=== PATIENT | female | born 1970 | race Caucasian/White ===

== ENCOUNTER → 2016-09-02 | Outpatient (CLI) | payer MEDICAID | LOC: OD 10:53 | PROVIDERS: ATTEND Physician Assistant | DX: R05 Cough (principal) | CPT/HCPCS: 71020 ==

== ENCOUNTER 2016-09-03 11:07 | Emergency (ER) | payer MEDICAID ==
--- NOTE | 2016-09-03 11:45 | ER Document Report ---
ED Medical Screen (RME) - General Stated Complaint: NAUSEA Notes: 46 yo female c/o ankylosing spondylosis flair. c/o joint pain, trouble breathing, cough, n/v, headache x 3-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 Recommended to go to [facility], but patient feels too weak to make the trip. Pt is late on Remicade dose. TRAVEL OUTSIDE OF THE [place] IN LAST 30 DAYS: No - Related Data Allergies/Adverse Reactions: celecoxib [From Celebrex] Allergy (Severe, Verified 08/17/15 18:07) Swelling of hands and/or feet clarithromycin [From Biaxin] Allergy (Severe, Verified 08/17/15 18:07) Swelling of hands and/or feet latex [Latex] Allergy (Severe, Verified 08/17/15 18:07) Anaphylaxis nitrofurantoin [From Macrobid] Allergy (Severe, Verified 08/17/15 18:07) Hives Sulfa (Sulfonamide Antibiotics) Allergy (Severe, Verified 08/17/15 18:07) Hives acetazolamide [From Diamox] Allergy (Verified 08/17/15 18:07) cephalexin monohydrate [From Keflex] Allergy (Verified 08/17/15 18:07) losartan [Losartan] Allergy (Verified 08/17/15 18:07) metformin [Metformin] Allergy (Verified 08/17/15 18:07) promethazine HCl [From Phenergan] Allergy (Verified 08/17/15 18:07) Cerebellar dysfunction rofecoxib [From Vioxx] Allergy (Verified 08/17/15 18:07) Swelling of hands and/or feet prochlorperazine maleate [From Compazine] Adverse Reaction (Verified 08/17/15 18 :07) Cerebellar dysfunction bananas Allergy (Severe, Uncoded 08/17/15 18:07) Difficulty breathing Past Medical History - Social History Family history: CAD, CVA, DM, Hyperlipidemia, Hypertension, Malignancy, Thyroid Disfunction - Past Medical History Cardiac Medical History: Reports: Hx Atrial Fibrillation, Hx Hypertension, Hx Heart Murmur Denies: Hx Coronary Artery Disease Pulmonary Medical History: Reports: Hx Asthma, Hx Pneumonia Neurological Medical History: Reports: Hx Migraine Endocrine Medical History: Reports: Hx Diabetes Mellitus Type 2, Hx Hypothyroidism Renal/ Medical History: Reports: Hx Ovarian Cysts - 6 Polyps, Hx Pelvic Inflammatory Disease GI Medical History: Reports: Hx Crohn's Disease, Hx Gastroesophageal Reflux Disease, Hx Hiatal Hernia, Hx Irritable Bowel, Hx Ulcer Musculoskeltal Medical History: Reports Hx Arthritis Psychiatric Medical History: Reports: Hx Depression, Hx Post Traumatic Stress Disorder Traumatic Medical History: Reports: Hx Fractures - feet Infectious Medical History: Reports: Hx C-Diff Past Surgical History: Reports: Hx Appendectomy, Hx Section, Hx Cholecystectomy, Hx Gynecologic Surgery - bladder sling, Hx Hysterectomy - Immunizations Immunizations up to date: Yes Hx Diphtheria, Pertussis, Tetanus Vaccination: Yes
[2016-09-03 12:21] LABS: ABSOLUTE BASOPHILS # (AUTO) 0.1 10^3/uL (0.0-0.2); ABSOLUTE EOSINOPHILS # (AUTO) 0.2 10^3/uL (0.0-0.6); ABSOLUTE LYMPHOCYTES (AUTO) 2.2 10^3/uL (0.5-4.7); ABSOLUTE MONOCYTES (AUTO) 0.5 10^3/uL (0.1-1.4); ABSOLUTE NEUT (AUTO) 3.7 10^3/uL (1.7-8.2); BASOPHILS % (AUTO) 1.5 % (0-2); EOSINOPHILS % (AUTO) 2.9 % (0-6); HEMATOCRIT 41.2 % (36.0-47.0); HEMOGLOBIN 14.4 g/dL (12.0-15.5); LYMPHOCYTES % (AUTO) 32.9 % (13-45); MEAN CORPUSCULAR HEMOGLOBIN 31.5 pg (27.0-33.4); MEAN CORPUSCULAR HGB CONC 34.9 g/dL (32.0-36.0); MEAN CORPUSCULAR VOLUME 90 fl (80-97); MONOCYTES % (AUTO) 6.7 % (3-13); RED BLOOD COUNT 4.56 10^6/uL (3.72-5.28); WHITE BLOOD COUNT 6.7 10^3/uL (4.0-10.5)
[2016-09-03 12:32] LABS: APPEARANCE,URINE TURBID; BILIRUBIN,URINE NEGATIVE (NEGATIVE); GLUCOSE, URINE NEGATIVE (NEGATIVE); KETONES,URINE TRACE mg/dL (NEGATIVE); LEUKOCYTE ESTERASE,URINE MODERATE (NEGATIVE); NITRITE,URINE NEGATIVE (NEGATIVE); PROTEIN,URINE 30 mg/dL (NEGATIVE); URINE SPECIFIC GRAVITY 1.029; UROBILINOGEN,URINE NEGATIVE mg/dL (<2.0)
[2016-09-03 12:42] LABS: ALANINE AMINOTRANSFERASE 42 U/L (9-52); ALBUMIN 4.1 g/dL (3.5-5.0); ALKALINE PHOSPHATASE 103 U/L (38-126); ANION GAP 12 (5-19); ASPARTATE AMINO TRANSFERASE 37 U/L (14-36); BILIRUBIN,TOTAL 0.7 mg/dL (0.2-1.3); BLOOD UREA NITROGEN 10 mg/dL (7-20); CALCIUM 9.7 mg/dL (8.4-10.2); CARBON DIOXIDE 24 mmol/L (22-30); CHLORIDE 103 mmol/L (98-107); CREATININE RESULT 0.65 mg/dL (0.52-1.25); GLUCOSE 141 mg/dL (75-110); POTASSIUM 4.2 mmol/L (3.6-5.0); SODIUM 139.3 mmol/L (137-145); TOTAL PROTEIN 7.3 g/dL (6.3-8.2)
[2016-09-03] MEDS ORDERED: IPRATROPIUM/ALBUTEROL 0.5-2.5 MG/3 ML AMPUL NEB ONE (14:27)
--- NOTE | 2016-09-03 14:28 | ER Document Report ---
ED General - General Chief Complaint: Other Stated Complaint: NAUSEA Notes: She is a 38-year-old with a known history of a closing spondylitis presents emergency department with a multitude of symptoms. She admits to dry cough that become productive over the past week as well as nausea vomiting diarrhea over the past 4 days she also admits to diffuse joint pain with any type of movement she says is consistent with an flareup of ankylosing spondylitis. She states that she has been told in the past to go to [facility] emergency department she feels that she has not well enough to drive and does not have family able to drive her there so she came here. She sees Dr. 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 Social Past medical history significant for closing spondylitis, diabetes, hypertension , hypothyroidism, asthma, migraines, GERD, diverticulosis, IBS with diarrhea and neurogenic bladder Past surgical history significant for appendectomy, cholecystectomy, hysterectomy and bladder sling Social history denies any tobacco, alcohol, drug use. Allergies to Phenergan with tardive dyskinesia- TRAVEL OUTSIDE OF THE [place] IN LAST 30 DAYS: No - Related Data Allergies/Adverse Reactions: celecoxib [From Celebrex] Allergy (Severe, Verified 09/03/16 11:43) Swelling of hands and/or feet clarithromycin [From Biaxin] Allergy (Severe, Verified 09/03/16 11:43) Swelling of hands and/or feet latex [Latex] Allergy (Severe, Verified 09/03/16 11:43) Anaphylaxis nitrofurantoin [From Macrobid] Allergy (Severe, Verified 09/03/16 11:43) Hives Sulfa (Sulfonamide Antibiotics) Allergy (Severe, Verified 09/03/16 11:43) Hives acetazolamide [From Diamox] Allergy (Verified 09/03/16 11:43) cephalexin monohydrate [From Keflex] Allergy (Verified 09/03/16 11:43) losartan [Losartan] Allergy (Verified 09/03/16 11:43) metformin [Metformin] Allergy (Verified 09/03/16 11:43) promethazine HCl [From Phenergan] Allergy (Verified 09/03/16 11:43) Cerebellar dysfunction rofecoxib [From Vioxx] Allergy (Verified 09/03/16 11:43) Swelling of hands and/or feet prochlorperazine maleate [From Compazine] Adverse Reaction (Verified 09/03/16 11 :43) Cerebellar dysfunction bananas Allergy (Severe, Uncoded 09/03/16 11:43) Difficulty breathing Past Medical History - Social History Smoking Status: Never Smoker Chew tobacco use (# tins/day): No Frequency of alcohol use: None Drug Abuse: None Family History: Reviewed & Not Pertinent, CAD, CVA, DM, Hyperlipidemia, Hypertension, Malignancy, Thyroid Disfunction Patient has suicidal ideation: No Patient has homicidal ideation: No - Past Medical History Cardiac Medical History: Reports: Hx Atrial Fibrillation, Hx Hypertension, Hx Heart Murmur Denies: Hx Coronary Artery Disease Pulmonary Medical History: Reports: Hx Asthma, Hx Pneumonia Neurological Medical History: Reports: Hx Migraine Endocrine Medical History: Reports: Hx Diabetes Mellitus Type 2, Hx Hypothyroidism Renal/ Medical History: Reports: Hx Ovarian Cysts - 6 Polyps, Hx Pelvic Inflammatory Disease. Denies: Hx Peritoneal Dialysis GI Medical History: Reports: Hx Crohn's Disease, Hx Gastroesophageal Reflux Disease, Hx Hiatal Hernia, Hx Irritable Bowel, Hx Ulcer Musculoskeltal Medical History: Reports Hx Arthritis Psychiatric Medical History: Reports: Hx Depression, Hx Post Traumatic Stress Disorder Traumatic Medical History: Reports: Hx Fractures - feet Infectious Medical History: Reports: Hx C-Diff Past Surgical History: Reports: Hx Appendectomy, Hx Section, Hx Cholecystectomy, Hx Gynecologic Surgery - bladder sling, Hx Hysterectomy - Immunizations Immunizations up to date: Yes Hx Diphtheria, Pertussis, Tetanus Vaccination: Yes Hx Pneumococcal Vaccination: 04/12/15 Course - Re-evaluation Re-evalutation: 09/03/16 18:04 Patient is a 38-year-old female presents emergency Department with multiple symptoms. She admits to nausea and diarrhea as well as overall joint pain worse in her hands and feet and shoulders that she says is consistent with her ankylosing spondylitis. Physical exam does reveal bilateral wheezing which was relieved with a breathing treatment. Urinalysis does reveal mild UTI which is consistent with patient's complaint of pyuria. Discussed case with patient's blast furnace supervisor Dr. Bonilla to follow-up with her on Thursday clinic. Otherwise patient is hemodynamically stable, no acute distress with stable for discharge - Laboratory Result Diagrams: 09/03/16 11:45 09/03/16 11:45 Laboratory results interpreted by me: 09/03/16 09/03/16 09/03/16 11:45 11:45 11:45 Glucose 141 H AST 37 H C-Reactive Protein 14.7 H Urine Protein 30 H Urine Ketones TRACE H Ur Leukocyte Esterase MODERATE H - Diagnostic Test Radiology reviewed: Reports reviewed Discharge - Discharge Clinical Impression: Nausea, Bronchitis UTI (urinary tract infection) Qualifiers: Urinary tract infection type: site unspecified Hematuria presence: without hematuria Qualified Code(s): N39.0 - Urinary tract infection, site not specified Condition: Good Disposition: HOME, SELF-CARE Instructions: Cephalexin ([facility]), Urinary Tract Infection ([facility]), Bronchitis With Bronchospasm (Wheezing) ([facility]), Bronchodilators ([facility]), Ultram ([facility]) Additional Instructions: Please follow up with your blast furnace supervisor Dr Bonilla on Thursday Prescriptions: Albuterol Sulfate [Proair HFA Inhalation Aerosol 8.5 gm MDI] 2 puff IH Q4H PRN # 1 mdi PRN Reason: Ciprofloxacin HCl [Cipro 500 mg Tablet] 500 mg PO BID 7 Days Referrals: PAWAN ARREOLA MD [Primary Care Provider] - Follow up as needed
[2016-09-03] MEDS ORDERED: ONDANSETRON 4 MG TAB.RAPDIS PO ONE (16:16)
[2016-09-03] MEDS ORDERED: TRAMADOL HCL 50 MG TABLET PO ONE (16:39)
[2016-09-03 18:32] VITALS: BP 150/106
== END 2016-09-03 18:28 | disposition home or self-care (01) ==
LOC: ER 11:07
DX: J40 Bronchitis, not specified as acute or chronic (principal); N39.0 Urinary tract infection, site not specified; R11.0 Nausea; I48.91 Unspecified atrial fibrillation; I10 Essential (primary) hypertension; E11.9 Type 2 diabetes mellitus without complications; E03.9 Hypothyroidism, unspecified; Z88.3 Allergy status to other anti-infective agents; Z90.49 Acquired absence of other specified parts of digestive tract; Z90.710 Acquired absence of both cervix and uterus; Z88.2 Allergy status to sulfonamides; Z91.040 Latex allergy status
CPT/HCPCS: 94640; 99283; 36415; 83690; 85025; 86140; 80053; 81001; 71020; S0119; J7620

== ENCOUNTER 2016-10-06 19:37 | Emergency (ER) | payer MEDICAID ==
[2016-10-06 19:58] VITALS: BP 121/65
--- NOTE | 2016-10-06 19:58 | ER Document Report ---
ED Medical Screen (RME) - General Stated Complaint: FEVER,BREATHING DIFFICULTY Mode of Arrival: Wheelchair Notes: She presents to the emergency department for immunosuppressive therapy for Ankylosing spondylitis on September 05. Patient reports cough, lightheaded, staggering, sore throat, vomiting, diarrhea at times and fever up to 104. Reports fever coming and going. History of SIRS, Sepsis, asthma. Reports last dose of Tylenol around 2:00 today. I have greeted and performed a rapid initial assessment of this patient. A comprehensive ED assessment and evaluation of the patient, analysis of test results and completion of the medical decision making process will be conducted by additional ED providers. TRAVEL OUTSIDE OF THE [place] IN LAST 30 DAYS: No - Related Data Allergies/Adverse Reactions: celecoxib [From Celebrex] Allergy (Severe, Verified 09/03/16 11:43) Swelling of hands and/or feet clarithromycin [From Biaxin] Allergy (Severe, Verified 09/03/16 11:43) Swelling of hands and/or feet latex [Latex] Allergy (Severe, Verified 09/03/16 11:43) Anaphylaxis nitrofurantoin [From Macrobid] Allergy (Severe, Verified 09/03/16 11:43) Hives Sulfa (Sulfonamide Antibiotics) Allergy (Severe, Verified 09/03/16 11:43) Hives acetazolamide [From Diamox] Allergy (Verified 09/03/16 11:43) cephalexin monohydrate [From Keflex] Allergy (Verified 09/03/16 11:43) losartan [Losartan] Allergy (Verified 09/03/16 11:43) metformin [Metformin] Allergy (Verified 09/03/16 11:43) promethazine HCl [From Phenergan] Allergy (Verified 09/03/16 11:43) Cerebellar dysfunction rofecoxib [From Vioxx] Allergy (Verified 09/03/16 11:43) Swelling of hands and/or feet prochlorperazine maleate [From Compazine] Adverse Reaction (Verified 09/03/16 11 :43) Cerebellar dysfunction bananas Allergy (Severe, Uncoded 09/03/16 11:43) Difficulty breathing Past Medical History - Social History Family history: CAD, CVA, DM, Hyperlipidemia, Hypertension, Malignancy, Thyroid Disfunction - Past Medical History Cardiac Medical History: Reports: Hx Atrial Fibrillation, Hx Hypertension, Hx Heart Murmur Denies: Hx Coronary Artery Disease Pulmonary Medical History: Reports: Hx Asthma, Hx Pneumonia Neurological Medical History: Reports: Hx Migraine Endocrine Medical History: Reports: Hx Diabetes Mellitus Type 2, Hx Hypothyroidism Renal/ Medical History: Reports: Hx Ovarian Cysts - 6 Polyps, Hx Pelvic Inflammatory Disease. Denies: Hx Peritoneal Dialysis GI Medical History: Reports: Hx Crohn's Disease, Hx Gastroesophageal Reflux Disease, Hx Hiatal Hernia, Hx Irritable Bowel, Hx Ulcer Musculoskeltal Medical History: Reports Hx Arthritis Psychiatric Medical History: Reports: Hx Depression, Hx Post Traumatic Stress Disorder Traumatic Medical History: Reports: Hx Fractures - feet Infectious Medical History: Reports: Hx C-Diff Past Surgical History: Reports: Hx Appendectomy, Hx Section, Hx Cholecystectomy, Hx Gynecologic Surgery - bladder sling, Hx Hysterectomy - Immunizations Immunizations up to date: Yes Hx Diphtheria, Pertussis, Tetanus Vaccination: Yes Physical Exam - Vital signs Vitals: Temp Pulse Resp BP Pulse Ox 99.7 F 92 16 121/65 93 10/06/16 19:56 10/06/16 19:56 10/06/16 19:56 10/06/16 19:56 10/06/16 19:56 Course - Vital Signs Vital signs: Temp Pulse Resp BP Pulse Ox 99.7 F 92 16 121/65 93 10/06/16 19:56 10/06/16 19:56 10/06/16 19:56 10/06/16 19:56 10/06/16 19:56
== END 2016-10-07 05:56 | disposition left against medical advice (07) ==
LOC: ER 19:37 → EEVIPCON 19:37 → ER 10-07 05:56
DX: R50.9 Fever, unspecified (principal); R05 Cough; R42 Dizziness and giddiness; J02.9 Acute pharyngitis, unspecified; R11.10 Vomiting, unspecified; R19.7 Diarrhea, unspecified; R26.0 Ataxic gait; E11.9 Type 2 diabetes mellitus without complications; J45.909 Unspecified asthma, uncomplicated; I10 Essential (primary) hypertension; Z86.19 Personal history of other infectious and parasitic diseases; Z88.1 Allergy status to other antibiotic agents; Z88.2 Allergy status to sulfonamides; Z91.040 Latex allergy status; Z88.8 Allergy status to other drugs, medicaments and biological substances; Z91.018 Allergy to other foods; Z87.01 Personal history of pneumonia (recurrent); Z53.20 Procedure and treatment not carried out because of patient's decision for unspecified reasons
CPT/HCPCS: 71020; 99281

== ENCOUNTER 2016-10-07 02:58 | Emergency (ER) | payer MEDICAID ==
[2016-10-07] MEDS ORDERED: IPRATROPIUM/ALBUTEROL 0.5-2.5 MG/3 ML AMPUL NEB ONE ×2 (07:38)
--- NOTE | 2016-10-07 07:48 | ER Document Report ---
ED General - General Chief Complaint: Cold Symptoms Stated Complaint: DIFFICULTY BREATHING Mode of Arrival: Ambulatory Information source: Patient Notes: 38-year-old female history of ankylosing spondylosis who was receiving injections last week presents with complaints of cough shortness of breath since then. Patient denies any nausea vomiting admits to fevers admits to productive cold and yellow rustic green sputum TRAVEL OUTSIDE OF THE [place] IN LAST 30 DAYS: No - HPI Onset: Last week Onset/Duration: Persistent Quality of pain: Achy Severity: Mild Pain Level: 1 Associated symptoms: Productive cough, Fever Exacerbated by: Denies Relieved by: Denies Similar symptoms previously: Yes Recently seen / treated by doctor: Yes - Related Data Allergies/Adverse Reactions: celecoxib [From Celebrex] Allergy (Severe, Verified 10/07/16 03:18) Swelling of hands and/or feet clarithromycin [From Biaxin] Allergy (Severe, Verified 10/07/16 03:18) Swelling of hands and/or feet latex [Latex] Allergy (Severe, Verified 10/07/16 03:18) Anaphylaxis nitrofurantoin [From Macrobid] Allergy (Severe, Verified 10/07/16 03:18) Hives Sulfa (Sulfonamide Antibiotics) Allergy (Severe, Verified 10/07/16 03:18) Hives acetazolamide [From Diamox] Allergy (Verified 10/07/16 03:18) losartan [Losartan] Allergy (Verified 10/07/16 03:18) metformin [Metformin] Allergy (Verified 10/07/16 03:18) promethazine HCl [From Phenergan] Allergy (Verified 10/07/16 03:18) Cerebellar dysfunction rofecoxib [From Vioxx] Allergy (Verified 10/07/16 03:18) Swelling of hands and/or feet prochlorperazine maleate [From Compazine] Adverse Reaction (Verified 10/07/16 03 :18) Cerebellar dysfunction bananas Allergy (Severe, Uncoded 09/03/16 11:43) Difficulty breathing Past Medical History - Social History Smoking Status: Never Smoker Chew tobacco use (# tins/day): No Frequency of alcohol use: None Drug Abuse: None Family History: Reviewed & Not Pertinent, CAD, CVA, DM, Hyperlipidemia, Hypertension, Malignancy, Thyroid Disfunction - Past Medical History Cardiac Medical History: Reports: Hx Atrial Fibrillation, Hx Hypertension, Hx Heart Murmur Denies: Hx Coronary Artery Disease Pulmonary Medical History: Reports: Hx Asthma, Hx Pneumonia Neurological Medical History: Reports: Hx Migraine Endocrine Medical History: Reports: Hx Diabetes Mellitus Type 2, Hx Hypothyroidism Renal/ Medical History: Reports: Hx Ovarian Cysts - 6 Polyps, Hx Pelvic Inflammatory Disease. Denies: Hx Peritoneal Dialysis GI Medical History: Reports: Hx Crohn's Disease, Hx Gastroesophageal Reflux Disease, Hx Hiatal Hernia, Hx Irritable Bowel, Hx Ulcer Musculoskeltal Medical History: Reports Hx Arthritis Psychiatric Medical History: Reports: Hx Depression, Hx Post Traumatic Stress Disorder Traumatic Medical History: Reports: Hx Fractures - feet Infectious Medical History: Reports: Hx C-Diff Past Surgical History: Reports: Hx Appendectomy, Hx Section, Hx Cholecystectomy, Hx Gynecologic Surgery - bladder sling, Hx Hysterectomy - Immunizations Immunizations up to date: Yes Hx Diphtheria, Pertussis, Tetanus Vaccination: Yes Hx Pneumococcal Vaccination: 04/12/15 Review of Systems - Review of Systems Notes: REVIEW OF SYSTEMS: CONSTITUTIONAL : Admits fever EENT: Denies eye, ear, throat, or mouth pain or symptoms. Denies nasal or sinus congestion or discharge. Denies throat, tongue, or mouth swelling or difficulty swallowing. CARDIOVASCULAR: Denies chest pain. Denies palpitations or racing or irregular heart beat. Denies ankle edema. RESPIRATORY: Admits shortness breath productive cough GASTROINTESTINAL: Denies abdominal pain or distention. Denies nausea, vomiting , or diarrhea. Denies blood in vomitus, stools, or per rectum. Denies black, tarry stools. Denies constipation. GENITOURINARY: Denies difficulty urinating, painful urination, burning, frequency, blood in urine, or discharge. FEMALE GENITOURINARY: Denies vaginal bleeding, heavy or abnormal periods, irregular periods. Denies vaginal discharge or odor. MUSCULOSKELETAL: Denies back or neck pain or stiffness. Denies joint pain or swelling. SKIN: Denies rash, lesions or sores. HEMATOLOGIC : Denies easy bruising or bleeding. LYMPHATIC: Denies swollen, enlarged glands. NEUROLOGICAL: Denies confusion or altered mental status. Denies passing out or loss of consciousness. Denies dizziness or lightheadedness. Denies headache. Denies weakness or paralysis or loss of use of either side. Denies problems with gait or speech. Denies sensory loss, numbness, or tingling. Denies seizures. PSYCHIATRIC: Denies anxiety or stress. Denies depression, suicidal ideation, or homicidal ideation. ALL OTHER SYSTEMS REVIEWED AND NEGATIVE. Dictation was performed using [employer] voice recognition software PHYSICAL EXAMINATION: GENERAL: Well-appearing, well-nourished and in no acute distress. HEAD: Atraumatic, normocephalic. EYES: Pupils equal round and reactive to light, extraocular movements intact, conjunctiva are normal. ENT: Nares patent, oropharynx clear without exudates. Moist mucous membranes. NECK: Normal range of motion, supple without lymphadenopathy LUNGS: Breath sounds clear to auscultation bilaterally and equal. No wheezes rales or rhonchi. HEART: Regular rate and rhythm without murmurs , port access ABDOMEN: Soft, nontender, nondistended abdomen. No guarding, no rebound. No masses appreciated. Female : deferred Musculoskeletal: Normal range of motion, no pitting or edema. No cyanosis. NEUROLOGICAL: Cranial nerves grossly intact. Normal speech, normal gait. Normal sensory, motor exams PSYCH: Normal mood, normal affect. SKIN: Warm, Dry, normal turgor, no rashes or lesions noted. Physical Exam - Vital signs Vitals: Temp Pulse Resp BP Pulse Ox 100.2 F 115 H 24 H 120/74 96 10/07/16 03:13 10/07/16 03:13 10/07/16 03:13 10/07/16 03:13 10/07/16 03:13 Course - Re-evaluation Re-evalutation: 10/07/16 07:50 Patient has probable URI versus pneumonia, x-ray from last night was normal 10/07/16 11:01 X-ray noted no acute abnormality patient otherwise is stable for discharge I will start her on antibiotics given symptoms After performing a Medical Screening Examination, I estimate there is LOW risk for ACUTE CORONARY SYNDROME, RESPIRATORY FAILURE, SEPSIS OR MENINGITIS, thus I consider the discharge disposition reasonable. The patient and I have discussed the diagnosis and risks, and we agree with discharging home with close follow- up. We also discussed returning to the Emergency Department immediately if new or worsening symptoms occur. We have discussed the symptoms which are most concerning (e.g., changing or worsening pain, trouble swallowing or breathing, neck stiffness, fever) that necessitate immediate return. - Vital Signs Vital signs: Temp Pulse Resp BP Pulse Ox 98.7 F 101 H 16 148/94 H 98 10/07/16 07:31 10/07/16 07:31 10/07/16 07:36 10/07/16 07:31 10/07/16 07:31 - Laboratory Result Diagrams: 10/07/16 08:00 10/07/16 08:00 Laboratory results interpreted by me: 10/07/16 10/07/16 08:00 08:00 WBC 16.1 H Hgb 11.8 L Hct 35.7 L Absolute Neutrophils 11.7 H Glucose 217 H - Diagnostic Test Radiology reviewed: Image reviewed, Reports reviewed Discharge - Discharge Clinical Impression: Wheezing Pneumonia Qualifiers: Pneumonia type: due to unspecified organism Laterality: bilateral Lung location : unspecified part of lung Qualified Code(s): J18.9 - Pneumonia, unspecified organism Condition: Stable Disposition: HOME, SELF-CARE Instructions: Pneumonia ([facility]) Prescriptions: Levofloxacin [Levaquin 750 mg Tablet] 750 mg PO DAILY #5 tablet Prednisone [Deltasone 20 mg Tablet] 3 tab PO DAILY 5 Days Referrals: PAWAN ARREOLA MD [Primary Care Provider] - Follow up tomorrow
[2016-10-07 08:15] LABS: ABSOLUTE BASOPHILS # (AUTO) 0.1 10^3/uL (0.0-0.2); ABSOLUTE EOSINOPHILS # (AUTO) 0.2 10^3/uL (0.0-0.6); ABSOLUTE LYMPHOCYTES (AUTO) 2.9 10^3/uL (0.5-4.7); ABSOLUTE MONOCYTES (AUTO) 1.1 10^3/uL (0.1-1.4); ABSOLUTE NEUT (AUTO) 11.7 10^3/uL (1.7-8.2); BASOPHILS % (AUTO) 0.8 % (0-2); EOSINOPHILS % (AUTO) 1.1 % (0-6); HEMATOCRIT 35.7 % (36.0-47.0); HEMOGLOBIN 11.8 g/dL (12.0-15.5); HGB HCT DIFFERENCE -0.3; LYMPHOCYTES % (AUTO) 18.3 % (13-45); MEAN CORPUSCULAR HEMOGLOBIN 30.3 pg (27.0-33.4); MEAN CORPUSCULAR HGB CONC 33.1 g/dL (32.0-36.0); MEAN CORPUSCULAR VOLUME 92 fl (80-97); MONOCYTES % (AUTO) 6.7 % (3-13); RED CELL DISTRIBUTION WIDTH 13.7 % (11.5-14.0); SEGMENTED NEUTROPHILS % (AUTO) 73.1 % (42-78); WHITE BLOOD COUNT 16.1 10^3/uL (4.0-10.5)
[2016-10-07 08:31] LABS: ALANINE AMINOTRANSFERASE 40 U/L (9-52); ALBUMIN 3.7 g/dL (3.5-5.0); ALKALINE PHOSPHATASE 98 U/L (38-126); ANION GAP 12 (5-19); ASPARTATE AMINO TRANSFERASE 28 U/L (14-36); BILIRUBIN,DIRECT 0.2 mg/dL (0.0-0.4); BILIRUBIN,TOTAL 0.5 mg/dL (0.2-1.3); BLOOD UREA NITROGEN 7 mg/dL (7-20); CALCIUM 9.3 mg/dL (8.4-10.2); CARBON DIOXIDE 27 mmol/L (22-30); CHLORIDE 98 mmol/L (98-107); CREATININE RESULT 0.61 mg/dL (0.52-1.25); GLUCOSE 217 mg/dL (75-110); POTASSIUM 3.6 mmol/L (3.6-5.0); SODIUM 137.3 mmol/L (137-145); TOTAL PROTEIN 6.9 g/dL (6.3-8.2)
[2016-10-07 11:31] VITALS: BP 124/76
== END 2016-10-07 11:31 | disposition home or self-care (01) ==
LOC: ER 02:58
DX: J18.9 Pneumonia, unspecified organism (principal); R06.2 Wheezing; R05 Cough
CPT/HCPCS: 36591; 94640 ×2; 99283; 36415; 87070; 87880; 85025; 80053; J7620

== ENCOUNTER 2016-11-14 11:05 | Emergency (ER) | payer MEDICAID ==
[2016-11-14] MEDS ORDERED: LIDOCAINE 5% (700 MG) TRANSDERMAL ADH..PATCH TP ONE (12:15)
--- NOTE | 2016-11-14 12:19 | ER Document Report ---
HPI - HPI Patient complains to provider of: arm injury Onset: Other - 2 days ago Onset/Duration: Persistent Quality of pain: Achy Pain Level: 3 Context: Patient states that she rolled out of her bed 2 days ago and fell landing on her right side. Patient states that she emilie her neck and her left shoulder although predominantly injured her right upper extremity. Patient complains of right shoulder pain, right forearm pain and right wrist pain. Patient is right- hand dominant. Patient does take pain medication for chronic pain although did not take any medication today. Associated Symptoms: Other - Right shoulder, elbow, wrist pain. denies: Chest pain, Nonproductive cough, Productive cough, Headache, Nausea, Vomiting Exacerbated by: Movement Relieved by: Denies Similar symptoms previously: No Recently seen / treated by doctor: No - ROS ROS below otherwise negative: Yes Systems Reviewed and Negative: Yes All other systems reviewed and negative - CONSTITUTIONAL Constitutional: DENIES: Fever - NEURO Neurology: DENIES: Headache, Weakness - CARDIOVASCULAR Cardiovascular: DENIES: Chest pain - RESPIRATORY Respiratory: DENIES: Trouble Breathing, Coughing - GASTROINTESTINAL Gastrointestinal: DENIES: Abdominal Pain, Nausea - REPRODUCTIVE Reproductive: DENIES: : - MUSCULOSKELETAL Musculoskeletal: REPORTS: Extremity pain - Right upper extremity, Neck Pain. DENIES: Back Pain - DERM Skin Color: Normal Skin Problems: None Past Medical History - General Information source: Patient - Social History Smoking Status: Never Smoker Frequency of alcohol use: None Drug Abuse: None Occupation: none Family History: Reviewed & Not Pertinent, CAD, CVA, DM, Hyperlipidemia, Hypertension, Malignancy, Thyroid Disfunction Patient has suicidal ideation: No Patient has homicidal ideation: No - Past Medical History Cardiac Medical History: Reports: Hx Atrial Fibrillation, Hx Hypertension, Hx Heart Murmur Denies: Hx Coronary Artery Disease Pulmonary Medical History: Reports: Hx Asthma, Hx Pneumonia Neurological Medical History: Reports: Hx Migraine Endocrine Medical History: Reports: Hx Diabetes Mellitus Type 2, Hx Hypothyroidism Renal/ Medical History: Reports: Hx Ovarian Cysts - 6 Polyps, Hx Pelvic Inflammatory Disease. Denies: Hx Peritoneal Dialysis GI Medical History: Reports: Hx Crohn's Disease, Hx Gastroesophageal Reflux Disease, Hx Hiatal Hernia, Hx Irritable Bowel, Hx Ulcer Musculoskeltal Medical History: Reports Hx Arthritis Psychiatric Medical History: Reports: Hx Depression, Hx Post Traumatic Stress Disorder Traumatic Medical History: Reports: Hx Fractures - feet Infectious Medical History: Reports: Hx C-Diff Past Surgical History: Reports: Hx Appendectomy, Hx Section, Hx Cholecystectomy, Hx Gynecologic Surgery - bladder sling, Hx Hysterectomy - Immunizations Immunizations up to date: Yes Hx Diphtheria, Pertussis, Tetanus Vaccination: Yes Hx Pneumococcal Vaccination: 04/12/15 Vertical Provider Document - CONSTITUTIONAL Agree With Documented VS: Yes Exam Limitations: No Limitations General Appearance: WD/WN, No Apparent Distress - INFECTION CONTROL TRAVEL OUTSIDE OF THE [place] IN LAST 30 DAYS: No - HEENT HEENT: Atraumatic, Normocephalic - NECK Neck: Supple Notes: Patient with posterior cervical paraspinal muscle tenderness, no midline tenderness, step-off, or deformity - RESPIRATORY Respiratory: Breath Sounds Normal, No Respiratory Distress, Chest Non-Tender O2 Sat by Pulse Oximetry: 97 - CARDIOVASCULAR Cardiovascular: Regular Rate, Regular Rhythm, No Murmur Pulses: Normal: Radial - BACK Back: Normal Inspection - MUSCULOSKELETAL/EXTREMETIES Musculoskeletal/Extremeties: MAEW, Tender - Right shoulder joint tenderness, no deformity, no dislocation, mild tenderness with palpation of left shoulder joint , no dislocation or deformity, No Edema Notes: Right elbow tenderness over radial head, no obvious joint effusion. Right forearm generalized tenderness. Patient with increased tenderness to distal third of right forearm involving right wrist. - NEURO Level of Consciousness: Awake, Alert, Appropriate Motor/Sensory: No Motor Deficit - DERM Integumentary: Warm, Dry, No Rash Course - Vital Signs Vital signs: Temp Pulse Resp BP Pulse Ox 98.6 F 92 20 152/93 H 97 11/14/16 11:20 11/14/16 11:20 11/14/16 11:20 11/14/16 11:20 11/14/16 11:20 - Diagnostic Test Radiology reviewed: Image reviewed, Reports reviewed Procedures - Immobilization Right Wrist Pre-Proc Neuro Vasc Exam: Normal Immobilizer type: Cock-up Performed by: PCT Post-Proc Neuro Vasc Exam: Normal Alignment checked and good: Yes Right Arm Pre-Proc Neuro Vasc Exam: Normal Immobilizer type: Sling Performed by: PCT Post-Proc Neuro Vasc Exam: Normal Alignment checked and good: Yes Discharge - Discharge Clinical Impression: Elevated blood pressure reading Fall Qualifiers: Encounter type: initial encounter Qualified Code(s): W19.XXXA - Unspecified fall, initial encounter Sprain of wrist, right Qualifiers: Encounter type: initial encounter Qualified Code(s): S63.501A - Unspecified sprain of right wrist, initial encounter Sprain of shoulder, right Qualifiers: Encounter type: initial encounter Shoulder sprain type: unspecified sprain Qualified Code(s): S43.401A - Unspecified sprain of right shoulder joint, initial encounter Sprain of elbow, right Qualifiers: Encounter type: initial encounter Qualified Code(s): S53.401A - Unspecified sprain of right elbow, initial encounter Condition: Stable Disposition: HOME, SELF-CARE Instructions: Sprain ([facility]), Temporary Sling ([facility]), Temporary Splint ([facility]) Additional Instructions: Return immediately for any new or worsening symptoms Followup with your primary care provider, call tomorrow to make a followup appointment Follow up with orthopedic Dr. for any continued pain or problems Wear sling while awake only Take your pain medication they have at home as prescribed Your blood pressure was elevated today, recheck with her primary doctor in 2 days to have this further evaluated Referrals: PAWAN ARREOLA MD [Primary Care Provider] - Follow up in 3-5 days [facility] [Provider Group] - Follow up as needed
[2016-11-14 15:28] VITALS: BP 141/97
== END 2016-11-14 15:27 | disposition home or self-care (01) ==
LOC: ER 11:05
DX: S43.401A Unspecified sprain of right shoulder joint, initial encounter (principal); S53.401A Unspecified sprain of right elbow, initial encounter; S63.501A Unspecified sprain of right wrist, initial encounter; I10 Essential (primary) hypertension; W06.XXXA Fall from bed, initial encounter; I48.91 Unspecified atrial fibrillation; E11.9 Type 2 diabetes mellitus without complications; E03.9 Hypothyroidism, unspecified; Z90.49 Acquired absence of other specified parts of digestive tract; Z90.710 Acquired absence of both cervix and uterus
CPT/HCPCS: 99283; 73080; 73090; 73030; L3984; J3490

== ENCOUNTER 2017-01-24 13:47 | Emergency (ER) | payer MEDICAID ==
[2017-01-24] MEDS ORDERED: NORMAL SALINE 1000 ML 1,000 ML IV ONE (14:44)
--- NOTE | 2017-01-24 14:48 | ER Document Report ---
ED Medical Screen (RME) - General Chief Complaint: Pain All Over Stated Complaint: FATIGUE Time Seen by Provider: 01/24/17 14:44 Mode of Arrival: Ambulatory Information source: Patient TRAVEL OUTSIDE OF THE [place] IN LAST 30 DAYS: No - HPI Patient complains to provider of: pain all over Onset: Other - pt with h/o has bladder surgery scheduled for the end of the month with c/o "pain all over" and thinks she has a UTI - Related Data Allergies/Adverse Reactions: celecoxib [From Celebrex] Allergy (Severe, Verified 01/24/17 13:51) Swelling of hands and/or feet clarithromycin [From Biaxin] Allergy (Severe, Verified 01/24/17 13:51) Swelling of hands and/or feet latex [Latex] Allergy (Severe, Verified 01/24/17 13:51) Anaphylaxis nitrofurantoin [From Macrobid] Allergy (Severe, Verified 01/24/17 13:51) Hives Sulfa (Sulfonamide Antibiotics) Allergy (Severe, Verified 01/24/17 13:51) Hives acetazolamide [From Diamox] Allergy (Verified 01/24/17 13:51) losartan [Losartan] Allergy (Verified 01/24/17 13:51) metformin [Metformin] Allergy (Verified 01/24/17 13:51) promethazine HCl [From Phenergan] Allergy (Verified 01/24/17 13:51) Cerebellar dysfunction rofecoxib [From Vioxx] Allergy (Verified 01/24/17 13:51) Swelling of hands and/or feet prochlorperazine maleate [From Compazine] Adverse Reaction (Verified 01/24/17 13 :51) Cerebellar dysfunction bananas Allergy (Severe, Uncoded 01/24/17 13:51) Difficulty breathing Past Medical History - Social History Chew tobacco use (# tins/day): No Frequency of alcohol use: None Drug Abuse: None Family history: CAD, CVA, DM, Hyperlipidemia, Hypertension, Malignancy, Thyroid Disfunction - Past Medical History Cardiac Medical History: Reports: Hx Atrial Fibrillation, Hx Hypertension, Hx Heart Murmur Denies: Hx Coronary Artery Disease Pulmonary Medical History: Reports: Hx Asthma, Hx Pneumonia Neurological Medical History: Reports: Hx Migraine Endocrine Medical History: Reports: Hx Diabetes Mellitus Type 2, Hx Hypothyroidism Renal/ Medical History: Reports: Hx Ovarian Cysts - 6 Polyps, Hx Pelvic Inflammatory Disease. Denies: Hx Peritoneal Dialysis GI Medical History: Reports: Hx Crohn's Disease, Hx Gastroesophageal Reflux Disease, Hx Hiatal Hernia, Hx Irritable Bowel, Hx Ulcer Musculoskeltal Medical History: Reports Hx Arthritis Psychiatric Medical History: Reports: Hx Depression, Hx Post Traumatic Stress Disorder Traumatic Medical History: Reports: Hx Fractures - feet Infectious Medical History: Reports: Hx C-Diff Past Surgical History: Reports: Hx Appendectomy, Hx Section, Hx Cholecystectomy, Hx Gynecologic Surgery - bladder sling, Hx Hysterectomy - Immunizations Immunizations up to date: Yes Hx Diphtheria, Pertussis, Tetanus Vaccination: Yes Physical Exam - Vital signs Vitals: Temp Pulse Resp BP Pulse Ox 98.4 F 83 20 126/96 H 95 01/24/17 13:53 01/24/17 13:53 01/24/17 13:53 01/24/17 13:53 01/24/17 13:53 Course - Vital Signs Vital signs: Temp Pulse Resp BP Pulse Ox 98.4 F 83 20 126/96 H 95 01/24/17 13:53 01/24/17 13:53 01/24/17 13:53 01/24/17 13:53 01/24/17 13:53
[2017-01-24 15:12] LABS: APPEARANCE,URINE SLIGHTLY-CLOUDY; BILIRUBIN,URINE NEGATIVE (NEGATIVE); GLUCOSE, URINE NEGATIVE (NEGATIVE); KETONES,URINE NEGATIVE (NEGATIVE); LEUKOCYTE ESTERASE,URINE MODERATE (NEGATIVE); NITRITE,URINE NEGATIVE (NEGATIVE); PROTEIN,URINE NEGATIVE (NEGATIVE); URINE SPECIFIC GRAVITY 1.015; UROBILINOGEN,URINE NEGATIVE mg/dL (<2.0)
[2017-01-24] MEDS ORDERED: ONDANSETRON HCL INJ/PF 4 MG/2 ML SDV IV ONE ×2 (15:49→18:00)
[2017-01-24] MEDS ORDERED: MORPHINE SULFATE 10 MG/ML INJ IV PRN ×2 (15:49→17:59)
--- NOTE | 2017-01-24 15:50 | ER Document Report ---
ED General - General Chief Complaint: Pain All Over Stated Complaint: FATIGUE Time Seen by Provider: 01/24/17 14:44 Mode of Arrival: Ambulatory Information source: Patient Notes: This is a 46-year-old female with a history of obesity, ankylosing spondylitis ( on monthly Remicade injections), chronic pain, awaiting bladder surgery at the end of this month, who presents to the emergency room with fevers, chills, dysuria for the past several days. Patient states she had spoken to a twister hand and was referred to the emergency room. Patient also states she has been having pain all over which is consistent with her ankylosing spondylitis. TRAVEL OUTSIDE OF THE [place] IN LAST 30 DAYS: No - HPI Onset: Last week Onset/Duration: Gradual Quality of pain: Dull Severity: Moderate Pain Level: 3 Associated symptoms: Chills, Fever. denies: Shortness of breath Exacerbated by: Denies Relieved by: Denies Similar symptoms previously: Yes Recently seen / treated by doctor: Yes - Related Data Allergies/Adverse Reactions: celecoxib [From Celebrex] Allergy (Severe, Verified 01/24/17 13:51) Swelling of hands and/or feet clarithromycin [From Biaxin] Allergy (Severe, Verified 01/24/17 13:51) Swelling of hands and/or feet latex [Latex] Allergy (Severe, Verified 01/24/17 13:51) Anaphylaxis nitrofurantoin [From Macrobid] Allergy (Severe, Verified 01/24/17 13:51) Hives Sulfa (Sulfonamide Antibiotics) Allergy (Severe, Verified 01/24/17 13:51) Hives acetazolamide [From Diamox] Allergy (Verified 01/24/17 13:51) losartan [Losartan] Allergy (Verified 01/24/17 13:51) metformin [Metformin] Allergy (Verified 01/24/17 13:51) promethazine HCl [From Phenergan] Allergy (Verified 01/24/17 13:51) Cerebellar dysfunction rofecoxib [From Vioxx] Allergy (Verified 01/24/17 13:51) Swelling of hands and/or feet prochlorperazine maleate [From Compazine] Adverse Reaction (Verified 01/24/17 13 :51) Cerebellar dysfunction bananas Allergy (Severe, Uncoded 01/24/17 13:51) Difficulty breathing Past Medical History - General Information source: Patient - Social History Smoking Status: Never Smoker Cigarette use (# per day): No Chew tobacco use (# tins/day): No Frequency of alcohol use: None Drug Abuse: None Lives with: Family Family History: Reviewed & Not Pertinent, CAD, CVA, DM, Hyperlipidemia, Hypertension, Malignancy, Thyroid Disfunction Patient has suicidal ideation: No Patient has homicidal ideation: No - Past Medical History Cardiac Medical History: Reports: Hx Atrial Fibrillation, Hx Hypertension, Hx Heart Murmur Denies: Hx Coronary Artery Disease Pulmonary Medical History: Reports: Hx Asthma, Hx Pneumonia Neurological Medical History: Reports: Hx Migraine Endocrine Medical History: Reports: Hx Diabetes Mellitus Type 2, Hx Hypothyroidism Renal/ Medical History: Reports: Hx Ovarian Cysts - 6 Polyps, Hx Pelvic Inflammatory Disease. Denies: Hx Peritoneal Dialysis GI Medical History: Reports: Hx Crohn's Disease, Hx Gastroesophageal Reflux Disease, Hx Hiatal Hernia, Hx Irritable Bowel, Hx Ulcer Musculoskeltal Medical History: Reports Hx Arthritis Psychiatric Medical History: Reports: Hx Depression, Hx Post Traumatic Stress Disorder Traumatic Medical History: Reports: Hx Fractures - feet Infectious Medical History: Reports: Hx C-Diff Past Surgical History: Reports: Hx Appendectomy, Hx Section, Hx Cholecystectomy, Hx Gynecologic Surgery - bladder sling, Hx Hysterectomy - Immunizations Immunizations up to date: Yes Hx Diphtheria, Pertussis, Tetanus Vaccination: Yes Hx Pneumococcal Vaccination: 04/12/15 Review of Systems - Review of Systems Constitutional: Chills, Fever EENT: No symptoms reported Cardiovascular: No symptoms reported Respiratory: No symptoms reported Gastrointestinal: No symptoms reported Genitourinary: See HPI Female Genitourinary: No symptoms reported Musculoskeletal: See HPI Skin: No symptoms reported Hematologic/Lymphatic: No symptoms reported Neurological/Psychological: No symptoms reported Physical Exam - Vital signs Vitals: Temp Pulse Resp BP Pulse Ox 98.4 F 83 20 126/96 H 95 01/24/17 13:53 01/24/17 13:53 01/24/17 13:53 01/24/17 13:53 01/24/17 13:53 Notes: Physical exam: GENERAL: 46-year-old female, alert and oriented 3, no acute distress HEAD: Atraumatic, normocephalic. EYES: Pupils equal round and reactive to light, extraocular movements intact, sclera anicteric, conjunctiva are normal. ENT: TMs normal, nares patent, oropharynx clear without exudates. Moist mucous membranes. NECK: Normal range of motion, supple without lymphadenopathy or JVD. LUNGS: Breath sounds clear to auscultation bilaterally and equal. No wheezes rales or rhonchi. HEART: Regular rate and rhythm without murmurs, rubs or gallops. ABDOMEN: Soft, normoactive bowel sounds. No tenderness to palpation. No guarding, no rebound. No masses appreciated. EXTREMITIES: Normal range of motion, no pitting or edema. No clubbing or cyanosis. NEUROLOGICAL: Cranial nerves II through XII grossly intact. Normal speech, normal gait. PSYCH: Normal mood, normal affect. SKIN: Warm, Dry, normal turgor, no rashes or lesions noted. Course - Re-evaluation Re-evalutation: 01/24/17 19:39 :note: I have had a long discussion with the patient. She looks good. Her vital signs are stable. Her labs are acceptable. She may have the beginnings of a UTI. I have sent the urine culture. I discussed the options with her. She does have a history of sepsis and given her immune compromise, we have decided to give her some IV ceftriaxone here in the ER and then send her home on a third -generation cephalosporin. She is allergic to sulfa and Macrodantin, and the resistance to Cipro is high in this area. I do not see any evidence of sepsis now and she looks quite good. Plan will be for her to follow-up with her primary care doctor. She does have some chronic pain and she ran out of the pain medicine and I will prescribe her some pain medicine. However, I will refer her to the pain clinic in [facility]. Abdomen is quite soft at this time. She has had multiple CTs in the past and I do not see an acute indication for another CT tonight. I did express my concern regarding the amount of radiation in the wrist for cancer and she agrees that withholding from a CT at this time. 01/24/17 19:40 - Vital Signs Vital signs: Temp Pulse Resp BP Pulse Ox 97.7 F 85 18 138/73 H 98 01/24/17 18:05 01/24/17 18:05 01/24/17 18:05 01/24/17 18:05 01/24/17 18:05 - Laboratory Result Diagrams: 01/24/17 16:43 01/24/17 16:43 Laboratory results interpreted by me: 01/24/17 01/24/17 01/24/17 14:55 16:43 16:43 WBC 11.6 H ESR 31 H Sodium 135.5 L Glucose 144 H C-Reactive Protein 20.2 H Ur Leukocyte Esterase MODERATE H Discharge - Discharge Clinical Impression: UTI, Musculoskeletal pain Condition: Stable Disposition: HOME, SELF-CARE Instructions: Urinary Tract Infection ([facility]) Additional Instructions: Recommendations: Start the Cefdenir morning ( you received tonight's antibiotic in the emergency room). Take the Diflucan once you have completed the antibiotics for yeast infection Could also try taking probiotics once the antibiotics are done Pain medicine as needed Patient medicine as needed Follow-up in the pain clinic: I left the number Follow-up with your twister hand: Bring a copy of today's labs with you. Culture will take 1-2 days to come back The pain medicine you're taking prescribed as a narcotic. There are several important things you should know about this medicine: 1. Taking narcotics for too long can lead to physical and mental dependence. Take this medicine only if really needed and in the lowest quantity to achieve pain relief. 2. Do not drink alcohol while on this medicine. Alcohol interacts with narcotics and the combination can be dangerous. 3. Do not drive or operate machinery while on this medicine. 4. Narcotics do cause constipation, so drink plenty of fluids and daily stool softeners. Prescriptions: Oxycodone HCl 5 mg PO Q6HP PRN #25 tablet PRN Reason: Cefdinir [Omnicef 300 mg Capsule] 1 cap PO BID #14 capsule Fluconazole [Diflucan] 150 mg PO ONCE PRN #1 tablet PRN Reason: Ondansetron HCl [Zofran 4 mg Tablet] 1 - 2 tab PO Q4H PRN #10 tablet PRN Reason: Referrals: PAWAN ARREOLA MD [Primary Care Provider] - Follow up as needed VILLA JUAN MD [ACTIVE STAFF] - Follow up as needed (Number for the pain clinic)
[2017-01-24 17:03] LABS: ABSOLUTE BASOPHILS # (AUTO) 0.1 10^3/uL (0.0-0.2); ABSOLUTE EOSINOPHILS # (AUTO) 0.5 10^3/uL (0.0-0.6); ABSOLUTE LYMPHOCYTES (AUTO) 3.5 10^3/uL (0.5-4.7); ABSOLUTE MONOCYTES (AUTO) 0.8 10^3/uL (0.1-1.4); ABSOLUTE NEUT (AUTO) 6.8 10^3/uL (1.7-8.2); BASOPHILS % (AUTO) 0.7 % (0-2); HEMATOCRIT 40.7 % (36.0-47.0); HEMOGLOBIN 13.6 g/dL (12.0-15.5); HGB HCT DIFFERENCE 0.1; LYMPHOCYTES % (AUTO) 30.1 % (13-45); MEAN CORPUSCULAR HEMOGLOBIN 30.8 pg (27.0-33.4); MEAN CORPUSCULAR HGB CONC 33.6 g/dL (32.0-36.0); MEAN CORPUSCULAR VOLUME 92 fl (80-97); MONOCYTES % (AUTO) 7.2 % (3-13); RED BLOOD COUNT 4.43 10^6/uL (3.72-5.28); RED CELL DISTRIBUTION WIDTH 13.2 % (11.5-14.0); WHITE BLOOD COUNT 11.6 10^3/uL (4.0-10.5)
[2017-01-24 17:16] LABS: ALANINE AMINOTRANSFERASE 27 U/L (9-52); ALKALINE PHOSPHATASE 113 U/L (38-126); ANION GAP 10 (5-19); ASPARTATE AMINO TRANSFERASE 19 U/L (14-36); BILIRUBIN,DIRECT 0.3 mg/dL (0.0-0.4); BILIRUBIN,TOTAL 0.4 mg/dL (0.2-1.3); BLOOD UREA NITROGEN 16 mg/dL (7-20); C-REACTIVE PROTEIN 20.2 mg/L (<10.0); CALCIUM 9.2 mg/dL (8.4-10.2); CARBON DIOXIDE 24 mmol/L (22-30); CHLORIDE 102 mmol/L (98-107); CREATININE RESULT 0.74 mg/dL (0.52-1.25); GLUCOSE 144 mg/dL (75-110); POTASSIUM 4.4 mmol/L (3.6-5.0); SODIUM 135.5 mmol/L (137-145)
[2017-01-24 17:41] LABS: ERYTHROCYTE SEDIMENTATION RATE 31 mm/hr (0-20)
[2017-01-24] MEDS ORDERED: DIPHENHYDRAMINE HCL 50 MG/ML VIAL IV ONE (18:00)
[2017-01-24] MEDS ORDERED: CEFTRIAXONE 1 GM/D5W RTU 50 ML IV ONE (19:24)
[2017-01-24 21:04] VITALS: BP 121/85
== END 2017-01-24 20:40 | disposition home or self-care (01) ==
LOC: ER 13:47
DX: N39.0 Urinary tract infection, site not specified (principal); G89.29 Other chronic pain; M45.9 Ankylosing spondylitis of unspecified sites in spine; R50.9 Fever, unspecified; E11.9 Type 2 diabetes mellitus without complications; J45.909 Unspecified asthma, uncomplicated; I10 Essential (primary) hypertension; Z79.899 Other long term (current) drug therapy; Z88.8 Allergy status to other drugs, medicaments and biological substances; Z88.1 Allergy status to other antibiotic agents; Z88.2 Allergy status to sulfonamides; Z91.018 Allergy to other foods; Z87.892 Personal history of anaphylaxis; Z91.040 Latex allergy status
CPT/HCPCS: 36592; 96376; 99283; 96375; 96365; 36415; 87040; 87086; 85025; 85652; 86140; 80053; 81001; J1200; J2270; J2405; J7030; J0696

== ENCOUNTER 2017-08-26 14:05 | Emergency (ER) | payer MEDICAID ==
[2017-08-26] MEDS ORDERED: NORMAL SALINE 1000 ML 1,000 ML IV ONE ×2 (14:47→16:56)
--- NOTE | 2017-08-26 14:48 | ER Document Report ---
ED Medical Screen (RME) - General Chief Complaint: Abdominal Pain Stated Complaint: ABDOMINAL PAIN,FEVER,NAUSEA,VOMITING Time Seen by Provider: 08/26/17 14:47 Mode of Arrival: Ambulatory Information source: Patient Notes: Patient states she has a history of ankylosing spondylitis and has been hospitalized in the past with sepsis. She states she normally takes Remicade but has been unable to get to [place] to get her dose. She states she is having fever chills cough and flulike symptoms. TRAVEL OUTSIDE OF THE [place] IN LAST 30 DAYS: No - Related Data Allergies/Adverse Reactions: celecoxib [From Celebrex] Allergy (Severe, Verified 08/26/17 14:06) Swelling of hands and/or feet clarithromycin [From Biaxin] Allergy (Severe, Verified 08/26/17 14:06) Swelling of hands and/or feet latex [Latex] Allergy (Severe, Verified 08/26/17 14:06) Anaphylaxis nitrofurantoin [From Macrobid] Allergy (Severe, Verified 08/26/17 14:06) Hives Sulfa (Sulfonamide Antibiotics) Allergy (Severe, Verified 08/26/17 14:06) Hives acetazolamide [From Diamox] Allergy (Verified 08/26/17 14:06) losartan [Losartan] Allergy (Verified 08/26/17 14:06) metformin [Metformin] Allergy (Verified 08/26/17 14:06) promethazine HCl [From Phenergan] Allergy (Verified 08/26/17 14:06) Cerebellar dysfunction rofecoxib [From Vioxx] Allergy (Verified 08/26/17 14:06) Swelling of hands and/or feet prochlorperazine maleate [From Compazine] Adverse Reaction (Verified 08/26/17 14 :06) Cerebellar dysfunction bananas Allergy (Severe, Uncoded 01/24/17 13:51) Difficulty breathing Past Medical History - Social History Frequency of alcohol use: None Drug Abuse: None Family history: CAD, CVA, DM, Hyperlipidemia, Hypertension, Malignancy, Thyroid Disfunction - Past Medical History Cardiac Medical History: Reports: Hx Atrial Fibrillation, Hx Hypertension, Hx Heart Murmur Denies: Hx Coronary Artery Disease Pulmonary Medical History: Reports: Hx Asthma, Hx Pneumonia Neurological Medical History: Reports: Hx Migraine Endocrine Medical History: Reports: Hx Diabetes Mellitus Type 2, Hx Hypothyroidism Renal/ Medical History: Reports: Hx Ovarian Cysts - 6 Polyps, Hx Pelvic Inflammatory Disease. Denies: Hx Peritoneal Dialysis GI Medical History: Reports: Hx Crohn's Disease, Hx Gastroesophageal Reflux Disease, Hx Hiatal Hernia, Hx Irritable Bowel, Hx Ulcer Musculoskeltal Medical History: Reports Hx Arthritis Psychiatric Medical History: Reports: Hx Depression, Hx Post Traumatic Stress Disorder Traumatic Medical History: Reports: Hx Fractures - feet Infectious Medical History: Reports: Hx C-Diff Past Surgical History: Reports: Hx Appendectomy, Hx Section, Hx Cholecystectomy, Hx Gynecologic Surgery - bladder sling, Hx Hysterectomy - Immunizations Immunizations up to date: Yes Hx Diphtheria, Pertussis, Tetanus Vaccination: Yes Physical Exam - Vital signs Vitals: Temp Pulse Resp BP Pulse Ox 99.1 F 121 H 16 155/98 H 100 08/26/17 14:27 08/26/17 14:27 08/26/17 14:27 08/26/17 14:27 08/26/17 14:27 Course - Vital Signs Vital signs: Temp Pulse Resp BP Pulse Ox 99.1 F 121 H 16 155/98 H 100 08/26/17 14:27 08/26/17 14:27 08/26/17 14:27 08/26/17 14:27 08/26/17 14:27
[2017-08-26 15:41] LABS: ABSOLUTE BASOPHILS # (AUTO) 0.1 10^3/uL (0.0-0.2); ABSOLUTE EOSINOPHILS # (AUTO) 0.4 10^3/uL (0.0-0.6); ABSOLUTE LYMPHOCYTES (AUTO) 3.2 10^3/uL (0.5-4.7); ABSOLUTE MONOCYTES (AUTO) 0.7 10^3/uL (0.1-1.4); ABSOLUTE NEUT (AUTO) 6.5 10^3/uL (1.7-8.2); BASOPHILS % (AUTO) 0.9 % (0-2); EOSINOPHILS % (AUTO) 3.4 % (0-6); HEMATOCRIT 40.6 % (36.0-47.0); HEMOGLOBIN 13.7 g/dL (12.0-15.5); LYMPHOCYTES % (AUTO) 29.8 % (13-45); MEAN CORPUSCULAR HEMOGLOBIN 32.1 pg (27.0-33.4); MEAN CORPUSCULAR HGB CONC 33.9 g/dL (32.0-36.0); MEAN CORPUSCULAR VOLUME 95 fl (80-97); MONOCYTES % (AUTO) 6.2 % (3-13); PLATELET COUNT 322 10^3/uL (150-450); RED BLOOD COUNT 4.29 10^6/uL (3.72-5.28); RED CELL DISTRIBUTION WIDTH 13.3 % (11.5-14.0); SEGMENTED NEUTROPHILS % (AUTO) 59.7 % (42-78); TOTAL CELLS COUNTED % (AUTO) 100 %; WHITE BLOOD COUNT 10.8 10^3/uL (4.0-10.5)
[2017-08-26 15:46] LABS: APPEARANCE,URINE SLIGHTLY-CLOUDY; BILIRUBIN,URINE NEGATIVE (NEGATIVE); COLOR,URINE YELLOW; GLUCOSE, URINE NEGATIVE (NEGATIVE); KETONES,URINE NEGATIVE (NEGATIVE); LEUKOCYTE ESTERASE,URINE NEGATIVE (NEGATIVE); NITRITE,URINE NEGATIVE (NEGATIVE); PROTEIN,URINE NEGATIVE (NEGATIVE); UROBILINOGEN,URINE NEGATIVE mg/dL (<2.0)
--- NOTE | 2017-08-26 15:53 | RADIOLOGY REPORT (SQ) ---
EXAM DESCRIPTION: CHEST PA/LAT COMPLETED DATE/TIME: 08/26/2017 3:45 pm REASON FOR STUDY: cough COMPARISON: September 2016 EXAM PARAMETERS: NUMBER OF VIEWS: two views TECHNIQUE: Digital Frontal and Lateral radiographic views of the chest acquired. RADIATION DOSE: NA LIMITATIONS: none FINDINGS: LUNGS AND PLEURA: No opacities, masses or pneumothorax. No pleural effusion. MEDIASTINUM AND HILAR STRUCTURES: No masses or contour abnormalities. HEART AND VASCULAR STRUCTURES: Heart normal size. No evidence for failure. BONES: No acute findings. HARDWARE: Port-A-Cath is unchanged in position. OTHER: No other significant finding. IMPRESSION: No significant interval change. No acute findings. Other findings as noted above TECHNICAL DOCUMENTATION: JOB ID: [id number] [facility]- All Rights Reserved
[2017-08-26 16:01] LABS: ALANINE AMINOTRANSFERASE 36 U/L (9-52); ALBUMIN 4.1 g/dL (3.5-5.0); ALKALINE PHOSPHATASE 127 U/L (38-126); ANION GAP 10 (5-19); ASPARTATE AMINO TRANSFERASE 23 U/L (14-36); BILIRUBIN,DIRECT 0.3 mg/dL (0.0-0.4); BILIRUBIN,TOTAL 0.4 mg/dL (0.2-1.3); BLOOD UREA NITROGEN 10 mg/dL (7-20); CALCIUM 9.9 mg/dL (8.4-10.2); CARBON DIOXIDE 25 mmol/L (22-30); CHLORIDE 103 mmol/L (98-107); GLUCOSE 173 mg/dL (75-110); POTASSIUM 4.2 mmol/L (3.6-5.0); SODIUM 138.3 mmol/L (137-145); TOTAL PROTEIN 7.4 g/dL (6.3-8.2)
[2017-08-26] MEDS ORDERED: DEXAMETHASONE SOD PHOS INJ 10 MG/1 ML VIAL IV ONE (16:56)
[2017-08-26 17:50] LABS: VENOUS BLOOD BASE EXCESS 2.3 mmol/L; VENOUS BLOOD HCO3 28.2 mmol/L (20-32); VENOUS BLOOD PCO2 48.6 mmHg (35-63); VENOUS BLOOD PH 7.38 (7.30-7.42)
--- NOTE | 2017-08-26 18:58 | ER Document Report ---
ED General - General Chief Complaint: Abdominal Pain Stated Complaint: ABDOMINAL PAIN,FEVER,NAUSEA,VOMITING Time Seen by Provider: 08/26/17 14:47 Mode of Arrival: Ambulatory Information source: Patient TRAVEL OUTSIDE OF THE [place] IN LAST 30 DAYS: No - HPI Onset: Last week Onset/Duration: Gradual Quality of pain: Achy, Dull Severity: Mild Associated symptoms: Chills, Nonproductive cough, Diarrhea, Fever, Nausea, Sore throat, Other - L. EAR PAIN. denies: Vomiting, Shortness of breath Exacerbated by: Denies Relieved by: Denies Similar symptoms previously: No Recently seen / treated by doctor: No Notes: Patient states she has been sick for approximately 1 month, beginning with an ear infection and progressing to a flulike illness. She has missed her most recent scheduled dose of Remicade, and is also been told not to take her last scheduled dose of methotrexate, due to her being ill. - Related Data Allergies/Adverse Reactions: celecoxib [From Celebrex] Allergy (Severe, Verified 08/26/17 14:06) Swelling of hands and/or feet clarithromycin [From Biaxin] Allergy (Severe, Verified 08/26/17 14:06) Swelling of hands and/or feet latex [Latex] Allergy (Severe, Verified 08/26/17 14:06) Anaphylaxis nitrofurantoin [From Macrobid] Allergy (Severe, Verified 08/26/17 14:06) Hives Sulfa (Sulfonamide Antibiotics) Allergy (Severe, Verified 08/26/17 14:06) Hives acetazolamide [From Diamox] Allergy (Verified 08/26/17 14:06) losartan [Losartan] Allergy (Verified 08/26/17 14:06) metformin [Metformin] Allergy (Verified 08/26/17 14:06) promethazine HCl [From Phenergan] Allergy (Verified 08/26/17 14:06) Cerebellar dysfunction rofecoxib [From Vioxx] Allergy (Verified 08/26/17 14:06) Swelling of hands and/or feet prochlorperazine maleate [From Compazine] Adverse Reaction (Verified 08/26/17 14 :06) Cerebellar dysfunction bananas Allergy (Severe, Uncoded 01/24/17 13:51) Difficulty breathing Past Medical History - General Information source: Patient - Social History Smoking Status: Never Smoker Frequency of alcohol use: None Drug Abuse: None Family History: Reviewed & Not Pertinent, CAD, CVA, DM, Hyperlipidemia, Hypertension, Malignancy, Thyroid Disfunction Patient has suicidal ideation: No Patient has homicidal ideation: No - Past Medical History Cardiac Medical History: Reports: Hx Atrial Fibrillation, Hx Hypertension, Hx Heart Murmur Denies: Hx Coronary Artery Disease Pulmonary Medical History: Reports: Hx Asthma, Hx Pneumonia Neurological Medical History: Reports: Hx Migraine Endocrine Medical History: Reports: Hx Diabetes Mellitus Type 2, Hx Hypothyroidism Renal/ Medical History: Reports: Hx Ovarian Cysts - 6 Polyps, Hx Pelvic Inflammatory Disease. Denies: Hx Peritoneal Dialysis GI Medical History: Reports: Hx Crohn's Disease, Hx Gastroesophageal Reflux Disease, Hx Hiatal Hernia, Hx Irritable Bowel, Hx Ulcer Musculoskeltal Medical History: Reports Hx Arthritis - ANKYLOSING SPONDYLITIS, SEEN BY RHEUMATOLOGY@ [facility]. Psychiatric Medical History: Reports: Hx Depression, Hx Post Traumatic Stress Disorder Traumatic Medical History: Reports: Hx Fractures - feet Infectious Medical History: Reports: Hx C-Diff Past Surgical History: Reports: Hx Appendectomy, Hx Section, Hx Cholecystectomy, Hx Gynecologic Surgery - bladder sling, Hx Hysterectomy - Immunizations Immunizations up to date: Yes Hx Diphtheria, Pertussis, Tetanus Vaccination: Yes Hx Pneumococcal Vaccination: 04/12/15 Review of Systems - Review of Systems Constitutional: See HPI EENT: See HPI Cardiovascular: No symptoms reported Respiratory: See HPI Gastrointestinal: See HPI Genitourinary: No symptoms reported Female Genitourinary: No symptoms reported Musculoskeletal: See HPI Skin: No symptoms reported Neurological/Psychological: Headaches Physical Exam - Vital signs Vitals: Temp Pulse Resp BP Pulse Ox 99.1 F 121 H 16 155/98 H 100 08/26/17 14:27 08/26/17 14:27 08/26/17 14:27 08/26/17 14:27 08/26/17 14:27 - General General appearance: Appears well, Alert In distress: None - HEENT Head: Normocephalic Eyes: Normal Conjunctiva: Normal Ears: Normal External canal: Normal Tympanic membrane: Retracted - MILD, LEFT Nasal: Normal Mouth/Lips: Normal Mucous membranes: Normal Pharynx: Normal Neck: Normal, Supple - Respiratory Respiratory status: No respiratory distress Breath sounds: Normal - Cardiovascular Rhythm: Regular, Tachycardia Heart sounds: Normal auscultation Murmur: No - Abdominal Inspection: Obese - Extremities General upper extremity: Normal inspection General lower extremity: Normal inspection - Neurological Neuro grossly intact: Yes Cognition: Normal Orientation: AAOx4 - Psychological Associated symptoms: Normal affect, Normal mood - Skin Skin Temperature: Warm Skin Moisture: Dry Skin Color: Normal Skin Turgor: Elastic Course - Re-evaluation Re-evalutation: 08/26/17 18:59 Patient states she is modestly improved. She appears to be comfortable. Pulse rate is down to approximately 100/min. Results of laboratory testing discussed with patient. Patient given copies of lab work to take to next rheumatology appointment. She will be discharged to home with symptomatic treatment of her apparent viral illness. - Vital Signs Vital signs: Temp Pulse Resp BP Pulse Ox 99.1 F 121 H 16 155/98 H 100 08/26/17 14:27 08/26/17 14:27 08/26/17 14:27 08/26/17 14:27 08/26/17 14:27 - Laboratory Result Diagrams: 08/26/17 15:15 08/26/17 15:15 Laboratory results interpreted by me: 08/26/17 08/26/17 08/26/17 15:15 15:15 15:15 WBC 10.8 H Glucose 173 H Alkaline Phosphatase 127 H C-Reactive Protein 27.7 H Discharge - Discharge Clinical Impression: Viral illness Ankylosing spondylitis Qualifiers: Ankylosing spondylitis location: unspecified site of spine Qualified Code(s): M45.9 - Ankylosing spondylitis of unspecified sites in spine Condition: Stable Disposition: HOME, SELF-CARE Instructions: Viral Syndrome ([facility]), Fever ([facility]), Acetaminophen, Corticosteroid Medication ([facility]), Antinausea Medication ([facility]) Additional Instructions: REST, DRINK PLENTY OF FLUIDS. TAKE DEXAMETHASONE DIRECTED, BEGINNING TOMORROW (THURSDAY). YOU MAY TAKE ZOFRAN IF NEEDED FOR NAUSEA CONTROL. YOU MAY TAKE TYLENOL (ACETAMINOPHEN) OR IBUPROFEN FOR FEVER CONTROL IF NEEDED. CONTINUE YOUR OTHER MEDS USUAL. FOLLOW UP WITH YOUR PRIMARY CARE PROVIDER OR RETURN TO E.R. IF PROBLEMS. Prescriptions: Dexamethasone [Decadron 4 mg Tablet] 4 mg PO ASDIR #4 tablet Ondansetron [Zofran Odt 4 mg Tablet] 1 - 2 tab PO Q4H #10 tab.rapdis Referrals: PAWAN ARREOLA MD [Primary Care Provider] - Follow up as needed
[2017-08-26 19:47] VITALS: BP 148/84
--- NOTE | 2017-08-27 08:56 | EKG REPORT ---
SEVERITY:- BORDERLINE ECG - SINUS TACHYCARDIA PROBABLE LEFT ATRIAL ABNORMALITY : Confirmed by: Nilesh Vázquez 27-Aug-2017 08:55:06
== END 2017-08-26 19:30 | disposition home or self-care (01) ==
LOC: ER 14:05
DX: M45.9 Ankylosing spondylitis of unspecified sites in spine (principal); B34.9 Viral infection, unspecified; R10.9 Unspecified abdominal pain; R50.9 Fever, unspecified; R11.2 Nausea with vomiting, unspecified; I48.91 Unspecified atrial fibrillation; I10 Essential (primary) hypertension; E11.9 Type 2 diabetes mellitus without complications; E03.9 Hypothyroidism, unspecified; Z88.2 Allergy status to sulfonamides; Z91.040 Latex allergy status; Z88.9 Allergy status to unspecified drugs, medicaments and biological substances; Z90.49 Acquired absence of other specified parts of digestive tract; Z90.710 Acquired absence of both cervix and uterus
CPT/HCPCS: 93005; 36591; 99284; 96360; 36415; 87040; 87086; 85025; 85652; 86140; 80053; 81001; 82803; 83605; 71046; 93010; J7030

== ENCOUNTER 2017-10-09 18:11 | Emergency (ER) | payer MEDICAID ==
[2017-10-09 22:25] LABS: ABSOLUTE BASOPHILS # (AUTO) 0.1 10^3/uL (0.0-0.2); ABSOLUTE EOSINOPHILS # (AUTO) 0.5 10^3/uL (0.0-0.6); ABSOLUTE LYMPHOCYTES (AUTO) 3.1 10^3/uL (0.5-4.7); ABSOLUTE MONOCYTES (AUTO) 0.6 10^3/uL (0.1-1.4); ABSOLUTE NEUT (AUTO) 6.7 10^3/uL (1.7-8.2); BASOPHILS % (AUTO) 0.9 % (0-2); EOSINOPHILS % (AUTO) 4.3 % (0-6); HEMATOCRIT 35.4 % (36.0-47.0); LYMPHOCYTES % (AUTO) 28.4 % (13-45); MEAN CORPUSCULAR HEMOGLOBIN 31.7 pg (27.0-33.4); MEAN CORPUSCULAR VOLUME 93 fl (80-97); MONOCYTES % (AUTO) 5.3 % (3-13); PLATELET COUNT 327 10^3/uL (150-450); RED CELL DISTRIBUTION WIDTH 13.8 % (11.5-14.0); SEGMENTED NEUTROPHILS % (AUTO) 61.1 % (42-78); TOTAL CELLS COUNTED % (AUTO) 100 %
[2017-10-09 22:29] LABS: VENOUS BLOOD BASE EXCESS 0.2 mmol/L; VENOUS BLOOD HCO3 25.7 mmol/L (20-32); VENOUS BLOOD PCO2 44.5 mmHg (35-63); VENOUS BLOOD PH 7.38 (7.30-7.42)
[2017-10-09 22:47] LABS: INTERNATIONAL RATION (INR) 0.97; PROTHROMBIN TIME 13.6 SEC (11.4-15.4)
[2017-10-09 22:50] LABS: ALANINE AMINOTRANSFERASE 31 U/L (9-52); ALBUMIN 3.8 g/dL (3.5-5.0); ALKALINE PHOSPHATASE 115 U/L (38-126); ANION GAP 10 (5-19); ASPARTATE AMINO TRANSFERASE 26 U/L (14-36); BILIRUBIN,DIRECT 0.3 mg/dL (0.0-0.4); BILIRUBIN,TOTAL 0.4 mg/dL (0.2-1.3); BLOOD UREA NITROGEN 11 mg/dL (7-20); CALCIUM 9.4 mg/dL (8.4-10.2); CARBON DIOXIDE 22 mmol/L (22-30); CHLORIDE 104 mmol/L (98-107); GLUCOSE 160 mg/dL (75-110); POTASSIUM 4.5 mmol/L (3.6-5.0); SODIUM 135.7 mmol/L (137-145); TOTAL PROTEIN 6.7 g/dL (6.3-8.2)
--- NOTE | 2017-10-09 23:33 | RADIOLOGY REPORT (SQ) ---
EXAM DESCRIPTION: CT HEAD WITHOUT CLINICAL HISTORY: 47 years Female, Headache rule out right/internal jugular thrombosi COMPARISON: MRI 12/26/2013, report only TECHNIQUE: No contrast. Coronal and sagittal reformat. This exam was performed according to our departmental dose-optimization program, which includes automated exposure control, adjustment of the mA and/or kV according to patient size and/or use of iterative reconstruction technique. FINDINGS: 1 cm, 73 HU extra-axial ovoid lesion at the left parietal cerebral convexity consistent with meningioma as described on prior MRI report, December 2013. No hemorrhage or infarct. No suspicious mass, mass effect, or midline shift. Extra-axial structures appear otherwise grossly intact. Impression: No acute findings.
--- NOTE | 2017-10-09 23:44 | RADIOLOGY REPORT (SQ) ---
EXAM DESCRIPTION: CT SOFT TISSUE NECK WITH CLINICAL HISTORY: 47 years Female, Headache rule out right/internal jugular thrombosi COMPARISON: None. TECHNIQUE: 75 mL Isovue-370 contrast. Coronal and sagittal reformat. This exam was performed according to our departmental dose-optimization program, which includes automated exposure control, adjustment of the mA and/or kV according to patient size and/or use of iterative reconstruction technique. FINDINGS: Right jugular miniport central line partially imaged. Moderate suprahyoid bilateral cervical lymphadenopathy. 2.9 x 2.1 x 1.6 cm abscess pattern subcutaneous collection of the left upper anterior hemithorax contralateral to the right-sided miniport. Includes a 1.1 x 1.0 cm lymph node anterior to the right jugular vein, image 56 of series 2. No gross CT evidence of significant jugular venous thrombosis as queried. Right jugular vein has a patent appears and appears homogeneously and symmetrically opacified compared with the left. Nuchal soft tissues, inferior cranium, and upper thorax appear otherwise grossly intact. Impression: 2.9 cm abscess type collection in the subcutaneous soft tissues of the left anterosuperior hemithorax. Moderate bilateral cervical lymphadenopathy. Right jugular central line partially imaged.
[2017-10-09] MEDS ORDERED: OXYCODONE-ACETAMINOPHEN 5-325 MG TABLET PO ONE (23:53)
[2017-10-09 23:56] LABS: APPEARANCE,URINE CLEAR; BILIRUBIN,URINE NEGATIVE (NEGATIVE); COLOR,URINE YELLOW; GLUCOSE, URINE NEGATIVE (NEGATIVE); KETONES,URINE NEGATIVE (NEGATIVE); PROTEIN,URINE NEGATIVE (NEGATIVE); URINE SPECIFIC GRAVITY 1.025
[2017-10-09 23:57] LABS: LEUKOCYTE ESTERASE,URINE NEGATIVE (NEGATIVE); NITRITE,URINE NEGATIVE (NEGATIVE); UROBILINOGEN,URINE NEGATIVE mg/dL (<2.0)
--- NOTE | 2017-10-10 00:10 | ER Document Report ---
ED General - General Chief Complaint: Post Surgical Pain Stated Complaint: POST SURGICAL PAIN Time Seen by Provider: 10/09/17 20:55 Information source: Patient Notes: History of present illness-47 years old female had a had a venous port established at [facility] in the right side involving the internal jugular vein. Due to infection on the existing line on the left side. Subsequently discharged home. She presents today with pain and discomfort over the right surgical site , claimed right-sided facial pain and headache and questionable swelling over the right face. Also claimed some blurring of vision. Denies any fever chills or other constitutional symptoms. Denies any focal weakness numbness tingling sensation. REVIEW OF SYSTEMS: CONSTITUTIONAL : Denies fever, chills, or sweats. Denies recent illness. EENT: Denies eye, ear, throat, or mouth pain or symptoms. Denies nasal or sinus congestion or discharge. Denies throat, tongue, or mouth swelling or difficulty swallowing. CARDIOVASCULAR: Denies chest pain. Denies palpitations or racing or irregular heart beat. Denies ankle edema. RESPIRATORY: Denies cough, cold, or chest congestion. Denies shortness of breath, difficulty breathing, or wheezing. GASTROINTESTINAL: Denies abdominal pain or distention. Denies nausea, vomiting , or diarrhea. Denies blood in vomitus, stools, or per rectum. Denies black, tarry stools. Denies constipation. GENITOURINARY: Denies difficulty urinating, painful urination, burning, frequency, blood in urine, or discharge. FEMALE GENITOURINARY: Denies vaginal bleeding, heavy or abnormal periods, irregular periods. Denies vaginal discharge or odor. MUSCULOSKELETAL: Denies back or neck pain or stiffness. Denies joint pain or swelling. SKIN: Denies rash, lesions or sores. HEMATOLOGIC : Denies easy bruising or bleeding. LYMPHATIC: Denies swollen, enlarged glands. NEUROLOGICAL: Denies confusion or altered mental status. Denies passing out or loss of consciousness. Denies dizziness or lightheadedness. Denies headache. Denies weakness or paralysis or loss of use of either side. Denies problems with gait or speech. Denies sensory loss, numbness, or tingling. Denies seizures. PSYCHIATRIC: Denies anxiety or stress. Denies depression, suicidal ideation, or homicidal ideation. ALL OTHER SYSTEMS REVIEWED AND NEGATIVE. PHYSICAL EXAMINATION: GENERAL: Well-appearing, well-nourished and in no acute distress. Morbidly obese HEAD: Atraumatic, normocephalic. EYES: Pupils equal round and reactive to light, extraocular movements intact, conjunctiva are normal. Pupils were equal reactive to light extraocular muscles movement was within normal range no nystagmus noted ENT: Nares patent, oropharynx clear without exudates. Moist mucous membranes. No obvious facial swelling noted on the right side. NECK: Normal range of motion, supple without lymphadenopathy. Palpable foreign body catheter noted. LUNGS: Breath sounds clear to auscultation bilaterally and equal. No wheezes rales or rhonchi. HEART: Regular rate and rhythm without murmurs Chest wall-no erythema no no swelling noted at the site of venous catheter. ABDOMEN: Soft, nontender, nondistended abdomen. No guarding, no rebound. No masses appreciated. Female : deferred Musculoskeletal: Normal range of motion, no pitting or edema. No cyanosis. NEUROLOGICAL: Cranial nerves grossly intact. Normal speech, normal gait. Normal sensory, motor exams PSYCH: Normal mood, normal affect. SKIN: Warm, Dry, normal turgor, no rashes or lesions noted. Dictation was performed using [employer] voice recognition software history of medical illness TRAVEL OUTSIDE OF THE [place] IN LAST 30 DAYS: No - Related Data Allergies/Adverse Reactions: celecoxib [From Celebrex] Allergy (Severe, Verified 08/26/17 14:06) Swelling of hands and/or feet clarithromycin [From Biaxin] Allergy (Severe, Verified 08/26/17 14:06) Swelling of hands and/or feet latex [Latex] Allergy (Severe, Verified 08/26/17 14:06) Anaphylaxis nitrofurantoin [From Macrobid] Allergy (Severe, Verified 08/26/17 14:06) Hives Sulfa (Sulfonamide Antibiotics) Allergy (Severe, Verified 08/26/17 14:06) Hives acetazolamide [From Diamox] Allergy (Verified 08/26/17 14:06) adalimumab [From Humira] Allergy (Verified 10/09/17 18:13) Edema losartan [Losartan] Allergy (Verified 08/26/17 14:06) metformin [Metformin] Allergy (Verified 08/26/17 14:06) promethazine HCl [From Phenergan] Allergy (Verified 08/26/17 14:06) Cerebellar dysfunction rofecoxib [From Vioxx] Allergy (Verified 08/26/17 14:06) Swelling of hands and/or feet prochlorperazine maleate [From Compazine] Adverse Reaction (Verified 08/26/17 14 :06) Cerebellar dysfunction bananas Allergy (Severe, Uncoded 01/24/17 13:51) Difficulty breathing Past Medical History - Social History Smoking Status: Never Smoker Chew tobacco use (# tins/day): No Frequency of alcohol use: None Drug Abuse: None Family History: Reviewed & Not Pertinent, CAD, CVA, DM, Hyperlipidemia, Hypertension, Malignancy, Thyroid Disfunction Patient has suicidal ideation: No Patient has homicidal ideation: No - Past Medical History Cardiac Medical History: Reports: Hx Atrial Fibrillation, Hx Hypertension, Hx Heart Murmur Denies: Hx Coronary Artery Disease Pulmonary Medical History: Reports: Hx Asthma, Hx Pneumonia Neurological Medical History: Reports: Hx Migraine Endocrine Medical History: Reports: Hx Diabetes Mellitus Type 2, Hx Hypothyroidism Renal/ Medical History: Reports: Hx Ovarian Cysts - 6 Polyps, Hx Pelvic Inflammatory Disease. Denies: Hx Peritoneal Dialysis GI Medical History: Reports: Hx Crohn's Disease, Hx Gastroesophageal Reflux Disease, Hx Hiatal Hernia, Hx Irritable Bowel, Hx Ulcer Musculoskeltal Medical History: Reports Hx Arthritis - ANKYLOSING SPONDYLITIS, SEEN BY RHEUMATOLOGY@ [facility]. Psychiatric Medical History: Reports: Hx Depression, Hx Post Traumatic Stress Disorder Traumatic Medical History: Reports: Hx Fractures - feet Infectious Medical History: Reports: Hx C-Diff Past Surgical History: Reports: Hx Appendectomy, Hx Section, Hx Cholecystectomy, Hx Gynecologic Surgery - bladder sling, Hx Hysterectomy - Immunizations Immunizations up to date: Yes Hx Diphtheria, Pertussis, Tetanus Vaccination: Yes Hx Pneumococcal Vaccination: 04/12/15 Review of Systems - Review of Systems Notes: As per history of complain Physical Exam - Vital signs Vitals: Temp Pulse Resp BP Pulse Ox 98.8 F 91 16 147/95 H 97 10/09/17 18:23 10/09/17 18:23 10/09/17 18:23 10/09/17 18:23 10/09/17 18:23 Course - Vital Signs Vital signs: Temp Pulse Resp BP Pulse Ox 98.8 F 91 16 147/95 H 97 10/09/17 18:23 10/09/17 18:23 10/09/17 18:23 10/09/17 18:23 10/09/17 18:23 - Laboratory Result Diagrams: 10/09/17 21:55 10/09/17 21:55 Laboratory results interpreted by me: 10/09/17 10/09/17 21:55 21:55 WBC 11.0 H Hct 35.4 L Sodium 135.7 L Glucose 160 H - Diagnostic Test Radiology reviewed: Reports reviewed - CT of the neck reported by radiologist, did not visualize any venous thrombosis. CT of the head no new changes Discharge - Discharge Clinical Impression: Chest wall pain following surgery Condition: Fair Disposition: HOME, SELF-CARE Instructions: Chest Wall Pain ([facility]) Prescriptions: Ciprofloxacin HCl [Cipro 500 mg Tablet] 500 mg PO BID #20 tablet Oxycodone HCl/Acetaminophen [Percocet 5-325 mg Tablet] 1 - 2 tab PO Q4H PRN #15 tablet PRN Reason: Referrals: PAWAN ARREOLA MD [Primary Care Provider] - Follow up as needed
[2017-10-10 00:38] VITALS: BP 134/98
--- NOTE | 2017-10-10 10:23 | EKG REPORT ---
SEVERITY:- NORMAL ECG - SINUS RHYTHM : Confirmed by: Ghassan Moscoso MD 10-Oct-2017 10:22:30
== END 2017-10-10 00:53 | disposition home or self-care (01) ==
LOC: ER 18:11
DX: R07.89 Other chest pain (principal); G89.18 Other acute postprocedural pain; H53.8 Other visual disturbances; T82.49XA Other complication of vascular dialysis catheter, initial encounter; R22.0 Localized swelling, mass and lump, head; I10 Essential (primary) hypertension; J45.909 Unspecified asthma, uncomplicated; E11.9 Type 2 diabetes mellitus without complications
CPT/HCPCS: 36415; 70450; 70491; 80053; 81001; 82803; 83605; 85025; 85610; 87040; 87086; 87088; 93005; 93010; 99284

== ENCOUNTER 2017-11-13 13:37 | Emergency (ER) | payer MEDICAID ==
--- NOTE | 2017-11-13 14:00 | ER Document Report ---
ED Medical Screen (RME) - General Chief Complaint: Pain All Over Stated Complaint: NAUSEA, VOMITING, FEVER, DIARRHEA Time Seen by Provider: 11/13/17 13:56 Notes: 47-year-old female patient complains of onset Thursday of pain all over with fevers to 102-103, with the symptoms being manageable until last night. Symptoms got considerably worse during the night, she has had nausea vomiting diarrhea. She reports she has joint swelling, uncontrolled pain all over which she feels is related to her ankylosing spondylitis. She is concerned about being septic and stated she felt too bad to drive to [place] to see her doctors. I have greeted and performed a rapid initial assessment of this patient. A comprehensive ED assessment and evaluation of the patient, analysis of test results and completion of the medical decision making process will be conducted by additional ED providers. TRAVEL OUTSIDE OF THE [place] IN LAST 30 DAYS: No - Related Data Allergies/Adverse Reactions: celecoxib [From Celebrex] Allergy (Severe, Verified 08/26/17 14:06) Swelling of hands and/or feet clarithromycin [From Biaxin] Allergy (Severe, Verified 08/26/17 14:06) Swelling of hands and/or feet latex [Latex] Allergy (Severe, Verified 08/26/17 14:06) Anaphylaxis nitrofurantoin [From Macrobid] Allergy (Severe, Verified 08/26/17 14:06) Hives Sulfa (Sulfonamide Antibiotics) Allergy (Severe, Verified 08/26/17 14:06) Hives acetazolamide [From Diamox] Allergy (Verified 08/26/17 14:06) adalimumab [From Humira] Allergy (Verified 10/09/17 18:13) Edema losartan [Losartan] Allergy (Verified 08/26/17 14:06) metformin [Metformin] Allergy (Verified 08/26/17 14:06) promethazine HCl [From Phenergan] Allergy (Verified 08/26/17 14:06) Cerebellar dysfunction rofecoxib [From Vioxx] Allergy (Verified 08/26/17 14:06) Swelling of hands and/or feet prochlorperazine maleate [From Compazine] Adverse Reaction (Verified 08/26/17 14 :06) Cerebellar dysfunction bananas Allergy (Severe, Uncoded 01/24/17 13:51) Difficulty breathing Past Medical History - Social History Family history: CAD, CVA, DM, Hyperlipidemia, Hypertension, Malignancy, Thyroid Disfunction - Past Medical History Cardiac Medical History: Reports: Hx Atrial Fibrillation, Hx Hypertension, Hx Heart Murmur Denies: Hx Coronary Artery Disease Pulmonary Medical History: Reports: Hx Asthma, Hx Pneumonia Neurological Medical History: Reports: Hx Migraine Endocrine Medical History: Reports: Hx Diabetes Mellitus Type 2, Hx Hypothyroidism Renal/ Medical History: Reports: Hx Ovarian Cysts - 6 Polyps, Hx Pelvic Inflammatory Disease. Denies: Hx Peritoneal Dialysis GI Medical History: Reports: Hx Crohn's Disease, Hx Gastroesophageal Reflux Disease, Hx Hiatal Hernia, Hx Irritable Bowel, Hx Ulcer Musculoskeltal Medical History: Reports Hx Arthritis - ANKYLOSING SPONDYLITIS, SEEN BY RHEUMATOLOGY@ [facility]. Psychiatric Medical History: Reports: Hx Depression, Hx Post Traumatic Stress Disorder Traumatic Medical History: Reports: Hx Fractures - feet Infectious Medical History: Reports: Hx C-Diff Past Surgical History: Reports: Hx Appendectomy, Hx Section, Hx Cholecystectomy, Hx Gynecologic Surgery - bladder sling, Hx Hysterectomy - Immunizations Immunizations up to date: Yes Hx Diphtheria, Pertussis, Tetanus Vaccination: Yes Physical Exam - Vital signs Vitals: Temp Pulse Resp BP Pulse Ox 99.3 F 107 H 20 146/93 H 97 11/13/17 13:45 11/13/17 13:45 11/13/17 13:45 11/13/17 13:45 11/13/17 13:45 Course - Vital Signs Vital signs: Temp Pulse Resp BP Pulse Ox 99.3 F 107 H 20 146/93 H 97 11/13/17 13:45 11/13/17 13:45 11/13/17 13:45 11/13/17 13:45 11/13/17 13:45
[2017-11-13 14:23] LABS: ABSOLUTE BASOPHILS # (AUTO) 0.1 10^3/uL (0.0-0.2); ABSOLUTE EOSINOPHILS # (AUTO) 0.3 10^3/uL (0.0-0.6); ABSOLUTE LYMPHOCYTES (AUTO) 2.9 10^3/uL (0.5-4.7); ABSOLUTE MONOCYTES (AUTO) 0.4 10^3/uL (0.1-1.4); ABSOLUTE NEUT (AUTO) 3.8 10^3/uL (1.7-8.2); BASOPHILS % (AUTO) 1.4 % (0-2); EOSINOPHILS % (AUTO) 4.3 % (0-6); HEMATOCRIT 37.8 % (36.0-47.0); LYMPHOCYTES % (AUTO) 38.6 % (13-45); MEAN CORPUSCULAR HEMOGLOBIN 31.9 pg (27.0-33.4); MEAN CORPUSCULAR HGB CONC 34.3 g/dL (32.0-36.0); MEAN CORPUSCULAR VOLUME 93 fl (80-97); MONOCYTES % (AUTO) 5.1 % (3-13); PLATELET COUNT 307 10^3/uL (150-450); RED BLOOD COUNT 4.07 10^6/uL (3.72-5.28); RED CELL DISTRIBUTION WIDTH 14.5 % (11.5-14.0); SEGMENTED NEUTROPHILS % (AUTO) 50.6 % (42-78); TOTAL CELLS COUNTED % (AUTO) 100 %; WHITE BLOOD COUNT 7.5 10^3/uL (4.0-10.5)
[2017-11-13 14:44] LABS: ALANINE AMINOTRANSFERASE 36 U/L (9-52); ALKALINE PHOSPHATASE 130 U/L (38-126); ANION GAP 10 (5-19); ASPARTATE AMINO TRANSFERASE 30 U/L (14-36); BILIRUBIN,DIRECT 0.2 mg/dL (0.0-0.4); BILIRUBIN,TOTAL 0.2 mg/dL (0.2-1.3); BLOOD UREA NITROGEN 13 mg/dL (7-20); CALCIUM 9.7 mg/dL (8.4-10.2); CARBON DIOXIDE 29 mmol/L (22-30); CHLORIDE 102 mmol/L (98-107); GLUCOSE 163 mg/dL (75-110); POTASSIUM 4.5 mmol/L (3.6-5.0); SODIUM 140.6 mmol/L (137-145); TOTAL PROTEIN 7.4 g/dL (6.3-8.2)
--- NOTE | 2017-11-13 14:59 | ER Document Report ---
ED General - General Chief Complaint: Pain All Over Stated Complaint: NAUSEA, VOMITING, FEVER, DIARRHEA Time Seen by Provider: 11/13/17 13:56 Mode of Arrival: Ambulatory Information source: Patient Notes: Patient presents complaining of a 5 day history of generalized abdominal pain worse to the left side with fever as high as 103 started yesterday. Patient does report nausea vomiting and diarrhea for the past 4 days having vomited 5 times today with diarrhea 6 episodes. Patient does complain of some left knee joint pain with some swelling. TRAVEL OUTSIDE OF THE [place] IN LAST 30 DAYS: No - HPI Onset: Other - 5 days Onset/Duration: Persistent Quality of pain: Achy Pain Level: 4 Associated symptoms: Diarrhea, Fever, Nausea, Vomiting. denies: Nonproductive cough, Productive cough, Headache Exacerbated by: Movement Relieved by: Denies Similar symptoms previously: No Recently seen / treated by doctor: No - Related Data Allergies/Adverse Reactions: celecoxib [From Celebrex] Allergy (Severe, Verified 11/13/17 14:01) Swelling of hands and/or feet clarithromycin [From Biaxin] Allergy (Severe, Verified 11/13/17 14:01) Swelling of hands and/or feet latex [Latex] Allergy (Severe, Verified 11/13/17 14:01) Anaphylaxis nitrofurantoin [From Macrobid] Allergy (Severe, Verified 11/13/17 14:01) Hives Sulfa (Sulfonamide Antibiotics) Allergy (Severe, Verified 11/13/17 14:01) Hives acetazolamide [From Diamox] Allergy (Verified 11/13/17 14:01) adalimumab [From Humira] Allergy (Verified 11/13/17 14:01) Edema losartan [Losartan] Allergy (Verified 11/13/17 14:01) metformin [Metformin] Allergy (Verified 11/13/17 14:01) promethazine HCl [From Phenergan] Allergy (Verified 11/13/17 14:01) Cerebellar dysfunction rofecoxib [From Vioxx] Allergy (Verified 11/13/17 14:01) Swelling of hands and/or feet prochlorperazine maleate [From Compazine] Adverse Reaction (Verified 11/13/17 14 :01) Cerebellar dysfunction bananas Allergy (Severe, Uncoded 11/13/17 14:01) Difficulty breathing Past Medical History - General Information source: Patient - Social History Smoking Status: Never Smoker Chew tobacco use (# tins/day): No Frequency of alcohol use: None Drug Abuse: None Occupation: None Lives with: Family Family History: Reviewed & Not Pertinent, CAD, CVA, DM, Hyperlipidemia, Hypertension, Malignancy, Thyroid Disfunction Patient has suicidal ideation: No Patient has homicidal ideation: No - Past Medical History Cardiac Medical History: Reports: Hx Atrial Fibrillation, Hx Hypertension, Hx Heart Murmur Denies: Hx Coronary Artery Disease Pulmonary Medical History: Reports: Hx Asthma, Hx Pneumonia Neurological Medical History: Reports: Hx Migraine Endocrine Medical History: Reports: Hx Diabetes Mellitus Type 2, Hx Hypothyroidism Renal/ Medical History: Reports: Hx Ovarian Cysts - 6 Polyps, Hx Pelvic Inflammatory Disease. Denies: Hx Peritoneal Dialysis GI Medical History: Reports: Hx Crohn's Disease, Hx Gastroesophageal Reflux Disease, Hx Hiatal Hernia, Hx Irritable Bowel, Hx Ulcer Musculoskeltal Medical History: Reports Hx Arthritis - ANKYLOSING SPONDYLITIS, SEEN BY RHEUMATOLOGY@ [facility]. Psychiatric Medical History: Reports: Hx Depression, Hx Post Traumatic Stress Disorder Traumatic Medical History: Reports: Hx Fractures - feet Infectious Medical History: Reports: Hx C-Diff Past Surgical History: Reports: Hx Appendectomy, Hx Section, Hx Cholecystectomy, Hx Gynecologic Surgery - bladder sling, Hx Hysterectomy - Immunizations Immunizations up to date: Yes Hx Diphtheria, Pertussis, Tetanus Vaccination: Yes Hx Pneumococcal Vaccination: 04/12/15 Review of Systems - Review of Systems Constitutional: Fever. denies: Recent illness EENT: No symptoms reported Cardiovascular: No symptoms reported. denies: Chest pain Respiratory: No symptoms reported. denies: Cough, Short of breath Gastrointestinal: Abdominal pain, Diarrhea, Vomiting, Poor appetite, Poor fluid intake Genitourinary: No symptoms reported. denies: Dysuria, Flank pain Female Genitourinary: No symptoms reported Musculoskeletal: Joint pain - Left knee. denies: Back pain Skin: No symptoms reported. denies: Rash Hematologic/Lymphatic: No symptoms reported Neurological/Psychological: No symptoms reported Physical Exam - Vital signs Vitals: Temp Pulse Resp BP Pulse Ox 99.3 F 107 H 20 146/93 H 97 11/13/17 13:45 11/13/17 13:45 11/13/17 13:45 11/13/17 13:45 11/13/17 13:45 - General General appearance: Appears well, Alert In distress: None - HEENT Head: Normocephalic, Atraumatic Eyes: Normal Conjunctiva: Normal Nasal: Normal Mouth/Lips: Normal Pharynx: Normal - Respiratory Respiratory status: No respiratory distress Chest status: Nontender Breath sounds: Normal Chest palpation: Normal - Cardiovascular Rhythm: Tachycardia Heart sounds: S1 appreciated, S2 appreciated Murmur: No - Abdominal Inspection: Morbidly Obese Distension: No distension Bowel sounds: Normal Tenderness: Tender - epig, L side, LLQ, Guarding Organomegaly: No organomegaly - Back Back: Normal. No: CVA tenderness - Extremities General upper extremity: Normal inspection, Normal ROM General lower extremity: Normal inspection, Normal ROM Knee: Tender - Left medial knee joint tenderness, no obvious effusion, normal skin color and temperature overlying joint., Pain with ROM. No: Laxity with valgus stress, Laxity with varus stress, Unable to bear weight Calf: Normal Foot: Other - Patient with open wound plantar surface of left great toe, no surrounding erythema or swelling - Neurological Neuro grossly intact: Yes Cognition: Normal Braggadocio Coma Scale Eye Opening: Spontaneous Sheela Coma Scale Verbal: Oriented Sheela Coma Scale Motor: Obeys Commands Braggadocio Coma Scale Total: 15 - Psychological Associated symptoms: Normal affect, Normal mood - Skin Skin Temperature: Warm Skin Moisture: Dry Skin Color: Normal Skin irregularity: other - Small 2 mm open wound to plantar surface of left great toe Irregularity with: negative: Swelling, Warmth Course - Re-evaluation Re-evalutation: 11/13/17 17:10 pt vomited, medications ordered. Patient's CT scan report reviewed, no concern for Crohn's flareup or diverticulitis at this time. 11/13/17 18:23 Patient reports feeling much better after IV fluid infusion. Patient without any vomiting, p.o. fluids given. No concern for sepsis at this time. Patient presents with abdominal pain without signs of peritonitis or other life- threatening or serious etiology. Patient appears stable for discharge and has been instructed to return immediately if the symptoms worsen in any way, or in 8 -12 hours if not improved for reevaluation. The patient has been instructed to return if the symptoms worsen or change in any way. - Vital Signs Vital signs: Temp Pulse Resp BP Pulse Ox 98.9 F 113 H 16 142/85 H 98 11/13/17 19:23 11/13/17 19:23 11/13/17 19:23 11/13/17 19:23 11/13/17 19:23 - Laboratory Result Diagrams: 11/13/17 14:08 11/13/17 14:08 Laboratory results interpreted by me: 11/13/17 11/13/17 11/13/17 14:08 14:08 16:10 RDW 14.5 H ESR 38 H Glucose 163 H Alkaline Phosphatase 130 H Urine Glucose (UA) 50 H 11/13/17 18:23 Labs- Entire Visit 11/13/17 11/13/17 11/13/17 14:08 14:08 15:04 WBC 7.5 RBC 4.07 Hgb 13.0 Hct 37.8 MCV 93 MCH 31.9 MCHC 34.3 RDW 14.5 H Plt Count 307 Seg Neutrophils % 50.6 Lymphocytes % 38.6 Monocytes % 5.1 Eosinophils % 4.3 Basophils % 1.4 Absolute Neutrophils 3.8 Absolute Lymphocytes 2.9 Absolute Monocytes 0.4 Absolute Eosinophils 0.3 Absolute Basophils 0.1 ESR 38 H Sodium 140.6 Potassium 4.5 Chloride 102 Carbon Dioxide 29 Anion Gap 10 BUN 13 Creatinine 0.56 Est GFR ( Amer) > 60 Est GFR (Non-Af Amer) > 60 Glucose 163 H Lactic Acid 1.9 Calcium 9.7 Total Bilirubin 0.2 Direct Bilirubin 0.2 Neonat Total Bilirubin Not Reportable Neonat Direct Bilirubin Not Reportable Neonat Indirect Bili Not Reportable AST 30 ALT 36 Alkaline Phosphatase 130 H Total Protein 7.4 Albumin 4.0 Urine Color Urine Appearance Urine pH Ur Specific [place] Urine Protein Urine Glucose (UA) Urine Ketones Urine Blood Urine Nitrite Urine Bilirubin Urine Urobilinogen Ur Leukocyte Esterase Urine WBC (Auto) Urine RBC (Auto) Urine Bacteria (Auto) Squamous Epi Cells Auto Urine Ascorbic Acid 11/13/17 16:10 WBC RBC Hgb Hct MCV MCH MCHC RDW Plt Count Seg Neutrophils % Lymphocytes % Monocytes % Eosinophils % Basophils % Absolute Neutrophils Absolute Lymphocytes Absolute Monocytes Absolute Eosinophils Absolute Basophils ESR Sodium Potassium Chloride Carbon Dioxide Anion Gap BUN Creatinine Est GFR ( Amer) Est GFR (Non-Af Amer) Glucose Lactic Acid Calcium Total Bilirubin Direct Bilirubin Neonat Total Bilirubin Neonat Direct Bilirubin Neonat Indirect Bili AST ALT Alkaline Phosphatase Total Protein Albumin Urine Color YELLOW Urine Appearance SLIGHTLY-CLOUDY Urine pH 7.0 Ur Specific [place] 1.024 Urine Protein NEGATIVE Urine Glucose (UA) 50 H Urine Ketones NEGATIVE Urine Blood NEGATIVE Urine Nitrite NEGATIVE Urine Bilirubin NEGATIVE Urine Urobilinogen NEGATIVE Ur Leukocyte Esterase NEGATIVE Urine WBC (Auto) 0 Urine RBC (Auto) 0 Urine Bacteria (Auto) TRACE Squamous Epi Cells Auto 5 Urine Ascorbic Acid NEGATIVE - Diagnostic Test Radiology reviewed: Reports reviewed Discharge - Discharge Clinical Impression: Nausea vomiting and diarrhea Abdominal pain Qualifiers: Abdominal location: unspecified location Qualified Code(s): R10.9 - Unspecified abdominal pain Wound, open, toe Qualifiers: Encounter type: initial encounter Qualified Code(s): S91.109A - Unspecified open wound of unspecified toe(s) without damage to nail, initial encounter Condition: Stable Disposition: HOME, SELF-CARE Instructions: Dressing Instructions for Open Wounds ([facility]) Additional Instructions: Return immediately for any new or worsening symptoms Followup with your primary care provider, call tomorrow to make a followup appointment Follow up with your doctor for monitoring of your foot wound, continue daily dressings with use of bactroban as previously instructed. VOMITING: Vomiting (or nausea without vomiting) can be caused by many other different problems. It can mean that something's wrong with the stomach, such as ulcers or inflammation or the intestinal tract, such as appendicitis. But it can also be a symptom of a problem that has nothing to do with the stomach or intestines. Vomiting is common with severe headaches, earaches, tonsillitis, and kidney infections, etc. We see it with pneumonia or heart attacks. Drugs can cause nausea and vomiting. Many abdominal problems cause vomiting; for example, gallstones, kidney stones, pancreatitis, and intestinal obstruction ( blocked bowels). In most cases, curing the vomiting depends on fixing the problem that caused it. For temporary relief, we may use an anti-nausea medicine. For home use, we can prescribe suppositories, chewable pills, pills that dissolve in the mouth, or liquid anti-nausea drugs. If the vomiting seems to be caused by a problem in the stomach, acid-suppressing drugs may be prescribed as well. It's important to avoid dehydration. Sip small amounts of clear liquids ( soft drinks, tea, broth, etc) . Try to take fluids frequently even if you are vomiting to prevent dehydration. Take increasing amounts of fluid and when liquids are being consumed successfully, advance to small amounts of bland food (toast, soups, mashed potatoes, etc.) until you are able to resume a regular diet. Avoid aspirin, tobacco, and alcohol. If the vomiting worsens, if the problem that's making you vomit worsens, or if there's evidence of bleeding in the stomach (such as black, tarry stool, or bloody or black vomit), you should return immediately. Also, return if abdominal pain worsens or becomes localized to one area or you develop high fever. Call your doctor if you aren't improved in 24 hours. DIARRHEA, NON-SPECIFIC: Diarrhea means frequent, watery stools. There are many causes. Any problem that keeps the intestinal tract from absorbing water from the stool can lead to diarrhea. A sudden new diarrhea problem is usually caused by a virus, food sensitivity, toxic bacteria, or drugs. In this case, we expect the problem to go away soon. Testing is done only if you seem seriously ill from the diarrhea. If you have chronic diarrhea, or diarrhea that keeps coming back, we need to find out why. Chronic diarrhea can be due to inflammation of the bowels such as Crohn's disease or ulcerative colitis, food sensitivity such as intolerance to lactose or wheat protein, irritable bowel syndrome, and other problems. If your diarrhea is a significant problem but it's not clear why you have it, we' ll refer you to a specialist for further testing. During an episode of diarrhea, drink small amounts (two to six ounces) of clear liquids (soft drinks, sport drinks, herb teas, broth, etc). Take fluids frequently to prevent dehydration. It's usually not a problem to take mild anti- diarrhea medication such as Kaopectate or Pepto-Bismol. As the diarrhea eases, advance to small amounts of bland food (mashed potato, toast) for 24 hours. Call the physician if blood appears in your vomit or stool, if vomiting lasts longer than 24 hours, if the abdominal pain worsens or becomes localized to one area, if you develop high fever, or if you become lightheaded and weak. VIRAL SYNDROME: The physician has diagnosed a viral infection. Viruses not only cause "colds," but can cause many different symptoms including generalized aching, fever, headache, cough, diarrhea, nausea, vomiting, and fatigue. The treatment, for the most part, is simply relief of symptoms. This means that antibiotics are usually not given. Rest, fluids, pain medications and, occasionally, medication for the specific symptoms that are most bothersome will be prescribed. Use good handwashing to avoid passing the virus to others. Shared toys should be cleaned with disinfectant. Clean the toilets, sinks, and counter surfaces in bathrooms. Launder clothing in hot water. Contact the physician if you develop any new or unusual symptoms such as severe headache, stiff neck, high fever, chest pain, productive cough, or shortness of breath. You should be rechecked if you don't see marked improvement within seven to 10 days. INTRAVENOUS (I V) FLUIDS: As part of your care today, you received intravenous (IV) fluids. IV fluids are administered to patients who are dehydrated or to those who have certain chemical (electrolyte) abnormalities that need correcting. ANTINAUSEA MEDICATION: You have been given a medication to suppress nausea and vomiting. This type of medication can be given as a shot, pill, or suppository. It will usually last for many hours. Pills and shots usually last six to eight hours. For the typical illness, only one or two doses of the medication may be necessary. Mild lightheadedness may occur. This type of medicine can cause drowsiness. Do not drive or operate dangerous machinery while under its influence. Do not mix with alcohol. See your doctor at once if you have muscle spasms or tightness, or uncontrollable motions (particularly of the neck, mouth, or jaw). Persistent vomiting or severe lightheadedness should also be evaluated by the physician. FOLLOW-UP CARE: If you have been referred to a physician for follow-up care, call the physician s office for an appointment as you were instructed or within the next two days. If you experience worsening or a significant change in your symptoms, notify the physician immediately or return to the Emergency Department at any time for re-evaluation. Prescriptions: Ondansetron HCl [Zofran 4 mg Tablet] 1 - 2 tab PO Q6 PRN #15 tablet PRN Reason: Referrals: PAWAN ARREOLA MD [Primary Care Provider] - 11/16/17
[2017-11-13 15:04] LABS: ERYTHROCYTE SEDIMENTATION RATE 38 mm/hr (0-20)
[2017-11-13] MEDS ORDERED: NORMAL SALINE 1000 ML 1,000 ML IV ONE (15:22)
[2017-11-13 16:31] LABS: APPEARANCE,URINE SLIGHTLY-CLOUDY; BILIRUBIN,URINE NEGATIVE (NEGATIVE); COLOR,URINE YELLOW; GLUCOSE, URINE 50 mg/dL (NEGATIVE); KETONES,URINE NEGATIVE (NEGATIVE); LEUKOCYTE ESTERASE,URINE NEGATIVE (NEGATIVE); NITRITE,URINE NEGATIVE (NEGATIVE); PROTEIN,URINE NEGATIVE (NEGATIVE); URINE SPECIFIC GRAVITY 1.024; UROBILINOGEN,URINE NEGATIVE mg/dL (<2.0)
--- NOTE | 2017-11-13 16:46 | RADIOLOGY REPORT (SQ) ---
EXAM DESCRIPTION: CT ABD/PELVIS WITH IV ONLY COMPLETED DATE/TIME: 11/13/2017 4:35 pm REASON FOR STUDY: abd pain, fever COMPARISON: None. TECHNIQUE: CT scan of the abdomen and pelvis performed using helical scanning technique with dynamic intravenous contrast injection. No oral contrast. Images reviewed with lung, soft tissue, and bone windows. Reconstructed coronal and sagittal MPR images reviewed. Delayed images for evaluation of the urinary system also acquired. All images stored on PACS. All CT scanners at this facility use dose modulation, iterative reconstruction, and/or weight based d osing when appropriate to reduce radiation dose to as low as reasonably achievable (ALARA). [facility]: Dose Right [facility]: CareDose [facility]: Dose Right [facility]: Teradose 4D [facility]: Weblance CONTRAST TYPE AND DOSE: contrast/concentration: Isovue 370.00 mg/ml; Total Contrast Delivered: 100.0 ml; Total Saline Delivered: 72.0 ml RENAL FUNCTION: GFR > 60. RADIATION DOSE: CT Rad equipment meets quality standard of care and radiation dose reduction techniq ues were employed. CTDIvol: 21.1 - 29.5 mGy. DLP: 2787 mGy-cm.. LIMITATIONS: None. FINDINGS: LOWER CHEST: No significant findings. No nodules or infiltrates. LIVER: Normal size. No masses. No dilated ducts. SPLEEN: Normal size. No focal lesions. PANCREAS: No masses. No significant calcifications. No adjacent inflammation or peripancreatic fluid collections. Pancreatic duct not dilated. GALLBLADDER: Surgically absent. ADRENAL GLANDS: No significant masses or asymmetry. RIGHT KIDNEY AND URETER: No solid masses. No significant calcifications. No hydronephrosis or hyd roureter. LEFT KIDNEY AND URETER: No solid masses. No significant calcifications. No hydronephrosis or hydr oureter. AORTA AND VESSELS: No aneurysm. No dissection. Renal arteries, SMA, celiac without stenosis. RETROPERITONEUM: No retroperitoneal adenopathy, hemorrhage or masses. BOWEL AND PERITONEAL CAVITY: No masses or inflammatory changes. No free fluid or peritoneal masses. Diverticulosis. No diverticulitis. APPENDIX: Surgically absent. PELVIS: No mass. No free fluid. Normal bladder. ABDOMINAL WALL: No masses. No hernias. BONES: No significant or acute findings. OTHER: No other significant finding. IMPRESSION: NO SIGNIFICANT OR ACUTE FINDING IN THE ABDOMEN OR PELVIS ON CT SCAN WITH IV CONTRAST. TECHNICAL DOCUMENTATION: JOB ID: [id number] Quality ID # [id number]: Final reports with documentation of one or more dose reduction techniques (e.g., Au tomated exposure control, adjustment of the mA and/or kV according to patient size, use of iterative reconstruction technique) 2010 [employer]- All Rights Reserved Reading location - IP/workstation name: [email or web address]
[2017-11-13] MEDS ORDERED: ONDANSETRON HCL INJ/PF 4 MG/2 ML SDV IV ONE (17:09)
[2017-11-13] MEDS ORDERED: ACETAMINOPHEN 325 MG TABLET PO ONE (18:27)
[2017-11-13 19:24] VITALS: BP 142/85
== END 2017-11-13 19:59 | disposition home or self-care (01) ==
LOC: ER 13:37
DX: R10.84 Generalized abdominal pain (principal); R50.9 Fever, unspecified; R11.2 Nausea with vomiting, unspecified; R19.7 Diarrhea, unspecified; M25.562 Pain in left knee; S91.102A Unspecified open wound of left great toe without damage to nail, initial encounter; X58.XXXA Exposure to other specified factors, initial encounter; I10 Essential (primary) hypertension; J45.909 Unspecified asthma, uncomplicated; E11.9 Type 2 diabetes mellitus without complications; Z88.8 Allergy status to other drugs, medicaments and biological substances; Z88.1 Allergy status to other antibiotic agents; Z91.040 Latex allergy status; Z88.2 Allergy status to sulfonamides; Z91.018 Allergy to other foods
CPT/HCPCS: 36591; 99284; 96361; 96374; 36415; 87040; 83605; 85025; 85652; 80053; 81001; 74177; J3490; J2405; J7030

== ENCOUNTER 2018-02-28 09:01 | Emergency (ER) | payer MEDICAID ==
[2018-02-28] MEDS ORDERED: ONDANSETRON 4 MG TAB.RAPDIS PO ONE ×2 (09:47→13:03)
[2018-02-28] MEDS ORDERED: NORMAL SALINE 1000 ML 1,000 ML IV ONE (09:47)
--- NOTE | 2018-02-28 09:50 | ER Document Report ---
ED Medical Screen (RME) - General Chief Complaint: Nausea/Vomiting Stated Complaint: NAUSEA,VOMITING,FEVER Time Seen by Provider: 02/28/18 09:46 Mode of Arrival: Ambulatory Information source: Patient Notes: This is a 47-year-old immunosuppressed female who presents to the emergency room with nausea, vomiting, fever, cough and generalized weakness. She does have a history of ankylosing spondylitis (Remicade, methotrexate) and a history of Sirs and sepsis. She states she started feeling poor 4 days ago after coming back from vacation ([place]). Her primary care physician is Dr. Arreola and she is followed at [facility] for rheumatology. TRAVEL OUTSIDE OF THE [place] IN LAST 30 DAYS: No - Related Data Allergies/Adverse Reactions: celecoxib [From Celebrex] Allergy (Severe, Verified 02/28/18 09:05) Swelling of hands and/or feet clarithromycin [From Biaxin] Allergy (Severe, Verified 02/28/18 09:05) Swelling of hands and/or feet latex [Latex] Allergy (Severe, Verified 02/28/18 09:05) Anaphylaxis nitrofurantoin [From Macrobid] Allergy (Severe, Verified 02/28/18 09:05) Hives Sulfa (Sulfonamide Antibiotics) Allergy (Severe, Verified 02/28/18 09:05) Hives acetazolamide [From Diamox] Allergy (Verified 02/28/18 09:05) adalimumab [From Humira] Allergy (Verified 02/28/18 09:05) Edema losartan [Losartan] Allergy (Verified 02/28/18 09:05) metformin [Metformin] Allergy (Verified 02/28/18 09:05) promethazine HCl [From Phenergan] Allergy (Verified 02/28/18 09:05) Cerebellar dysfunction rofecoxib [From Vioxx] Allergy (Verified 02/28/18 09:05) Swelling of hands and/or feet prochlorperazine maleate [From Compazine] Adverse Reaction (Verified 02/28/18 09 :05) Cerebellar dysfunction bananas Allergy (Severe, Uncoded 02/28/18 09:05) Difficulty breathing Past Medical History - Social History Frequency of alcohol use: None Drug Abuse: None Family history: CAD, CVA, DM, Hyperlipidemia, Hypertension, Malignancy, Thyroid Disfunction - Past Medical History Cardiac Medical History: Reports: Hx Atrial Fibrillation, Hx Hypertension, Hx Heart Murmur Denies: Hx Coronary Artery Disease Pulmonary Medical History: Reports: Hx Asthma, Hx Pneumonia Neurological Medical History: Reports: Hx Migraine Endocrine Medical History: Reports: Hx Diabetes Mellitus Type 2, Hx Hypothyroidism Renal/ Medical History: Reports: Hx Ovarian Cysts - 6 Polyps, Hx Pelvic Inflammatory Disease. Denies: Hx Peritoneal Dialysis GI Medical History: Reports: Hx Crohn's Disease, Hx Gastroesophageal Reflux Disease, Hx Hiatal Hernia, Hx Irritable Bowel, Hx Ulcer - peptic ulcer Musculoskeltal Medical History: Reports Hx Arthritis - ANKYLOSING SPONDYLITIS, SEEN BY RHEUMATOLOGY@ [facility]. Psychiatric Medical History: Reports: Hx Depression, Hx Post Traumatic Stress Disorder Traumatic Medical History: Reports: Hx Fractures - feet Infectious Medical History: Reports: Hx C-Diff Past Surgical History: Reports: Hx Appendectomy, Hx Section, Hx Cholecystectomy, Hx Gynecologic Surgery - bladder sling, Hx Hysterectomy, Hx Urinary Tract Surgery - Immunizations Immunizations up to date: Yes Hx Diphtheria, Pertussis, Tetanus Vaccination: Yes Physical Exam - Vital signs Vitals: Temp Pulse Resp BP Pulse Ox 100.1 F 99 18 155/94 H 97 02/28/18 09:05 02/28/18 09:05 02/28/18 09:05 02/28/18 09:05 02/28/18 09:05 Course - Vital Signs Vital signs: Temp Pulse Resp BP Pulse Ox 100.1 F 99 18 155/94 H 97 02/28/18 09:05 02/28/18 09:05 02/28/18 09:05 02/28/18 09:05 02/28/18 09:05 Doctor's Discharge - Discharge Referrals: PAWAN ARREOLA MD [Primary Care Provider] - Follow up as needed
[2018-02-28 10:56] LABS: ABSOLUTE BASOPHILS # (AUTO) 0.1 10^3/uL (0.0-0.2); ABSOLUTE EOSINOPHILS # (AUTO) 0.1 10^3/uL (0.0-0.6); ABSOLUTE LYMPHOCYTES (AUTO) 1.8 10^3/uL (0.5-4.7); ABSOLUTE MONOCYTES (AUTO) 0.6 10^3/uL (0.1-1.4); ABSOLUTE NEUT (AUTO) 4.5 10^3/uL (1.7-8.2); BASOPHILS % (AUTO) 1.1 % (0-2); EOSINOPHILS % (AUTO) 1.9 % (0-6); HEMOGLOBIN 12.7 g/dL (12.0-15.5); LYMPHOCYTES % (AUTO) 25.6 % (13-45); MEAN CORPUSCULAR HEMOGLOBIN 31.4 pg (27.0-33.4); MEAN CORPUSCULAR HGB CONC 34.3 g/dL (32.0-36.0); MEAN CORPUSCULAR VOLUME 92 fl (80-97); MONOCYTES % (AUTO) 8.8 % (3-13); PLATELET COUNT 293 10^3/uL (150-450); RED BLOOD COUNT 4.04 10^6/uL (3.72-5.28); RED CELL DISTRIBUTION WIDTH 13.2 % (11.5-14.0); SEGMENTED NEUTROPHILS % (AUTO) 62.6 % (42-78); TOTAL CELLS COUNTED % (AUTO) 100 %; WHITE BLOOD COUNT 7.2 10^3/uL (4.0-10.5)
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
[2018-02-28 11:12] LABS: APPEARANCE,URINE CLEAR; BILIRUBIN,URINE NEGATIVE (NEGATIVE); COLOR,URINE YELLOW; GLUCOSE, URINE NEGATIVE (NEGATIVE); KETONES,URINE NEGATIVE (NEGATIVE); LEUKOCYTE ESTERASE,URINE NEGATIVE (NEGATIVE); NITRITE,URINE NEGATIVE (NEGATIVE); PROTEIN,URINE NEGATIVE (NEGATIVE); URINE SPECIFIC GRAVITY 1.011; UROBILINOGEN,URINE NEGATIVE mg/dL (<2.0)
[2018-02-28 11:20] LABS: ALANINE AMINOTRANSFERASE 33 U/L (9-52); ALBUMIN 3.7 g/dL (3.5-5.0); ALKALINE PHOSPHATASE 109 U/L (38-126); ANION GAP 13 (5-19); ASPARTATE AMINO TRANSFERASE 20 U/L (14-36); BILIRUBIN,DIRECT 0.2 mg/dL (0.0-0.4); BILIRUBIN,TOTAL 0.5 mg/dL (0.2-1.3); BLOOD UREA NITROGEN 12 mg/dL (7-20); CALCIUM 9.3 mg/dL (8.4-10.2); CARBON DIOXIDE 25 mmol/L (22-30); CHLORIDE 98 mmol/L (98-107); GLUCOSE 167 mg/dL (75-110); POTASSIUM 4.5 mmol/L (3.6-5.0)
[2018-02-28] MEDS ORDERED: MORPHINE SULFATE 10 MG/ML INJ IV ONE (11:30)
--- NOTE | 2018-02-28 12:44 | RADIOLOGY REPORT (SQ) ---
EXAM DESCRIPTION: CT ABD/PELVIS WITH IV ONLY COMPLETED DATE/TIME: 02/28/2018 12:15 pm REASON FOR STUDY: concern for diverticula and abscess COMPARISON: 11/13/2017 TECHNIQUE: CT scan of the abdomen and pelvis performed using helical scanning technique with dynamic intravenous contrast injection. No oral contrast. Images reviewed with lung, soft tissue, and bone windows. Reconstructed coronal and sagittal MPR images reviewed. Delayed images for evaluation of the urinary system also acquired. All images stored on PACS. All CT scanners at this facility use dose modulation, iterative reconstruction, and/or weight based d osing when appropriate to reduce radiation dose to as low as reasonably achievable (ALARA). [facility]: Dose Right [facility]: CareDose [facility]: Dose Right [facility]: Teradose 4D [facility]: Alkymos CONTRAST TYPE AND DOSE: contrast/concentration: Isovue 350.00 mg/ml; Total Contrast Delivered: 100.0 ml; Total Saline Delivered: 72.0 ml RENAL FUNCTION: None required. The patient is less than 50 years old. RADIATION DOSE: CT Rad equipment meets quality standard of care and radiation dose reduction techniq ues were employed. CTDIvol: 21.1 - 30.0 mGy. DLP: 2753 mGy-cm.. LIMITATIONS: None. FINDINGS: LOWER CHEST: Patchy left basilar densities are identified which could represent atelectati c changes or a minimal pneumonic infiltrate. LIVER: Normal size. No masses. No dilated ducts. SPLEEN: Normal size. No focal lesions. PANCREAS: No masses. No significant calcifications. No adjacent inflammation or peripancreatic fluid collections. Pancreatic duct not dilated. GALLBLADDER: Status post cholecystectomy ADRENAL GLANDS: No significant masses or asymmetry. RIGHT KIDNEY AND URETER: No solid masses. No significant calcifications. No hydronephrosis or hyd roureter. LEFT KIDNEY AND URETER: No solid masses. No significant calcifications. No hydronephrosis or hydr oureter. AORTA AND VESSELS: No aneurysm. No dissection. Renal arteries, SMA, celiac without stenosis. RETROPERITONEUM: No retroperitoneal adenopathy, hemorrhage or masses. BOWEL AND PERITONEAL CAVITY: No masses or inflammatory changes. No free fluid or peritoneal masses. APPENDIX: Status post appendectomy. PELVIS: No mass. No free fluid. Normal bladder. ABDOMINAL WALL: No masses. No hernias. BONES: No significant or acute findings. OTHER: No other significant finding. IMPRESSION: NO SIGNIFICANT OR ACUTE FINDING IN THE ABDOMEN OR PELVIS ON CT SCAN WITH IV CONTRAST. TECHNICAL DOCUMENTATION: JOB ID: [id number] Quality ID # [id number]: Final reports with documentation of one or more dose reduction techniques (e.g., Au tomated exposure control, adjustment of the mA and/or kV according to patient size, use of iterative reconstruction technique) 2010 [email or web address]- All Rights Reserved Reading location - IP/workstation name: [email or web address]
--- NOTE | 2018-02-28 12:51 | RADIOLOGY REPORT (SQ) ---
EXAM DESCRIPTION: CHEST 2 VIEWS COMPLETED DATE/TIME: 02/28/2018 12:14 pm REASON FOR STUDY: cough COMPARISON: August 2017 EXAM PARAMETERS: NUMBER OF VIEWS: two views TECHNIQUE: Digital Frontal and Lateral radiographic views of the chest acquired. RADIATION DOSE: NA LIMITATIONS: none FINDINGS: LUNGS AND PLEURA: There are ill-defined left perihilar densities which could represent a d eveloping infiltrate or atelectatic changes. Remaining lung urbina are clear. No pleural effusions are identified. MEDIASTINUM AND HILAR STRUCTURES: No masses or contour abnormalities. HEART AND VASCULAR STRUCTURES: Heart normal size. No evidence for failure. BONES: No acute findings. HARDWARE: Right-sided Port-A-Cath is identified with its tip at the level of the superior vena cava P OTHER: No other significant finding. IMPRESSION: Ill-defined left perihilar densities as noted above which could represent a developing i nfiltrate or atelectatic changes. Remaining lung urbina are clear. TECHNICAL DOCUMENTATION: JOB ID: [id number] [employer]- All Rights Reserved Reading location - IP/workstation name: [email or web address]
[2018-02-28] MEDS ORDERED: AMOXICILLIN TR/POT CLAVULANATE 500-125 MG TAB PO ONE (13:03)
[2018-02-28] MEDS ORDERED: AZITHROMYCIN 250 MG TABLET PO ONE (13:04)
[2018-02-28] MEDS ORDERED: LIDOCAINE 2% VISCOUS SOLN 20 ML UDCUP PO ONE (15:07)
[2018-02-28] MEDS ORDERED: MAG HYDROX/AL HYDROX/SIMETH SUSP 30 ML UDCUP PO ONE (15:07)
[2018-02-28] MEDS ORDERED: METOCLOPRAMIDE HCL ORAL SOLN 10 MG/10 ML UDCUP PO ONE (15:07)
[2018-02-28] MEDS ORDERED: PREDNISONE 20 MG TABLET PO ONE (15:08)
[2018-02-28 15:50] VITALS: BP 150/90
== END 2018-02-28 15:46 | disposition home or self-care (01) ==
LOC: ER 09:01
DX: R11.2 Nausea with vomiting, unspecified (principal); R50.9 Fever, unspecified; I48.91 Unspecified atrial fibrillation; I10 Essential (primary) hypertension; E11.9 Type 2 diabetes mellitus without complications; E03.9 Hypothyroidism, unspecified; Z88.3 Allergy status to other anti-infective agents; Z91.040 Latex allergy status; Z90.49 Acquired absence of other specified parts of digestive tract; Z90.710 Acquired absence of both cervix and uterus
CPT/HCPCS: 36591; 99285; 96361; 96374; 36415; 87040; 87086; 85025; 80053; 81001; 83605; 71046; 74177; J3490 ×4; Q0144; S0119; J2270; J7512; J7030

== ENCOUNTER 2018-04-19 13:51 | Emergency (ER) | payer MEDICAID ==
[2018-04-19] MEDS ORDERED: IPRATROPIUM/ALBUTEROL 0.5-2.5 MG/3 ML AMPUL NEB ONE (14:28)
[2018-04-19] MEDS ORDERED: DIPHENHYDRAMINE HCL 25 MG CAPSULE PO ONE (14:28)
--- NOTE | 2018-04-19 14:29 | ER Document Report ---
ED General - General Chief Complaint: Allergy Symptoms Stated Complaint: POSSIBLE ALLERGIC REACTION TRAVEL OUTSIDE OF THE [place] IN LAST 30 DAYS: No - HPI Notes: Received recent Remicade infusion has been on Remicade for 4 years concern for possible allergic reaction due to shortness of breath patient in no obvious distress upon my evaluation - Related Data Allergies/Adverse Reactions: celecoxib [From Celebrex] Allergy (Severe, Verified 04/19/18 13:54) Swelling of hands and/or feet clarithromycin [From Biaxin] Allergy (Severe, Verified 04/19/18 13:54) Swelling of hands and/or feet latex [Latex] Allergy (Severe, Verified 04/19/18 13:54) Anaphylaxis nitrofurantoin [From Macrobid] Allergy (Severe, Verified 04/19/18 13:54) Hives Sulfa (Sulfonamide Antibiotics) Allergy (Severe, Verified 04/19/18 13:54) Hives acetazolamide [From Diamox] Allergy (Verified 04/19/18 13:54) adalimumab [From Humira] Allergy (Verified 04/19/18 13:54) Edema losartan [Losartan] Allergy (Verified 04/19/18 13:54) metformin [Metformin] Allergy (Verified 04/19/18 13:54) promethazine HCl [From Phenergan] Allergy (Verified 04/19/18 13:54) Cerebellar dysfunction rofecoxib [From Vioxx] Allergy (Verified 04/19/18 13:54) Swelling of hands and/or feet prochlorperazine maleate [From Compazine] Adverse Reaction (Verified 04/19/18 13 :54) Cerebellar dysfunction bananas Allergy (Severe, Uncoded 04/19/18 13:54) Difficulty breathing Past Medical History - Social History Smoking Status: Never Smoker Frequency of alcohol use: None Drug Abuse: None Family History: Reviewed & Not Pertinent, CAD, CVA, DM, Hyperlipidemia, Hypertension, Malignancy, Thyroid Disfunction Patient has suicidal ideation: No Patient has homicidal ideation: No - Past Medical History Cardiac Medical History: Reports: Hx Atrial Fibrillation, Hx Hypertension, Hx Heart Murmur Denies: Hx Coronary Artery Disease Pulmonary Medical History: Reports: Hx Asthma, Hx Pneumonia Neurological Medical History: Reports: Hx Migraine Endocrine Medical History: Reports: Hx Diabetes Mellitus Type 2, Hx Hypothyroidism Renal/ Medical History: Reports: Hx Ovarian Cysts - 6 Polyps, Hx Pelvic Inflammatory Disease. Denies: Hx Peritoneal Dialysis GI Medical History: Reports: Hx Crohn's Disease, Hx Gastroesophageal Reflux Disease, Hx Hiatal Hernia, Hx Irritable Bowel, Hx Ulcer - peptic ulcer Musculoskeletal Medical History: Reports Hx Arthritis - ANKYLOSING SPONDYLITIS, SEEN BY [email or web address]@ [facility]. Psychiatric Medical History: Reports: Hx Depression, Hx Post Traumatic Stress Disorder Traumatic Medical History: Reports: Hx Fractures - feet Infectious Medical History: Reports: Hx C-Diff Past Surgical History: Reports: Hx Appendectomy, Hx Section, Hx Cholecystectomy, Hx Gynecologic Surgery - bladder sling, Hx Hysterectomy, Hx Urinary Tract Surgery - Immunizations Immunizations up to date: Yes Hx Diphtheria, Pertussis, Tetanus Vaccination: Yes Hx Pneumococcal Vaccination: 04/12/15 Review of Systems - Review of Systems Respiratory: Short of breath Physical Exam - Vital signs Vitals: Temp Pulse Resp BP Pulse Ox 98.9 F 120 H 18 154/107 H 93 04/19/18 14:00 04/19/18 14:00 04/19/18 14:00 04/19/18 14:00 04/19/18 14:00 - Respiratory Respiratory status: No respiratory distress Chest status: Nontender Breath sounds: Wheezing Chest palpation: Normal Course - Vital Signs Vital signs: Temp Pulse Resp BP Pulse Ox 98.9 F 112 H 18 154/107 H 98 04/19/18 14:00 04/19/18 14:24 04/19/18 14:00 04/19/18 14:00 04/19/18 14:24 Discharge - Discharge Referrals: PAWAN ARREOLA MD [Primary Care Provider] - Follow up as needed
[2018-04-19 15:09] LABS: ABSOLUTE BASOPHILS # (AUTO) 0.1 10^3/uL (0.0-0.2); ABSOLUTE EOSINOPHILS # (AUTO) 0.4 10^3/uL (0.0-0.6); ABSOLUTE LYMPHOCYTES (AUTO) 4.4 10^3/uL (0.5-4.7); ABSOLUTE MONOCYTES (AUTO) 0.7 10^3/uL (0.1-1.4); ABSOLUTE NEUT (AUTO) 6.2 10^3/uL (1.7-8.2); BASOPHILS % (AUTO) 1.2 % (0-2); HEMATOCRIT 41.6 % (36.0-47.0); HEMOGLOBIN 14.3 g/dL (12.0-15.5); LYMPHOCYTES % (AUTO) 37.2 % (13-45); MEAN CORPUSCULAR HEMOGLOBIN 31.3 pg (27.0-33.4); MEAN CORPUSCULAR HGB CONC 34.5 g/dL (32.0-36.0); MEAN CORPUSCULAR VOLUME 91 fl (80-97); MONOCYTES % (AUTO) 6.1 % (3-13); PLATELET COUNT 332 10^3/uL (150-450); RED BLOOD COUNT 4.58 10^6/uL (3.72-5.28); RED CELL DISTRIBUTION WIDTH 13.7 % (11.5-14.0); SEGMENTED NEUTROPHILS % (AUTO) 52.5 % (42-78); TOTAL CELLS COUNTED % (AUTO) 100 %; WHITE BLOOD COUNT 11.8 10^3/uL (4.0-10.5)
--- NOTE | 2018-04-19 15:12 | RADIOLOGY REPORT (SQ) ---
EXAM DESCRIPTION: CHEST 2 VIEWS COMPLETED DATE/TIME: 04/19/2018 3:01 pm REASON FOR STUDY: sob COMPARISON: 02/28/2018 EXAM PARAMETERS: NUMBER OF VIEWS: two views TECHNIQUE: Digital Frontal and Lateral radiographic views of the chest acquired. RADIATION DOSE: NA LIMITATIONS: none FINDINGS: LUNGS AND PLEURA: No opacities, masses or pneumothorax. No pleural effusion. MEDIASTINUM AND HILAR STRUCTURES: No masses or contour abnormalities. HEART AND VASCULAR STRUCTURES: Heart normal size. No evidence for failure. BONES: No acute findings. HARDWARE: Right jugular central line tip superior vena cava. Clips right upper quadrant post cholecy stectomy OTHER: No other significant finding. IMPRESSION: NO ACUTE RADIOGRAPHIC FINDING IN THE CHEST. TECHNICAL DOCUMENTATION: JOB ID: [id number] [employer]- All Rights Reserved Reading location - IP/workstation name: [email or web address]
[2018-04-19] MEDS ORDERED: ALBUTEROL SULFATE 0.083% NEB 2.5 MG/3 ML AMPUL NEB ONE (15:14)
[2018-04-19 15:19] LABS: ANION GAP 14 (5-19); BLOOD UREA NITROGEN 14 mg/dL (7-20); CALCIUM 9.5 mg/dL (8.4-10.2); CARBON DIOXIDE 24 mmol/L (22-30); CHLORIDE 98 mmol/L (98-107); GLUCOSE 245 mg/dL (75-110); POTASSIUM 4.4 mmol/L (3.6-5.0); SODIUM 135.5 mmol/L (137-145)
--- NOTE | 2018-04-19 15:34 | ER Document Report ---
ED General - General Chief Complaint: Allergy Symptoms Stated Complaint: POSSIBLE ALLERGIC REACTION Time Seen by Provider: 04/19/18 14:35 TRAVEL OUTSIDE OF THE [place] IN LAST 30 DAYS: No - HPI Notes: Patient is a 47-year-old female that presents to the emergency department for chief complaint of chest tightness and allergic reaction Patient states that 5 days ago she received a Remicade injection. She states usually afterwards she feels some nausea however this time she started to feel like she had an allergic reaction. She states 2 days after receiving the injection she started to have sinus congestion, chest tightness, wheezing, and one episode of epistaxis. She does have a history of asthma but has not used her albuterol inhaler in the last few days. She states the epistaxis will only occurred one time and was self-limited after a minute or 2, this occurred 3 days ago. She denies any throat swelling or closing sensation. She states that she talk to her doctor today who referred her to the emergency room because of her complaint of chest tightness. She describes the tightness similar to her asthma where she feels like she cannot take a deep breath. She denies any chest pain, nausea, and diaphoresis. Past Medical History: Asthma, aortic stenosis Past Surgical History: Cholecystectomy, appendectomy, hysterectomy Social History: Denies drugs alcohol and tobacco Family History: Reviewed and noncontributory for presenting illness Allergies: Reviewed, see documented allergy list. REVIEW OF SYSTEMS: CONSTITUTIONAL : No fever No chills No diaphoresis No recent illness EENT: No vision changes congestion Epistaxis No sore throat CARDIOVASCULAR: No chest pain No palpitations RESPIRATORY: shortness of breath No cough No difficulty breathing GASTROINTESTINAL: No abdominal pain No nausea No vomiting No diarrhea GENITOURINARY: No dysuria No hematuria No difficulty urinating MUSCULOSKELETAL: No back pain No leg pain No arm pain SKIN: No rashes No lesions LYMPHATIC: No swollen, enlarged glands. NEUROLOGICAL: No lightheadedness No headache No weakness No paresthesias PSYCHIATRIC: No anxiety No depression PHYSICAL EXAMINATION: Vital signs reviewed, nursing noted reviewed. GENERAL: Well-appearing, well-nourished and in no acute distress. HEAD: Atraumatic, normocephalic. EYES: Eyes appear normal, extraocular movements intact, sclera anicteric, conjunctiva are normal. ENT: nares patent, oropharynx clear without exudates. Moist mucous membranes. NECK: Normal range of motion, supple without lymphadenopathy LUNGS: expiratory wheezing diffuse bilaterally. No accessory muscle use. No respiratory distress. HEART: Regular rate and rhythm without murmurs ABDOMEN: Soft, nontender, normoactive bowel sounds. No rebound, guarding, or rigidity. No masses appreciated. EXTREMITIES: Nontender, good range of motion, no pitting or edema. NEUROLOGICAL: No focal neurological deficits. Moves all extremities spontaneously Motor and sensory grossly intact on exam. PSYCH: Normal mood, normal affect. SKIN: Warm, Dry, normal turgor, no rashes or lesions noted on exposed skin - Related Data Allergies/Adverse Reactions: celecoxib [From Celebrex] Allergy (Severe, Verified 04/19/18 13:54) Swelling of hands and/or feet clarithromycin [From Biaxin] Allergy (Severe, Verified 04/19/18 13:54) Swelling of hands and/or feet latex [Latex] Allergy (Severe, Verified 04/19/18 13:54) Anaphylaxis nitrofurantoin [From Macrobid] Allergy (Severe, Verified 04/19/18 13:54) Hives Sulfa (Sulfonamide Antibiotics) Allergy (Severe, Verified 04/19/18 13:54) Hives acetazolamide [From Diamox] Allergy (Verified 04/19/18 13:54) adalimumab [From Humira] Allergy (Verified 04/19/18 13:54) Edema losartan [Losartan] Allergy (Verified 04/19/18 13:54) metformin [Metformin] Allergy (Verified 04/19/18 13:54) promethazine HCl [From Phenergan] Allergy (Verified 04/19/18 13:54) Cerebellar dysfunction rofecoxib [From Vioxx] Allergy (Verified 04/19/18 13:54) Swelling of hands and/or feet prochlorperazine maleate [From Compazine] Adverse Reaction (Verified 04/19/18 13 :54) Cerebellar dysfunction bananas Allergy (Severe, Uncoded 04/19/18 13:54) Difficulty breathing Past Medical History - Social History Smoking Status: Never Smoker Frequency of alcohol use: None Drug Abuse: None Family History: Reviewed & Not Pertinent, CAD, CVA, DM, Hyperlipidemia, Hypertension, Malignancy, Thyroid Disfunction Patient has suicidal ideation: No Patient has homicidal ideation: No - Past Medical History Cardiac Medical History: Reports: Hx Atrial Fibrillation, Hx Hypertension, Hx Heart Murmur Denies: Hx Coronary Artery Disease Pulmonary Medical History: Reports: Hx Asthma, Hx Pneumonia Neurological Medical History: Reports: Hx Migraine Endocrine Medical History: Reports: Hx Diabetes Mellitus Type 2, Hx Hypothyroidism Renal/ Medical History: Reports: Hx Ovarian Cysts - 6 Polyps, Hx Pelvic Inflammatory Disease. Denies: Hx Peritoneal Dialysis GI Medical History: Reports: Hx Crohn's Disease, Hx Gastroesophageal Reflux Disease, Hx Hiatal Hernia, Hx Irritable Bowel, Hx Ulcer - peptic ulcer Musculoskeletal Medical History: Reports Hx Arthritis - ANKYLOSING SPONDYLITIS, SEEN BY [email or web address]@ [facility]. Psychiatric Medical History: Reports: Hx Depression, Hx Post Traumatic Stress Disorder Traumatic Medical History: Reports: Hx Fractures - feet Infectious Medical History: Reports: Hx C-Diff Past Surgical History: Reports: Hx Appendectomy, Hx Section, Hx Cholecystectomy, Hx Gynecologic Surgery - bladder sling, Hx Hysterectomy, Hx Urinary Tract Surgery - Immunizations Immunizations up to date: Yes Hx Diphtheria, Pertussis, Tetanus Vaccination: Yes Hx Pneumococcal Vaccination: 04/12/15 Review of Systems - Review of Systems Notes: Dictated Physical Exam - Vital signs Vitals: Temp Pulse Resp BP Pulse Ox 98.9 F 120 H 18 154/107 H 93 04/19/18 14:00 04/19/18 14:00 04/19/18 14:00 04/19/18 14:00 04/19/18 14:00 - Notes Notes: Dictated Course - Re-evaluation Re-evalutation: 04/19/18 15:33 Vitals reviewed. Nursing notes reviewed. Patient has significant wheezing bilaterally and was given albuterol and DuoNeb treatment. Chest x-ray shows no pneumonia or other acute process. The remainder of her lab work is unremarkable. Patient has had these symptoms for the last few days and she is not an acute anaphylactic reaction. She describes the chest tightness similar to asthma exacerbations. She is not having chest pain and I do not suspect ACS. Chest X-Ray 04/19/18 14:28 IMPRESSION: NO ACUTE RADIOGRAPHIC FINDING IN THE CHEST. Laboratory 04/19/18 04/19/18 14:48 14:48 WBC 11.8 H RBC 4.58 Hgb 14.3 Hct 41.6 MCV 91 MCH 31.3 MCHC 34.5 RDW 13.7 Plt Count 332 Seg Neutrophils % 52.5 Lymphocytes % 37.2 Monocytes % 6.1 Eosinophils % 3.0 Basophils % 1.2 Absolute Neutrophils 6.2 Absolute Lymphocytes 4.4 Absolute Monocytes 0.7 Absolute Eosinophils 0.4 Absolute Basophils 0.1 Sodium 135.5 L Potassium 4.4 Chloride 98 Carbon Dioxide 24 Anion Gap 14 BUN 14 Creatinine 0.54 Est GFR ( Amer) > 60 Est GFR (Non-Af Amer) > 60 Glucose 245 H Calcium 9.5 04/19/18 15:41 On reevaluation patient states her chest tightness is significantly improved. She does state now she feels like she is wheezing more. Lung auscultation reveals diffuse wheezing still but she is moving more air. Patient will be started on prednisone and will use her albuterol inhaler every 4 hours. She is an insulin-dependent diabetic and states that she will use her sliding scale insulin and keep a close eye on her blood glucose while on steroids. She will follow with her primary care for reevaluation in a few days. Discharged home in stable condition. - Vital Signs Vital signs: Temp Pulse Resp BP Pulse Ox 98.9 F 112 H 18 154/107 H 98 04/19/18 14:00 04/19/18 14:24 04/19/18 14:00 04/19/18 14:00 04/19/18 14:24 - Laboratory Result Diagrams: 04/19/18 14:48 04/19/18 14:48 Laboratory results interpreted by me: 04/19/18 04/19/18 14:48 14:48 WBC 11.8 H Sodium 135.5 L Glucose 245 H Discharge - Discharge Clinical Impression: Asthma exacerbation Qualifiers: Asthma severity: mild Asthma persistence: unspecified Qualified Code(s): J45.901 - Unspecified asthma with (acute) exacerbation Medication reaction Qualifiers: Encounter type: initial encounter Qualified Code(s): T50.905A - Adverse effect of unspecified drugs, medicaments and biological substances, initial encounter Condition: Stable Disposition: HOME, SELF-CARE Instructions: Asthma ([facility]) Additional Instructions: Please return to the emergency department if you have any worsening, or concern of your symptoms. Please return to the emergency department if you develop chest pain, difficulty breathing, severe abdominal pain, or ongoing vomiting. Please follow-up with your primary care physician in 2-3 days and any other recommended physicians. If prescribed, take all medications as directed. If you have any questions or concerns do not hesitate to return the emergency department for evaluation. Use your albuterol inhaler every 4 hours as needed Prescriptions: Prednisone 40 mg PO DAILY #10 tablet Referrals: PAWAN ARREOLA MD [Primary Care Provider] - Follow up as needed
[2018-04-19 16:33] VITALS: BP 144/99
== END 2018-04-19 16:36 | disposition home or self-care (01) ==
LOC: ER 13:51
DX: J45.901 Unspecified asthma with (acute) exacerbation (principal); T88.7XXA Unspecified adverse effect of drug or medicament, initial encounter; T39.8X5A Adverse effect of other nonopioid analgesics and antipyretics, not elsewhere classified, initial encounter; R07.89 Other chest pain; R09.81 Nasal congestion; R04.0 Epistaxis; I10 Essential (primary) hypertension; K50.90 Crohn's disease, unspecified, without complications; M45.9 Ankylosing spondylitis of unspecified sites in spine; E11.9 Type 2 diabetes mellitus without complications; Z79.4 Long term (current) use of insulin; Z88.8 Allergy status to other drugs, medicaments and biological substances; Z88.1 Allergy status to other antibiotic agents; Z91.040 Latex allergy status; Z88.2 Allergy status to sulfonamides; Z91.018 Allergy to other foods
CPT/HCPCS: 94640 ×2; 99285; 36415; 85025; 80048; 71046; J3490; J7620

== ENCOUNTER 2018-04-27 13:25 | Emergency (ER) | payer MEDICAID ==
--- NOTE | 2018-04-27 14:41 | ER Document Report ---
ED Medical Screen (RME) - General Chief Complaint: Abdominal Pain Stated Complaint: ABDOMINAL PAIN,VOMITING,NAUSEA Time Seen by Provider: 04/27/18 14:03 Mode of Arrival: Ambulatory Information source: Patient Notes: 48-year-old female presents emergency department with right flank pain that started last night. Patient states that the pain is worse in the right upper quadrant. Denies radiation of the pain. Denies alleviating or exacerbating factors. She states that she has been having melena as well as bright red blood in her stools since last night. Patient states that she is also had hematemesis. Patient states that she is vomited about a cup of blood x5 last night. Patient denies any trauma or injury. Patient states that she has had a cholecystectomy, appendectomy, hysterectomy. I have greeted and performed a rapid initial assessment of this patient. A comprehensive ED assessment and evaluation of the patient, analysis of test results and completion of the medical decision making process will be conducted by additional ED providers. PHYSICAL EXAMINATION: GENERAL: Well-appearing, well-nourished and in no acute distress. HEAD: Atraumatic, normocephalic. EYES: Pupils equal round extraocular movements intact, conjunctiva are normal. ENT: Nares patent NECK: Normal range of motion LUNGS: No respiratory distress Musculoskeletal: Normal range of motion NEUROLOGICAL: Normal speech, normal gait. PSYCH: Normal mood, normal affect. SKIN: Warm, Dry, normal turgor, no rashes or lesions noted. TRAVEL OUTSIDE OF THE [place] IN LAST 30 DAYS: No - Related Data Allergies/Adverse Reactions: celecoxib [From Celebrex] Allergy (Severe, Verified 04/19/18 13:54) Swelling of hands and/or feet clarithromycin [From Biaxin] Allergy (Severe, Verified 04/19/18 13:54) Swelling of hands and/or feet latex [Latex] Allergy (Severe, Verified 04/19/18 13:54) Anaphylaxis nitrofurantoin [From Macrobid] Allergy (Severe, Verified 04/19/18 13:54) Hives Sulfa (Sulfonamide Antibiotics) Allergy (Severe, Verified 04/19/18 13:54) Hives acetazolamide [From Diamox] Allergy (Verified 04/19/18 13:54) adalimumab [From Humira] Allergy (Verified 04/19/18 13:54) Edema losartan [Losartan] Allergy (Verified 04/19/18 13:54) metformin [Metformin] Allergy (Verified 04/19/18 13:54) promethazine HCl [From Phenergan] Allergy (Verified 04/19/18 13:54) Cerebellar dysfunction rofecoxib [From Vioxx] Allergy (Verified 04/19/18 13:54) Swelling of hands and/or feet prochlorperazine maleate [From Compazine] Adverse Reaction (Verified 04/19/18 13 :54) Cerebellar dysfunction bananas Allergy (Severe, Uncoded 04/19/18 13:54) Difficulty breathing Past Medical History - Social History Chew tobacco use (# tins/day): No Frequency of alcohol use: None Drug Abuse: None Family history: CAD, CVA, DM, Hyperlipidemia, Hypertension, Malignancy, Thyroid Disfunction - Past Medical History Cardiac Medical History: Reports: Hx Atrial Fibrillation, Hx Hypertension, Hx Heart Murmur Denies: Hx Coronary Artery Disease Pulmonary Medical History: Reports: Hx Asthma, Hx Pneumonia Neurological Medical History: Reports: Hx Migraine Endocrine Medical History: Reports: Hx Diabetes Mellitus Type 2, Hx Hypothyroidism Renal/ Medical History: Reports: Hx Ovarian Cysts - 6 Polyps, Hx Pelvic Inflammatory Disease. Denies: Hx Peritoneal Dialysis GI Medical History: Reports: Hx Crohn's Disease, Hx Gastroesophageal Reflux Disease, Hx Hiatal Hernia, Hx Irritable Bowel, Hx Ulcer - peptic ulcer Musculoskeltal Medical History: Reports Hx Arthritis - ANKYLOSING SPONDYLITIS, SEEN BY RHEUMATOLOGY@ [facility]. Psychiatric Medical History: Reports: Hx Depression, Hx Post Traumatic Stress Disorder Traumatic Medical History: Reports: Hx Fractures - feet Infectious Medical History: Reports: Hx C-Diff Past Surgical History: Reports: Hx Appendectomy, Hx Section, Hx Cholecystectomy, Hx Gynecologic Surgery - bladder sling, Hx Hysterectomy, Hx Urinary Tract Surgery - Immunizations Immunizations up to date: Yes Hx Diphtheria, Pertussis, Tetanus Vaccination: Yes Physical Exam - Vital signs Vitals: Temp Pulse Resp BP Pulse Ox 99.2 F 121 H 20 148/103 H 96 04/27/18 13:36 04/27/18 13:36 04/27/18 13:36 04/27/18 13:36 04/27/18 13:36 Course - Vital Signs Vital signs: Temp Pulse Resp BP Pulse Ox 99.2 F 121 H 20 148/103 H 96 04/27/18 13:36 04/27/18 13:36 04/27/18 13:36 04/27/18 13:36 04/27/18 13:36 Doctor's Discharge - Discharge Disposition: HOME, SELF-CARE Referrals: PAWAN ARREOLA MD [Primary Care Provider] - Follow up as needed
[2018-04-27 15:16] LABS: ABSOLUTE EOSINOPHILS # (AUTO) 0.4 10^3/uL (0.0-0.6); ABSOLUTE MONOCYTES (AUTO) 0.6 10^3/uL (0.1-1.4); ABSOLUTE NEUT (AUTO) 7.5 10^3/uL (1.7-8.2); BASOPHILS % (AUTO) 0.3 % (0-2); EOSINOPHILS % (AUTO) 2.8 % (0-6); HEMATOCRIT 43.5 % (36.0-47.0); HEMOGLOBIN 14.9 g/dL (12.0-15.5); LYMPHOCYTES % (AUTO) 32.2 % (13-45); MEAN CORPUSCULAR HEMOGLOBIN 30.9 pg (27.0-33.4); MEAN CORPUSCULAR HGB CONC 34.2 g/dL (32.0-36.0); MEAN CORPUSCULAR VOLUME 90 fl (80-97); MONOCYTES % (AUTO) 4.6 % (3-13); PLATELET COUNT 348 10^3/uL (150-450); RED BLOOD COUNT 4.81 10^6/uL (3.72-5.28); RED CELL DISTRIBUTION WIDTH 13.7 % (11.5-14.0); SEGMENTED NEUTROPHILS % (AUTO) 60.1 % (42-78); TOTAL CELLS COUNTED % (AUTO) 100 %; WHITE BLOOD COUNT 12.4 10^3/uL (4.0-10.5)
[2018-04-27 15:22] LABS: INTERNATIONAL RATION (INR) 0.94; PROTHROMBIN TIME 13.1 SEC (11.4-15.4)
[2018-04-27 15:23] LABS: PARTIAL THROMBOPLASTIN TIME 24.7 SEC (23.5-35.8)
[2018-04-27 15:36] LABS: ALANINE AMINOTRANSFERASE 31 U/L (9-52); ALKALINE PHOSPHATASE 124 U/L (38-126); ANION GAP 12 (5-19); ASPARTATE AMINO TRANSFERASE 25 U/L (14-36); BILIRUBIN,DIRECT 0.3 mg/dL (0.0-0.4); BILIRUBIN,TOTAL 0.6 mg/dL (0.2-1.3); BLOOD UREA NITROGEN 12 mg/dL (7-20); CALCIUM 9.7 mg/dL (8.4-10.2); CARBON DIOXIDE 24 mmol/L (22-30); CHLORIDE 99 mmol/L (98-107); GLUCOSE 291 mg/dL (75-110); LIPASE 89.5 U/L (23-300); POTASSIUM 4.5 mmol/L (3.6-5.0); SODIUM 134.6 mmol/L (137-145); TOTAL PROTEIN 7.7 g/dL (6.3-8.2)
--- NOTE | 2018-04-27 16:12 | ER Document Report ---
ED GI/ - General Chief Complaint: Abdominal Pain Stated Complaint: ABDOMINAL PAIN,VOMITING,NAUSEA Time Seen by Provider: 04/27/18 14:03 Mode of Arrival: Ambulatory Information source: Patient Notes: 48-year-old female presented to ED for complaint of right flank and upper quadrant pain. She does not have a gallbladder. She states this pain started last night and it was worse in the right upper quadrant. Patient states she has a history of Crohn's which they are saying it may not be Crohn's as well as reflux hiatal hernia or irritable bowel and peptic ulcers. She also has ankylosing spondylitis is been seen by a layer out [facility] in [facility] states she got Remicade treatment last week at [place] and was treated for an allergic reaction. She states last night she had 8 stools the last of which was kind of a red stool and she also vomited multiple times she states at least 5 and she had blood that colored the emesis. She states she urinated before she was seen in the pit area and does not able to urinate at this time. She states she is also not able to have a stool at this time. She was seen in the pit area and blood and urine and stool were ordered. TRAVEL OUTSIDE OF THE [place] IN LAST 30 DAYS: No - HPI Patient complains to provider of: Abdominal pain, Vomiting - Blood in her vomit , Other - Dark black and then red stool Onset: Yesterday Quality of pain: Cramping, Sharp Severity at maximum: Severe Severity in ED: Severe Pain Level: 5 Location: RUQ Vaginal bleeding (Compared to normal period): None Associated symptoms: Blood in emesis Exacerbated by: Denies Relieved by: Denies Similar symptoms previously: Yes Recently seen / treated by doctor: Yes - Related Data Allergies/Adverse Reactions: celecoxib [From Celebrex] Allergy (Severe, Verified 04/19/18 13:54) Swelling of hands and/or feet clarithromycin [From Biaxin] Allergy (Severe, Verified 04/19/18 13:54) Swelling of hands and/or feet latex [Latex] Allergy (Severe, Verified 04/19/18 13:54) Anaphylaxis nitrofurantoin [From Macrobid] Allergy (Severe, Verified 04/19/18 13:54) Hives Sulfa (Sulfonamide Antibiotics) Allergy (Severe, Verified 04/19/18 13:54) Hives acetazolamide [From Diamox] Allergy (Verified 04/19/18 13:54) adalimumab [From Humira] Allergy (Verified 04/19/18 13:54) Edema losartan [Losartan] Allergy (Verified 04/19/18 13:54) metformin [Metformin] Allergy (Verified 04/19/18 13:54) promethazine HCl [From Phenergan] Allergy (Verified 04/19/18 13:54) Cerebellar dysfunction rofecoxib [From Vioxx] Allergy (Verified 04/19/18 13:54) Swelling of hands and/or feet prochlorperazine maleate [From Compazine] Adverse Reaction (Verified 04/19/18 13 :54) Cerebellar dysfunction bananas Allergy (Severe, Uncoded 04/19/18 13:54) Difficulty breathing Past Medical History - General Information source: Patient - Social History Smoking Status: Never Smoker Chew tobacco use (# tins/day): No Frequency of alcohol use: None Drug Abuse: None Family History: Reviewed & Not Pertinent, CAD, CVA, DM, Hyperlipidemia, Hypertension, Malignancy, Thyroid Disfunction Patient has suicidal ideation: No Patient has homicidal ideation: No - Past Medical History Cardiac Medical History: Reports: Hx Atrial Fibrillation, Hx Hypertension, Hx Heart Murmur Pulmonary Medical History: Reports: Hx Asthma, Hx Pneumonia EENT Medical History: Reports: None Neurological Medical History: Reports: Hx Migraine Endocrine Medical History: Reports: Hx Diabetes Mellitus Type 2, Hx Hypothyroidism Renal/ Medical History: Reports: Hx Ovarian Cysts - 6 Polyps, Hx Pelvic Inflammatory Disease Malignancy Medical History: Reports: None GI Medical History: Reports: Hx Crohn's Disease, Hx Gastroesophageal Reflux Disease, Hx Hiatal Hernia, Hx Irritable Bowel, Hx Ulcer - peptic ulcer Musculoskeletal Medical History: Reports Hx Arthritis - ANKYLOSING SPONDYLITIS, SEEN BY [email or web address]@ [facility]. Skin Medical History: Reports None Psychiatric Medical History: Reports: Hx Depression, Hx Post Traumatic Stress Disorder Traumatic Medical History: Reports: Hx Fractures - feet Infectious Medical History: Reports: Hx C-Diff Past Surgical History: Reports: Hx Appendectomy, Hx Section, Hx Cholecystectomy, Hx Gynecologic Surgery - bladder sling, Hx Hysterectomy, Hx Urinary Tract Surgery - Immunizations Immunizations up to date: Yes Hx Diphtheria, Pertussis, Tetanus Vaccination: Yes Hx Pneumococcal Vaccination: 04/12/15 Review of Systems - Review of Systems Gastrointestinal: Abdominal pain - ruq and flank, Vomiting, Blood streaked bowels, Blood in vomit, Rectal bleeding Genitourinary: Flank pain - right Female Genitourinary: No symptoms reported Musculoskeletal: No symptoms reported Skin: No symptoms reported Hematologic/Lymphatic: No symptoms reported Neurological/Psychological: No symptoms reported -: Yes All other systems reviewed and negative Physical Exam - Vital signs Vitals: Temp Pulse Resp BP Pulse Ox 99.2 F 121 H 20 148/103 H 96 04/27/18 13:36 04/27/18 13:36 04/27/18 13:36 04/27/18 13:36 04/27/18 13:36 Interpretation: Normal, Hypertensive - 142/78, Tachycardic - 101. No: Tachypneic - 16, Febrile - General General appearance: Appears well, Alert - HEENT Head: Normocephalic, Atraumatic Eyes: Normal Pupils: PERRL - Respiratory Respiratory status: No respiratory distress Chest status: Nontender Breath sounds: Normal Chest palpation: Normal - Cardiovascular Rhythm: Regular Heart sounds: Normal auscultation Murmur: No - Abdominal Inspection: Normal Distension: No distension Bowel sounds: Normal Tenderness: Tender - ruq. No: Lozada's sign, Guarding, Rebound Organomegaly: No organomegaly. No: Hepatomegaly, Splenomegaly, Mass - Back Back: Normal, Nontender - Extremities General upper extremity: Normal inspection, Nontender, Normal color, Normal ROM , Normal temperature General lower extremity: Normal inspection, Nontender, Normal color, Normal ROM , Normal temperature, Normal weight bearing. No: Jazmine's sign - Neurological Neuro grossly intact: Yes Cognition: Normal Orientation: AAOx4 Sheela Coma Scale Eye Opening: Spontaneous [place] Coma Scale Verbal: Oriented Sheela Coma Scale Motor: Obeys Commands Sheela Coma Scale Total: 15 Speech: Normal Motor strength normal: LUE, RUE, LLE, RLE Sensory: Normal - Psychological Associated symptoms: Normal affect, Normal mood - Skin Skin Temperature: Warm Skin Moisture: Dry Skin Color: Normal Course - Re-evaluation Re-evalutation: 04/27/18 20:19 No acute changes to her labs. Patient was given a written report of the labs. There was no blood in the urine there was no blood in the stool and patient had one clear emesis while in the emergency room. Patient was treated with Zofran and discharged home with Zofran. A written report of all the labs were given to patient to follow-up with her primary care doctor. Patient was discharged home. - Vital Signs Vital signs: Temp Pulse Resp BP Pulse Ox 98.6 F 107 H 16 123/87 H 97 04/27/18 18:33 04/27/18 18:33 04/27/18 18:33 04/27/18 18:33 04/27/18 18:33 - Laboratory Result Diagrams: 04/27/18 14:50 04/27/18 14:50 Laboratory results interpreted by me: 04/27/18 04/27/18 04/27/18 14:50 14:50 16:55 WBC 12.4 H Sodium 134.6 L Glucose 291 H Urine Glucose (UA) >=500 H Ur Leukocyte Esterase LARGE H Discharge - Discharge Clinical Impression: Nausea vomiting and diarrhea Abdominal pain Qualifiers: Abdominal location: right upper quadrant Qualified Code(s): R10.11 - Right upper quadrant pain Disposition: HOME, SELF-CARE Additional Instructions: VOMITING: Vomiting (or nausea without vomiting) can be caused by many other different problems. It can mean that something's wrong with the stomach, such as ulcers or inflammation or the intestinal tract, such as appendicitis. But it can also be a symptom of a problem that has nothing to do with the stomach or intestines. Vomiting is common with severe headaches, earaches, tonsillitis, and kidney infections, etc. We see it with pneumonia or heart attacks. Drugs can cause nausea and vomiting. Many abdominal problems cause vomiting; for example, gallstones, kidney stones, pancreatitis, and intestinal obstruction ( blocked bowels). In most cases, curing the vomiting depends on fixing the problem that caused it. For temporary relief, we may use an anti-nausea medicine. For home use, we can prescribe suppositories, chewable pills, pills that dissolve in the mouth, or liquid anti-nausea drugs. If the vomiting seems to be caused by a problem in the stomach, acid-suppressing drugs may be prescribed as well. It's important to avoid dehydration. Sip small amounts of clear liquids ( soft drinks, tea, broth, etc) . Try to take fluids frequently even if you are vomiting to prevent dehydration. Take increasing amounts of fluid and when liquids are being consumed successfully, advance to small amounts of bland food (toast, soups, mashed potatoes, etc.) until you are able to resume a regular diet. Avoid aspirin, tobacco, and alcohol. If the vomiting worsens, if the problem that's making you vomit worsens, or if there's evidence of bleeding in the stomach (such as black, tarry stool, or bloody or black vomit), you should return immediately. Also, return if abdominal pain worsens or becomes localized to one area or you develop high fever. Call your doctor if you aren't improved in 24 hours. DIARRHEA, NON-SPECIFIC: Diarrhea means frequent, watery stools. There are many causes. Any problem that keeps the intestinal tract from absorbing water from the stool can lead to diarrhea. A sudden new diarrhea problem is usually caused by a virus, food sensitivity, toxic bacteria, or drugs. In this case, we expect the problem to go away soon. Testing is done only if you seem seriously ill from the diarrhea. If you have chronic diarrhea, or diarrhea that keeps coming back, we need to find out why. Chronic diarrhea can be due to inflammation of the bowels such as Crohn's disease or ulcerative colitis, food sensitivity such as intolerance to lactose or wheat protein, irritable bowel syndrome, and other problems. If your diarrhea is a significant problem but it's not clear why you have it, we' ll refer you to a specialist for further testing. During an episode of diarrhea, drink small amounts (two to six ounces) of clear liquids (soft drinks, sport drinks, herb teas, broth, etc). Take fluids frequently to prevent dehydration. It's usually not a problem to take mild anti- diarrhea medication such as Kaopectate or Pepto-Bismol. As the diarrhea eases, advance to small amounts of bland food (mashed potato, toast) for 24 hours. Call the physician if blood appears in your vomit or stool, if vomiting lasts longer than 24 hours, if the abdominal pain worsens or becomes localized to one area, if you develop high fever, or if you become lightheaded and weak. ABDOMINAL PAIN: There are many causes of abdominal pain. Pain can mean a serious problem requiring surgery (such as appendicitis). It can also be an innocent problem that goes away on its own (such as a viral infection). Often, time must pass to determine the cause of pain. The physician does not feel that hospitalization is necessary, at present. Things may change within the next 24 hours. Call the doctor or come back for re- examination if any problems occur, such as: (1) Pain that becomes more severe, steady, or becomes concentrated in one specific area. Also, pain that is more severe with movement or coughing. (2) Vomiting that persists or becomes more frequent. (3) Blood in the vomitus, urine, or bowel movements. Blood in the stool may have a tarry or black appearance. (4) Shaking chills or fever greater than 100 degrees F. (5) The abdomen becomes more distended or swollen. (6) Bowel movements cease. (7) Failure to improve as expected. NORMAL EXAM AND WORKUP: At this time, your examination and workup show no significant abnormality. No significant abnormal physical findings are noted. All laboratory, EKG, and imaging (x-ray, CT scans, ultrasound) studies that were ordered show no significant abnormality. Although your examination and all studies that were ordered showed no significant abnormal finding, there are no examinations and no studies that are 100% accurate. There is always the possibility that some abnormality could exist and not be detected with physical examination or within the limits and capabilities of laboratory and other studies. You should return or follow up as you were instructed on your visit today for further evaluation if your symptoms do not resolve. ANTINAUSEA MEDICATION: You have been given a medication to suppress nausea and vomiting. This type of medication can be given as a shot, pill, or suppository. It will usually last for many hours. Pills and shots usually last six to eight hours, suppositories last about 12 hours. For the typical illness, only one or two doses of the medication may be necessary. Mild lightheadedness may occur. This type of medicine can cause drowsiness. Do not drive or operate dangerous machinery while under its influence. Do not mix with alcohol. See your doctor at once if you have muscle spasms or tightness, or uncontrollable motions (particularly of the neck, mouth, or jaw). Persistent vomiting or severe lightheadedness should also be evaluated by the physician. VIRAL SYNDROME: The physician has diagnosed a viral infection. Viruses not only cause "colds," but can cause many different symptoms including generalized aching, fever, headache, cough, diarrhea, nausea, vomiting, and fatigue. The treatment, for the most part, is simply relief of symptoms. This means that antibiotics are usually not given. Rest, fluids, pain medications and, occasionally, medication for the specific symptoms that are most bothersome will be prescribed. Use good handwashing to avoid passing the virus to others. Shared toys should be cleaned with disinfectant. Clean the toilets, sinks, and counter surfaces in bathrooms. Launder clothing in hot water. Contact the physician if you develop any new or unusual symptoms such as severe headache, stiff neck, high fever, chest pain, productive cough, or shortness of breath. You should be rechecked if you don't see marked improvement within seven to 10 days. You have been medicated with Zofran while in the emergency room. Your lab work have been discussed with you. Your stool was negative for blood. I have given you a copy of your lab work to follow-up with your primary doctor. I will send you home with a prescription for antinausea medication. FOLLOW-UP CARE: If you have been referred to a physician for follow-up care, call the physician s office for an appointment as you were instructed or within the next two days. If you experience worsening or a significant change in your symptoms, notify the physician immediately or return to the Emergency Department at any time for re-evaluation. Prescriptions: Ondansetron [Zofran Odt 4 mg Tablet] 4 mg PO Q4HP PRN #[id number] tab.rapdis PRN Reason: Forms: Elevated Blood Pressure Referrals: PAWAN ARREOLA MD [Primary Care Provider] - Follow up in 3-5 days
[2018-04-27] MEDS ORDERED: ONDANSETRON 4 MG TAB.RAPDIS PO ONE (17:12)
[2018-04-27 17:45] LABS: APPEARANCE,URINE SLIGHTLY-CLOUDY; BILIRUBIN,URINE NEGATIVE (NEGATIVE); COLOR,URINE YELLOW; GLUCOSE, URINE >=500 mg/dL (NEGATIVE); KETONES,URINE NEGATIVE (NEGATIVE); LEUKOCYTE ESTERASE,URINE LARGE (NEGATIVE); NITRITE,URINE NEGATIVE (NEGATIVE); PROTEIN,URINE NEGATIVE (NEGATIVE); URINE SPECIFIC GRAVITY 1.015; UROBILINOGEN,URINE NEGATIVE mg/dL (<2.0)
[2018-04-27 18:33] VITALS: BP 123/87
== END 2018-04-27 19:00 | disposition home or self-care (01) ==
LOC: ER 13:25
DX: R10.11 Right upper quadrant pain (principal); K92.0 Hematemesis; R19.7 Diarrhea, unspecified; R10.9 Unspecified abdominal pain; K62.5 Hemorrhage of anus and rectum; I10 Essential (primary) hypertension; E11.9 Type 2 diabetes mellitus without complications; J45.909 Unspecified asthma, uncomplicated; M45.9 Ankylosing spondylitis of unspecified sites in spine; Z90.49 Acquired absence of other specified parts of digestive tract; Z87.19 Personal history of other diseases of the digestive system; Z87.11 Personal history of peptic ulcer disease; Z88.8 Allergy status to other drugs, medicaments and biological substances; Z88.1 Allergy status to other antibiotic agents; Z91.040 Latex allergy status; Z88.2 Allergy status to sulfonamides; Z91.018 Allergy to other foods
CPT/HCPCS: 99284; 86900; 86901; 36415; 87086; 86850; 83690; 85025; 85610; 85730; 82272; 80053; 81001; 87493; S0119

== ENCOUNTER 2018-05-18 11:27 | Emergency (ER) | payer MEDICAID ==
[2018-05-18 11:48] VITALS: BP 137/81
--- NOTE | 2018-05-18 12:17 | ER Document Report ---
ED Medical Screen (RME) - General Chief Complaint: Fever Stated Complaint: PORT PROBLEM Time Seen by Provider: 05/18/18 12:09 Mode of Arrival: Wheelchair Information source: Patient Notes: 48-year-old female presents emergency department with port related problems. Patient states that she was at [facility] for 14 days for cellulitis to her lower extremities. She was discharged home on vancomycin. Patient states that she finished her course of vancomycin. Her cellulitis resolved. She contacted her primary care physician to write orders to have her port de- accessed. Her primary care physician refused to do this because he has not seen her since October. Patient is coming in today with concerns that the port is infected. Patient states that the port was initially placed so she can have Remicade treatments for ankylosing spondylitis. I have greeted and performed a rapid initial assessment of this patient. A comprehensive ED assessment and evaluation of the patient, analysis of test results and completion of the medical decision making process will be conducted by additional ED providers. PHYSICAL EXAMINATION: GENERAL: Well-appearing, well-nourished and in no acute distress. HEAD: Atraumatic, normocephalic. EYES: Pupils equal round extraocular movements intact, conjunctiva are normal. ENT: Nares patent NECK: Normal range of motion LUNGS: No respiratory distress Musculoskeletal: Normal range of motion NEUROLOGICAL: Normal speech, normal gait. PSYCH: Normal mood, normal affect. SKIN: Warm, Dry, normal turgor, no rashes or lesions noted. TRAVEL OUTSIDE OF THE [place] IN LAST 30 DAYS: No - Related Data Allergies/Adverse Reactions: celecoxib [From Celebrex] Allergy (Severe, Verified 04/19/18 13:54) Swelling of hands and/or feet clarithromycin [From Biaxin] Allergy (Severe, Verified 04/19/18 13:54) Swelling of hands and/or feet latex [Latex] Allergy (Severe, Verified 04/19/18 13:54) Anaphylaxis nitrofurantoin [From Macrobid] Allergy (Severe, Verified 04/19/18 13:54) Hives Sulfa (Sulfonamide Antibiotics) Allergy (Severe, Verified 04/19/18 13:54) Hives adalimumab [From Humira] Allergy (Verified 04/19/18 13:54) Edema losartan [Losartan] Allergy (Verified 04/19/18 13:54) metformin [Metformin] Allergy (Verified 04/19/18 13:54) promethazine HCl [From Phenergan] Allergy (Verified 04/19/18 13:54) Cerebellar dysfunction rofecoxib [From Vioxx] Allergy (Verified 04/19/18 13:54) Swelling of hands and/or feet acetazolamide [From Diamox] Adverse Reaction (Verified 05/18/18 11:34) prochlorperazine maleate [From Compazine] Adverse Reaction (Verified 04/19/18 13 :54) Cerebellar dysfunction bananas Allergy (Severe, Uncoded 04/19/18 13:54) Difficulty breathing Past Medical History - Social History Family history: CAD, CVA, DM, Hyperlipidemia, Hypertension, Malignancy, Thyroid Disfunction - Past Medical History Cardiac Medical History: Reports: Hx Atrial Fibrillation, Hx Hypertension, Hx Heart Murmur Denies: Hx Coronary Artery Disease Pulmonary Medical History: Reports: Hx Asthma, Hx Pneumonia Neurological Medical History: Reports: Hx Migraine Endocrine Medical History: Reports: Hx Diabetes Mellitus Type 2, Hx Hypothyroidism Renal/ Medical History: Reports: Hx Ovarian Cysts - 6 Polyps, Hx Pelvic Inflammatory Disease. Denies: Hx Peritoneal Dialysis GI Medical History: Reports: Hx Crohn's Disease, Hx Gastroesophageal Reflux Disease, Hx Hiatal Hernia, Hx Irritable Bowel, Hx Ulcer - peptic ulcer Musculoskeltal Medical History: Reports Hx Arthritis - ANKYLOSING SPONDYLITIS, SEEN BY [email or web address]@ [facility]. Psychiatric Medical History: Reports: Hx Depression, Hx Post Traumatic Stress Disorder Traumatic Medical History: Reports: Hx Fractures - feet Infectious Medical History: Reports: Hx C-Diff Past Surgical History: Reports: Hx Appendectomy, Hx Section, Hx Cholecystectomy, Hx Gynecologic Surgery - bladder sling, Hx Hysterectomy, Hx Urinary Tract Surgery - Immunizations Immunizations up to date: Yes Hx Diphtheria, Pertussis, Tetanus Vaccination: Yes Physical Exam - Vital signs Vitals: Temp Pulse Resp BP Pulse Ox 98.8 F 97 18 137/81 H 96 05/18/18 11:43 05/18/18 11:43 05/18/18 11:43 05/18/18 11:43 05/18/18 11:43 Course - Vital Signs Vital signs: Temp Pulse Resp BP Pulse Ox 98.8 F 97 18 137/81 H 96 05/18/18 11:43 05/18/18 11:43 05/18/18 11:43 05/18/18 11:43 05/18/18 11:43 Doctor's Discharge - Discharge Referrals: PAWAN ARREOLA MD [Primary Care Provider] - Follow up as needed
[2018-05-18 13:26] LABS: ABSOLUTE BASOPHILS # (AUTO) 0.1 10^3/uL (0.0-0.2); ABSOLUTE EOSINOPHILS # (AUTO) 0.5 10^3/uL (0.0-0.6); ABSOLUTE LYMPHOCYTES (AUTO) 2.6 10^3/uL (0.5-4.7); ABSOLUTE MONOCYTES (AUTO) 0.6 10^3/uL (0.1-1.4); ABSOLUTE NEUT (AUTO) 4.7 10^3/uL (1.7-8.2); BASOPHILS % (AUTO) 1.4 % (0-2); EOSINOPHILS % (AUTO) 6.3 % (0-6); HEMATOCRIT 41.1 % (36.0-47.0); HEMOGLOBIN 14.2 g/dL (12.0-15.5); LYMPHOCYTES % (AUTO) 30.8 % (13-45); MEAN CORPUSCULAR HEMOGLOBIN 31.8 pg (27.0-33.4); MEAN CORPUSCULAR HGB CONC 34.6 g/dL (32.0-36.0); MEAN CORPUSCULAR VOLUME 92 fl (80-97); MONOCYTES % (AUTO) 6.9 % (3-13); PLATELET COUNT 403 10^3/uL (150-450); RED BLOOD COUNT 4.47 10^6/uL (3.72-5.28); RED CELL DISTRIBUTION WIDTH 14.2 % (11.5-14.0); SEGMENTED NEUTROPHILS % (AUTO) 54.6 % (42-78); TOTAL CELLS COUNTED % (AUTO) 100 %; WHITE BLOOD COUNT 8.6 10^3/uL (4.0-10.5)
[2018-05-18 13:42] LABS: ALANINE AMINOTRANSFERASE 25 U/L (9-52); ALBUMIN 4.6 g/dL (3.5-5.0); ALKALINE PHOSPHATASE 135 U/L (38-126); ANION GAP 16 (5-19); ASPARTATE AMINO TRANSFERASE 17 U/L (14-36); BILIRUBIN,DIRECT 0.2 mg/dL (0.0-0.4); BILIRUBIN,TOTAL 0.6 mg/dL (0.2-1.3); BLOOD UREA NITROGEN 18 mg/dL (7-20); CALCIUM 10.4 mg/dL (8.4-10.2); CARBON DIOXIDE 21 mmol/L (22-30); CHLORIDE 105 mmol/L (98-107); GLUCOSE 142 mg/dL (75-110); POTASSIUM 4.3 mmol/L (3.6-5.0); SODIUM 141.7 mmol/L (137-145); TOTAL PROTEIN 8.2 g/dL (6.3-8.2)
--- NOTE | 2018-05-18 14:45 | ER Document Report ---
ED General - General Chief Complaint: Fever Stated Complaint: PORT PROBLEM Time Seen by Provider: 05/18/18 12:09 Mode of Arrival: Wheelchair Notes: Patient is a 48-year-old female who presents with chief complaint of requesting to have her port de-accessed. Patient has a double Port-A-Cath to her left upper chest wall that has both sites accessed. Patient reports she has been receiving home vancomycin, she states that the home health nurse has completed all courses of vancomycin. The home health nurse apparently could not remove the port as she did not have a doctor's order to do so. Patient states she tried getting in her with her primary care provider but was unable to gain a timely appointment. Patient does report a "fever". However she reports that her fever was 1 degree higher than usual and she states this was 98.3. TRAVEL OUTSIDE OF THE [place] IN LAST 30 DAYS: No - Related Data Allergies/Adverse Reactions: celecoxib [From Celebrex] Allergy (Severe, Verified 04/19/18 13:54) Swelling of hands and/or feet clarithromycin [From Biaxin] Allergy (Severe, Verified 04/19/18 13:54) Swelling of hands and/or feet latex [Latex] Allergy (Severe, Verified 04/19/18 13:54) Anaphylaxis nitrofurantoin [From Macrobid] Allergy (Severe, Verified 04/19/18 13:54) Hives Sulfa (Sulfonamide Antibiotics) Allergy (Severe, Verified 04/19/18 13:54) Hives adalimumab [From Humira] Allergy (Verified 04/19/18 13:54) Edema losartan [Losartan] Allergy (Verified 04/19/18 13:54) metformin [Metformin] Allergy (Verified 04/19/18 13:54) promethazine HCl [From Phenergan] Allergy (Verified 04/19/18 13:54) Cerebellar dysfunction rofecoxib [From Vioxx] Allergy (Verified 04/19/18 13:54) Swelling of hands and/or feet acetazolamide [From Diamox] Adverse Reaction (Verified 05/18/18 11:34) prochlorperazine maleate [From Compazine] Adverse Reaction (Verified 04/19/18 13 :54) Cerebellar dysfunction bananas Allergy (Severe, Uncoded 04/19/18 13:54) Difficulty breathing Past Medical History - General Information source: Patient - Social History Smoking Status: Never Smoker Chew tobacco use (# tins/day): No Frequency of alcohol use: None Drug Abuse: None Family History: Reviewed & Not Pertinent, CAD, CVA, DM, Hyperlipidemia, Hypertension, Malignancy, Thyroid Disfunction Patient has suicidal ideation: No Patient has homicidal ideation: No - Past Medical History Cardiac Medical History: Reports: Hx Atrial Fibrillation, Hx Hypertension, Hx Heart Murmur Denies: Hx Coronary Artery Disease Pulmonary Medical History: Reports: Hx Asthma, Hx Pneumonia Neurological Medical History: Reports: Hx Migraine Endocrine Medical History: Reports: Hx Diabetes Mellitus Type 2, Hx Hypothyroidism Renal/ Medical History: Reports: Hx Ovarian Cysts - 6 Polyps, Hx Pelvic Inflammatory Disease. Denies: Hx Peritoneal Dialysis GI Medical History: Reports: Hx Crohn's Disease, Hx Gastroesophageal Reflux Disease, Hx Hiatal Hernia, Hx Irritable Bowel, Hx Ulcer - peptic ulcer Musculoskeletal Medical History: Reports Hx Arthritis - ANKYLOSING SPONDYLITIS, SEEN BY [email or web address]@ [email or web address]. Psychiatric Medical History: Reports: Hx Depression, Hx Post Traumatic Stress Disorder Traumatic Medical History: Reports: Hx Fractures - feet Infectious Medical History: Reports: Hx C-Diff Past Surgical History: Reports: Hx Appendectomy, Hx Section, Hx Cholecystectomy, Hx Gynecologic Surgery - bladder sling, Hx Hysterectomy, Hx Urinary Tract Surgery - Immunizations Immunizations up to date: Yes Hx Diphtheria, Pertussis, Tetanus Vaccination: Yes Hx Pneumococcal Vaccination: 04/12/15 Review of Systems - Review of Systems -: Yes All other systems reviewed and negative Physical Exam - Vital signs Vitals: Temp Pulse Resp BP Pulse Ox 98.8 F 97 18 137/81 H 96 05/18/18 11:43 05/18/18 11:43 05/18/18 11:43 05/18/18 11:43 05/18/18 11:43 - Notes Notes: PHYSICAL EXAMINATION: GENERAL: Well-appearing, well-nourished and in no acute distress. HEAD: Atraumatic, normocephalic. EYES: Pupils equal round and reactive to light, extraocular movements intact, conjunctiva are normal. ENT: Nares patent, oropharynx clear without exudates. Moist mucous membranes. NECK: Normal range of motion, supple without lymphadenopathy LUNGS: Breath sounds clear to auscultation bilaterally and equal. No wheezes rales or rhonchi. HEART: Regular rate and rhythm without murmurs ABDOMEN: Soft, nontender, nondistended abdomen. Female : deferred Musculoskeletal: Normal range of motion, no pitting or edema. No cyanosis. NEUROLOGICAL: Cranial nerves grossly intact. Normal speech. Normal sensory, motor exams PSYCH: Normal mood, normal affect. SKIN: Warm, Dry, normal turgor, no rashes or lesions noted. Double implanted accessed port to upper right chest wall. Course - Re-evaluation Re-evalutation: 05/18/18 14:49 All labs are unremarkable. Patient's port will be de-accessed, appropriate heparin orders have been placed. Patient will follow up with her primary care provider. - Vital Signs Vital signs: Temp Pulse Resp BP Pulse Ox 98.8 F 97 18 137/81 H 96 05/18/18 11:43 05/18/18 11:43 05/18/18 12:05 05/18/18 11:43 05/18/18 11:43 - Laboratory Result Diagrams: 05/18/18 12:55 05/18/18 12:55 Laboratory results interpreted by me: 05/18/18 05/18/18 12:55 12:55 RDW 14.2 H Eosinophils % 6.3 H Carbon Dioxide 21 L Glucose 142 H Calcium 10.4 H Alkaline Phosphatase 135 H Discharge - Discharge Clinical Impression: Port-A-Cath in place, Encounter for deaccessing implanted intravenous port Condition: Stable Disposition: HOME, SELF-CARE Additional Instructions: Your lab work today was normal. Your port was de-accessed per your request as you have stated that you are completed with your vancomycin therapy. Please keep your follow-up appointment that you have scheduled with Dr. Arreola. Return to the emergency department for any worsening symptoms or additional concerns. Referrals: PAWAN ARREOLA MD [Primary Care Provider] - Follow up as needed
== END 2018-05-18 15:23 | disposition home or self-care (01) ==
LOC: ER 11:27
DX: Z45.2 Encounter for adjustment and management of vascular access device (principal); R50.9 Fever, unspecified; I10 Essential (primary) hypertension; E11.9 Type 2 diabetes mellitus without complications
CPT/HCPCS: 36415; 36591; 80053; 85025; 99283

== ENCOUNTER 2018-05-31 13:16 | Emergency (ER) | payer MEDICAID ==
--- NOTE | 2018-05-31 13:56 | ER Document Report ---
ED Medical Screen (RME) - General Chief Complaint: Abdominal Pain Stated Complaint: ABDOMINAL PAIN Time Seen by Provider: 05/31/18 13:55 Notes: Patient is a 48-year-old female that presents to the emergency department for chief complaint of right-sided abdominal pain. Patient has multiple medical problems, she states she has been complaining of right side abdominal pain for the past few weeks but it got significantly worse. She was recently discharged after being septic at [facility], she states that she had bright red blood per rectum as well which got her concerned, she was concerned about possible anemia. ROS: Other than noted above, the 12 point review of systems was reviewed with the patient and were negative, all pertinent findings are included in the HPI. PHYSICAL EXAMINATION: Vital signs reviewed. GENERAL: Well-appearing, well-nourished and in no acute distress. HEAD: Atraumatic, normocephalic. EYES: Pupils equal round extraocular movements intact, conjunctiva are normal. ENT: Nares patent NECK: Normal range of motion CV: Heart regular rate and rhythm LUNGS: No respiratory distress Abdomen: Obese, right-sided abdominal tenderness with palpation, no rebound, guarding or rigidity. Musculoskeletal: Normal range of motion NEUROLOGICAL: Normal speech PSYCH: Normal mood, normal affect. MDM: Patient seen and examined for rapid initial assessment. Vital signs reviewed. A comprehensive ED assessment and evaluation of the patient, analysis of test results and completion of the medical decision making process will be conducted by additional ED providers. *Note is created using voice recognition software and may contain spelling, syntax or grammatical errors. TRAVEL OUTSIDE OF THE [place] IN LAST 30 DAYS: No - Related Data Allergies/Adverse Reactions: celecoxib [From Celebrex] Allergy (Severe, Verified 05/31/18 13:20) Swelling of hands and/or feet clarithromycin [From Biaxin] Allergy (Severe, Verified 05/31/18 13:20) Swelling of hands and/or feet latex [Latex] Allergy (Severe, Verified 05/31/18 13:20) Anaphylaxis nitrofurantoin [From Macrobid] Allergy (Severe, Verified 05/31/18 13:20) Hives Sulfa (Sulfonamide Antibiotics) Allergy (Severe, Verified 05/31/18 13:20) Hives adalimumab [From Humira] Allergy (Verified 05/31/18 13:20) Edema losartan [Losartan] Allergy (Verified 05/31/18 13:20) metformin [Metformin] Allergy (Verified 05/31/18 13:20) promethazine HCl [From Phenergan] Allergy (Verified 05/31/18 13:20) Cerebellar dysfunction rofecoxib [From Vioxx] Allergy (Verified 05/31/18 13:20) Swelling of hands and/or feet acetazolamide [From Diamox] Adverse Reaction (Verified 05/31/18 13:20) prochlorperazine maleate [From Compazine] Adverse Reaction (Verified 05/31/18 13 :20) Cerebellar dysfunction bananas Allergy (Severe, Uncoded 05/31/18 13:20) Difficulty breathing Past Medical History - Social History Family history: CAD, CVA, DM, Hyperlipidemia, Hypertension, Malignancy, Thyroid Disfunction - Past Medical History Cardiac Medical History: Reports: Hx Atrial Fibrillation, Hx Hypertension, Hx Heart Murmur Denies: Hx Coronary Artery Disease Pulmonary Medical History: Reports: Hx Asthma, Hx Pneumonia Neurological Medical History: Reports: Hx Migraine Endocrine Medical History: Reports: Hx Diabetes Mellitus Type 2, Hx Hypothyroidism Renal/ Medical History: Reports: Hx Ovarian Cysts - 6 Polyps, Hx Pelvic Inflammatory Disease. Denies: Hx Peritoneal Dialysis GI Medical History: Reports: Hx Crohn's Disease, Hx Gastroesophageal Reflux Disease, Hx Hiatal Hernia, Hx Irritable Bowel, Hx Ulcer - peptic ulcer Musculoskeltal Medical History: Reports Hx Arthritis - ANKYLOSING SPONDYLITIS, SEEN BY [email or web address]@ [facility]. Psychiatric Medical History: Reports: Hx Depression, Hx Post Traumatic Stress Disorder Traumatic Medical History: Reports: Hx Fractures - feet Infectious Medical History: Reports: Hx C-Diff Past Surgical History: Reports: Hx Appendectomy, Hx Section, Hx Cholecystectomy, Hx Gynecologic Surgery - bladder sling, Hx Hysterectomy, Hx Urinary Tract Surgery - Immunizations Immunizations up to date: Yes Hx Diphtheria, Pertussis, Tetanus Vaccination: Yes Physical Exam - Vital signs Vitals: Temp Pulse Resp BP Pulse Ox 98.8 F 81 18 125/67 98 05/31/18 13:33 05/31/18 13:33 05/31/18 13:33 05/31/18 13:33 05/31/18 13:33 Course - Vital Signs Vital signs: Temp Pulse Resp BP Pulse Ox 98.8 F 81 18 125/67 98 05/31/18 13:33 05/31/18 13:33 05/31/18 13:33 05/31/18 13:33 05/31/18 13:33 Doctor's Discharge - Discharge Referrals: PAWAN ARREOLA MD [Primary Care Provider] - Follow up as needed
[2018-05-31] MEDS ORDERED: NORMAL SALINE 1000 ML 1,000 ML IV ONE (14:01)
[2018-05-31] MEDS ORDERED: ONDANSETRON HCL INJ/PF 4 MG/2 ML SDV IV ONE (14:02)
[2018-05-31] MEDS ORDERED: MORPHINE SULFATE 10 MG/ML INJ IV ONE (14:02)
--- NOTE | 2018-05-31 15:26 | ER Document Report ---
ED General - General Chief Complaint: Abdominal Pain Stated Complaint: ABDOMINAL PAIN Time Seen by Provider: 05/31/18 13:55 TRAVEL OUTSIDE OF THE [place] IN LAST 30 DAYS: No - HPI Notes: Patient is a 48-year-old female who presents to the ED complaining of right- sided abdominal pain intermittently over the last couple weeks, primarily over the last 2 days. Patient states that she has associated nausea without vomiting. She has not had any constipation or diarrhea issues. She has noticed a scant amount of red blood in her stool which she has had in the past. Patient states that she was told that it was inflammatory at one time. Her last colonoscopy was a year ago. Patient states that she is still able to eat and drink, but does have a decreased p.o. intake. She is having increased urination and dysuria. She does not have any vaginal discharge, odor, or bleeding. Patient was admitted to [facility] about a month ago for cellulitis in her feet. Patient states that she has since finished the home health vancomycin treatments and has been doing better since then in regards to her cellulitis. No other concerns or complaints at this time. Denies any headache, fever, neck pain/stiffness, URI, sore throat, chest pain, palpitations, syncope, cough, shortness of breath, wheeze, dyspnea, vomiting/diarrhea, back pain, loss of control of bowel or bladder, numbness/tingling, saddle anesthesia, muscle paralysis/weakness, or rash. Pt has an extensive medical history including IBS, Crohns, DM2, autoimmune disorder. - Related Data Allergies/Adverse Reactions: celecoxib [From Celebrex] Allergy (Severe, Verified 05/31/18 13:20) Swelling of hands and/or feet clarithromycin [From Biaxin] Allergy (Severe, Verified 05/31/18 13:20) Swelling of hands and/or feet latex [Latex] Allergy (Severe, Verified 05/31/18 13:20) Anaphylaxis nitrofurantoin [From Macrobid] Allergy (Severe, Verified 05/31/18 13:20) Hives Sulfa (Sulfonamide Antibiotics) Allergy (Severe, Verified 05/31/18 13:20) Hives adalimumab [From Humira] Allergy (Verified 05/31/18 13:20) Edema losartan [Losartan] Allergy (Verified 05/31/18 13:20) metformin [Metformin] Allergy (Verified 05/31/18 13:20) promethazine HCl [From Phenergan] Allergy (Verified 05/31/18 13:20) Cerebellar dysfunction rofecoxib [From Vioxx] Allergy (Verified 05/31/18 13:20) Swelling of hands and/or feet acetazolamide [From Diamox] Adverse Reaction (Verified 05/31/18 13:20) prochlorperazine maleate [From Compazine] Adverse Reaction (Verified 05/31/18 13 :20) Cerebellar dysfunction bananas Allergy (Severe, Uncoded 05/31/18 13:20) Difficulty breathing Past Medical History - Social History Smoking Status: Unknown if Ever Smoked Family History: Reviewed & Not Pertinent, CAD, CVA, DM, Hyperlipidemia, Hypertension, Malignancy, Thyroid Disfunction Patient has suicidal ideation: No Patient has homicidal ideation: No - Past Medical History Cardiac Medical History: Reports: Hx Atrial Fibrillation, Hx Hypertension, Hx Heart Murmur Denies: Hx Coronary Artery Disease Pulmonary Medical History: Reports: Hx Asthma, Hx Pneumonia Neurological Medical History: Reports: Hx Migraine Endocrine Medical History: Reports: Hx Diabetes Mellitus Type 2, Hx Hypothyroidism Renal/ Medical History: Reports: Hx Ovarian Cysts - 6 Polyps, Hx Pelvic Inflammatory Disease. Denies: Hx Peritoneal Dialysis GI Medical History: Reports: Hx Crohn's Disease, Hx Gastroesophageal Reflux Disease, Hx Hiatal Hernia, Hx Irritable Bowel, Hx Ulcer - peptic ulcer Musculoskeletal Medical History: Reports Hx Arthritis - ANKYLOSING SPONDYLITIS, SEEN BY [email or web address]@ [facility]. Psychiatric Medical History: Reports: Hx Depression, Hx Post Traumatic Stress Disorder Traumatic Medical History: Reports: Hx Fractures - feet Infectious Medical History: Reports: Hx C-Diff Past Surgical History: Reports: Hx Appendectomy, Hx Section, Hx Cholecystectomy, Hx Gynecologic Surgery - bladder sling, Hx Hysterectomy, Hx Urinary Tract Surgery - Immunizations Immunizations up to date: Yes Hx Diphtheria, Pertussis, Tetanus Vaccination: Yes Hx Pneumococcal Vaccination: 04/12/15 Review of Systems - Review of Systems -: Yes All other systems reviewed and negative Physical Exam - Vital signs Vitals: Temp Pulse Resp BP Pulse Ox 98.8 F 81 18 125/67 98 05/31/18 13:33 05/31/18 13:33 05/31/18 13:33 05/31/18 13:33 05/31/18 13:33 - Notes Notes: PHYSICAL EXAMINATION: GENERAL: Well-appearing, well-nourished and in no acute distress. HEAD: Atraumatic, normocephalic. EYES: Pupils equal round and reactive to light, extraocular movements intact, sclera anicteric, conjunctiva are normal. ENT: Nares patent and without discharge. oropharynx clear without exudates. No tonsilar hypertrophy or erythema. Moist mucous membranes. NECK: Normal range of motion, supple without lymphadenopathy LUNGS: Breath sounds clear to auscultation bilaterally and equal. No wheezes rales or rhonchi. HEART: Regular rate and rhythm without murmurs, rubs, gallops. ABDOMEN: Soft, nondistended abdomen. No guarding, no rebound. No masses appreciated. Normal bowel sounds present. No CVA tenderness bilaterally. Tenderness to the rt abd and mildly to the suprapubic area. Rectal (female PCT accompanied): there was light brown blood with just a couple specks of red blood noted. No melena. Non-tender. Musculoskeletal: FROM to passive/active. Strength 5+/5. Extremities: No cyanosis, clubbing, or edema b/l. Peripheral pulses 2+. Capillary refill less than 3 seconds. NEUROLOGICAL: Normal speech, normal gait. PSYCH: Normal mood, normal affect. SKIN: Warm, Dry, normal turgor, no rashes or lesions noted. Course - Re-evaluation Re-evalutation: 05/31/18 17:35 Patient is an afebrile, well-hydrated, 48-year-old female who presents to the ED with an acute UTI and abdominal pain. Pt did have scant red flecks on BRIE. Vitals are acceptable without significant tachycardia, tachypnea, or hypoxia. PE is otherwise unremarkable. She is hemodynamically stable. Patient is nontoxic-appearing and is tolerating p.o. without difficulty. CBC, CMP, lipase , Trop, EKG, lactic acid were unremarkable. See urinalysis results. Urine culture is pending. CT scan of the abdomen and pelvis was unremarkable for any acute pathology. No further labs or imaging warranted at this time. Rocephin given IV. Low suspicion/risk for acute appendicitis, bowel obstruction, acute cholecystitis, acute cholangitis, perforated diverticulitis, incarcerated hernia , pancreatitis, perforated ulcer, peritonitis, sepsis, pelvic inflammatory disease, ectopic , tubo-ovarian abscess, ovarian torsion, or other systemic emergent condition at this time. Patient is aware that her condition can change from initial presentation and she needs to monitor symptoms closely and seek medical attention if any acute changes. Rx for keflex. Conservative measures otherwise for symptoms. Recheck with your PCM in 2-3 days. Consider consult with a nursing home assistant for outpatient colonoscopy if warranted. Return to the ED with any worsening/concerning symptoms otherwise as reviewed in discharge. Patient is in agreement. - Vital Signs Vital signs: Temp Pulse Resp BP Pulse Ox 98.8 F 81 18 125/67 98 05/31/18 13:33 05/31/18 13:33 05/31/18 13:33 05/31/18 13:33 05/31/18 13:33 - Laboratory Result Diagrams: 05/31/18 15:15 05/31/18 15:15 Laboratory results interpreted by me: 05/31/18 05/31/18 05/31/18 14:24 15:15 15:15 WBC 10.6 H Carbon Dioxide 21 L Glucose 189 H Alkaline Phosphatase 131 H Urine Protein 30 H Urine Nitrite POSITIVE H Urine Urobilinogen 2.0 H Ur Leukocyte Esterase MODERATE H Discharge - Discharge Clinical Impression: Acute UTI (urinary tract infection), Bright red blood per rectum, Nonspecific abdominal pain Condition: Stable Disposition: HOME, SELF-CARE Instructions: Cephalexin ([facility]), Urinary Tract Infection ([facility]), Abdominal Pain ( [facility]) Additional Instructions: Push fluids (i.e. water, cranberry juice) Proper hygenic technique Keep the skin clean Tylenol/ibuprofen as needed Take medications as directed F/u with your PCM in 3-5 days for a recheck Scheduled appointment with gastroenterology for further evaluation and treatment as well as consideration of colonoscopy for your bright red blood per rectum. Return to the ED with any worsening symptoms and/or development of fever, headache, chest pain, palpitations, syncope, shortness of breath, trouble breathing, abdominal pain, n/v/d, blood in stool/urine, loss of control of bowel /bladder, urinary retention, or other worsening symptoms that are concerning to you. Prescriptions: Cephalexin Monohydrate [Keflex 500 mg Capsule] 500 mg PO TID #21 capsule Referrals: PAWAN ARREOLA MD [Primary Care Provider] - Follow up in 3-5 days CAROLINA CAMARA MD [ACTIVE STAFF] - Follow up as needed
[2018-05-31 15:38] LABS: ABSOLUTE BASOPHILS # (AUTO) 0.1 10^3/uL (0.0-0.2); ABSOLUTE EOSINOPHILS # (AUTO) 0.4 10^3/uL (0.0-0.6); ABSOLUTE MONOCYTES (AUTO) 0.7 10^3/uL (0.1-1.4); ABSOLUTE NEUT (AUTO) 6.5 10^3/uL (1.7-8.2); EOSINOPHILS % (AUTO) 3.6 % (0-6); HEMATOCRIT 38.4 % (36.0-47.0); HEMOGLOBIN 13.4 g/dL (12.0-15.5); LYMPHOCYTES % (AUTO) 27.9 % (13-45); MEAN CORPUSCULAR HEMOGLOBIN 31.4 pg (27.0-33.4); MEAN CORPUSCULAR HGB CONC 34.9 g/dL (32.0-36.0); MEAN CORPUSCULAR VOLUME 90 fl (80-97); MONOCYTES % (AUTO) 6.5 % (3-13); PLATELET COUNT 307 10^3/uL (150-450); RED BLOOD COUNT 4.27 10^6/uL (3.72-5.28); RED CELL DISTRIBUTION WIDTH 13.9 % (11.5-14.0); TOTAL CELLS COUNTED % (AUTO) 100 %; WHITE BLOOD COUNT 10.6 10^3/uL (4.0-10.5)
[2018-05-31 15:52] LABS: ALANINE AMINOTRANSFERASE 26 U/L (9-52); ALBUMIN 3.9 g/dL (3.5-5.0); ALKALINE PHOSPHATASE 131 U/L (38-126); ANION GAP 12 (5-19); ASPARTATE AMINO TRANSFERASE 24 U/L (14-36); BILIRUBIN,DIRECT 0.2 mg/dL (0.0-0.4); BILIRUBIN,TOTAL 0.6 mg/dL (0.2-1.3); BLOOD UREA NITROGEN 9 mg/dL (7-20); CALCIUM 9.5 mg/dL (8.4-10.2); CARBON DIOXIDE 21 mmol/L (22-30); CHLORIDE 105 mmol/L (98-107); GLUCOSE 189 mg/dL (75-110); LIPASE 124.7 U/L (23-300); POTASSIUM 4.2 mmol/L (3.6-5.0); SODIUM 137.8 mmol/L (137-145); TOTAL PROTEIN 7.2 g/dL (6.3-8.2)
--- NOTE | 2018-05-31 16:52 | RADIOLOGY REPORT (SQ) ---
EXAM DESCRIPTION: CT ABD/PELVIS WITH IV ONLY COMPLETED DATE/TIME: 05/31/2018 4:39 pm REASON FOR STUDY: right sided abdominal pain COMPARISON: 02/28/2018. TECHNIQUE: CT scan of the abdomen and pelvis performed using helical scanning technique with dynamic intravenous contrast injection. No oral contrast. Images reviewed with lung, soft tissue, and bone windows. Reconstructed coronal and sagittal MPR images reviewed. Delayed images for evaluation of the urinary system also acquired. All images stored on PACS. All CT scanners at this facility use dose modulation, iterative reconstruction, and/or weight based d osing when appropriate to reduce radiation dose to as low as reasonably achievable (ALARA). [facility]: Dose Right [facility]: CareDose [facility]: Dose Right [facility]: Teradose 4D [facility]: Golimi CONTRAST TYPE AND DOSE: contrast/concentration: Isovue 350.00 mg/ml; Total Contrast Delivered: 100.0 ml; Total Saline Delivered: 72.0 ml RENAL FUNCTION: GFR > 60. RADIATION DOSE: CT Rad equipment meets quality standard of care and radiation dose reduction techniq ues were employed. CTDIvol: 21.1 mGy. DLP: 2394 mGy-cm.. LIMITATIONS: None. FINDINGS: LOWER CHEST: No significant findings. No nodules or infiltrates. LIVER: Normal size. No masses. No dilated ducts. SPLEEN: Normal size. No focal lesions. PANCREAS: No masses. No significant calcifications. No adjacent inflammation or peripancreatic fluid collections. Pancreatic duct not dilated. GALLBLADDER: Surgically absent. ADRENAL GLANDS: No significant masses or asymmetry. RIGHT KIDNEY AND URETER: No solid masses. No significant calcifications. No hydronephrosis or hyd roureter. LEFT KIDNEY AND URETER: No solid masses. No significant calcifications. No hydronephrosis or hydr oureter. AORTA AND VESSELS: No aneurysm. No dissection. Renal arteries, SMA, celiac without stenosis. RETROPERITONEUM: No retroperitoneal adenopathy, hemorrhage or masses. BOWEL AND PERITONEAL CAVITY: No masses or inflammatory changes. No free fluid or peritoneal masses. APPENDIX: Surgically absent. PELVIS: No mass. No free fluid. Normal bladder. ABDOMINAL WALL: No masses. No hernias. BONES: No significant or acute findings. OTHER: No other significant finding. IMPRESSION: NO SIGNIFICANT OR ACUTE FINDING IN THE ABDOMEN OR PELVIS ON CT SCAN WITH IV CONTRAST. TECHNICAL DOCUMENTATION: JOB ID: [id number] Quality ID # [id number]: Final reports with documentation of one or more dose reduction techniques (e.g., Au tomated exposure control, adjustment of the mA and/or kV according to patient size, use of iterative reconstruction technique) 2010 [email or web address]- All Rights Reserved Reading location - IP/workstation name: [email or web address]
[2018-05-31 17:00] LABS: AMORPHOUS SEDIMENT,URINE TRACE /HPF; APPEARANCE,URINE TURBID; BILIRUBIN,URINE NEGATIVE (NEGATIVE); COLOR,URINE AMBER; GLUCOSE, URINE NEGATIVE (NEGATIVE); KETONES,URINE NEGATIVE (NEGATIVE); LEUKOCYTE ESTERASE,URINE MODERATE (NEGATIVE); NITRITE,URINE POSITIVE (NEGATIVE); PROTEIN,URINE 30 mg/dL (NEGATIVE); URINE SPECIFIC GRAVITY 1.023
[2018-05-31] MEDS ORDERED: CEFTRIAXONE 1 GM/D5W RTU 1 GM/50 ML RTUPB IV ONE (17:35)
[2018-05-31 18:19] VITALS: BP 105/70
[2018-05-31] MEDS ORDERED: FLUCONAZOLE 100 MG TABLET PO ONE (18:23)
[2018-05-31] MEDS ORDERED: HEPARIN SOD (PORCINE) 1,000 UNIT/ML 10 ML VIAL IV ONE (18:24)
--- NOTE | 2018-05-31 21:59 | EKG REPORT ---
SEVERITY:- NORMAL ECG - SINUS RHYTHM : Confirmed by: Mayra Farfan MD 31-May-2018 21:58:15
== END 2018-05-31 18:34 | disposition home or self-care (01) ==
LOC: ER 13:16
DX: N39.0 Urinary tract infection, site not specified (principal); R19.5 Other fecal abnormalities; R10.9 Unspecified abdominal pain; R11.0 Nausea; R63.0 Anorexia; I48.91 Unspecified atrial fibrillation; I10 Essential (primary) hypertension; J45.909 Unspecified asthma, uncomplicated; E11.9 Type 2 diabetes mellitus without complications
CPT/HCPCS: 93005; 99284; 96361; 96375; 96365; 36415; 87086; 83690; 85025; 87088; 80053; 81001; 84484; 87186; 83605; 74177; 93010; J2270; J2405; J7030; J3490; J0696

== ENCOUNTER 2018-06-24 16:59 | Emergency (ER) | payer MEDICAID ==
--- NOTE | 2018-06-24 18:24 | ER Document Report ---
ED Medical Screen (RME) - General Chief Complaint: Blood Pressure Problem Stated Complaint: BP ISSUE/LIGHT HEADED Time Seen by Provider: 06/24/18 18:18 Notes: 48 years old female with a history of pseudo-tumor cerebri, last April had LP done currently on Diamox. Presents today with blurred vision headache, difficulty in balancing. Also elevated blood pressure. She also has a history of sepsis, ankylosing spondylitis. TRAVEL OUTSIDE OF THE [place] IN LAST 30 DAYS: No - Related Data Allergies/Adverse Reactions: celecoxib [From Celebrex] Allergy (Severe, Verified 05/31/18 13:20) Swelling of hands and/or feet clarithromycin [From Biaxin] Allergy (Severe, Verified 05/31/18 13:20) Swelling of hands and/or feet latex [Latex] Allergy (Severe, Verified 05/31/18 13:20) Anaphylaxis nitrofurantoin [From Macrobid] Allergy (Severe, Verified 05/31/18 13:20) Hives Sulfa (Sulfonamide Antibiotics) Allergy (Severe, Verified 05/31/18 13:20) Hives adalimumab [From Humira] Allergy (Verified 05/31/18 13:20) Edema losartan [Losartan] Allergy (Verified 05/31/18 13:20) metformin [Metformin] Allergy (Verified 05/31/18 13:20) promethazine HCl [From Phenergan] Allergy (Verified 05/31/18 13:20) Cerebellar dysfunction rofecoxib [From Vioxx] Allergy (Verified 05/31/18 13:20) Swelling of hands and/or feet acetazolamide [From Diamox] Adverse Reaction (Verified 05/31/18 13:20) prochlorperazine maleate [From Compazine] Adverse Reaction (Verified 05/31/18 13 :20) Cerebellar dysfunction bananas Allergy (Severe, Uncoded 05/31/18 13:20) Difficulty breathing Past Medical History - Social History Family history: CAD, CVA, DM, Hyperlipidemia, Hypertension, Malignancy, Thyroid Disfunction - Past Medical History Cardiac Medical History: Reports: Hx Atrial Fibrillation, Hx Hypertension, Hx Heart Murmur Denies: Hx Coronary Artery Disease Pulmonary Medical History: Reports: Hx Asthma, Hx Pneumonia Neurological Medical History: Reports: Hx Migraine Endocrine Medical History: Reports: Hx Diabetes Mellitus Type 2, Hx Hypothyroidism Renal/ Medical History: Reports: Hx Ovarian Cysts - 6 Polyps, Hx Pelvic Inflammatory Disease. Denies: Hx Peritoneal Dialysis GI Medical History: Reports: Hx Crohn's Disease, Hx Gastroesophageal Reflux Disease, Hx Hiatal Hernia, Hx Irritable Bowel, Hx Ulcer - peptic ulcer Musculoskeltal Medical History: Reports Hx Arthritis - ANKYLOSING SPONDYLITIS, SEEN BY RHEUMATOLOGY@ [facility]. Psychiatric Medical History: Reports: Hx Depression, Hx Post Traumatic Stress Disorder Traumatic Medical History: Reports: Hx Fractures - feet Infectious Medical History: Reports: Hx C-Diff Past Surgical History: Reports: Hx Appendectomy, Hx Section, Hx Cholecystectomy, Hx Gynecologic Surgery - bladder sling, Hx Hysterectomy, Hx Urinary Tract Surgery - Immunizations Immunizations up to date: Yes Hx Diphtheria, Pertussis, Tetanus Vaccination: Yes Physical Exam - Vital signs Vitals: Temp Pulse Resp BP Pulse Ox 99.3 F 84 16 131/78 H 95 06/24/18 17:21 06/24/18 17:21 06/24/18 17:21 06/24/18 17:21 06/24/18 17:21 Course - Vital Signs Vital signs: Temp Pulse Resp BP Pulse Ox 99.3 F 84 16 131/78 H 95 06/24/18 17:21 06/24/18 17:21 06/24/18 17:21 06/24/18 17:21 06/24/18 17:21 Doctor's Discharge - Discharge Referrals: PAWAN ARREOLA MD [Primary Care Provider] - Follow up as needed
[2018-06-24 18:57] LABS: ABSOLUTE BASOPHILS # (AUTO) 0.1 10^3/uL (0.0-0.2); ABSOLUTE EOSINOPHILS # (AUTO) 0.3 10^3/uL (0.0-0.6); ABSOLUTE LYMPHOCYTES (AUTO) 2.9 10^3/uL (0.5-4.7); ABSOLUTE MONOCYTES (AUTO) 0.4 10^3/uL (0.1-1.4); ABSOLUTE NEUT (AUTO) 4.2 10^3/uL (1.7-8.2); EOSINOPHILS % (AUTO) 3.6 % (0-6); HEMATOCRIT 37.4 % (36.0-47.0); HEMOGLOBIN 12.9 g/dL (12.0-15.5); LYMPHOCYTES % (AUTO) 36.7 % (13-45); MEAN CORPUSCULAR HEMOGLOBIN 31.3 pg (27.0-33.4); MEAN CORPUSCULAR HGB CONC 34.6 g/dL (32.0-36.0); MEAN CORPUSCULAR VOLUME 91 fl (80-97); MONOCYTES % (AUTO) 5.4 % (3-13); PLATELET COUNT 319 10^3/uL (150-450); RED BLOOD COUNT 4.14 10^6/uL (3.72-5.28); RED CELL DISTRIBUTION WIDTH 13.8 % (11.5-14.0); SEGMENTED NEUTROPHILS % (AUTO) 53.3 % (42-78); TOTAL CELLS COUNTED % (AUTO) 100 %; WHITE BLOOD COUNT 7.9 10^3/uL (4.0-10.5)
--- NOTE | 2018-06-24 19:15 | RADIOLOGY REPORT (SQ) ---
EXAM DESCRIPTION: CT HEAD WITHOUT COMPLETED DATE/TIME: 06/24/2018 7:02 pm REASON FOR STUDY: Headache COMPARISON: Multiple since 2012 TECHNIQUE: Axial images acquired through the brain without intravenous contrast. Images reviewed wi th bone, brain and subdural windows. Additional sagittal and coronal reconstructions were generated. Images stored on PACS. All CT scanners at this facility use dose modulation, iterative reconstruction, and/or weight based d osing when appropriate to reduce radiation dose to as low as reasonably achievable (ALARA). [facility]: Dose Right [facility]: CareDose [facility]: Dose Right [facility]: Teradose 4D [facility]: [employer] RADIATION DOSE: CT Rad equipment meets quality standard of care and radiation dose reduction techniq ues were employed. CTDIvol: 48.5 mGy. DLP: 876 mGy-cm. mGy. LIMITATIONS: None. FINDINGS: VENTRICLES: Normal size and contour. CEREBRUM: No masses. No hemorrhage. No midline shift. No evidence for acute infarction. Normal gra y/white matter differentiation. No areas of low density in the white matter. CEREBELLUM: No masses. No hemorrhage. No alteration of density. No evidence for acute infarction. EXTRAAXIAL SPACES: On coronal image 40, a 10 mm calcified nodule is present along the left superior s agittal sinus, likely a small meningioma. ORBITS AND GLOBE: No intra- or extraconal masses. Normal contour of globe without masses. CALVARIUM: No fracture. PARANASAL SINUSES: Minimal fluid and mucous membrane thickening in the left ethmoid air cells. SOFT TISSUES: No mass or hematoma. OTHER: No other significant finding. IMPRESSION: No acute findings. Incidental finding of a 1 cm calcified meningioma along the leftward superior sagittal sinus. EVIDENCE OF ACUTE STROKE: NO. COMMENT: Quality ID # [id number]: Final reports with documentation of one or more dose reduction techniques (e.g., Automated exposure control, adjustment of the mA and/or kV according to patient size, use of iterative reconstruction technique) TECHNICAL DOCUMENTATION: JOB ID: [id number] [employer]- All Rights Reserved Reading location - IP/workstation name: [email or web address]
[2018-06-24 19:20] LABS: ALANINE AMINOTRANSFERASE 20 U/L (9-52); ALBUMIN 3.8 g/dL (3.5-5.0); ALKALINE PHOSPHATASE 127 U/L (38-126); ANION GAP 14 (5-19); ASPARTATE AMINO TRANSFERASE 25 U/L (14-36); BILIRUBIN,DIRECT 0.2 mg/dL (0.0-0.4); BILIRUBIN,TOTAL 0.4 mg/dL (0.2-1.3); BLOOD UREA NITROGEN 9 mg/dL (7-20); CALCIUM 9.6 mg/dL (8.4-10.2); CARBON DIOXIDE 22 mmol/L (22-30); CHLORIDE 103 mmol/L (98-107); GLUCOSE 218 mg/dL (75-110); POTASSIUM 4.2 mmol/L (3.6-5.0); SODIUM 138.6 mmol/L (137-145); TOTAL PROTEIN 7.1 g/dL (6.3-8.2)
[2018-06-24] MEDS ORDERED: METOCLOPRAMIDE HCL INJ/PF 10 MG/2 ML SDV IV ONE (19:36)
[2018-06-24] MEDS ORDERED: DIPHENHYDRAMINE HCL 50 MG/ML VIAL IV ONE (19:36)
[2018-06-24] MEDS ORDERED: MORPHINE SULFATE 10 MG/ML INJ IV ONE (19:36)
--- NOTE | 2018-06-24 19:41 | ER Document Report ---
ED General - General Chief Complaint: Blood Pressure Problem Stated Complaint: BP ISSUE/LIGHT HEADED Time Seen by Provider: 06/24/18 18:18 Notes: Patient is a 48-year-old female that comes to the emergency department for chief complaint of pain across her chest that started this morning, sore throat and a mild sensation of swollen tongue since this morning, she states she has had intermittent headache with a sensation of pressure behind her left eye, some nausea and visual blurring which resolved. She has a history of atrial fibrillation and states she felt like her heart was beating faster earlier, she states her blood pressure was also elevated at home. She has been having some congestion minimally with frequent irritated throat. She denies fever or chills , shortness of breath, head injury, focal numbness or weakness. She still states she has a headache and she has the pain across her chest. She states her chest feels like when she has had "costochondritis" in the past but she "wanted to be checked out". She follows with [facility] because of a history of pseudotumor cerebri, she is on Diamox, she had a lumbar puncture for this last year. Remaining medical history includes type 2 diabetes, morbid obesity, and reportedly a benign brain tumor. She is not on a blood thinner for atrial fibrillation. She denies smoking, alcohol, recreational drugs, history of heart attack, she has had negative stress tests in the past. TRAVEL OUTSIDE OF THE [place] IN LAST 30 DAYS: No - Related Data Allergies/Adverse Reactions: celecoxib [From Celebrex] Allergy (Severe, Verified 05/31/18 13:20) Swelling of hands and/or feet clarithromycin [From Biaxin] Allergy (Severe, Verified 05/31/18 13:20) Swelling of hands and/or feet latex [Latex] Allergy (Severe, Verified 05/31/18 13:20) Anaphylaxis nitrofurantoin [From Macrobid] Allergy (Severe, Verified 05/31/18 13:20) Hives Sulfa (Sulfonamide Antibiotics) Allergy (Severe, Verified 05/31/18 13:20) Hives adalimumab [From Humira] Allergy (Verified 05/31/18 13:20) Edema losartan [Losartan] Allergy (Verified 05/31/18 13:20) metformin [Metformin] Allergy (Verified 05/31/18 13:20) promethazine HCl [From Phenergan] Allergy (Verified 05/31/18 13:20) Cerebellar dysfunction rofecoxib [From Vioxx] Allergy (Verified 05/31/18 13:20) Swelling of hands and/or feet acetazolamide [From Diamox] Adverse Reaction (Verified 05/31/18 13:20) prochlorperazine maleate [From Compazine] Adverse Reaction (Verified 05/31/18 13 :20) Cerebellar dysfunction bananas Allergy (Severe, Uncoded 05/31/18 13:20) Difficulty breathing Past Medical History - General Information source: Patient - Social History Smoking Status: Never Smoker Drug Abuse: None Lives with: Family Family History: Reviewed & Not Pertinent, CAD, CVA, DM, Hyperlipidemia, Hypertension, Malignancy, Thyroid Disfunction Patient has suicidal ideation: No Patient has homicidal ideation: No - Past Medical History Cardiac Medical History: Reports: Hx Atrial Fibrillation, Hx Hypertension, Hx Heart Murmur Denies: Hx Coronary Artery Disease Pulmonary Medical History: Reports: Hx Asthma, Hx Pneumonia Neurological Medical History: Reports: Hx Migraine Endocrine Medical History: Reports: Hx Diabetes Mellitus Type 2, Hx Hypothyroidism Renal/ Medical History: Reports: Hx Ovarian Cysts - 6 Polyps, Hx Pelvic Inflammatory Disease. Denies: Hx Peritoneal Dialysis GI Medical History: Reports: Hx Crohn's Disease, Hx Gastroesophageal Reflux Disease, Hx Hiatal Hernia, Hx Irritable Bowel, Hx Ulcer - peptic ulcer Musculoskeletal Medical History: Reports Hx Arthritis - ANKYLOSING SPONDYLITIS, SEEN BY RHEUMATOLOGY@ [facility]. Psychiatric Medical History: Reports: Hx Depression, Hx Post Traumatic Stress Disorder Traumatic Medical History: Reports: Hx Fractures - feet Infectious Medical History: Reports: Hx C-Diff Past Surgical History: Reports: Hx Appendectomy, Hx Section, Hx Cholecystectomy, Hx Gynecologic Surgery - bladder sling, Hx Hysterectomy, Hx Urinary Tract Surgery - Immunizations Immunizations up to date: Yes Hx Diphtheria, Pertussis, Tetanus Vaccination: Yes Hx Pneumococcal Vaccination: 04/12/15 Review of Systems - Review of Systems Constitutional: See HPI EENT: See HPI Cardiovascular: See HPI Respiratory: No symptoms reported Gastrointestinal: No symptoms reported Genitourinary: No symptoms reported Female Genitourinary: No symptoms reported Musculoskeletal: No symptoms reported Skin: No symptoms reported Hematologic/Lymphatic: No symptoms reported Neurological/Psychological: See HPI Physical Exam - Vital signs Vitals: Temp Pulse Resp BP Pulse Ox 99.3 F 84 16 131/78 H 95 06/24/18 17:21 06/24/18 17:21 06/24/18 17:21 06/24/18 17:21 06/24/18 17:21 - Notes Notes: GENERAL: Alert, interacts well. No acute distress. Smiling and conversational. HEAD: Normocephalic, atraumatic. EYES: Pupils equal, round, and reactive to light. Extraocular movements intact. No photophobia. No noted papilledema. ENT: Oral mucosa moist, tongue midline. Oropharynx unremarkable. Airway patent. Nares patent, no nasal septal hematoma, TM's intact. NECK: Full range of motion. Supple. Trachea midline. LUNGS: Clear to auscultation bilaterally, no wheezes, rales, or rhonchi. No respiratory distress. Mild reproducible pain over the mid anterior chest side sternum bilaterally. No erythema, crepitus, swelling, or other abnormality noted. HEART: Regular rate and rhythm. No murmur ABDOMEN: Soft, non-tender. Non-distended. Bowel sounds present in all 4 quadrants. GENITOURINARY: Deferred EXTREMITIES: Moves all 4 extremities spontaneously. No edema, normal radial and dorsalis pedis pulses bilaterally. No cyanosis. BACK: no cervical, thoracic, lumbar midline tenderness. No saddle anesthesia, normal distal neurovascular exam. NEUROLOGICAL: Alert and oriented x3. Normal speech. [cranial nerves II through XII grossly intact]. PSYCH: Normal affect, normal mood. SKIN: Warm, dry, normal turgor. No rashes or lesions noted. Course - Re-evaluation Re-evalutation: Patient is smiling, talkative, well-appearing. She does have chest wall tenderness on palpation, clear lungs, no signs of distress, unremarkable vital signs including initial blood pressure (a few abnormal blood pressure readings obtained because it is difficult to obtain blood pressure from patient). This was double checked and unremarkable. EKG sinus rhythm with no diseased segment changes or T wave inversions in consecutive leads. Chest x-ray unremarkable. Troponin is negative despite symptoms starting over 8 hours ago, discussed this with patient and she states she is reassured. Because of her chest wall tenderness and negative workup I do not have high suspicion of cardiac nature of her pain. In regards to her headache she reported a specific combination of medications that help her frequently, these were provided, on reevaluation she is sleeping, easily aroused, states she is much improved, initially was she was stating she still had a headache but then after discussion she states she is much better and ready to leave. CBC, chemistry unremarkable. Normal neurological exam. I did check for papilledema and no abnormalities were specifically noted. Patient has remained comfortable appearing during her stay. She denies any blurred vision. She has excellent follow-up with neurology which she states she has already scheduled. She states that she has a close follow-up for adjustment of her Diamox dose and possible additional lumbar puncture. Discussed return precautions in detail, patient states understanding and agreement. Stable at time of discharge. - Vital Signs Vital signs: Temp Pulse Resp BP Pulse Ox 98.5 F 69 18 141/82 H 98 06/24/18 23:33 06/24/18 23:33 06/24/18 23:33 06/24/18 23:33 06/24/18 23:33 - Laboratory Result Diagrams: 06/24/18 18:31 06/24/18 18:31 Laboratory results interpreted by me: 06/24/18 18:31 Glucose 218 H Alkaline Phosphatase 127 H Discharge - Discharge Clinical Impression: Body aches, Sore throat Headache Qualifiers: Headache type: unspecified Headache chronicity pattern: acute headache Intractability: not intractable Qualified Code(s): R51 - Headache Chest pain Qualifiers: Chest pain type: unspecified Qualified Code(s): R07.9 - Chest pain, unspecified Condition: Stable Disposition: HOME, SELF-CARE Additional Instructions: Your workup and evaluation at this time does not show any concerning abnormalities. Continue current management of headaches and pseudotumor cerebri. Follow-up closely with your neurologist for additional management. Return the emergency department for any concerning or worsening symptoms including Blurred vision, severe headache, vomiting, fever, difficulty breathing, worsening pain in your chest or body, or any other concerning or worsening symptoms. Referrals: PAWAN ARREOLA MD [Primary Care Provider] - Follow up as needed
--- NOTE | 2018-06-24 21:01 | RADIOLOGY REPORT (SQ) ---
EXAM DESCRIPTION: XR CHEST 1 VIEW COMPLETED DATE/TME: 06/24/2018 20:05 CLINICAL HISTORY: 48 years, Female, chest pain Compared to 08/26/2017. Findings: The heart is not enlarged. Right chest port is in place. No consolidations or pleural effusions. No pulmonary edema or pneumothorax. IMPRESSION: No acute disease.
--- NOTE | 2018-06-24 21:27 | EKG REPORT ---
SEVERITY:- NORMAL ECG - SINUS RHYTHM : Confirmed by: Mayra Farfan MD 24-Jun-2018 21:26:27
[2018-06-24] MEDS ORDERED: HYDROCODONE/ACETAMINOPHEN 5-325 MG (6 TAB/ER DISP) PO PRN (22:49)
[2018-06-24 23:34] VITALS: BP 141/82
== END 2018-06-24 23:34 | disposition home or self-care (01) ==
LOC: ER 16:59
DX: R51 Headache (principal); R07.9 Chest pain, unspecified; J02.9 Acute pharyngitis, unspecified; J45.909 Unspecified asthma, uncomplicated; E11.9 Type 2 diabetes mellitus without complications; G93.2 Benign intracranial hypertension; Z79.899 Other long term (current) drug therapy; Z88.8 Allergy status to other drugs, medicaments and biological substances; Z88.1 Allergy status to other antibiotic agents; Z91.040 Latex allergy status; Z88.2 Allergy status to sulfonamides; Z91.018 Allergy to other foods
CPT/HCPCS: 93005; 36591; 99284; 96374; 96375; 36415; 87070; 87880; 85025; 80053; 84484; 71045; 70450; 93010; J1200; J2765; J2270

== ENCOUNTER 2018-08-10 16:05 | Emergency (ER) | payer MEDICAID ==
[2018-08-10 16:26] VITALS: BP 155/100
[2018-08-10] MEDS ORDERED: LIDOCAINE 2% VISCOUS SOLN 20 ML UDCUP PO ONE (16:30)
--- NOTE | 2018-08-10 16:36 | ER Document Report ---
HPI - HPI Time Seen by Provider: 08/10/18 16:29 Pain Level: 4 Notes: Patient is a 48-year-old female with an extensive medical history who presents the emergency department complaining of right lower dental pain #30 over the last couple weeks. Patient states that she was seen by dentist today who said that she may have an infection near her roots and that her tooth needs extracted. Patient states that she is going to an oral surgeon as well today who had to get called out of the office so she presented to the emergency department to get an antibiotic. She is otherwise eating and drinking without difficulty. No other concerns or complaints. Denies any headache, fever, head injury, neck pain, hoarseness, drooling, URI, sore throat, chest pain, palpitations, syncope, cough, shortness of breath, wheeze, dyspnea, abdominal pain, nausea/vomiting/diarrhea, urinary retention, dysuria, hematuria, or rash. - ROS Systems Reviewed and Negative: Yes All other systems reviewed and negative - REPRODUCTIVE Reproductive: DENIES: : Past Medical History - Social History Smoking Status: Unknown if Ever Smoked Family History: Reviewed & Not Pertinent, CAD, CVA, DM, Hyperlipidemia, Hypertension, Malignancy, Thyroid Disfunction - Past Medical History Cardiac Medical History: Reports: Hx Atrial Fibrillation, Hx Hypertension, Hx Heart Murmur Denies: Hx Coronary Artery Disease Pulmonary Medical History: Reports: Hx Asthma, Hx Pneumonia Neurological Medical History: Reports: Hx Migraine Endocrine Medical History: Reports: Hx Diabetes Mellitus Type 2, Hx Hypothyroidism Renal/ Medical History: Reports: Hx Ovarian Cysts - 6 Polyps, Hx Pelvic Inflammatory Disease. Denies: Hx Peritoneal Dialysis GI Medical History: Reports: Hx Crohn's Disease, Hx Gastroesophageal Reflux Disease, Hx Hiatal Hernia, Hx Irritable Bowel, Hx Ulcer - peptic ulcer Musculoskeletal Medical History: Reports Hx Arthritis - ANKYLOSING SPONDYLITIS, SEEN BY RHEUMATOLOGY@ [facility]. Psychiatric Medical History: Reports: Hx Depression, Hx Post Traumatic Stress Disorder Traumatic Medical History: Reports: Hx Fractures - feet Infectious Medical History: Reports: Hx C-Diff Past Surgical History: Reports: Hx Appendectomy, Hx Section, Hx Cholecystectomy, Hx Gynecologic Surgery - bladder sling, Hx Hysterectomy, Hx Urinary Tract Surgery - Immunizations Immunizations up to date: Yes Hx Diphtheria, Pertussis, Tetanus Vaccination: Yes Hx Pneumococcal Vaccination: 04/12/15 Vertical Provider Document - CONSTITUTIONAL Agree With Documented VS: Yes Notes: PHYSICAL EXAMINATION: GENERAL: Well-appearing, well-nourished and in no acute distress. HEAD: Atraumatic, normocephalic. EYES: Pupils equal round and reactive to light, extraocular movements intact, sclera anicteric, conjunctiva are normal. ENT: EAC clear b/l. TM's intact b/l without erythema, fluid, or perforation. Nares patent and without discharge. oropharynx clear without exudates. No tonsilar hypertrophy or erythema. Moist mucous membranes. No sinus tenderness. Uvula midline. No palatine shift. No tongue protrusion. No respiratory compromise. Mouth: Poor dentition. + mild decay and mild gingivitis. No obvious abscess or discharge noted. No facial swelling. + tenderness to tooth #30. NECK: Normal range of motion, supple without lymphadenopathy. No rigidity/meningismus. LUNGS: Breath sounds clear to auscultation bilaterally and equal. No wheezes ra les or rhonchi. HEART: Regular rate and rhythm without murmurs, rubs, gallops. NEUROLOGICAL: Cranial nerves grossly intact. Normal speech, normal gait. Normal sensory, motor exams PSYCH: Normal mood, normal affect. SKIN: Warm, Dry, normal turgor, no rashes or lesions noted. - INFECTION CONTROL TRAVEL OUTSIDE OF THE [place] IN LAST 30 DAYS: No Course - Re-evaluation Re-evalutation: 08/10/18 16:36 Patient is an afebrile, well-hydrated, 48-year-old female who presents to the ED with dental pain, suspect nerve root etiology versus infection. Vitals are acceptable. PE is otherwise unremarkable. No I&D, labs, or imaging warranted at this time based on H&P. Viscous lidocaine dispensed today. I will send her home with a prescription for cleocin. Low suspicion for any meningitis, sepsis, peritonsillar/pharyngeal abscess, respiratory compromise, Berto's, temporal arteritis, or other emergent systemic condition at this time. Patient is aware this condition can change from initial presentation and he needs to monitor symptoms closely. Conservative measures otherwise for symptoms. Call to schedule an appointment with a dentist for further evaluation and management. Recheck with your PCM this week as well. Return to the ED with any worsening/concerning symptoms otherwise as reviewed in discharge. Patient is in agreement. - Vital Signs Vital signs: Temp Pulse Resp BP Pulse Ox 97.8 F 113 H 18 155/100 H 100 08/10/18 16:25 08/10/18 16:25 08/10/18 16:25 08/10/18 16:25 08/10/18 16:25 Discharge - Discharge Clinical Impression: Pain, dental Condition: Stable Disposition: HOME, SELF-CARE Instructions: Toothache ([facility]), Clindamycin ([facility]) Additional Instructions: [place] and floss twice daily Maintain fluid intake Take antibiotics as directed Mouthwash, salt water gargles, peroxide rinse as needed Tylenol/ibuprofen as needed Recheck with PCM this week Call today/tomorrow and schedule an appointment with your dentist for further evaluation Return to the ED with any worsening symptoms and/or development of fever, headache, facial swelling, swelling of lips/tongue/throat, trouble swallowing, drooling, hoarseness, neck pain/stiffness, chest pain, palpitations, syncope, shortness of breath, trouble breathing, abdominal pain, n/v/d, n umbness/tingling, or other worsening symptoms that are concerning to you. Prescriptions: Clindamycin HCl [Cleocin 300 mg Capsule] 300 mg PO TID #30 capsule Forms: Elevated Blood Pressure Referrals: PAWAN ARREOLA MD [Primary Care Provider] - Follow up as needed DANIEL POWELL DDS [ACTIVE STAFF] - Follow up as needed
== END 2018-08-10 16:47 | disposition home or self-care (01) ==
LOC: ER 16:05
DX: K08.89 Other specified disorders of teeth and supporting structures (principal); J45.909 Unspecified asthma, uncomplicated; E11.9 Type 2 diabetes mellitus without complications
CPT/HCPCS: 99282; J3490

== ENCOUNTER 2018-08-11 14:42 | Emergency (ER) | payer MEDICAID ==
[2018-08-11] MEDS ORDERED: BUPIVACAINE HCL 0.25% /EPINEPHRINE INJ/PF 30 ML SDV INFIL PRN (15:53)
[2018-08-11] MEDS ORDERED: BUPIVACAINE HCL 0.5%-EPI 1:200000 INJ/PF 30 ML VIAL INJ ONE (16:51)
[2018-08-11 18:49] VITALS: BP 147/99
--- NOTE | 2018-08-13 14:39 | ER Document Report ---
Entered by FAVIOLA GARCÍA SCRIBE 08/11/18 [id number] Acting as scribe for:MARJAN BLACKWELL MD ED Oral Problem - General Chief Complaint: Toothache Stated Complaint: TOOTH PAIN,JAW PAIN Time Seen by Provider: 08/11/18 15:27 Primary Care Provider: PAWAN ARREOLA MD [Primary Care Provider] - Follow up as needed Mode of Arrival: Ambulatory Information source: Patient Notes: Patient is a 48 year old female with A. fib, hypertension, type 2 diabetes, hypothyroidism, Crohn's disease, GERD, PTSD, depression presents to the emergency department complaining of right tooth pain, jaw pain and face pain. Patient states she presented to a dentist yesterday and was told she had an abscess under a right lower tooth. She states she was subsequently sent to the oral surgeon but could not be seen due to the surgeon being out of town. She states she was told she needed to be placed on antibiotics and presented to the emergency department. She was discharged home with a prescription of Clindamycin. Patient states today her pain has significantly worsened and further reports being unable to feel the right side of her face. Patient mentions previously being admitted to the MICU unit at [place] for 2 weeks due to sepsis. TRAVEL OUTSIDE OF THE [place] IN LAST 30 DAYS: No - Related Data Allergies/Adverse Reactions: celecoxib [From Celebrex] Allergy (Severe, Verified 05/31/18 13:20) Swelling of hands and/or feet clarithromycin [From Biaxin] Allergy (Severe, Verified 05/31/18 13:20) Swelling of hands and/or feet latex [Latex] Allergy (Severe, Verified 05/31/18 13:20) Anaphylaxis nitrofurantoin [From Macrobid] Allergy (Severe, Verified 05/31/18 13:20) Hives Sulfa (Sulfonamide Antibiotics) Allergy (Severe, Verified 05/31/18 13:20) Hives adalimumab [From Humira] Allergy (Verified 05/31/18 13:20) Edema losartan [Losartan] Allergy (Verified 05/31/18 13:20) metformin [Metformin] Allergy (Verified 05/31/18 13:20) promethazine HCl [From Phenergan] Allergy (Verified 05/31/18 13:20) Cerebellar dysfunction rofecoxib [From Vioxx] Allergy (Verified 05/31/18 13:20) Swelling of hands and/or feet acetazolamide [From Diamox] Adverse Reaction (Verified 05/31/18 13:20) prochlorperazine maleate [From Compazine] Adverse Reaction (Verified 05/31/18 13:20) Cerebellar dysfunction bananas Allergy (Severe, Uncoded 05/31/18 13:20) Difficulty breathing Past Medical History - General Information source: Patient - Social History Smoking Status: Never Smoker Cigarette use (# per day): No Chew tobacco use (# tins/day): No Smoking Education Provided: No Frequency of alcohol use: None Family History: Reviewed & Not Pertinent, CAD, CVA, DM, Hyperlipidemia, Hypertension, Malignancy, Thyroid Disfunction - Past Medical History Cardiac Medical History: Reports: Hx Atrial Fibrillation, Hx Hypertension, Hx Heart Murmur Pulmonary Medical History: Reports: Hx Asthma, Hx Pneumonia Neurological Medical History: Reports: Hx Migraine Endocrine Medical History: Reports: Hx Diabetes Mellitus Type 2, Hx Hypothyroidism Renal/ Medical History: Reports: Hx Ovarian Cysts - 6 Polyps, Hx Pelvic Inflammatory Disease GI Medical History: Reports: Hx Crohn's Disease, Hx Gastroesophageal Reflux Disease, Hx Hiatal Hernia, Hx Irritable Bowel, Hx Ulcer - peptic ulcer Musculoskeletal Medical History: Reports Hx Arthritis - ANKYLOSING SPONDYLITIS, SEEN BY RHEUMATOLOGY@ [facility]. Psychiatric Medical History: Reports: Hx Depression, Hx Post Traumatic Stress Disorder Traumatic Medical History: Reports: Hx Fractures - feet Infectious Medical History: Reports: Hx C-Diff Past Surgical History: Reports: Hx Appendectomy, Hx Section, Hx Cholecystectomy, Hx Gynecologic Surgery - bladder sling, Hx Hysterectomy, Hx Urinary Tract Surgery - Immunizations Immunizations up to date: Yes Hx Diphtheria, Pertussis, Tetanus Vaccination: Yes Hx Pneumococcal Vaccination: 04/12/15 Review of Systems - Review of Systems Constitutional: No symptoms reported EENT: See HPI Cardiovascular: No symptoms reported Respiratory: No symptoms reported Gastrointestinal: No symptoms reported Genitourinary: No symptoms reported Female Genitourinary: No symptoms reported Musculoskeletal: See HPI Skin: No symptoms reported Hematologic/Lymphatic: No symptoms reported Neurological/Psychological: No symptoms reported -: Yes All other systems reviewed and negative Physical Exam - Vital signs Vitals: Temp Pulse Resp BP Pulse Ox 99.0 F 114 H 20 155/106 H 96 08/11/18 14:59 08/11/18 14:59 08/11/18 14:59 08/11/18 14:59 08/11/18 14:59 - Notes Notes: GENERAL: Alert, interacts well. No acute distress. HEAD: Normocephalic, atraumatic. EYES: Pupils equal, round, and reactive to light. Extraocular movements intact. ENT: Oral mucosa moist, tongue midline. Right 1st molar is tender to percussion, filling in place, erosion around the base of the tooth, no gum swelling. NECK: Full range of motion. Supple. Trachea midline. LUNGS: No respiratory distress. HEART: Regular rate and rhythm. No murmurs, gallops, or rubs. EXTREMITIES: Moves all 4 extremities spontaneously. NEUROLOGICAL: Alert and oriented x3. Normal speech. PSYCH: Normal affect, normal mood. SKIN: Warm, dry, normal turgor. No rashes or lesions noted. Course - Re-evaluation Re-evalutation: 08/11/18 18:33 PROCEDURE: 1.2 mL's of 0.5% bupivacaine with epinephrine 1:200,000 was infiltrated around the root of the right lower first molar. Patient eventually developed almost complete anesthesia, she was given another 0.5 mL in the same fashion prior to being discharged. She is encouraged to follow-up with her dentist if she is unable to get into an oral surgeon. - Vital Signs Vital signs: Temp Pulse Resp BP Pulse Ox 98.5 F 109 H 18 147/99 H 96 08/11/18 18:46 08/11/18 18:46 08/11/18 18:46 08/11/18 18:46 08/11/18 18:46 Discharge - Discharge Clinical Impression: Pain, dental Disposition: HOME, SELF-CARE I personally performed the services described in the documentation, reviewed and edited the documentation which was dictated to the scribe in my presence, and it accurately records my words and actions.
== END 2018-08-11 18:47 | disposition home or self-care (01) ==
LOC: ER 14:42
DX: K08.9 Disorder of teeth and supporting structures, unspecified (principal); I48.91 Unspecified atrial fibrillation; I10 Essential (primary) hypertension; E11.9 Type 2 diabetes mellitus without complications; E03.9 Hypothyroidism, unspecified; K21.9 Gastro-esophageal reflux disease without esophagitis; Z91.040 Latex allergy status; Z88.3 Allergy status to other anti-infective agents; Z88.2 Allergy status to sulfonamides; Z90.49 Acquired absence of other specified parts of digestive tract; Z90.710 Acquired absence of both cervix and uterus
CPT/HCPCS: 64400; 99282; J3490

== ENCOUNTER 2018-11-04 11:16 | Emergency (ER) | payer MEDICAID ==
--- NOTE | 2018-11-04 11:53 | ER Document Report ---
ED General - General Chief Complaint: Weakness Stated Complaint: GENERAL WEAKNESS Time Seen by Provider: 11/04/18 11:32 Primary Care Provider: PAWAN ARREOLA MD [Primary Care Provider] - Follow up as needed Notes: 48-year-old female with ankylosing spondylitis and fibromyalgia on Humira since presents to the emergency department after possible syncopal episode. She said she dropped her daughter off at school when she got home in the driveway to the vehicle off next thing she knew she woke up she thinks approximately 30 to 60 minutes later. She said there was a bunch of drooling water around her mouth when she woke up. She complains of nausea. She has a headache that is not typical of her previous migraines and said that she had an aura with some neck pain. She said the headache is described as a pain/pressure behind her eyes. She said she felt very woozy and "out of it" and staggered up her stairs when she got home. She then called 911. She denies fever, chills, recent illness, shortness of breath or chest pain, vomiting, any extremity paralysis. She does complain of face numbness. TRAVEL OUTSIDE OF THE [place] IN LAST 30 DAYS: No - Related Data Allergies/Adverse Reactions: celecoxib [From Celebrex] Allergy (Severe, Verified 05/31/18 13:20) Swelling of hands and/or feet clarithromycin [From Biaxin] Allergy (Severe, Verified 05/31/18 13:20) Swelling of hands and/or feet latex [Latex] Allergy (Severe, Verified 05/31/18 13:20) Anaphylaxis nitrofurantoin [From Macrobid] Allergy (Severe, Verified 05/31/18 13:20) Hives Sulfa (Sulfonamide Antibiotics) Allergy (Severe, Verified 05/31/18 13:20) Hives adalimumab [From Humira] Allergy (Verified 05/31/18 13:20) Edema losartan [Losartan] Allergy (Verified 05/31/18 13:20) metformin [Metformin] Allergy (Verified 05/31/18 13:20) promethazine HCl [From Phenergan] Allergy (Verified 05/31/18 13:20) Cerebellar dysfunction rofecoxib [From Vioxx] Allergy (Verified 05/31/18 13:20) Swelling of hands and/or feet acetazolamide [From Diamox] Adverse Reaction (Verified 05/31/18 13:20) prochlorperazine maleate [From Compazine] Adverse Reaction (Verified 05/31/18 13:20) Cerebellar dysfunction bananas Allergy (Severe, Uncoded 05/31/18 13:20) Difficulty breathing Past Medical History - Social History Smoking Status: Unknown if Ever Smoked Family History: Reviewed & Not Pertinent, CAD, CVA, DM, Hyperlipidemia, Hypertension, Malignancy, Thyroid Disfunction - Past Medical History Cardiac Medical History: Reports: Hx Atrial Fibrillation, Hx Hypertension, Hx Heart Murmur Denies: Hx Coronary Artery Disease Pulmonary Medical History: Reports: Hx Asthma, Hx Pneumonia Neurological Medical History: Reports: Hx Migraine Endocrine Medical History: Reports: Hx Diabetes Mellitus Type 2, Hx Hypothyroidism Renal/ Medical History: Reports: Hx Ovarian Cysts - 6 Polyps, Hx Pelvic Inflammatory Disease. Denies: Hx Peritoneal Dialysis GI Medical History: Reports: Hx Crohn's Disease, Hx Gastroesophageal Reflux Disease, Hx Hiatal Hernia, Hx Irritable Bowel, Hx Ulcer - peptic ulcer Musculoskeletal Medical History: Reports Hx Arthritis - ANKYLOSING SPONDYLITIS, SEEN BY RHEUMATOLOGY@ [facility]. Psychiatric Medical History: Reports: Hx Depression, Hx Post Traumatic Stress D isorder Traumatic Medical History: Reports: Hx Fractures - feet Infectious Medical History: Reports: Hx C-Diff Past Surgical History: Reports: Hx Appendectomy, Hx Section, Hx Cholecystectomy, Hx Gynecologic Surgery - bladder sling, Hx Hysterectomy, Hx Urinary Tract Surgery - Immunizations Immunizations up to date: Yes Hx Diphtheria, Pertussis, Tetanus Vaccination: Yes Hx Pneumococcal Vaccination: 04/12/15 Review of Systems - Review of Systems Constitutional: See HPI EENT: No symptoms reported Cardiovascular: See HPI Respiratory: See HPI Gastrointestinal: See HPI Genitourinary: No symptoms reported Female Genitourinary: No symptoms reported Musculoskeletal: No symptoms reported Skin: No symptoms reported Hematologic/Lymphatic: No symptoms reported Neurological/Psychological: See HPI Physical Exam - Vital signs Vitals: Temp Resp BP Pulse Ox 98.7 F 20 150/88 H 98 11/04/18 11:27 11/04/18 11:27 11/04/18 11:27 11/04/18 11:27 - Notes Notes: PHYSICAL EXAMINATION: Reviewed vital signs and charting by RN GENERAL: Alert, interacts well. No acute distress. HEAD: Normocephalic, atraumatic. EYES: Pupils equal and round. Extraocular movements intact. Patient complained of blurriness and unable to count fingers on peripheral vision test ENT: Oral mucosa moist, tongue midline. NECK: Full range of motion. Supple. Trachea midline. LUNGS: Clear to auscultation bilaterally, no wheezes, rales, or rhonchi. No respiratory distress. HEART: Regular rate and rhythm. No murmur ABDOMEN: soft, non-tender. Non-distended. Bowel sounds present. no McBurney's point tenderness, no Lozada sign. EXTREMITIES: Moves all 4 extremities spontaneously. No edema, No cyanosis. Normal distal neurovascular exam BACK: No CVAT NEUROLOGIC: Oriented and appropriate. Normal speech. No focal neuro deficits PSYCH: Normal affect, normal mood. SKIN: Warm, dry, normal turgor. No rashes or lesions noted. Course - Re-evaluation Re-evalutation: 11/04/18 11:53 Overall well-appearing. Patient with symptoms consistent with possible seizure versus syncopal episode. Work-up initiated. 11/04/18 14:08 CT head negative for any acute intracranial pathology or changes from previous. Meningioma still present. No lab abnormalities other than hyperglycemia. Unclear if patient had seizure at this time. 11/04/18 14:14 Patient states that she needs to leave to package pick up her daughter. I told her there was nothing dangerous or emergent at this time that would keep her in in the emergency department or for admission. I told her she needs to follow-up with her neurologist sooner than her December appointment. As long as patient can ambulate in the department she will be safe to discharge home. 11/05/18 08:15 Patient ambulated without problem and is feeling good safe to discharge home. Vital signs are stable - Vital Signs Vital signs: Temp Pulse Resp BP Pulse Ox 98.6 F 20 148/96 H 99 11/04/18 14:27 11/04/18 11:27 11/04/18 14:27 11/04/18 14:27 - Laboratory Result Diagrams: 11/04/18 11:40 11/04/18 11:40 Laboratory results interpreted by me: 11/04/18 11/04/18 11:40 11:40 WBC 10.6 H RDW 14.3 H Sodium 135.6 L Glucose 223 H Alkaline Phosphatase 141 H Discharge - Discharge Clinical Impression: Near syncope Condition: Good Disposition: HOME, SELF-CARE Additional Instructions: You were seen today after an episode of passing out. Your EKG here is normal. At this time, we do not feel that your episode of passing out was from any life- threatening cause. Please drink plenty of fluids over the next several days. Return to emergency department if you have any further episodes of syncope, headache, weakness, numbness, chest pain, or shortness of breath. Please follow up closely with your primary care physician. Also, please contact your neurologist to arrange sooner follow-up in December please. Referrals: PAWAN ARREOLA MD [Primary Care Provider] - Follow up as needed
[2018-11-04 12:09] LABS: ABSOLUTE BASOPHILS # (AUTO) 0.1 10^3/uL (0.0-0.2); ABSOLUTE EOSINOPHILS # (AUTO) 0.3 10^3/uL (0.0-0.6); ABSOLUTE LYMPHOCYTES (AUTO) 2.6 10^3/uL (0.5-4.7); ABSOLUTE MONOCYTES (AUTO) 0.5 10^3/uL (0.1-1.4); ABSOLUTE NEUT (AUTO) 7.2 10^3/uL (1.7-8.2); BASOPHILS % (AUTO) 0.8 % (0-2); EOSINOPHILS % (AUTO) 2.6 % (0-6); HEMATOCRIT 37.3 % (36.0-47.0); HEMOGLOBIN 12.7 g/dL (12.0-15.5); MEAN CORPUSCULAR HEMOGLOBIN 30.8 pg (27.0-33.4); MEAN CORPUSCULAR HGB CONC 33.9 g/dL (32.0-36.0); MEAN CORPUSCULAR VOLUME 91 fl (80-97); MONOCYTES % (AUTO) 4.5 % (3-13); PLATELET COUNT 329 10^3/uL (150-450); RED BLOOD COUNT 4.11 10^6/uL (3.72-5.28); RED CELL DISTRIBUTION WIDTH 14.3 % (11.5-14.0); SEGMENTED NEUTROPHILS % (AUTO) 68.1 % (42-78); TOTAL CELLS COUNTED % (AUTO) 100 %; WHITE BLOOD COUNT 10.6 10^3/uL (4.0-10.5)
[2018-11-04 12:31] LABS: ALANINE AMINOTRANSFERASE 18 U/L (9-52); ALBUMIN 3.6 g/dL (3.5-5.0); ALKALINE PHOSPHATASE 141 U/L (38-126); ANION GAP 6 (5-19); ASPARTATE AMINO TRANSFERASE 19 U/L (14-36); BILIRUBIN,DIRECT 0.3 mg/dL (0.0-0.4); BILIRUBIN,TOTAL 0.4 mg/dL (0.2-1.3); BLOOD UREA NITROGEN 13 mg/dL (7-20); CARBON DIOXIDE 23 mmol/L (22-30); CHLORIDE 107 mmol/L (98-107); GLUCOSE 223 mg/dL (75-110); POTASSIUM 4.1 mmol/L (3.6-5.0); SODIUM 135.6 mmol/L (137-145); TOTAL PROTEIN 7.4 g/dL (6.3-8.2)
--- NOTE | 2018-11-04 12:32 | EKG REPORT ---
SEVERITY:- NORMAL ECG - SINUS RHYTHM : Confirmed by: Ghassan Moscoso MD 04-Nov-2018 12:31:36
--- NOTE | 2018-11-04 12:37 | RADIOLOGY REPORT (SQ) ---
EXAM DESCRIPTION: CT HEAD WITHOUT COMPLETED DATE/TIME: 11/04/2018 12:05 pm REASON FOR STUDY: ?seizure-like activity COMPARISON: 06/24/2018 TECHNIQUE: Axial images acquired through the brain without intravenous contrast. Images reviewed wi th bone, brain and subdural windows. Additional sagittal and coronal reconstructions were generated. Images stored on PACS. All CT scanners at this facility use dose modulation, iterative reconstruction, and/or weight based d osing when appropriate to reduce radiation dose to as low as reasonably achievable (ALARA). [facility]: Dose Right [facility]: CareDose [facility]: Dose Right [facility]: Teradose 4D [facility]: Smart Affectiva RADIATION DOSE: CT Rad equipment meets quality standard of care and radiation dose reduction techniq ues were employed. CTDIvol: 53.2 mGy. DLP: 1017 mGy-cm. mGy. LIMITATIONS: None. FINDINGS: VENTRICLES: Normal size and contour. CEREBRUM: No masses. No hemorrhage. No midline shift. No evidence for acute infarction. Normal gra y/white matter differentiation. No areas of low density in the white matter. CEREBELLUM: No masses. No hemorrhage. No alteration of density. No evidence for acute infarction. EXTRAAXIAL SPACES: There is a small calcified meningioma about the left hemispheric vertex. ORBITS AND GLOBE: No intra- or extraconal masses. Normal contour of globe without masses. CALVARIUM: No fracture. PARANASAL SINUSES: No fluid or mucosal thickening. SOFT TISSUES: No mass or hematoma. OTHER: No other significant finding. IMPRESSION: No acute intracranial pathology. EVIDENCE OF ACUTE STROKE: NO. COMMENT: Quality ID # [id number]: Final reports with documentation of one or more dose reduction techniques (e.g., Automated exposure control, adjustment of the mA and/or kV according to patient size, use of iterative reconstruction technique) TECHNICAL DOCUMENTATION: JOB ID: [id number] [employer]- All Rights Reserved Reading location - IP/workstation name: [email or web address]
[2018-11-04 14:49] VITALS: BP 148/96
== END 2018-11-04 14:48 | disposition home or self-care (01) ==
LOC: ER 11:16
DX: R55 Syncope and collapse (principal); E11.65 Type 2 diabetes mellitus with hyperglycemia; R11.0 Nausea; R51 Headache; H53.8 Other visual disturbances; M54.2 Cervicalgia; D32.9 Benign neoplasm of meninges, unspecified; M45.9 Ankylosing spondylitis of unspecified sites in spine; Z79.899 Other long term (current) drug therapy; I10 Essential (primary) hypertension; J45.909 Unspecified asthma, uncomplicated; Z86.69 Personal history of other diseases of the nervous system and sense organs; R20.0 Anesthesia of skin; Z88.8 Allergy status to other drugs, medicaments and biological substances; Z88.1 Allergy status to other antibiotic agents; Z91.040 Latex allergy status; Z88.2 Allergy status to sulfonamides; Z91.018 Allergy to other foods
CPT/HCPCS: 36415; 70450; 80053; 84443; 85025; 93005; 93010; 99284

== ENCOUNTER 2018-11-10 09:05 | Emergency (ER) | payer MEDICAID ==
[2018-11-10] MEDS ORDERED: KETOROLAC TROMETHAMINE INJ/PF 30 MG/1 ML SDV IV ONE (09:53)
[2018-11-10] MEDS ORDERED: ONDANSETRON HCL INJ/PF 4 MG/2 ML SDV IV ONE ×2 (09:53→17:39)
--- NOTE | 2018-11-10 09:57 | ER Document Report ---
ED Medical Screen (RME) - General Chief Complaint: Abdominal Pain Stated Complaint: FEVER Time Seen by Provider: 11/10/18 09:44 Primary Care Provider: PAWAN ARREOLA MD [Primary Care Provider] - Follow up as needed Mode of Arrival: Ambulatory Information source: Patient TRAVEL OUTSIDE OF THE [place] IN LAST 30 DAYS: No - HPI Patient complains to provider of: ABDO PAIN Notes: 11/10/18 09:54 Patient here with a multitude of complaints. Patient has a prior history of ankylosing spondylitis, pseudotumor cerebri. She is on Humira. She was complaints of lower abdominal pain with nausea, vomiting, diarrhea possible fever that started yesterday. She also states that her entire body hurts, her entire body is very sensitive, her hands and feet are hurting. States all this started after she gave herself the Humira shot yesterday. She is concerned that she is developing antibodies to Humira shot as she has done this in the past with Remicade. She also complains of a headache. No head injury. Patient has had prior total hysterectomy, appendectomy, cholecystectomy. Exam Nontoxic, no distress. Lungs clear and equal throughout. Heart sounds normal. No focal abdominal tenderness on limited triage abdominal exam. Nonfocal neuro exam. Plan CBC, CMP, lipase, urine, troponin, EKG, chest x-ray, Toradol, Zofran. Will allow the provider back to full evaluate the patient to determine if further advanced imaging is indicated in this case. An initial examination was made on the patient as part of the triage process, and it was determined a more comprehensive evaluation was necessary. Initial labs were ordered and patient was transferred to another provider in the ED who assumed care and finished evaluation and plan. - Related Data Allergies/Adverse Reactions: celecoxib [From Celebrex] Allergy (Severe, Verified 11/10/18 09:54) Swelling of hands and/or feet clarithromycin [From Biaxin] Allergy (Severe, Verified 11/10/18 09:54) Swelling of hands and/or feet latex [Latex] Allergy (Severe, Verified 11/10/18 09:54) Anaphylaxis nitrofurantoin [From Macrobid] Allergy (Severe, Verified 11/10/18 09:54) Hives Sulfa (Sulfonamide Antibiotics) Allergy (Severe, Verified 11/10/18 09:54) Hives adalimumab [From Humira] Allergy (Verified 11/10/18 09:54) Edema losartan [Losartan] Allergy (Verified 11/10/18 09:54) metformin [Metformin] Allergy (Verified 11/10/18 09:54) promethazine HCl [From Phenergan] Allergy (Verified 11/10/18 09:54) Cerebellar dysfunction rofecoxib [From Vioxx] Allergy (Verified 11/10/18 09:54) Swelling of hands and/or feet acetazolamide [From Diamox] Adverse Reaction (Verified 11/10/18 09:54) prochlorperazine maleate [From Compazine] Adverse Reaction (Verified 11/10/18 09:54) Cerebellar dysfunction bananas Allergy (Severe, Uncoded 11/10/18 09:54) Difficulty breathing Past Medical History - Social History Chew tobacco use (# tins/day): No Frequency of alcohol use: Occasional Drug Abuse: None Family history: CAD, CVA, DM, Hyperlipidemia, Hypertension, Malignancy, Thyroid Disfunction - Past Medical History Cardiac Medical History: Reports: Hx Atrial Fibrillation, Hx Hypertension, Hx Heart Murmur Denies: Hx Coronary Artery Disease Pulmonary Medical History: Reports: Hx Asthma, Hx Pneumonia Neurological Medical History: Reports: Hx Migraine Endocrine Medical History: Reports: Hx Diabetes Mellitus Type 2, Hx Hypothyroidism Renal/ Medical History: Reports: Hx Ovarian Cysts - 6 Polyps, Hx Pelvic Inflammatory Disease. Denies: Hx Peritoneal Dialysis GI Medical History: Reports: Hx Crohn's Disease, Hx Gastroesophageal Reflux Disease, Hx Hiatal Hernia, Hx Irritable Bowel, Hx Ulcer - peptic ulcer Musculoskeltal Medical History: Reports Hx Arthritis - ANKYLOSING SPONDYLITIS, SEEN BY RHEUMATOLOGY@ [facility]. Psychiatric Medical History: Reports: Hx Depression, Hx Post Traumatic Stress Disorder Traumatic Medical History: Reports: Hx Fractures - feet Infectious Medical History: Reports: Hx C-Diff Past Surgical History: Reports: Hx Appendectomy, Hx Section, Hx C holecystectomy, Hx Gynecologic Surgery - bladder sling, Hx Hysterectomy, Hx Urinary Tract Surgery - Immunizations Immunizations up to date: Yes Hx Diphtheria, Pertussis, Tetanus Vaccination: Yes Physical Exam - Vital signs Vitals: Temp Pulse Resp BP Pulse Ox 98.8 F 102 H 16 142/105 H 97 11/10/18 09:12 11/10/18 09:12 11/10/18 09:12 11/10/18 09:12 11/10/18 09:12 Course - Vital Signs Vital signs: Temp Pulse Resp BP Pulse Ox 98.8 F 102 H 16 142/105 H 97 11/10/18 09:12 11/10/18 09:12 11/10/18 09:12 11/10/18 09:12 11/10/18 09:12 Doctor's Discharge - Discharge Referrals: PAWAN ARREOLA MD [Primary Care Provider] - Follow up as needed
[2018-11-10] MEDS ORDERED: HYDROMORPHONE HCL INJ/PF 2 MG/ML AMPULE IV ONE ×3 (11:25→17:31)
[2018-11-10] MEDS ORDERED: NORMAL SALINE 1000 ML 1,000 ML IV ONE ×3 (11:25→17:29)
--- NOTE | 2018-11-10 11:25 | ER Document Report ---
ED General - General Chief Complaint: Abdominal Pain Stated Complaint: FEVER Time Seen by Provider: 11/10/18 09:44 Primary Care Provider: PAWAN ARREOLA MD [Primary Care Provider] - Follow up in 1 week Mode of Arrival: Ambulatory Information source: Patient Notes: This is a 48-year-old female with a plicated medical history including ankylosing spondylitis, pseudotumor cerebri, meningioma, peptic ulcer disease with bleeding, migraines and sepsis. Patient reports having nausea, vomiting and diarrhea while last night. She did states she spiked a fever to 102.7. She reports taking aspirin at 5 AM. She states that she has pain everywhere which is not uncommon for her ankylosing spondylitis. TRAVEL OUTSIDE OF THE [place] IN LAST 30 DAYS: No - HPI Onset: Last week Onset/Duration: Gradual Quality of pain: Dull Severity: Moderate Pain Level: 2 Associated symptoms: denies: Chest pain, Nonproductive cough, Productive cough, Shortness of breath Exacerbated by: Denies Relieved by: Denies Similar symptoms previously: Yes Recently seen / treated by doctor: Yes - Related Data Allergies/Adverse Reactions: celecoxib [From Celebrex] Allergy (Severe, Verified 11/10/18 09:54) Swelling of hands and/or feet clarithromycin [From Biaxin] Allergy (Severe, Verified 11/10/18 09:54) Swelling of hands and/or feet latex [Latex] Allergy (Severe, Verified 11/10/18 09:54) Anaphylaxis nitrofurantoin [From Macrobid] Allergy (Severe, Verified 11/10/18 09:54) Hives Sulfa (Sulfonamide Antibiotics) Allergy (Severe, Verified 11/10/18 09:54) Hives adalimumab [From Humira] Allergy (Verified 11/10/18 09:54) Edema losartan [Losartan] Allergy (Verified 11/10/18 09:54) metformin [Metformin] Allergy (Verified 11/10/18 09:54) promethazine HCl [From Phenergan] Allergy (Verified 11/10/18 09:54) Cerebellar dysfunction rofecoxib [From Vioxx] Allergy (Verified 11/10/18 09:54) Swelling of hands and/or feet acetazolamide [From Diamox] Adverse Reaction (Verified 11/10/18 09:54) prochlorperazine maleate [From Compazine] Adverse Reaction (Verified 11/10/18 09:54) Cerebellar dysfunction bananas Allergy (Severe, Uncoded 11/10/18 09:54) Difficulty breathing Past Medical History - General Information source: Patient - Social History Smoking Status: Never Smoker Cigarette use (# per day): No Chew tobacco use (# tins/day): No Frequency of alcohol use: Occasional Drug Abuse: None Family History: Reviewed & Not Pertinent, CAD, CVA, DM, Hyperlipidemia, Hypertension, Malignancy, Thyroid Disfunction Patient has suicidal ideation: No Patient has homicidal ideation: No - Past Medical History Cardiac Medical History: Reports: Hx Atrial Fibrillation, Hx Hypertension, Hx Heart Murmur Denies: Hx Coronary Artery Disease Pulmonary Medical History: Reports: Hx Asthma, Hx Pneumonia Neurological Medical History: Reports: Hx Migraine Endocrine Medical History: Reports: Hx Diabetes Mellitus Type 2, Hx Hypothyroidism Renal/ Medical History: Reports: Hx Ovarian Cysts - 6 Polyps, Hx Pelvic Inflammatory Disease. Denies: Hx Peritoneal Dialysis GI Medical History: Reports: Hx Crohn's Disease, Hx Gastroesophageal Reflux Disease, Hx Hiatal Hernia, Hx Irritable Bowel, Hx Ulcer - peptic ulcer Musculoskeletal Medical History: Reports Hx Arthritis - ANKYLOSING SPONDYLITIS, SE[facility] BY [facility]OLOGY@ [facility]. Psychiatric Medical History: Reports: Hx Depression, Hx Post Traumatic Stress Disorder Traumatic Medical History: Reports: Hx Fractures - feet Infectious Medical History: Reports: Hx C-Diff Past Surgical History: Reports: Hx Appendectomy, Hx Section, Hx Cholecystectomy, Hx Gynecologic Surgery - bladder sling, Hx Hysterectomy, Hx Urinary Tract Surgery - Immunizations Immunizations up to date: Yes Hx Diphtheria, Pertussis, Tetanus Vaccination: Yes Hx Pneumococcal Vaccination: 04/12/15 Review of Systems - Review of Systems Constitutional: Fever. denies: Chills, Weakness EENT: No symptoms reported Cardiovascular: denies: Chest pain, Palpitations, Heart racing Respiratory: denies: Cough, Short of breath, Wheezing Gastrointestinal: Diarrhea, Nausea, Vomiting Genitourinary: No symptoms reported Female Genitourinary: No symptoms reported Musculoskeletal: See HPI Skin: No symptoms reported Hematologic/Lymphatic: No symptoms reported Neurological/Psychological: No symptoms reported Physical Exam - Vital signs Vitals: Temp Pulse Resp BP Pulse Ox 98.8 F 102 H 16 142/105 H 97 11/10/18 09:12 11/10/18 09:12 11/10/18 09:12 11/10/18 09:12 11/10/18 09:12 Notes: Physical exam: GENERAL: This is a 48-year-old man is alert and oriented x3, no acute distress. There is no photophobia or neck stiffness. HEAD: Atraumatic, normocephalic. EYES: Pupils equal round and reactive to light, extraocular movements intact, sclera anicteric, conjunctiva are normal. ENT: TMs normal, nares patent, oropharynx clear without exudates. Moist mucous membranes. NECK: Normal range of motion, supple without obvious mass or JVD. LUNGS: Breath sounds clear to auscultation bilaterally and equal. No wheezes rales or rhonchi. HEART: Regular rate and rhythm without murmurs, rubs or gallops. ABDOMEN: Soft, normoactive bowel sounds. No tenderness to palpation. No guarding, no rebound. No masses appreciated. EXTREMITIES: Normal range of motion, no pitting or edema. No clubbing or cyanosis. NEUROLOGICAL: Cranial nerves II through XII grossly intact. Normal speech, moving all extremities. No photophobia, no neck stiffness. PSYCH: Normal mood, normal affect. SKIN: Warm, Dry, normal turgor, no rashes or lesions noted. Course - Re-evaluation Re-evalutation: 11/10/18 17:44 Note: The history of fever and worsening headache, a fluoroscopic spinal tap was performed by radiology. It does not appear infected. She looks fairly good, she does have a significant amount of baseline body pain from her ankylosing spondylitis. 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 She does have appointments with her neurologist on November 19. I did discuss the case with Dr. Arreola who is seen the patient in the emergency room and he agrees with DC home. She has had a history of chronic UTIs and I will put her on some antibiotics but I do not think she has any evidence of sepsis or pyelonephritis. - Vital Signs Vital signs: Temp Pulse Resp BP Pulse Ox 98.8 F 102 H 16 142/105 H 97 11/10/18 09:12 11/10/18 09:12 11/10/18 09:12 11/10/18 09:12 11/10/18 09:12 - Laboratory Result Diagrams: 11/10/18 11:17 11/10/18 11:17 Laboratory results interpreted by me: 11/10/18 11/10/18 11/10/18 11:17 11:17 11:17 WBC 14.9 H Absolute Neutrophils 11.1 H Sodium 135.8 L Glucose 246 H Ur Leukocyte Esterase TRACE H CSF Glucose CSF Total Protein 11/10/18 13:45 WBC Absolute Neutrophils Sodium Glucose Ur Leukocyte Esterase CSF Glucose 141 H CSF Total Protein 69 H - Diagnostic Test Radiology reviewed: Image reviewed, Reports reviewed - Chest x-ray is clear. CT of the head shows no evidence of acute intracranial process. Critical Care Note - Critical Care Note Total time excluding time spent on procedures (mins): 60 Discharge - Discharge Clinical Impression: Headaches, Body aches UTI (urinary tract infection) Qualifiers: Urinary tract infection type: acute cystitis Clinical Impression: (Ruled Out): But he aches Condition: Stable Disposition: HOME, SELF-CARE Admitting Provider: Edmund (Hospitalist) Additional Instructions: As we discussed, the blood work looked pretty good. You do have evidence of urine infection which is what you have had in the past. Your white count was elevated and this can sometimes go along with stress or infection. The CT of the head to look good. The spinal tap also look good. I want you to continue current medicines, take it easy over the next few days, return to the emergency room for worsening pain. I do want you to follow-up with [facility] neurology as planned. Prescriptions: Ondansetron [Zofran Odt 4 mg Tablet] 1 - 2 tab PO Q4HP PRN #10 tab.rapdis PRN Reason: Cephalexin Monohydrate [Keflex 500 mg Capsule] 500 mg PO Q6H 5 Days capsule Hydromorphone HCl [Dilaudid 2 Mg Tablet] 2 mg PO Q6H PRN #20 tablet PRN Reason: for pain Referrals: PAWAN ARREOLA MD [Primary Care Provider] - Follow up in 1 week
[2018-11-10 11:40] LABS: ABSOLUTE BASOPHILS # (AUTO) 0.1 10^3/uL (0.0-0.2); ABSOLUTE EOSINOPHILS # (AUTO) 0.2 10^3/uL (0.0-0.6); ABSOLUTE LYMPHOCYTES (AUTO) 2.9 10^3/uL (0.5-4.7); ABSOLUTE MONOCYTES (AUTO) 0.5 10^3/uL (0.1-1.4); ABSOLUTE NEUT (AUTO) 11.1 10^3/uL (1.7-8.2); BASOPHILS % (AUTO) 0.9 % (0-2); EOSINOPHILS % (AUTO) 1.4 % (0-6); HEMATOCRIT 36.2 % (36.0-47.0); HEMOGLOBIN 12.2 g/dL (12.0-15.5); LYMPHOCYTES % (AUTO) 19.5 % (13-45); MEAN CORPUSCULAR HEMOGLOBIN 29.8 pg (27.0-33.4); MEAN CORPUSCULAR HGB CONC 33.6 g/dL (32.0-36.0); MEAN CORPUSCULAR VOLUME 89 fl (80-97); MONOCYTES % (AUTO) 3.6 % (3-13); PLATELET COUNT 305 10^3/uL (150-450); RED BLOOD COUNT 4.08 10^6/uL (3.72-5.28); SEGMENTED NEUTROPHILS % (AUTO) 74.6 % (42-78); TOTAL CELLS COUNTED % (AUTO) 100 %; WHITE BLOOD COUNT 14.9 10^3/uL (4.0-10.5)
[2018-11-10 11:52] LABS: APPEARANCE,URINE CLOUDY; BILIRUBIN,URINE NEGATIVE (NEGATIVE); COLOR,URINE YELLOW; GLUCOSE, URINE NEGATIVE (NEGATIVE); KETONES,URINE NEGATIVE (NEGATIVE); LEUKOCYTE ESTERASE,URINE TRACE (NEGATIVE); NITRITE,URINE NEGATIVE (NEGATIVE); PROTEIN,URINE NEGATIVE (NEGATIVE); URINE SPECIFIC GRAVITY 1.013; UROBILINOGEN,URINE NEGATIVE mg/dL (<2.0)
--- NOTE | 2018-11-10 11:54 | RADIOLOGY REPORT (SQ) ---
EXAM DESCRIPTION: CT HEAD WITHOUT COMPLETED DATE/TIME: 11/10/2018 11:39 am REASON FOR STUDY: pires COMPARISON: 11/04/2018 TECHNIQUE: Axial images acquired through the brain without intravenous contrast. Images reviewed wi th bone, brain and subdural windows. Additional sagittal and coronal reconstructions were generated. Images stored on PACS. All CT scanners at this facility use dose modulation, iterative reconstruction, and/or weight based d osing when appropriate to reduce radiation dose to as low as reasonably achievable (ALARA). [facility]: Dose Right [facility]: CareDose [facility]: Dose Right [facility]: Teradose 4D [facility]: [employer] RADIATION DOSE: CT Rad equipment meets quality standard of care and radiation dose reduction techniq ues were employed. CTDIvol: 53.2 mGy. DLP: 1044 mGy-cm. mGy. LIMITATIONS: None. FINDINGS: VENTRICLES: Normal size and contour. CEREBRUM: No masses. No hemorrhage. No midline shift. No evidence for acute infarction. Small lacu mallory infarction or prominent Virchow Edi space of the left basal ganglia unchanged from prior. CEREBELLUM: No masses. No hemorrhage. No alteration of density. No evidence for acute infarction. EXTRAAXIAL SPACES: No fluid collections. No masses. ORBITS AND GLOBE: No intra- or extraconal masses. Normal contour of globe without masses. CALVARIUM: No fracture. PARANASAL SINUSES: No fluid or mucosal thickening. SOFT TISSUES: No mass or hematoma. OTHER: No other significant finding. IMPRESSION: No acute intracranial pathology. No noncontrast CT findings to explain headache. EVIDENCE OF ACUTE STROKE: NO. COMMENT: Quality ID # [id number]: Final reports with documentation of one or more dose reduction techniques (e.g., Automated exposure control, adjustment of the mA and/or kV according to patient size, use of iterative reconstruction technique) TECHNICAL DOCUMENTATION: JOB ID: [id number] [employer]- All Rights Reserved Reading location - IP/workstation name: [email or web address]
[2018-11-10 11:59] LABS: ALANINE AMINOTRANSFERASE 22 U/L (9-52); ALBUMIN 3.6 g/dL (3.5-5.0); ALKALINE PHOSPHATASE 126 U/L (38-126); ANION GAP 9 (5-19); ASPARTATE AMINO TRANSFERASE 21 U/L (14-36); BILIRUBIN,DIRECT 0.2 mg/dL (0.0-0.4); BILIRUBIN,TOTAL 0.6 mg/dL (0.2-1.3); BLOOD UREA NITROGEN 8 mg/dL (7-20); CALCIUM 8.9 mg/dL (8.4-10.2); CARBON DIOXIDE 25 mmol/L (22-30); CHLORIDE 102 mmol/L (98-107); GLUCOSE 246 mg/dL (75-110); LIPASE 59.2 U/L (23-300); POTASSIUM 3.8 mmol/L (3.6-5.0); SODIUM 135.8 mmol/L (137-145); TOTAL PROTEIN 7.3 g/dL (6.3-8.2)
--- NOTE | 2018-11-10 12:33 | RADIOLOGY REPORT (SQ) ---
EXAM DESCRIPTION: CHEST SINGLE VIEW COMPLETED DATE/TIME: 11/10/2018 12:15 pm REASON FOR STUDY: PAIN COMPARISON: None. EXAM PARAMETERS: NUMBER OF VIEWS: One view. TECHNIQUE: Single frontal radiographic view of the chest acquired. RADIATION DOSE: NA LIMITATIONS: None. FINDINGS: LUNGS AND PLEURA: No opacities, masses or pneumothorax. No pleural effusion. MEDIASTINUM AND HILAR STRUCTURES: No masses. Contour normal. HEART AND VASCULAR STRUCTURES: Heart normal in size. Normal vasculature. BONES: No acute findings. HARDWARE: Right-sided port. Tip projected over the cavoatrial junction. OTHER: No other significant finding. IMPRESSION: NO ACUTE RADIOGRAPHIC FINDING IN THE CHEST. TECHNICAL DOCUMENTATION: JOB ID: [id number] [employer]- All Rights Reserved Reading location - IP/workstation name: [email or web address]
[2018-11-10 14:38] LABS: GLUCOSE,CSF 141 mg/dL (40-70); PROTEIN,CSF 69 mg/dL (12-60)
[2018-11-10 15:00] LABS: APPEARANCE ALL TUBES CLEAR; COLOR ALL TUBES COLORLESS; CSF TOTAL VOLUME 12.3 CC; CSF TUBE NUMBER 1; VOLUME TUBE 4 3.3 CC
[2018-11-10 15:02] LABS: RED BLOOD CELL,CSF 40 /uL (0-10)
[2018-11-10 15:04] LABS: APPEARANCE ALL TUBES CLEAR; COLOR ALL TUBES COLORLESS; CSF TOTAL VOLUME 12.3 CC; CSF TUBE NUMBER 4; VOLUME TUBE 4 3.3 CC; WHITE BLOOD CELL,CSF 4 /uL (0-5)
[2018-11-10 15:07] LABS: RED BLOOD CELL,CSF 7 /uL (0-10)
[2018-11-10 15:08] LABS: WHITE BLOOD CELL,CSF 4 /uL (0-5)
--- NOTE | 2018-11-10 15:47 | RADIOLOGY REPORT (SQ) ---
EXAM DESCRIPTION: LUMBAR PUNCTURE; FLUORO/NEEDLE PLACEMENT/SPINE COMPLETED DATE/TIME: 11/10/2018 2:01 pm REASON FOR STUDY: lamar, fever; LAMAR, FEVER COMPARISON: CT brain 11/10/2018 FLUOROSCOPY TIME: 3 seconds 1 digital fluoroscopic images saved to PACS. TECHNIQUE: Fluoroscopic guided lumbar puncture. LIMITATIONS: None. PROCEDURE: After written consent and assessment were obtained, the patient was brought into the fluo roscopy room and placed prone on the table. The patient's lower back was prepped in a sterile fashio n and an entry site was selected under live fluoroscopic guidance. The entry site was anesthetized wi th 4.5 mL of 1% lidocaine. A 20 cm 22 gauge needle was advanced through the skin and into the right p aracentral L3-4 interlaminar space. Thecal sac was accessed. After approximately 12.5 ml was draine d, the needle was removed and a sterile bandage was placed of the site. Specimens were sent to the ab for testing. A fluoroscopic spot image was saved to PACS confirming level access. FINDINGS: Clear CSF Opening pressure 27 cm of water Closing pressure 18 cm of water IMPRESSION: Lumbar puncture under fluoroscopy. No immediate complication. Laboratory studies on th e CSF are pending. Opening pressure 27 cm of water COMMENT: Patient medication list reviewed: Yes- Quality ID# [id number]:Eligible professional attests to doc umenting in the medical record they obtained, updated, or reviewed the patient's current medications. . Quality ID 145: Final reports for procedures using fluoroscopy that document radiation exposure korey umair, or exposure time and number of fluorographic images (if radiation exposure indices are not avail able) TECHNICAL DOCUMENTATION: JOB ID: [id number] [employer]- All Rights Reserved Reading location - IP/workstation name: [email or web address]
[2018-11-10] MEDS ORDERED: PIPERACILLIN/TAZOBACTAM 3.375 GM VIAL IV SCH (17:30)
[2018-11-10 18:04] VITALS: BP 119/67
--- NOTE | 2018-11-10 23:08 | EKG REPORT ---
SEVERITY:- BORDERLINE ECG - SINUS RHYTHM PROBABLE LEFT ATRIAL ABNORMALITY : Confirmed by: Nilesh Vázquez 10-Nov-2018 23:08:13
== END 2018-11-10 18:04 | disposition home or self-care (01) ==
LOC: ER 09:05
DX: N30.00 Acute cystitis without hematuria (principal); R51 Headache; M79.10 Myalgia, unspecified site; R10.9 Unspecified abdominal pain; R50.9 Fever, unspecified; R11.2 Nausea with vomiting, unspecified; R19.7 Diarrhea, unspecified; I10 Essential (primary) hypertension; J45.909 Unspecified asthma, uncomplicated; E11.9 Type 2 diabetes mellitus without complications
CPT/HCPCS: 93005; 36591; 96376; 99291; 96361; 96374; 96375; 36415; 87070; 87205; 83690; 85025; 89050; 82945; 84157; 80053; 81001; 84484; 71045; 77003; 62270; 70450; 93010; J1885; J1170; J2405; J7030; J1642

== ENCOUNTER 2019-03-28 07:52 | Emergency (ER) | payer MEDICAID ==
[2019-03-28] MEDS ORDERED: ONDANSETRON HCL INJ/PF 4 MG/2 ML SDV IV ONE (08:34)
[2019-03-28] MEDS ORDERED: HYDROMORPHONE HCL INJ/PF 2 MG/ML AMPULE IV ONE (08:34)
--- NOTE | 2019-03-28 08:34 | ER Document Report ---
ED General - General Chief Complaint: Fever Stated Complaint: FEET AND LEG PAIN Primary Care Provider: PAWAN ARREOLA MD [Primary Care Provider] - Follow up as needed TRAVEL OUTSIDE OF THE [place] IN LAST 30 DAYS: No - HPI Patient complains to provider of: leg pain/ concern for sepsis Onset: Last week Onset/Duration: Gradual Severity: Moderate Context: 48 year old female - pt of Dr. Arreola - presents with complaints of leg pain and a flare of her fibromyalgia. She is concerned she may be developing sepsis which she has done previously and had extended stays at [facility]. She tells me they menti oned amputating her toes in the past. H/O DM, Htn and ankolosing spondylitis as well as fibromyalgia. Pain has increased generally over the past week. No fever or chills. Abd pain increasing but not more than her usual she tells me. Associated symptoms: Nausea Exacerbated by: Denies Relieved by: Denies - Related Data Allergies/Adverse Reactions: celecoxib [From Celebrex] Allergy (Severe, Verified 11/10/18 09:54) Swelling of hands and/or feet clarithromycin [From Biaxin] Allergy (Severe, Verified 11/10/18 09:54) Swelling of hands and/or feet latex [Latex] Allergy (Severe, Verified 11/10/18 09:54) Anaphylaxis nitrofurantoin [From Macrobid] Allergy (Severe, Verified 11/10/18 09:54) Hives Sulfa (Sulfonamide Antibiotics) Allergy (Severe, Verified 11/10/18 09:54) Hives adalimumab [From Humira] Allergy (Verified 11/10/18 09:54) Edema losartan [Losartan] Allergy (Verified 11/10/18 09:54) metformin [Metformin] Allergy (Verified 11/10/18 09:54) promethazine HCl [From Phenergan] Allergy (Verified 11/10/18 09:54) Cerebellar dysfunction rofecoxib [From Vioxx] Allergy (Verified 11/10/18 09:54) Swelling of hands and/or feet acetazolamide [From Diamox] Adverse Reaction (Verified 11/10/18 09:54) prochlorperazine maleate [From Compazine] Adverse Reaction (Verified 11/10/18 09:54) Cerebellar dysfunction bananas Allergy (Severe, Uncoded 11/10/18 09:54) Difficulty breathing Past Medical History - Social History Smoking Status: Unknown if Ever Smoked Frequency of alcohol use: None Drug Abuse: None Family History: Reviewed & Not Pertinent, CAD, CVA, DM, Hyperlipidemia, Hypertension, Malignancy, Thyroid Disfunction Patient has suicidal ideation: No Patient has homicidal ideation: No - Past Medical History Cardiac Medical History: Reports: Hx Atrial Fibrillation, Hx Hypertension, Hx Heart Murmur Denies: Hx Coronary Artery Disease Pulmonary Medical History: Reports: Hx Asthma, Hx Pneumonia Neurological Medical History: Reports: Hx Migraine Endocrine Medical History: Reports: Hx Diabetes Mellitus Type 2, Hx Hypothyroidism Renal/ Medical History: Reports: Hx Ovarian Cysts - 6 Polyps, Hx Pelvic Inflammatory Disease. Denies: Hx Peritoneal Dialysis GI Medical History: Reports: Hx Crohn's Disease, Hx Gastroesophageal Reflux Disease, Hx Hiatal Hernia, Hx Irritable Bowel, Hx Ulcer - peptic ulcer Musculoskeletal Medical History: Reports Hx Arthritis - ANKYLOSING SPONDYLITIS, SEEN BY [email or web address]@ [facility]. Psychiatric Medical History: Reports: Hx Depression, Hx Post Traumatic Stress Disorder Traumatic Medical History: Reports: Hx Fractures - feet Infectious Medical History: Reports: Hx C-Diff Past Surgical History: Reports: Hx Appendectomy, Hx Section, Hx Ch olecystectomy, Hx Gynecologic Surgery - bladder sling, Hx Hysterectomy, Hx Urinary Tract Surgery - Immunizations Immunizations up to date: Yes Hx Diphtheria, Pertussis, Tetanus Vaccination: Yes Hx Pneumococcal Vaccination: 04/12/15 Physical Exam - Vital signs Vitals: Temp Pulse Resp BP Pulse Ox 99.5 F 120 H 20 159/105 H 93 03/28/19 07:55 03/28/19 07:55 03/28/19 07:55 03/28/19 07:55 03/28/19 07:55 Course - Re-evaluation Re-evalutation: 03/28/19 13:04 MDM 48 year old pt with h/o anklosing spondlytis and complains of feeling bad "all over." No serious process identified at this time. She is due to see her rheumnatologist soon she tells me. Will provide short course of hydrocodones even though she is asking for dilaudid. - Vital Signs Vital signs: Temp Pulse Resp BP Pulse Ox 99.5 F 120 H 19 143/93 H 97 03/28/19 10:33 03/28/19 07:55 03/28/19 11:00 03/28/19 11:01 03/28/19 11:01 - Laboratory Result Diagrams: 03/28/19 09:43 03/28/19 09:43 Laboratory results interpreted by me: 03/28/19 09:43 Sodium 135.7 L Glucose 209 H Alkaline Phosphatase 148 H Albumin 3.4 L - EKG Interpretation by Me EKG shows normal: Sinus rhythm Rate: Tachycardia - NSR Nl [place] no st elevation or depression my interpretation. 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 Arreola's office today to schedule follow up. Rest. Medicine as directed. Follow your diabetic diet. Please return here for any problems or any concerns. Referrals: PAWAN ARREOLA MD [Primary Care Provider] - Follow up as needed
[2019-03-28 10:07] LABS: ABSOLUTE BASOPHILS # (AUTO) 0.1 10^3/uL (0.0-0.2); ABSOLUTE EOSINOPHILS # (AUTO) 0.2 10^3/uL (0.0-0.6); ABSOLUTE LYMPHOCYTES (AUTO) 1.7 10^3/uL (0.5-4.7); ABSOLUTE MONOCYTES (AUTO) 0.5 10^3/uL (0.1-1.4); ABSOLUTE NEUT (AUTO) 5.3 10^3/uL (1.7-8.2); BASOPHILS % (AUTO) 0.7 % (0-2); HEMATOCRIT 38.3 % (36.0-47.0); HEMOGLOBIN 12.9 g/dL (12.0-15.5); LYMPHOCYTES % (AUTO) 21.7 % (13-45); MEAN CORPUSCULAR HEMOGLOBIN 29.5 pg (27.0-33.4); MEAN CORPUSCULAR HGB CONC 33.8 g/dL (32.0-36.0); MEAN CORPUSCULAR VOLUME 87 fl (80-97); MONOCYTES % (AUTO) 6.4 % (3-13); PLATELET COUNT 290 10^3/uL (150-450); RED BLOOD COUNT 4.39 10^6/uL (3.72-5.28); RED CELL DISTRIBUTION WIDTH 13.3 % (11.5-14.0); SEGMENTED NEUTROPHILS % (AUTO) 69.2 % (42-78); TOTAL CELLS COUNTED % (AUTO) 100 %; WHITE BLOOD COUNT 7.7 10^3/uL (4.0-10.5)
[2019-03-28 11:15] LABS: ALBUMIN 3.4 g/dL (3.5-5.0); ALKALINE PHOSPHATASE 148 U/L (38-126); ANION GAP 9 (5-19); ASPARTATE AMINO TRANSFERASE 20 U/L (14-36); BILIRUBIN,DIRECT 0.1 mg/dL (0.0-0.4); BILIRUBIN,TOTAL 0.4 mg/dL (0.2-1.3); BLOOD UREA NITROGEN 9 mg/dL (7-20); CALCIUM 9.3 mg/dL (8.4-10.2); CARBON DIOXIDE 25 mmol/L (22-30); CHLORIDE 102 mmol/L (98-107); GLUCOSE 209 mg/dL (75-110); POTASSIUM 4.1 mmol/L (3.6-5.0); TOTAL PROTEIN 6.7 g/dL (6.3-8.2)
[2019-03-28 11:34] VITALS: BP 143/93
--- NOTE | 2019-03-28 13:36 | EKG REPORT ---
SEVERITY:- BORDERLINE ECG - SINUS TACHYCARDIA BORDERLINE INFERIOR Q WAVES CONSIDER ANTERIOR INFARCT : Confirmed by: Ghassan Moscoso MD 28-Mar-2019 13:35:15
== END 2019-03-28 13:57 | disposition home or self-care (01) ==
LOC: ER 07:52
DX: M79.7 Fibromyalgia (principal); E11.69 Type 2 diabetes mellitus with other specified complication; R50.9 Fever, unspecified; Z79.4 Long term (current) use of insulin; I48.91 Unspecified atrial fibrillation; I10 Essential (primary) hypertension; E03.9 Hypothyroidism, unspecified; Z90.710 Acquired absence of both cervix and uterus; Z88.2 Allergy status to sulfonamides
CPT/HCPCS: 93005; 99283; 96374; 96375; 36415; 83605; 83690; 85025; 80053; 93010; J1170; J2405; J1642

== ENCOUNTER 2019-05-17 18:15 | Inpatient (IN) | payer MEDICAID ==
[2019-05-17 19:34] LABS: ABSOLUTE EOSINOPHILS # (AUTO) 0.3 10^3/uL (0.0-0.6); ABSOLUTE MONOCYTES (AUTO) 0.6 10^3/uL (0.1-1.4); TOTAL CELLS COUNTED % (AUTO) 100 %
[2019-05-17 19:37] LABS: ABSOLUTE BASOPHILS # (AUTO) 0.1 10^3/uL (0.0-0.2); ABSOLUTE NEUT (AUTO) 5.7 10^3/uL (1.7-8.2); BASOPHILS % (AUTO) 0.8 % (0-2); EOSINOPHILS % (AUTO) 2.7 % (0-6); HEMATOCRIT 36.2 % (36.0-47.0); HEMOGLOBIN 12.4 g/dL (12.0-15.5); LYMPHOCYTES % (AUTO) 31.4 % (13-45); MEAN CORPUSCULAR HEMOGLOBIN 30.2 pg (27.0-33.4); MEAN CORPUSCULAR HGB CONC 34.3 g/dL (32.0-36.0); MEAN CORPUSCULAR VOLUME 88 fl (80-97); MONOCYTES % (AUTO) 5.9 % (3-13); PLATELET COUNT 308 10^3/uL (150-450); RED CELL DISTRIBUTION WIDTH 13.7 % (11.5-14.0); SEGMENTED NEUTROPHILS % (AUTO) 59.2 % (42-78); WHITE BLOOD COUNT 9.6 10^3/uL (4.0-10.5)
--- NOTE | 2019-05-17 19:39 | ER Document Report ---
ED General - General Chief Complaint: Fever Stated Complaint: FEVER, VOMITING,CHILLS Time Seen by Provider: 05/17/19 19:38 Primary Care Provider: PAWAN ARREOLA MD [Primary Care Provider] - Follow up as needed TRAVEL OUTSIDE OF THE [place] IN LAST 30 DAYS: No - Related Data Allergies/Adverse Reactions: celecoxib [From Celebrex] Allergy (Severe, Verified 11/10/18 09:54) Swelling of hands and/or feet clarithromycin [From Biaxin] Allergy (Severe, Verified 11/10/18 09:54) Swelling of hands and/or feet latex [Latex] Allergy (Severe, Verified 11/10/18 09:54) Anaphylaxis nitrofurantoin [From Macrobid] Allergy (Severe, Verified 11/10/18 09:54) Hives Sulfa (Sulfonamide Antibiotics) Allergy (Severe, Verified 11/10/18 09:54) Hives adalimumab [From Humira] Allergy (Verified 11/10/18 09:54) Edema losartan [Losartan] Allergy (Verified 11/10/18 09:54) metformin [Metformin] Allergy (Verified 11/10/18 09:54) promethazine HCl [From Phenergan] Allergy (Verified 11/10/18 09:54) Cerebellar dysfunction rofecoxib [From Vioxx] Allergy (Verified 11/10/18 09:54) Swelling of hands and/or feet acetazolamide [From Diamox] Adverse Reaction (Verified 11/10/18 09:54) prochlorperazine maleate [From Compazine] Adverse Reaction (Verified 11/10/18 09:54) Cerebellar dysfunction bananas Allergy (Severe, Uncoded 11/10/18 09:54) Difficulty breathing Home Medications: pt unable to recall at this time Past Medical History - Social History Smoking Status: Unknown if Ever Smoked Family History: Reviewed & Not Pertinent, CAD, CVA, DM, Hyperlipidemia, Hypertension, Malignancy, Thyroid Disfunction Patient has suicidal ideation: No Patient has homicidal ideation: No - Past Medical History Cardiac Medical History: Reports: Hx Atrial Fibrillation, Hx Hypertension, Hx Heart Murmur Denies: Hx Coronary Artery Disease Pulmonary Medical History: Reports: Hx Asthma, Hx Pneumonia Neurological Medical History: Reports: Hx Migraine Endocrine Medical History: Reports: Hx Diabetes Mellitus Type 2, Hx Hypoth yroidism Renal/ Medical History: Reports: Hx Ovarian Cysts - 6 Polyps, Hx Pelvic Inflammatory Disease. Denies: Hx Peritoneal Dialysis GI Medical History: Reports: Hx Crohn's Disease, Hx Gastroesophageal Reflux Disease, Hx Hiatal Hernia, Hx Irritable Bowel, Hx Ulcer - peptic ulcer Musculoskeletal Medical History: Reports Hx Arthritis - ANKYLOSING SPONDYLITIS, SEEN BY [email or web address]. Psychiatric Medical History: Reports: Hx Depression, Hx Post Traumatic Stress Disorder Traumatic Medical History: Reports: Hx Fractures - feet Infectious Medical History: Reports: Hx C-Diff Past Surgical History: Reports: Hx Appendectomy, Hx Section, Hx Cholecystectomy, Hx Gynecologic Surgery - bladder sling, Hx Hysterectomy, Hx Urinary Tract Surgery - Immunizations Immunizations up to date: Yes Hx Diphtheria, Pertussis, Tetanus Vaccination: Yes Hx Pneumococcal Vaccination: 04/12/15 Physical Exam - Vital signs Vitals: Temp Pulse Resp BP Pulse Ox 99.1 F 117 H 16 149/89 H 96 05/17/19 18:21 05/17/19 18:21 05/17/19 18:21 05/17/19 18:21 05/17/19 18:21 Course - Vital Signs Vital signs: Temp Pulse Resp BP Pulse Ox 99.1 F 117 H 16 149/89 H 96 05/17/19 18:21 05/17/19 18:21 05/17/19 18:21 05/17/19 18:21 05/17/19 18:21 - Laboratory Result Diagrams: 05/17/19 19:14 05/17/19 19:14 Laboratory results interpreted by me: 05/17/19 05/17/19 05/17/19 19:14 19:14 20:50 ESR 59 H VBG pH 7.43 H Sodium 135.4 L Glucose 178 H Alkaline Phosphatase 135 H Discharge - Discharge Clinical Impression: Foot ulcer due to secondary DM Condition: Fair Disposition: ADMITTED INPATIENT Admitting Provider: Andrae Unit Admitted: Medical Floor Referrals: PAWAN ARREOLA MD [Primary Care Provider] - Follow up as needed
[2019-05-17 19:45] LABS: INTERNATIONAL RATION (INR) 1.05; PROTHROMBIN TIME 13.7 SEC (11.4-15.4)
[2019-05-17 19:48] LABS: ALBUMIN 3.5 g/dL (3.5-5.0); ALKALINE PHOSPHATASE 135 U/L (38-126); ANION GAP 7 (5-19); ASPARTATE AMINO TRANSFERASE 23 U/L (14-36); BILIRUBIN,DIRECT 0.1 mg/dL (0.0-0.4); BILIRUBIN,TOTAL 0.4 mg/dL (0.2-1.3); BLOOD UREA NITROGEN 9 mg/dL (7-20); CALCIUM 8.7 mg/dL (8.4-10.2); CARBON DIOXIDE 28 mmol/L (22-30); CHLORIDE 100 mmol/L (98-107); GLUCOSE 178 mg/dL (75-110); TOTAL PROTEIN 6.9 g/dL (6.3-8.2)
[2019-05-17] MEDS ORDERED: RINGERS SOLUTION,LACTATED 1,000 ML IV ONE (20:14)
[2019-05-17] MEDS ORDERED: PIPERACILLIN/TAZOBACTAM 4.5 GM VIAL IV ONE (20:16)
[2019-05-17] MEDS ORDERED: ACETAMINOPHEN 325 MG TABLET PO ONE (20:16)
[2019-05-17] MEDS ORDERED: VANCOMYCIN HCL INJ 1000 MG VIAL IV ONE (20:16)
[2019-05-17 21:06] LABS: VENOUS BLOOD BASE EXCESS 2.2 mmol/L; VENOUS BLOOD HCO3 26.9 mmol/L (20-32); VENOUS BLOOD PCO2 41.9 mmHg (35-63); VENOUS BLOOD PH 7.43 (7.30-7.42)
[2019-05-17] MEDS ORDERED: ONDANSETRON HCL INJ/PF 4 MG/2 ML SDV IV ONE (21:25)
[2019-05-17] MEDS ORDERED: OXYCODONE HCL IR 5 MG TABLET PO ONE (21:26)
[2019-05-17] MEDS ORDERED: ONDANSETRON HCL INJ/PF 4 MG/2 ML SDV IV PRN (22:10)
[2019-05-17] MEDS ORDERED: ACETAMINOPHEN 325 MG TABLET PO PRN (22:10)
[2019-05-17] MEDS ORDERED: NORMAL SALINE 1000 ML 1,000 ML IV PRN (22:10)
[2019-05-17] MEDS ORDERED: DEXTROSE 50%-WATER 25 GM/50 ML DISP.SYRIN IV PRN ×2 (22:15)
[2019-05-17] MEDS ORDERED: DEXTROSE 40% GEL 15 GM TUBE PO PRN ×2 (22:15)
[2019-05-17] MEDS ORDERED: GLUCAGON,HUMAN RECOMB 1 MG INJ IM PRN (22:15)
[2019-05-17 23:22] LABS: ANION GAP 11 (5-19); BLOOD UREA NITROGEN 8 mg/dL (7-20); CALCIUM 8.9 mg/dL (8.4-10.2); CARBON DIOXIDE 24 mmol/L (22-30); CHLORIDE 102 mmol/L (98-107); GLUCOSE 201 mg/dL (75-110)
[2019-05-18] MEDS ORDERED: PIPERACILLIN/TAZOBACTAM 3.375 GM VIAL IV ONE (02:08)
[2019-05-18 02:20] LABS: AMORPHOUS SEDIMENT,URINE TRACE /HPF; APPEARANCE,URINE SLIGHTLY-CLOUDY; BILIRUBIN,URINE NEGATIVE (NEGATIVE); COLOR,URINE YELLOW; GLUCOSE, URINE NEGATIVE (NEGATIVE); KETONES,URINE NEGATIVE (NEGATIVE); PROTEIN,URINE NEGATIVE (NEGATIVE); URINE SPECIFIC GRAVITY 1.017; UROBILINOGEN,URINE NEGATIVE mg/dL (<2.0)
[2019-05-18] MEDS: PIPERACILLIN SODIUM/TAZOBACTAM 3.375 GM in NORMAL SALINE 100 ML IV SCH ×4 (02:31→20:22)
[2019-05-18 04:45] LABS: ABSOLUTE BASOPHILS # (AUTO) 0.1 10^3/uL (0.0-0.2); ABSOLUTE EOSINOPHILS # (AUTO) 0.3 10^3/uL (0.0-0.6); ABSOLUTE LYMPHOCYTES (AUTO) 2.6 10^3/uL (0.5-4.7); ABSOLUTE MONOCYTES (AUTO) 0.7 10^3/uL (0.1-1.4); ABSOLUTE NEUT (AUTO) 5.1 10^3/uL (1.7-8.2); EOSINOPHILS % (AUTO) 3.6 % (0-6); HEMATOCRIT 35.6 % (36.0-47.0); HEMOGLOBIN 12.2 g/dL (12.0-15.5); LYMPHOCYTES % (AUTO) 29.1 % (13-45); MEAN CORPUSCULAR HEMOGLOBIN 30.1 pg (27.0-33.4); MEAN CORPUSCULAR HGB CONC 34.1 g/dL (32.0-36.0); MEAN CORPUSCULAR VOLUME 88 fl (80-97); MONOCYTES % (AUTO) 7.9 % (3-13); PLATELET COUNT 298 10^3/uL (150-450); RED BLOOD COUNT 4.03 10^6/uL (3.72-5.28); RED CELL DISTRIBUTION WIDTH 13.8 % (11.5-14.0); SEGMENTED NEUTROPHILS % (AUTO) 58.4 % (42-78); TOTAL CELLS COUNTED % (AUTO) 100 %; WHITE BLOOD COUNT 8.8 10^3/uL (4.0-10.5)
[2019-05-18] MEDS ORDERED: PANTOPRAZOLE SODIUM 40 MG TABLET.DR PO SCH (06:00)
[2019-05-18 06:23] LABS: ABSOLUTE BASOPHILS # (AUTO) 0.1 10^3/uL (0.0-0.2); ABSOLUTE EOSINOPHILS # (AUTO) 0.3 10^3/uL (0.0-0.6); ABSOLUTE LYMPHOCYTES (AUTO) 2.2 10^3/uL (0.5-4.7); ABSOLUTE MONOCYTES (AUTO) 0.7 10^3/uL (0.1-1.4); ABSOLUTE NEUT (AUTO) 7.3 10^3/uL (1.7-8.2); BASOPHILS % (AUTO) 0.5 % (0-2); HEMATOCRIT 35.1 % (36.0-47.0); LYMPHOCYTES % (AUTO) 20.9 % (13-45); MEAN CORPUSCULAR HEMOGLOBIN 30.2 pg (27.0-33.4); MEAN CORPUSCULAR HGB CONC 34.1 g/dL (32.0-36.0); MEAN CORPUSCULAR VOLUME 89 fl (80-97); PLATELET COUNT 299 10^3/uL (150-450); RED BLOOD COUNT 3.95 10^6/uL (3.72-5.28); SEGMENTED NEUTROPHILS % (AUTO) 68.6 % (42-78); TOTAL CELLS COUNTED % (AUTO) 100 %; WHITE BLOOD COUNT 10.7 10^3/uL (4.0-10.5)
[2019-05-18] MEDS ORDERED: DEXTROSE 50%-WATER 25 GM/50 ML DISP.SYRIN IV PRN ×2 (07:54)
[2019-05-18] MEDS ORDERED: DEXTROSE 40% GEL 15 GM TUBE PO PRN ×2 (07:54)
[2019-05-18] MEDS ORDERED: GLUCAGON,HUMAN RECOMB 1 MG INJ IM PRN (07:54)
[2019-05-18] MEDS: OXYCODONE HCL IR 5 MG TABLET PO PRN ×2 (08:10→17:06)
[2019-05-18] MEDS: INSULIN LISPRO 100 UNIT/ML 3 ML VIAL SUBCUT SCH ×4 (08:11→21:52)
--- NOTE | 2019-05-18 08:27 | RADIOLOGY REPORT (SQ) ---
EXAM DESCRIPTION: XR FOOT 2 VIEWS BILATERAL COMPLETED DATE/TME: CLINICAL HISTORY: 49 years, Female, BILATERAL BIG TOE ULCERS AND ERYTHYMA COMPARISON: None. NUMBER OF VIEWS: Two TECHNIQUE: Two views of the bilateral feet LIMITATIONS: None. FINDINGS: There is no acute fracture, dislocation, erosion, or periosteal reaction. The joint spaces are preserved. Mild soft tissue swelling involving both great toes, left greater than right. IMPRESSION: No radiographic evidence of osteomyelitis. copyright 2010 [employer]- All Rights Reserved
--- NOTE | 2019-05-18 09:00 | PDOC CONSULTATION ---
Consultation Consult Date: 05/18/19 Provider Consulted: EDWINA RAI Consult reason:: Diabetic big toe ulcers History of Present Illness Admission Date/PCP: 05/17/19 22:13 PAWAN ARREOLA MD History of Present Illness: TAMMI RAMÍREZ is a 49 year old female who is insulin-dependent diabetic d iabetic and ankylosing spondylitis on Humira but being held at this time, known to have ulcers on both big toes and was in the hospital at [facility] for 2 weeks in April 2018 for sepsis and diabetic ulcers and further needed IV home antibiotics. She was just at [facility] for sepsis due to toe ulcers last month and stayed in the hospital for 4 weeks and was given IV antibiotics for c ellulitis. This is been complaining of pains along the left foot primarily along the left big toe for the past several days and subsequently sent by primary physician to be admitted. She denies any fever nor chills. Past Medical History Cardiac Medical History: Reports: Atrial Fibrillation, Hypertension, Heart Murmur Denies: Coronary Artery Disease Pulmonary Medical History: Reports: Asthma, Pneumonia Neurological Medical History: Reports: Migraine Endocrine Medical History: Reports: Diabetes Mellitus Type 2, Hypothyroidism GI Medical History: Reports: Crohn's Disease, Gastroesophageal Reflux Disease, Hiatal Hernia Musculoskeltal Medical History: Reports: Arthritis - ANKYLOSING SPONDYLITIS, SEEN BY [email or web address]. Psychiatric Medical History: Reports: Depression, Post Traumatic Stress Disorder Hematology: Reports: Anemia Infectious Medical History: Reports: Clostridium Difficile Past Surgical History Past Surgical History: Reports: Appendectomy, Section, Cholecystectomy, Hysterectomy Social History Smoking Status: Never Smoker Frequency of Alcohol Use: Rare Hx Recreational Drug Use: No Drugs: None Hx Prescription Drug Abuse: No Family History Family History: Reviewed & Not Pertinent, CAD, CVA, DM, Hyperlipidemia, Hypertension, Malignancy, Thyroid Disfunction Parental Family History Reviewed: Yes Children Family History Reviewed: No Sibling(s) Family History Reviewed.: No Medication/Allergy Home Medications: Acetazolamide [Acetazolamide ER] mg PO 05/18/19 Cetirizine HCl [Zyrtec 10 mg Tablet] 10 mg PO DAILY 05/18/19 Diclofenac Sodium [Voltaren] 2 gm TP QIDP PRN 05/18/19 Duloxetine HCl [Cymbalta] 60 mg PO Q12 05/18/19 Estrogens,Conjugated [Premarin 0.625 mg Tablet] 0.625 mg PO DAILY 05/18/19 Gabapentin [Neurontin 300 mg Capsule] 600 mg PO TID 05/18/19 Gabapentin [Neurontin 300 mg Capsule] 900 mg PO QHS 05/18/19 Hydroxyzine HCl [Atarax 25 mg Tablet] 25 mg PO Q8HP PRN 05/18/19 Insulin Aspart [Novolog Flexpen] unit SUBCUT 05/18/19 Insulin Glargine,Hum.rec.anlog [Lantus Insulin 100 Unit/1 ml 10 ml] 15 units SUBCUT BID 05/18/19 Levothyroxine Sodium [Synthroid 0.15 mg Tablet] 0.15 mg PO Q6AM 05/18/19 Oxybutynin Chloride [Oxybutynin Chloride ER] 10 mg PO DAILY 05/18/19 Allergies/Adverse Reactions: celecoxib [From Celebrex] Allergy (Severe, Verified 11/10/18 09:54) Swelling of hands and/or feet clarithromycin [From Biaxin] Allergy (Severe, Verified 11/10/18 09:54) Swelling of hands and/or feet latex [Latex] Allergy (Severe, Verified 11/10/18 09:54) Anaphylaxis nitrofurantoin [From Macrobid] Allergy (Severe, Verified 11/10/18 09:54) Hives Sulfa (Sulfonamide Antibiotics) Allergy (Severe, Verified 11/10/18 09:54) Hives adalimumab [From Humira] Allergy (Verified 11/10/18 09:54) Edema losartan [Losartan] Allergy (Verified 11/10/18 09:54) metformin [Metformin] Allergy (Verified 11/10/18 09:54) promethazine HCl [From Phenergan] Allergy (Verified 11/10/18 09:54) Cerebellar dysfunction rofecoxib [From Vioxx] Allergy (Verified 11/10/18 09:54) Swelling of hands and/or feet acetazolamide [From Diamox] Adverse Reaction (Verified 11/10/18 09:54) prochlorperazine maleate [From Compazine] Adverse Reaction (Verified 11/10/18 09:54) Cerebellar dysfunction bananas Allergy (Severe, Uncoded 11/10/18 09:54) Difficulty breathing Review of Systems Constitutional: PRESENT: as per HPI Cardiovascular: PRESENT: other - No cough no chest pains Gastrointestinal: PRESENT: other - No abdominal pains Genitourinary: PRESENT: other - No dysuria Musculoskeletal: PRESENT: back pain Integumentary: PRESENT: other - Chronic ulcer of the tip of the left big toe with some pains and erythema Physical Exam Vital Signs: Temp Pulse Resp BP Pulse Ox 98.2 F 100 17 142/80 H 97 05/17/19 23:32 05/18/19 02:00 05/17/19 23:32 05/17/19 23:32 05/17/19 23:32 Intake & Output 05/17/19 05/18/19 05/19/19 06:59 06:59 06:59 Intake Total 1420 Balance 1420 Weight 138.2 kg General appearance: PRESENT: morbidly obese Head exam: PRESENT: atraumatic Eye exam: PRESENT: conjunctiva pink Mouth exam: PRESENT: moist Neck exam: PRESENT: full ROM Respiratory exam: PRESENT: clear to auscultation freedom Cardiovascular exam: PRESENT: RRR Pulses: PRESENT: normal radial pulses, +1 pedal pulses bilateral - Dorsalis pedis arteries Vascular exam: PRESENT: normal capillary refill GI/Abdominal exam: PRESENT: soft Rectal exam: PRESENT: deferred Extremities exam: PRESENT: other - Left big toe was edematous and with erythema. There is a small ulcer at the tip of the big toe less than 1 cm in diameter with a minimal discharge. There is tenderness along the medial aspect of the left foot with some erythema. The right big toe was healed ulcer at the tip. There is minimal tenderness along the right medial foot area and there is no swelling of the big toe. Neurological exam: PRESENT: alert, oriented to person, oriented to place, oriented to time, oriented to situation Psychiatric exam: PRESENT: appropriate affect Skin exam: PRESENT: erythema, warm - Left big toe Results Laboratory Results: 05/18/19 05:55 05/17/19 22:47 05/17/19 05/17/19 05/17/19 19:14 19:14 20:50 WBC 9.6 RBC 4.10 Hgb 12.4 Hct 36.2 MCV 88 MCH 30.2 MCHC 34.3 RDW 13.7 Plt Count 308 Seg Neutrophils % 59.2 VBG pH 7.43 H VBG pCO2 41.9 VBG HCO3 26.9 VBG Base Excess 2.2 Sodium 135.4 L Potassium 4.0 Chloride 100 Carbon Dioxide 28 Anion Gap 7 BUN 9 Creatinine 0.64 Est GFR ( Amer) > 60 Glucose 178 H Lactic Acid Calcium 8.7 Total Bilirubin 0.4 AST 23 Alkaline Phosphatase 135 H Total Protein 6.9 Albumin 3.5 Urine Color Urine Appearance Urine pH Ur Specific [place] Urine Protein Urine Glucose (UA) Urine Ketones Urine Blood Urine RBC (Auto) 05/17/19 05/17/19 05/18/19 21:20 22:47 01:55 WBC RBC Hgb Hct MCV MCH MCHC RDW Plt Count Seg Neutrophils % VBG pH VBG pCO2 VBG HCO3 VBG Base Excess Sodium 137.3 Potassium 4.0 Chloride 102 Carbon Dioxide 24 Anion Gap 11 BUN 8 Creatinine 0.65 Est GFR ( Amer) > 60 Glucose 201 H Lactic Acid 1.3 Calcium 8.9 Total Bilirubin AST Alkaline Phosphatase Total Protein Albumin Urine Color YELLOW Urine Appearance SLIGHTLY-CLOUDY Urine pH 5.0 Ur Specific [place] 1.017 Urine Protein NEGATIVE Urine Glucose (UA) NEGATIVE Urine Ketones NEGATIVE Urine Blood NEGATIVE Urine RBC (Auto) 1 05/18/19 05/18/19 05/18/19 04:24 04:24 05:55 WBC 8.8 10.7 H RBC 4.03 3.95 Hgb 12.2 12.0 Hct 35.6 L 35.1 L MCV 88 89 MCH 30.1 30.2 MCHC 34.1 34.1 RDW 13.8 14.0 Plt Count 298 299 Seg Neutrophils % 58.4 68.6 VBG pH VBG pCO2 VBG HCO3 VBG Base Excess Sodium Potassium Chloride Carbon Dioxide Anion Gap BUN Creatinine Est GFR ( Amer) Glucose Lactic Acid 1.8 Calcium Total Bilirubin AST Alkaline Phosphatase Total Protein Albumin Urine Color Urine Appearance Urine pH Ur Specific [place] Urine Protein Urine Glucose (UA) Urine Ketones Urine Blood Urine RBC (Auto) 05/18/19 05:55 WBC RBC Hgb Hct MCV MCH MCHC RDW Plt Count Seg Neutrophils % VBG pH VBG pCO2 VBG HCO3 VBG Base Excess Sodium Potassium Chloride Carbon Dioxide Anion Gap BUN Creatinine Est GFR ( Amer) Glucose Lactic Acid 1.8 Calcium Total Bilirubin AST Alkaline Phosphatase Total Protein Albumin Urine Color Urine Appearance Urine pH Ur Specific [place] Urine Protein Urine Glucose (UA) Urine Ketones Urine Blood Urine RBC (Auto) Impressions: Foot X-Ray 05/17/19 20:23 IMPRESSION: No radiographic evidence of osteomyelitis. copyright 2010 [employer]- All Rights Reserved Assessment & Plan - Diagnosis (1) Foot ulcer due to secondary DM Is this a current diagnosis for this admission?: Yes - Time Time Spent: 30 to 50 Minutes - Inpatient Certification Medical Necessity: Need for IV Antibiotics - Plan Summary Plan Summary: This is a 49-year-old morbidly obese diabetic female with insulin-dependent diabetes mellitus and ankylosing spondylitis taking Humira which is temporarily stop at this time noted to have chronic ulcer along the left big toe for about a year and had at least 2 hospitalizations for sepsis due to the big toe infection. Plans: We will obtain an MRI of both feet primarily of the left big toe because of chronic ulceration suspicious for osteomyelitis. Meantime continue IV antibiotics Further recommendations based on the MRI findings
[2019-05-18] MEDS ORDERED: LORAZEPAM INJ 2 MG/1 ML VIAL IV PRN (09:18)
[2019-05-18] MEDS: ONDANSETRON HCL INJ/PF 4 MG/2 ML SDV IV PRN ×2 (09:41→17:07)
[2019-05-18] MEDS ORDERED: DOCUSATE SODIUM 100 MG CAPSULE PO SCH (10:00)
[2019-05-18] MEDS ORDERED: ATENOLOL 50 MG PO PRN (10:11)
[2019-05-18] MEDS ORDERED: CAMPHOR TOP PRN (10:11)
[2019-05-18] MEDS ORDERED: MUPIROCIN 2% OINTMENT 22 GM TOP PRN (10:11)
[2019-05-18] MEDS ORDERED: MENTHOL TOP PRN (10:11)
[2019-05-18] MEDS ORDERED: (PENDING PHARMACY ID) (Hydroxyzine Hcl [Atarax 25 Mg Tablet] 25 MG) PO PRN (10:11)
[2019-05-18] MEDS ORDERED: (PENDING PHARMACY ID) (Diclofenac Sodium [Voltaren] 2 GM) TOP PRN (10:11)
[2019-05-18] MEDS ORDERED: [UNRECOGNIZED DRUG - OTHER] TOP PRN (10:11)
[2019-05-18] MEDS ORDERED: EUCALYPTUS OIL TOP PRN (10:11)
[2019-05-18] MEDS ORDERED: NYSTATIN OINTMENT 15 GM TUBE TOP PRN (10:11)
[2019-05-18] MEDS ORDERED: ESTROGENS,CONJUGATED 0.625 MG TABLET PO SCH (10:30)
[2019-05-18] MEDS ORDERED: ACETAZOLAMIDE 500 MG CAPSULE.SA PO SCH (10:30)
[2019-05-18] MEDS ORDERED: (PENDING PHARMACY ID) (Oxybutynin Chloride [Oxybutynin Chloride Er] 10 MG) PO SCH (10:30)
[2019-05-18] MEDS ORDERED: HYDROXYZINE PAMOATE 25 MG CAPSULE PO PRN (10:58)
[2019-05-18] MEDS ORDERED: VANCOMYCIN HCL 0 MG in DEXTROSE 5%-WATER 250 ML IV NR (11:15)
[2019-05-18] MEDS: GABAPENTIN 300 MG CAPSULE PO SCH ×4 (12:17→21:53)
[2019-05-18] MEDS: OXYBUTYNIN CHLORIDE 5 MG TABLET PO SCH ×2 (12:23→21:53)
[2019-05-18] MEDS: CETIRIZINE 10 MG TABLET PO SCH (12:23)
[2019-05-18] MEDS: ASCORBIC ACID 500 MG TABLET PO SCH (12:23)
[2019-05-18] MEDS: DULOXETINE HCL 30 MG CAPSULE.DR PO SCH ×2 (12:23→21:53)
[2019-05-18] MEDS: MULTIVITAMIN TABLET PO SCH (12:23)
[2019-05-18] MEDS: INSULIN GLARGINE,HUM.REC.ANLOG 1,000 UNIT/10 ML VIAL SUBCUT SCH ×2 (12:24→21:51)
--- NOTE | 2019-05-18 12:52 | RADIOLOGY REPORT (SQ) ---
EXAM DESCRIPTION: MRI RT LOWER EXTREMITY WITHOUT COMPLETED DATE/TIME: 05/18/2019 11:55 am REASON FOR STUDY: bilateral big toe diabetic ulcers COMPARISON: None. TECHNIQUE: Multiplanar imaging of the right forefoot to include fat and fluid sensitive sequences. LIMITATIONS: Excessive movement. FINDINGS: BONE MARROW: Marrow signal is normal. No edema. SOFT TISSUES: No abscess. OTHER: No other significant finding. IMPRESSION: NO EVIDENCE FOR OSTEOMYELITIS. TECHNICAL DOCUMENTATION: JOB ID: [id number] [employer]- All Rights Reserved Reading location - IP/workstation name: [email or web address]
--- NOTE | 2019-05-18 12:54 | RADIOLOGY REPORT (SQ) ---
EXAM DESCRIPTION: MRI LT LOWER EXTREMITY WITHOUT COMPLETED DATE/TIME: 05/18/2019 11:55 am REASON FOR STUDY: Bilateral big toe diabetic ulcer COMPARISON: None. TECHNIQUE: Multiplanar imaging of the left forefoot to include fat and fluid sensitive sequences. LIMITATIONS: Excessive patient movement. FINDINGS: BONE MARROW: Normal. No edema. SOFT TISSUES: No abscess. OTHER: No other significant finding. IMPRESSION: NO EVIDENCE FOR OSTEOMYELITIS. TECHNICAL DOCUMENTATION: JOB ID: [id number] [employer]- All Rights Reserved Reading location - IP/workstation name: [email or web address]
[2019-05-18] MEDS ORDERED: INSULIN GLARGINE,HUM.REC.ANLOG 1,000 UNIT/10 ML VIAL SUBCUT SCH (13:00)
[2019-05-18] MEDS: ACETAZOLAMIDE 500 MG CAPSULE.SA PO SCH ×2 (13:19→21:53)
[2019-05-18] MEDS: ESTROGENS,CONJUGATED 0.625 MG TABLET PO SCH (13:19)
--- NOTE | 2019-05-18 13:20 | PDOC H&P ---
History of Present Illness Admission Date/PCP: 05/17/19 22:13 PAWAN ARREOLA MD Patient complains of: Fever chill diabetic foot ulcer History of Present Illness: TAMMI RAMÍREZ is a 49 year old female This is a 49-year-old female with a history of the type 2 diabetes insulin- dependent history of the hypertension hyperlipidemia History of the pseudo-cerebri tumorAlso history of the ankylosing spondylitis And multiple other medical problemsCurrently admitting in the [facility] for the possible sepsis due to the diabetic foot ulcers Patients in the [facility] was giving the juicing and vancomycin and discharged with the Augmentin and doxycycline Patient was seen by the surgery and the patient was referred to the vascular surgery as outpatient have appointment end of this month Since came to the emergency department with a notice of fever chills not feeling well initial work-up was all stable including the lactic acid was normal Patient was complaining some nauseating but according to the patient this is nothing new no abdominal pain In the emergency departments patient's other blood work is all stable patient's x-ray of the foot was negative for osteomyelitis patient received Zosyn and vancomycin When I saw the patient is feeling better patient still have bilateral both feet diabetic foot ulcers Patient's denied any chest pain no short of breath Patient is complaining of a nausea Patient's denied any abdominal pain Past Medical History Cardiac Medical History: Reports: Atrial Fibrillation, Hypertension, Heart Mur mur Denies: Coronary Artery Disease Pulmonary Medical History: Reports: Asthma, Pneumonia Neurological Medical History: Reports: Migraine Endocrine Medical History: Reports: Diabetes Mellitus Type 2, Hypothyroidism GI Medical History: Reports: Crohn's Disease, Gastroesophageal Reflux Disease, Hiatal Hernia Musculoskeltal Medical History: Reports: Arthritis - ANKYLOSING SPONDYLITIS, SEEN BY [email or web address]@ [facility]. Psychiatric Medical History: Reports: Depression, Post Traumatic Stress Disorder Hematology: Reports: Anemia Infectious Medical History: Reports: Clostridium Difficile Past Surgical History Past Surgical History: Reports: Appendectomy, Section, Cholecystectomy, Hysterectomy Social History Information Source: Patient Smoking Status: Never Smoker Frequency of Alcohol Use: Rare Hx Recreational Drug Use: No Drugs: None Hx Prescription Drug Abuse: No Family History Family History: Reviewed & Not Pertinent, CAD, CVA, DM, Hyperlipidemia, Hypertension, Malignancy, Thyroid Disfunction Parental Family History Reviewed: Yes Children Family History Reviewed: Yes Sibling(s) Family History Reviewed.: Yes Medication/Allergy Home Medications: Acetazolamide [Acetazolamide ER] 1,000 mg PO Q12 05/18/19 Ascorbic Acid [Vitamin C 500 mg Tablet] 500 mg PO DAILY 05/18/19 Atenolol 50 mg PO DAILYP PRN MDD 100 MG 05/18/19 Cetirizine HCl [Zyrtec 10 mg Tablet] 10 mg PO DAILY 05/18/19 Diclofenac Sodium [Voltaren] 2 gm TP QIDP PRN 05/18/19 Duloxetine HCl [Cymbalta] 60 mg PO Q12 05/18/19 Estrogens,Conjugated [Premarin 0.625 mg Tablet] 0.625 mg PO DAILY 05/18/19 Eucalyptus Oil/Menthol/Camphor [Vicks Vaporub Ointment] 1 applic TP PRN PRN 05/18/19 Gabapentin [Neurontin 300 mg Capsule] 600 mg PO TID 05/18/19 Gabapentin [Neurontin 300 mg Capsule] 900 mg PO QHS 05/18/19 Hydroxyzine HCl [Atarax 25 mg Tablet] 25 mg PO Q8HP PRN 05/18/19 Insulin Aspart [Novolog Flexpen] 0 unit SUBCUT .SLIDING SCALE 05/18/19 Insulin Aspart [Novolog Flexpen] 6 unit SUBCUT AC 05/18/19 Insulin Glargine,Hum.rec.anlog [Lantus Insulin 100 Unit/1 ml 10 ml] 15 units SUBCUT Q12 05/18/19 Levothyroxine Sodium [Synthroid 0.15 mg Tablet] 0.15 mg PO Q6AM 05/18/19 Multivitamin [Tab-A-Radha (Multiple Vitamin) Tablet] 1 tab PO DAILY 05/18/19 Mupirocin [Bactroban 2% Ointment 22 gm] 1 applic TOP TIDP PRN 05/18/19 Nystatin [Mycostatin Ointment 15 gm] 1 applic TOP BIDP PRN 05/18/19 Oxybutynin Chloride [Oxybutynin Chloride ER] 10 mg PO DAILY 05/18/19 Allergies/Adverse Reactions: celecoxib [From Celebrex] Allergy (Severe, Verified 11/10/18 09:54) Swelling of hands and/or feet clarithromycin [From Biaxin] Allergy (Severe, Verified 11/10/18 09:54) Swelling of hands and/or feet latex [Latex] Allergy (Severe, Verified 11/10/18 09:54) Anaphylaxis nitrofurantoin [From Macrobid] Allergy (Severe, Verified 11/10/18 09:54) Hives Sulfa (Sulfonamide Antibiotics) Allergy (Severe, Verified 11/10/18 09:54) Hives adalimumab [From Humira] Allergy (Verified 11/10/18 09:54) Edema losartan [Losartan] Allergy (Verified 11/10/18 09:54) metformin [Metformin] Allergy (Verified 11/10/18 09:54) promethazine HCl [From Phenergan] Allergy (Verified 11/10/18 09:54) Cerebellar dysfunction rofecoxib [From Vioxx] Allergy (Verified 11/10/18 09:54) Swelling of hands and/or feet acetazolamide [From Diamox] Adverse Reaction (Verified 05/18/19 09:48) ITCHING prochlorperazine maleate [From Compazine] Adverse Reaction (Verified 11/10/18 09:54) Cerebellar dysfunction bananas Allergy (Severe, Uncoded 11/10/18 09:54) Difficulty breathing Review of Systems Constitutional: PRESENT: chills, fever(s). ABSENT: headache(s), weight gain, weight loss Eyes: ABSENT: visual disturbances Ears: ABSENT: hearing changes Cardiovascular: ABSENT: chest pain, dyspnea on exertion, edema, orthropnea, palpitations Respiratory: ABSENT: cough, hemoptysis Gastrointestinal: ABSENT: abdominal pain, constipation, diarrhea, hematemesis, hematochezia, nausea, vomiting Genitourinary: ABSENT: dysuria, hematuria Musculoskeletal: ABSENT: joint swelling Integumentary: ABSENT: rash, wounds Neurological: ABSENT: abnormal gait, abnormal speech, confusion, dizziness, focal weakness, syncope Psychiatric: ABSENT: anxiety, depression, homidical ideation, suicidal ideation Endocrine: ABSENT: cold intolerance, heat intolerance, menstrual abnormalities, polydipsia, polyuria Hematologic/Lymphatic: ABSENT: easy bleeding, easy bruising, lymphadenopathy Physical Exam Vital Signs: Temp Pulse Resp BP Pulse Ox 98.2 F 100 17 142/80 H 97 05/17/19 23:32 05/18/19 02:00 05/17/19 23:32 05/17/19 23:32 05/17/19 23:32 Intake & Output 05/17/19 05/18/19 05/19/19 06:59 06:59 06:59 Intake Total 1420 Balance 1420 Weight 138.2 kg General appearance: PRESENT: no acute distress, well-developed, well-nourished Head exam: PRESENT: atraumatic, normocephalic Eye exam: PRESENT: conjunctiva pink, EOMI, PERRLA. ABSENT: scleral icterus Ear exam: PRESENT: normal external ear exam Mouth exam: PRESENT: moist, tongue midline Neck exam: PRESENT: full ROM. ABSENT: carotid bruit, JVD, lymphadenopathy, thyromegaly Respiratory exam: PRESENT: clear to auscultation freedom Cardiovascular exam: PRESENT: RRR. ABSENT: diastolic murmur, rubs, systolic murmur Pulses: PRESENT: normal dorsalis pedis pul, +2 pedal pulses bilateral Vascular exam: PRESENT: normal capillary refill GI/Abdominal exam: PRESENT: normal bowel sounds, soft. ABSENT: distended, guarding, mass, organolmegaly, rebound, tenderness Rectal exam: PRESENT: deferred Extremities exam: ABSENT: pedal edema Additional comments: Both bilateral lower extremity noted to area mild redness swelling is present Musculoskeletal exam: PRESENT: ambulatory Neurological exam: PRESENT: alert, awake, oriented to person, oriented to place, oriented to time, oriented to situation, CN II-XII grossly intact. ABSENT: motor sensory deficit Psychiatric exam: PRESENT: appropriate affect, normal mood. ABSENT: homicidal ideation, suicidal ideation Skin exam: PRESENT: dry, intact, warm. ABSENT: cyanosis, rash Results Laboratory Results: 05/18/19 05:55 05/17/19 22:47 05/17/19 05/17/19 05/17/19 19:14 19:14 20:50 WBC 9.6 RBC 4.10 Hgb 12.4 Hct 36.2 MCV 88 MCH 30.2 MCHC 34.3 RDW 13.7 Plt Count 308 Seg Neutrophils % 59.2 VBG pH 7.43 H VBG pCO2 41.9 VBG HCO3 26.9 VBG Base Excess 2.2 Sodium 135.4 L Potassium 4.0 Chloride 100 Carbon Dioxide 28 Anion Gap 7 BUN 9 Creatinine 0.64 Est GFR ( Amer) > 60 Glucose 178 H Lactic Acid Calcium 8.7 Total Bilirubin 0.4 AST 23 Alkaline Phosphatase 135 H Total Protein 6.9 Albumin 3.5 Urine Color Urine Appearance Urine pH Ur Specific [place] Urine Protein Urine Glucose (UA) Urine Ketones Urine Blood Urine RBC (Auto) 05/17/19 05/17/19 05/18/19 21:20 22:47 01:55 WBC RBC Hgb Hct MCV MCH MCHC RDW Plt Count Seg Neutrophils % VBG pH VBG pCO2 VBG HCO3 VBG Base Excess Sodium 137.3 Potassium 4.0 Chloride 102 Carbon Dioxide 24 Anion Gap 11 BUN 8 Creatinine 0.65 Est GFR ( Amer) > 60 Glucose 201 H Lactic Acid 1.3 Calcium 8.9 Total Bilirubin AST Alkaline Phosphatase Total Protein Albumin Urine Color YELLOW Urine Appearance SLIGHTLY-CLOUDY Urine pH 5.0 Ur Specific [place] 1.017 Urine Protein NEGATIVE Urine Glucose (UA) NEGATIVE Urine Ketones NEGATIVE Urine Blood NEGATIVE Urine RBC (Auto) 1 05/18/19 05/18/19 05/18/19 04:24 04:24 05:55 WBC 8.8 10.7 H RBC 4.03 3.95 Hgb 12.2 12.0 Hct 35.6 L 35.1 L MCV 88 89 MCH 30.1 30.2 MCHC 34.1 34.1 RDW 13.8 14.0 Plt Count 298 299 Seg Neutrophils % 58.4 68.6 VBG pH VBG pCO2 VBG HCO3 VBG Base Excess Sodium Potassium Chloride Carbon Dioxide Anion Gap BUN Creatinine Est GFR ( Amer) Glucose Lactic Acid 1.8 Calcium Total Bilirubin AST Alkaline Phosphatase Total Protein Albumin Urine Color Urine Appearance Urine pH Ur Specific [place] Urine Protein Urine Glucose (UA) Urine Ketones Urine Blood Urine RBC (Auto) 05/18/19 05:55 WBC RBC Hgb Hct MCV MCH MCHC RDW Plt Count Seg Neutrophils % VBG pH VBG pCO2 VBG HCO3 VBG Base Excess Sodium Potassium Chloride Carbon Dioxide Anion Gap BUN Creatinine Est GFR ( Amer) Glucose Lactic Acid 1.8 Calcium Total Bilirubin AST Alkaline Phosphatase Total Protein Albumin Urine Color Urine Appearance Urine pH Ur Specific [place] Urine Protein Urine Glucose (UA) Urine Ketones Urine Blood Urine RBC (Auto) Impressions: Foot X-Ray 05/17/19 20:23 IMPRESSION: No radiographic evidence of osteomyelitis. copyright 2010 [employer]- All Rights Reserved Assessment & Plan - Diagnosis (1) Sepsis Qualifiers: Sepsis type: sepsis due to unspecified organism Qualified Code(s): A41.9 - Sepsis, unspecified organism Is this a current diagnosis for this admission?: Yes Plan: Continues on broad-spectrum antibiotics due to the immunocompromise status due to all the cultures consults General surgery IV fluid (2) Foot ulcer due to secondary DM Is this a current diagnosis for this admission?: Yes Plan: Consult the general surgery to further evaluations to rule out any osteomyelitis (3) Type 2 diabetes mellitus Qualifiers: Diabetes mellitus group home insulin use: with predatory animal exterminator use Diabetes mellitus complication status: with other specified complication Qualified Code(s): E11.69 - Type 2 diabetes mellitus with other specified complication; Z79.4 - care home (current) use of insulin Is this a current diagnosis for this admission?: Yes Plan: Continues to sliding scale and Lantus (4) Hypertension Qualifiers: Hypertension type: essential hypertension Qualified Code(s): I10 - Essential (primary) hypertension Is this a current diagnosis for this admission?: Yes Plan: Currently all stable (5) Pseudotumor cerebri Is this a current diagnosis for this admission?: Yes Plan: Continues to Diamox patient is currently see the neurology recent lumbar punc ture was done in the sept was all stable (6) Ankylosing spondylitis Qualifiers: Ankylosing spondylitis location: multiple sites in spine Qualified Code(s): M45.0 - Ankylosing spondylitis of multiple sites in spine Is this a current diagnosis for this admission?: Yes Plan: She is currently see the stone derrickman and rigger and [facility] (7) Immunocompromised Is this a current diagnosis for this admission?: Yes Plan: Due to the Humira injections with the multiple other comorbidity we will start the broad-spectrum antibiotic until the cultures back (8) Depression Qualifiers: Depression Type: major depressive disorder Is this a current diagnosis for this admission?: Yes - Time Time Spent: 50 to 70 Minutes Medications reviewed and adjusted accordingly: Yes Anticipated discharge: Home Within: Other - Inpatient Certification Based on my medical assessment, after consideration of the patient's comorb idities, presenting symptoms, or acuity I expect that the services needed warrant INPATIENT care.: Yes I certify that my determination is in accordance with my understanding of Medicare's requirements for reasonable and necessary INPATIENT services [42 CFR 412.3e].: Yes Medical Necessity: Significant Comorbidiites Make Outpatient Treatment Too Risky, Need For IV Fluids, Need for IV Antibiotics Post Hospital Care: D/C Collections Technician Documentation - Plan Summary Plan Summary: See MD orders
[2019-05-18] MEDS: VANCOMYCIN HCL 1,000 MG in DEXTROSE 5%-WATER 250 ML IV SCH ×2 (13:22→21:51)
[2019-05-18] MEDS: ENOXAPARIN SODIUM INJ 40 MG/0.4 ML DISP.SYRIN SUBCUT SCH (14:45)
--- NOTE | 2019-05-18 18:42 | PDOC PROGRESS REPORT ---
Subjective Progress Note for:: 05/18/19 Subjective:: Pains left foot Reason For Visit: DM FOOT INFECTION Physical Exam Vital Signs: Temp Pulse Resp BP Pulse Ox 99.1 F 111 H 17 153/91 H 100 05/18/19 17:26 05/18/19 17:26 05/18/19 17:26 05/18/19 17:26 05/18/19 17:26 Intake & Output 05/17/19 05/18/19 05/19/19 06:59 06:59 06:59 Intake Total 1420 930 Balance 1420 930 Weight 138.2 kg Exam: left big toe with a puctate opening at the tip with toe mild edema and erythema. Mild tenderness over right medial foot Results Laboratory Results: 05/18/19 05:55 05/17/19 22:47 05/17/19 05/17/19 05/17/19 19:14 19:14 20:50 WBC 9.6 RBC 4.10 Hgb 12.4 Hct 36.2 MCV 88 MCH 30.2 MCHC 34.3 RDW 13.7 Plt Count 308 Seg Neutrophils % 59.2 VBG pH 7.43 H VBG pCO2 41.9 VBG HCO3 26.9 VBG Base Excess 2.2 Sodium 135.4 L Potassium 4.0 Chloride 100 Carbon Dioxide 28 Anion Gap 7 BUN 9 Creatinine 0.64 Est GFR ( Amer) > 60 Glucose 178 H Lactic Acid Calcium 8.7 Total Bilirubin 0.4 AST 23 Alkaline Phosphatase 135 H Total Protein 6.9 Albumin 3.5 Urine Color Urine Appearance Urine pH Ur Specific [place] Urine Protein Urine Glucose (UA) Urine Ketones Urine Blood Urine RBC (Auto) 05/17/19 05/17/19 05/18/19 21:20 22:47 01:55 WBC RBC Hgb Hct MCV MCH MCHC RDW Plt Count Seg Neutrophils % VBG pH VBG pCO2 VBG HCO3 VBG Base Excess Sodium 137.3 Potassium 4.0 Chloride 102 Carbon Dioxide 24 Anion Gap 11 BUN 8 Creatinine 0.65 Est GFR ( Amer) > 60 Glucose 201 H Lactic Acid 1.3 Calcium 8.9 Total Bilirubin AST Alkaline Phosphatase Total Protein Albumin Urine Color YELLOW Urine Appearance SLIGHTLY-CLOUDY Urine pH 5.0 Ur Specific [place] 1.017 Urine Protein NEGATIVE Urine Glucose (UA) NEGATIVE Urine Ketones NEGATIVE Urine Blood NEGATIVE Urine RBC (Auto) 1 05/18/19 05/18/19 05/18/19 04:24 04:24 05:55 WBC 8.8 10.7 H RBC 4.03 3.95 Hgb 12.2 12.0 Hct 35.6 L 35.1 L MCV 88 89 MCH 30.1 30.2 MCHC 34.1 34.1 RDW 13.8 14.0 Plt Count 298 299 Seg Neutrophils % 58.4 68.6 VBG pH VBG pCO2 VBG HCO3 VBG Base Excess Sodium Potassium Chloride Carbon Dioxide Anion Gap BUN Creatinine Est GFR ( Amer) Glucose Lactic Acid 1.8 Calcium Total Bilirubin AST Alkaline Phosphatase Total Protein Albumin Urine Color Urine Appearance Urine pH Ur Specific [place] Urine Protein Urine Glucose (UA) Urine Ketones Urine Blood Urine RBC (Auto) 05/18/19 05:55 WBC RBC Hgb Hct MCV MCH MCHC RDW Plt Count Seg Neutrophils % VBG pH VBG pCO2 VBG HCO3 VBG Base Excess Sodium Potassium Chloride Carbon Dioxide Anion Gap BUN Creatinine Est GFR ( Amer) Glucose Lactic Acid 1.8 Calcium Total Bilirubin AST Alkaline Phosphatase Total Protein Albumin Urine Color Urine Appearance Urine pH Ur Specific [place] Urine Protein Urine Glucose (UA) Urine Ketones Urine Blood Urine RBC (Auto) Impressions: Foot X-Ray 05/17/19 20:23 IMPRESSION: No radiographic evidence of osteomyelitis. copyright 2011 [employer]- All Rights Reserved Lower Extremity MRI 05/18/19 00:00 IMPRESSION: NO EVIDENCE FOR OSTEOMYELITIS. 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 Recommendations: 1) continue with IV antibiotics 2) place dressing over Xeroform gauze over the left big toe and cover with 4 x 4 and Kerlix on a daily basis. 3) we will sign off just call for any questions
[2019-05-19] MEDS: PIPERACILLIN SODIUM/TAZOBACTAM 3.375 GM in NORMAL SALINE 100 ML IV SCH ×2 (02:20→09:23)
[2019-05-19] MEDS: LEVOTHYROXINE SODIUM 0.15 MG TABLET PO SCH (05:47)
[2019-05-19 06:18] LABS: ABSOLUTE BASOPHILS # (AUTO) 0.1 10^3/uL (0.0-0.2); ABSOLUTE EOSINOPHILS # (AUTO) 0.4 10^3/uL (0.0-0.6); ABSOLUTE LYMPHOCYTES (AUTO) 1.8 10^3/uL (0.5-4.7); ABSOLUTE MONOCYTES (AUTO) 0.8 10^3/uL (0.1-1.4); BASOPHILS % (AUTO) 0.8 % (0-2); EOSINOPHILS % (AUTO) 3.8 % (0-6); HEMATOCRIT 36.8 % (36.0-47.0); HEMOGLOBIN 12.2 g/dL (12.0-15.5); LYMPHOCYTES % (AUTO) 15.9 % (13-45); MEAN CORPUSCULAR HGB CONC 33.1 g/dL (32.0-36.0); MEAN CORPUSCULAR VOLUME 91 fl (80-97); MONOCYTES % (AUTO) 7.4 % (3-13); PLATELET COUNT 303 10^3/uL (150-450); RED BLOOD COUNT 4.06 10^6/uL (3.72-5.28); RED CELL DISTRIBUTION WIDTH 14.1 % (11.5-14.0); SEGMENTED NEUTROPHILS % (AUTO) 72.1 % (42-78); TOTAL CELLS COUNTED % (AUTO) 100 %; WHITE BLOOD COUNT 11.2 10^3/uL (4.0-10.5)
[2019-05-19 06:28] LABS: ANION GAP 10 (5-19); BLOOD UREA NITROGEN 17 mg/dL (7-20); CALCIUM 8.3 mg/dL (8.4-10.2); CARBON DIOXIDE 26 mmol/L (22-30); CHLORIDE 98 mmol/L (98-107); GLUCOSE 203 mg/dL (75-110); POTASSIUM 4.3 mmol/L (3.6-5.0)
[2019-05-19] MEDS: NORMAL SALINE 1000 ML 1,000 ML IV PRN (08:00)
--- NOTE | 2019-05-19 08:00 | PDOC PROGRESS REPORT ---
Subjective Progress Note for:: 05/19/19 Subjective:: Patient is currently doing fair\ Patient is denied any chest pain to than any shortness of the breath The MRI of the both lower extremities done no sign of any osteomyelitis discuss with the surgery no need for any surgical interventions continues to antibiotics switch to the p.oif .Patients remain afebrile Patient's currently kidney functions is worsening with the creatinine is 2.61 Patient is currently on Zosyn and vancomycin's Had a history of the bladder prolapse currently see the urologist in issue with some urethra to Since able to urinate without any problems Reason For Visit: DM FOOT INFECTION Physical Exam Vital Signs: Temp Pulse Resp BP Pulse Ox 99.2 F 101 H 16 146/99 H 97 05/18/19 23:00 05/19/19 07:00 05/18/19 23:00 05/18/19 23:00 05/18/19 23:00 Intake & Output 05/18/19 05/19/19 05/20/19 06:59 06:59 06:59 Intake Total 1420 1852 Balance 1420 1852 Weight 138.2 kg 142.1 kg General appearance: PRESENT: no acute distress, well-developed, well-nourished Head exam: PRESENT: atraumatic, normocephalic Eye exam: PRESENT: conjunctiva pink, EOMI, PERRLA. ABSENT: scleral icterus Ear exam: PRESENT: normal external ear exam Mouth exam: PRESENT: moist, tongue midline Neck exam: PRESENT: full ROM. ABSENT: carotid bruit, JVD, lymphadenopathy, thyromegaly Respiratory exam: PRESENT: clear to auscultation freedom Cardiovascular exam: PRESENT: RRR. ABSENT: diastolic murmur, rubs, systolic murmur Pulses: PRESENT: normal dorsalis pedis pul, +2 pedal pulses bilateral Vascular exam: PRESENT: normal capillary refill GI/Abdominal exam: PRESENT: normal bowel sounds, soft. ABSENT: distended, guarding, mass, organolmegaly, rebound, tenderness Rectal exam: PRESENT: deferred Additional comments: Both lower extremities the dressing is intact Musculoskeletal exam: PRESENT: ambulatory Neurological exam: PRESENT: alert, awake, oriented to person, oriented to place, oriented to time, oriented to situation, CN II-XII grossly intact. ABSENT: rosemary r sensory deficit Psychiatric exam: PRESENT: appropriate affect, normal mood. ABSENT: homicidal ideation, suicidal ideation Skin exam: PRESENT: dry, intact, warm. ABSENT: cyanosis, rash Results Laboratory Results: 05/19/19 06:00 05/19/19 06:00 05/19/19 05/19/19 05/19/19 05:50 06:00 06:00 WBC 11.2 H RBC 4.06 Hgb 12.2 Hct 36.8 MCV 91 MCH 30.0 MCHC 33.1 RDW 14.1 H Plt Count 303 Seg Neutrophils % 72.1 Sodium 134.4 L Potassium 4.3 Chloride 98 Carbon Dioxide 26 Anion Gap 10 BUN 17 Creatinine 2.61 H Est GFR ( Amer) 23 L Glucose 203 H Lactic Acid 1.6 Calcium 8.3 L Impressions: Foot X-Ray 05/17/19 20:23 IMPRESSION: No radiographic evidence of osteomyelitis. copyright 2010 [email or web address]- All Rights Reserved Lower Extremity MRI 05/18/19 00:00 IMPRESSION: NO EVIDENCE FOR OSTEOMYELITIS. 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 Diabetes mellitus complication status: with other specified complication Qualified Code(s): E11.69 - Type 2 diabetes mellitus with other specified complication; 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 Is this a current diagnosis for this admission?: Yes Plan: Continues to sliding scale and Lantus (4) Hypertension Qualifiers: Hypertension type: essential hypertension Qualified Code(s): I10 - Essential (primary) hypertension Is this a current diagnosis for this admission?: Yes Plan: Currently all stable (5) Pseudotumor cerebri Is this a current diagnosis for this admission?: Yes Plan: Continues to Diamox patient is currently see the neurology recent lumbar puncture was done in the sept was all stable (6) Ankylosing spondylitis Qualifiers: Ankylosing spondylitis location: multiple sites in spine Qualified Code(s): M45.0 - Ankylosing spondylitis of multiple sites in spine Is this a current diagnosis for this admission?: Yes Plan: She is currently see the bottom liquor attendant and [facility] (7) Immunocompromised Is this a current diagnosis for this admission?: Yes Plan: Due to the Humira injections with the multiple other comorbidity we will start the broad-spectrum antibiotic until the cultures back (8) Depression Qualifiers: Depression Type: major depressive disorder Is this a current diagnosis for this admission?: Yes (9) Acute renal failure Qualifiers: Acute renal failure type: unspecified Qualified Code(s): N17.9 - Acute kidney failure, unspecified Is this a current diagnosis for this admission?: Yes Plan: Possible medications vancomycin versus patient have a postobstructive uropathy We will get the CT scan of the abdomen and pelvis to look for further evaluations Start on IV fluid Consult Dr. Lamas nephrology Stop the vancomycin's - Time Time Spent with patient: 15-24 minutes Level of Care: TELE Medications reviewed and adjusted accordingly: Yes Anticipated discharge: Home Within: Other - Plan Summary Plan Summary: See MD orders
--- NOTE | 2019-05-19 08:53 | RADIOLOGY REPORT (SQ) ---
EXAM DESCRIPTION: CT ABD/PELVIS NO ORAL OR IV COMPLETED DATE/TIME: 05/19/2019 8:41 am REASON FOR STUDY: acute renal failure COMPARISON: 05/31/2018 TECHNIQUE: CT scan of the abdomen and pelvis performed without intravenous or oral contrast. Images reviewed with lung, soft tissue, and bone windows. Reconstructed coronal and sagittal MPR images revi ewed. All images stored on PACS. All CT scanners at this facility use dose modulation, iterative reconstruction, and/or weight based d osing when appropriate to reduce radiation dose to as low as reasonably achievable (ALARA). [facility]: Dose Right [facility]: CareDose [facility]: Dose Right [facility]: Teradose 4D [facility]: [employer] RADIATION DOSE: CT Rad equipment meets quality standard of care and radiation dose reduction techniq ues were employed. CTDIvol: 31.1 mGy. DLP: 1678 mGy-cm.mGy. LIMITATIONS: None. FINDINGS: LOWER CHEST: No significant findings. No nodules or infiltrates. NON-CONTRASTED LIVER, SPLEEN, ADRENALS: Evaluation limited by lack of IV contrast. No identified sign ificant masses. PANCREAS: No masses. No peripancreatic inflammatory changes. GALLBLADDER: Surgically absent. RIGHT KIDNEY AND URETER: Mild perinephric stranding. No suspicious masses. Assessment limited by lac k of IV contrast. No significant calcifications. No hydronephrosis or hydroureter. LEFT KIDNEY AND URETER: No suspicious masses. Assessment limited by lack of IV contrast. No signifi cant calcifications. No hydronephrosis or hydroureter. AORTA AND RETROPERITONEUM: No aneurysm. No retroperitoneal masses or adenopathy. BOWEL AND PERITONEAL CAVITY: No obvious masses or inflammatory changes. No free fluid. APPENDIX: Surgically absent. PELVIS, BLADDER, AND ABDOMINAL WALL:No abnormal masses. No free fluid. Bladder normal. BONES: No significant findings. OTHER: No other significant finding. IMPRESSION: Right perinephric stranding which could be due to inflammation, pyelonephritis, or recen t trauma. No hydronephrosis. COMMENT: Quality ID # [id number]: Final reports with documentation of one or more dose reduction techniques (e.g., Automated exposure control, adjustment of the mA and/or kV according to patient size, use of iterative reconstruction technique) TECHNICAL DOCUMENTATION: JOB ID: [id number] [employer]- All Rights Reserved Reading location - [facility]station [facility]: [email or web address]
[2019-05-19] MEDS: INSULIN LISPRO 100 UNIT/ML 3 ML VIAL SUBCUT SCH ×4 (09:13→22:13)
[2019-05-19] MEDS: ONDANSETRON HCL INJ/PF 4 MG/2 ML SDV IV PRN (09:14)
[2019-05-19] MEDS: DULOXETINE HCL 30 MG CAPSULE.DR PO SCH ×2 (09:14→22:12)
[2019-05-19] MEDS: ESTROGENS,CONJUGATED 0.625 MG TABLET PO SCH (09:15)
[2019-05-19] MEDS: GABAPENTIN 300 MG CAPSULE PO SCH ×4 (09:15→22:12)
[2019-05-19] MEDS: MULTIVITAMIN TABLET PO SCH (09:15)
[2019-05-19] MEDS: ACETAZOLAMIDE 500 MG CAPSULE.SA PO SCH ×2 (09:15→22:13)
[2019-05-19] MEDS: ENOXAPARIN SODIUM INJ 40 MG/0.4 ML DISP.SYRIN SUBCUT SCH (09:15)
[2019-05-19] MEDS: OXYBUTYNIN CHLORIDE 5 MG TABLET PO SCH ×2 (09:15→22:12)
[2019-05-19] MEDS: ASCORBIC ACID 500 MG TABLET PO SCH (09:16)
[2019-05-19] MEDS: CETIRIZINE 10 MG TABLET PO SCH (09:16)
[2019-05-19] MEDS: INSULIN GLARGINE,HUM.REC.ANLOG 1,000 UNIT/10 ML VIAL SUBCUT SCH ×2 (09:24→22:13)
[2019-05-19] MEDS: OXYCODONE HCL IR 5 MG TABLET PO PRN ×2 (10:35→17:50)
--- NOTE | 2019-05-19 13:00 | PDOC CONSULTATION ---
Consultation Consult Date: 05/19/19 Provider Consulted: Fernando BENDER Consult reason:: ERNESTINA. History of Present Illness Admission Date/PCP: 05/17/19 22:13 PAWAN ARREOLA MD History of Present Illness: TAMMI RAMÍREZ is a 49 year old [employer] ancestry female ? HLA-B27 positive with a background history of type 2 diabetes mellitus for the last 11 years complicated by neuropathy, ankylosing spondylitis diagnosed in her early 30s/ fibromyalgia/ History of apparent pseudotumor cerebri/ history of recurrent pyelonephritis from 1 to 3 years of age and then later in the middle 30s intermittently was admitted with history of fever chills nausea and vomiting of 3 to 4 days duration. Other relevant history includes history of lower GI bleed for which initially diagnosis of Crohn's disease was made but was then reversed once her diagnosis of ankylosing spondylitis was made. She has had multiple EGDs and colonoscopies. She has had a diabetic foot ulcer on both her big toes approximately a month ago and was hospitalized at [facility] for about 4 days and it was initially treated with IV vancomycin/Zosyn and discharged home on Augmentin/doxycycline/Diflucan which she finished approximately 2 weeks ago.She says the ulcers did not completely heal and last week she noticed some mild redness of her foot and she saw Dr. Arreola last Thursday who advised that she get back to [place]. However she stayed home and began to develop fever and chills with some intermittent nausea vomiting as of Thursday and then came to the ER on Thursday and was admitted with worsening infection of bilateral foot. Her intake has been very poor over the last 10 days or so prior to admission. She denies being on any NSAIDs other than one aspirin a day. However on later review I see that she has got diclofenac on a as needed basis in her home medications. She has been begun on IV Zosyn now. She has had a noncontrasted MRI scan of both legs which was negative for any osteomyelitis. She also had a noncontrasted CT scan of her abdomen because of this chronic right flank pain for 5 months duration. It showed some right perinephric stranding but otherwise was unremarkable.Admission creatinine on 05/17 was 0.6, WBC was 9 and on 05 18 the WBC went slightly high to 10.7 but no creatinine was done then. On 05/19 her creatinine was found to be 2.6. Her CBC differential did not show any eosin ophilia. She says she is urinating well. Presently she has no complaints of any fever or chills. Past Medical History Cardiac Medical History: Reports: Atrial Fibrillation, Heart Murmur, Hypertension-primary Denies: Coronary Artery Disease Pulmonary Medical History: Reports: Asthma, Pneumonia Neurological Medical History: Reports: Migraine Endocrine Medical History: Reports: Diabetes Mellitus Type 2, Hypothyroidism Renal/ Medical History: Denies: Hematuria GI Medical History: Reports: Crohn's Disease, Gastroesophageal Reflux Disease, Hiatal Hernia Musculoskeltal Medical History: Reports: Arthritis - ANKYLOSING SPONDYLITIS, SEEN BY [email or web address]. Psychiatric Medical History: Reports: Depression, Post Traumatic Stress Disorder Infectious Medical History: Reports: Clostridium Difficile Past Surgical History Past Surgical History: Reports: Appendectomy, Section, Cholecystectomy, Hysterectomy Social History Smoking Status: Never Smoker Frequency of Alcohol Use: Rare Hx Recreational Drug Use: No Drugs: None Hx Prescription Drug Abuse: No Family History Parental Family History Reviewed: Yes - Apparently her father had polycystic kidney disease but he in his 60s Children Family History Reviewed: No Sibling(s) Family History Reviewed.: No Medication/Allergy Home Medications: Acetazolamide [Acetazolamide ER] 1,000 mg PO Q12 05/18/19 Ascorbic Acid [Vitamin C 500 mg Tablet] 500 mg PO DAILY 05/18/19 Atenolol 50 mg PO DAILYP PRN MDD 100 MG 05/18/19 Cetirizine HCl [Zyrtec 10 mg Tablet] 10 mg PO DAILY 05/18/19 Diclofenac Sodium [Voltaren] 2 gm TP QIDP PRN 05/18/19 Duloxetine HCl [Cymbalta] 60 mg PO Q12 05/18/19 Estrogens,Conjugated [Premarin 0.625 mg Tablet] 0.625 mg PO DAILY 05/18/19 Eucalyptus Oil/Menthol/Camphor [Vicks Vaporub Ointment] 1 applic TP PRN PRN 05/18/19 Gabapentin [Neurontin 300 mg Capsule] 600 mg PO TID 05/18/19 Gabapentin [Neurontin 300 mg Capsule] 900 mg PO QHS 05/18/19 Hydroxyzine HCl [Atarax 25 mg Tablet] 25 mg PO Q8HP PRN 05/18/19 Insulin Aspart [Novolog Flexpen] 0 unit SUBCUT .SLIDING SCALE 05/18/19 Insulin Aspart [Novolog Flexpen] 6 unit SUBCUT AC 05/18/19 Insulin Glargine,Hum.rec.anlog [Lantus Insulin 100 Unit/1 ml 10 ml] 15 units SUBCUT Q12 05/18/19 Levothyroxine Sodium [Synthroid 0.15 mg Tablet] 0.15 mg PO Q6AM 05/18/19 Multivitamin [Tab-A-Radha (Multiple Vitamin) Tablet] 1 tab PO DAILY 05/18/19 Mupirocin [Bactroban 2% Ointment 22 gm] 1 applic TOP TIDP PRN 05/18/19 Nystatin [Mycostatin Ointment 15 gm] 1 applic TOP BIDP PRN 05/18/19 Oxybutynin Chloride [Oxybutynin Chloride ER] 10 mg PO DAILY 05/18/19 Allergies/Adverse Reactions: celecoxib [From Celebrex] Allergy (Severe, Verified 11/10/18 09:54) Swelling of hands and/or feet clarithromycin [From Biaxin] Allergy (Severe, Verified 11/10/18 09:54) Swelling of hands and/or feet latex [Latex] Allergy (Severe, Verified 11/10/18 09:54) Anaphylaxis nitrofurantoin [From Macrobid] Allergy (Severe, Verified 11/10/18 09:54) Hives Sulfa (Sulfonamide Antibiotics) Allergy (Severe, Verified 11/10/18 09:54) Hives adalimumab [From Humira] Allergy (Verified 11/10/18 09:54) Edema losartan [Losartan] Allergy (Verified 11/10/18 09:54) metformin [Metformin] Allergy (Verified 11/10/18 09:54) promethazine HCl [From Phenergan] Allergy (Verified 11/10/18 09:54) Cerebellar dysfunction rofecoxib [From Vioxx] Allergy (Verified 11/10/18 09:54) Swelling of hands and/or feet acetazolamide [From Diamox] Adverse Reaction (Verified 05/18/19 09:48) ITCHING prochlorperazine maleate [From Compazine] Adverse Reaction (Verified 11/10/18 09:54) Cerebellar dysfunction bananas Allergy (Severe, Uncoded 11/10/18 09:54) Difficulty breathing Review of Systems Constitutional: PRESENT: anorexia, chills, fatigue, fever(s), weakness. ABSENT: headache(s), night sweats Ears: ABSENT: hearing changes Nose, Mouth, and Throat: ABSENT: mouth pain, sore throat Cardiovascular: ABSENT: chest pain, dyspnea on exertion, edema, orthropnea, palpitations Respiratory: ABSENT: dyspnea, hemoptysis Gastrointestinal: PRESENT: abdominal pain - Chronic and moderate left flank pain with no radiation. No precipitating or relieving factors. No complaints of dysuria., nausea, vomiting. ABSENT: bloating, coffee ground emesis, constipation, diarrhea, dysphagia, heartburn, hematemesis, hematochezia Genitourinary: ABSENT: difficulty urinating, dysuria, hematuria, nocturia Musculoskeletal: PRESENT: back pain - Chronic midline pain from ankylosing spondylitis.. ABSENT: deformity, joint swelling Integumentary: PRESENT: erythema - Of both feet especially affecting the big toes with early diabetic ulcer.. ABSENT: lesions, pruritus, rash Neurological: PRESENT: numbness. ABSENT: abnormal movements, abnormal speech, confusion, convulsions, focal weakness, frequent falls, lack of coordination, memory loss Psychiatric: PRESENT: anxiety Hematologic/Lymphatic: ABSENT: easy bleeding, easy bruising, lymphadenopathy Physical Exam Vital Signs: Temp Pulse Resp BP Pulse Ox 98.7 F 100 12 134/94 H 100 05/19/19 12:04 05/19/19 12:04 05/19/19 12:04 05/19/19 12:04 05/19/19 12:04 Intake & Output 05/18/19 05/19/19 05/20/19 06:59 06:59 06:59 Intake Total 1420 1852 1039 Output Total 2 Balance 1420 1852 1037 Weight 138.2 kg 142.1 kg General appearance: PRESENT: no acute distress, obese Eye exam: PRESENT: EOMI, PERRLA. ABSENT: scleral icterus Ear exam: PRESENT: normal external ear exam Mouth exam: PRESENT: moist, neck supple Neck exam: ABSENT: lymphadenopathy, meningismus, tenderness, thyromegaly, tracheal deviation Respiratory exam: PRESENT: clear to auscultation freedom, decreased breath sounds. ABSENT: crackles Cardiovascular exam: PRESENT: +S1, +S2 GI/Abdominal exam: PRESENT: normal bowel sounds, soft, tenderness - tender in the right renal angle.. ABSENT: guarding, organomegaly Extremities exam: ABSENT: pedal edema Neurological exam: PRESENT: alert, awake, oriented to person, oriented to place, oriented to time Psychiatric exam: PRESENT: appropriate affect Skin exam: ABSENT: erythema, mottled, petechiae, rash - Mild redness/erythema of both feet. Shallow ulcers seen overlying the base of the big toes. Results Laboratory Results: 05/19/19 06:00 05/19/19 06:00 05/19/19 05/19/19 05/19/19 05:50 06:00 06:00 WBC 11.2 H RBC 4.06 Hgb 12.2 Hct 36.8 MCV 91 MCH 30.0 MCHC 33.1 RDW 14.1 H Plt Count 303 Seg Neutrophils % 72.1 Sodium 134.4 L Potassium 4.3 Chloride 98 Carbon Dioxide 26 Anion Gap 10 BUN 17 Creatinine 2.61 H Est GFR ( Amer) 23 L Glucose 203 H Lactic Acid 1.6 Calcium 8.3 L Impressions: Foot X-Ray 05/17/19 20:23 IMPRESSION: No radiographic evidence of osteomyelitis. copyright 2011 [employer]- All Rights Reserved Lower Extremity MRI 05/18/19 00:00 IMPRESSION: NO EVIDENCE FOR OSTEOMYELITIS. Abdomen/Pelvis CT 05/19/19 00:00 IMPRESSION: Right perinephric stranding which could be due to inflammation, pyelonephritis, or recent trauma. No hydronephrosis. Assessment & Plan - Diagnosis (1) Pyelonephritis Plan: /Possibly has chronic right pyelonephritis. CT scan noncontrasted views shows perinephric stranding. Follow-up on cultures. However cultures could be negative because of the fact that she was on long-term antibiotics till about 2 weeks ago.Given the fact that she was on penicillin /doxycycline I would recommend starting on cefepime instead pending urine cultures. (2) Acute renal failure Qualifiers: Acute renal failure type: unspecified Qualified Code(s): N17.9 - Acute kidney failure, unspecified Is this a current diagnosis for this admission?: Yes Plan: Came in with normal creatinine and then between the sixth and the seventh creatinine short up. CT scan noncontrast review shows no evidences of any obstruction. Differential diagnosis includes possible AIN from Zosyn. We will get another urine analysis with diff if possible. Meanwhile cut Zosyn to her ERNESTINA.An alternate solution for antibiotics would be cefepime which would be polymicrobial and would be a good choice given the fact that she was on Augment in and doxycycline post discharge from [facility] which obviously did not help prevent this diabetic ulcers. Should also cover her potential chronic right pyelonephritis.Will follow up on urine analysis and if she is obviously showing any worsening renal numbers tomorrow will put on a dose of steroids. (3) Ankylosing spondylitis Qualifiers: Ankylosing spondylitis location: multiple sites in spine Qualified Code(s): M45.0 - Ankylosing spondylitis of multiple sites in spine Is this a current diagnosis for this admission?: Yes Plan: Currently stable. (4) Foot ulcer due to secondary DM Is this a current diagnosis for this admission?: Yes Plan: Chronic with no evidence of osteomyelitis. She may need to have her antibiotics revised because of possibility of AIN from Zosyn. (5) Hypertension Qualifiers: Hypertension type: essential hypertension Qualified Code(s): I10 - Essential (primary) hypertension Is this a current diagnosis for this admission?: Yes Plan: Currently well controlled. Monitor. (6) Pseudotumor cerebri Is this a current diagnosis for this admission?: Yes Plan: Currently on Diamox. Cut down the dose from 1 g to 500 mg daily. (7) Type 2 diabetes mellitus Qualifiers: Diabetes mellitus supervisor intermediates insulin use: with supervisor intermediates use Diabetes mellitus complication status: with other specified complication Qualified Code(s): E11.69 - Type 2 diabetes mellitus with other specified complication; Z79.4 - extermination supervisor (current) use of insulin Is this a current diagnosis for this admission?: Yes Plan: Generally poorly controlled. States her last A1c was 9-10. Advised the need of better diabetic control for obvious reasons.
[2019-05-19] MEDS: CEFEPIME 1 GM/D5W RTU 1 GM/50 ML RTUPB IV SCH (17:47)
[2019-05-19 18:30] LABS: APPEARANCE,URINE CLEAR; BILIRUBIN,URINE NEGATIVE (NEGATIVE); COLOR,URINE STRAW; GLUCOSE, URINE NEGATIVE (NEGATIVE); KETONES,URINE NEGATIVE (NEGATIVE); LEUKOCYTE ESTERASE,URINE NEGATIVE (NEGATIVE); NITRITE,URINE NEGATIVE (NEGATIVE); PROTEIN,URINE NEGATIVE (NEGATIVE); URINE SPECIFIC GRAVITY 1.004; UROBILINOGEN,URINE NEGATIVE mg/dL (<2.0)
[2019-05-19] MEDS ORDERED: PIPERACILLIN SODIUM/TAZOBACTAM 2.25 GM in NORMAL SALINE 50 ML IV SCH (22:00)
[2019-05-19] MEDS ORDERED: PIPERACILLIN SODIUM/TAZOBACTAM 2.25 GM in NORMAL SALINE 100 ML IV SCH (22:00)
[2019-05-20] MEDS: OXYCODONE HCL IR 5 MG TABLET PO PRN ×3 (05:18→17:49)
[2019-05-20] MEDS: LEVOTHYROXINE SODIUM 0.15 MG TABLET PO SCH (05:18)
[2019-05-20 07:02] LABS: ABSOLUTE BASOPHILS # (AUTO) 0.1 10^3/uL (0.0-0.2); ABSOLUTE EOSINOPHILS # (AUTO) 0.5 10^3/uL (0.0-0.6); ABSOLUTE LYMPHOCYTES (AUTO) 1.5 10^3/uL (0.5-4.7); ABSOLUTE MONOCYTES (AUTO) 0.6 10^3/uL (0.1-1.4); ABSOLUTE NEUT (AUTO) 7.4 10^3/uL (1.7-8.2); BASOPHILS % (AUTO) 0.6 % (0-2); EOSINOPHILS % (AUTO) 4.9 % (0-6); HEMATOCRIT 34.9 % (36.0-47.0); HEMOGLOBIN 11.5 g/dL (12.0-15.5); LYMPHOCYTES % (AUTO) 15.1 % (13-45); MEAN CORPUSCULAR HEMOGLOBIN 30.1 pg (27.0-33.4); MEAN CORPUSCULAR VOLUME 91 fl (80-97); MONOCYTES % (AUTO) 5.7 % (3-13); PLATELET COUNT 277 10^3/uL (150-450); RED BLOOD COUNT 3.81 10^6/uL (3.72-5.28); RED CELL DISTRIBUTION WIDTH 14.1 % (11.5-14.0); SEGMENTED NEUTROPHILS % (AUTO) 73.7 % (42-78); TOTAL CELLS COUNTED % (AUTO) 100 %
[2019-05-20 07:23] LABS: ANION GAP 12 (5-19); BLOOD UREA NITROGEN 23 mg/dL (7-20); CALCIUM 8.5 mg/dL (8.4-10.2); CARBON DIOXIDE 22 mmol/L (22-30); CHLORIDE 105 mmol/L (98-107); GLUCOSE 186 mg/dL (75-110); POTASSIUM 4.1 mmol/L (3.6-5.0)
[2019-05-20] MEDS: OXYBUTYNIN CHLORIDE 5 MG TABLET PO SCH ×2 (09:33→23:08)
[2019-05-20] MEDS: DULOXETINE HCL 30 MG CAPSULE.DR PO SCH ×2 (09:33→23:08)
[2019-05-20] MEDS: CEFEPIME 1 GM/D5W RTU 1 GM/50 ML RTUPB IV SCH (09:33)
[2019-05-20] MEDS: GABAPENTIN 300 MG CAPSULE PO SCH ×4 (09:33→23:09)
[2019-05-20] MEDS: ASCORBIC ACID 500 MG TABLET PO SCH (09:34)
[2019-05-20] MEDS: INSULIN GLARGINE,HUM.REC.ANLOG 1,000 UNIT/10 ML VIAL SUBCUT SCH ×2 (09:34→23:19)
[2019-05-20] MEDS: CETIRIZINE 10 MG TABLET PO SCH (09:34)
[2019-05-20] MEDS: INSULIN LISPRO 100 UNIT/ML 3 ML VIAL SUBCUT SCH ×4 (09:34→23:10)
[2019-05-20] MEDS: MULTIVITAMIN TABLET PO SCH (09:34)
[2019-05-20] MEDS: ENOXAPARIN SODIUM INJ 40 MG/0.4 ML DISP.SYRIN SUBCUT SCH (09:35)
[2019-05-20] MEDS: ONDANSETRON HCL INJ/PF 4 MG/2 ML SDV IV PRN ×2 (09:38→17:49)
[2019-05-20] MEDS: ACETAZOLAMIDE 500 MG CAPSULE.SA PO SCH ×2 (09:42→23:09)
[2019-05-20] MEDS: ESTROGENS,CONJUGATED 0.625 MG TABLET PO SCH (09:42)
[2019-05-20] MEDS: IPRATROPIUM/ALBUTEROL 0.5-2.5 MG/3 ML AMPUL NEB PRN (10:51)
[2019-05-20] MEDS: NORMAL SALINE 1000 ML 1,000 ML IV PRN (11:24)
--- NOTE | 2019-05-20 13:32 | PDOC PROGRESS REPORT ---
Subjective Progress Note for:: 05/20/19 Subjective:: Patient is currently doing fair Patient having wheezing sounds bilaterally giving respiratory treatment currently all resolved Patient's creatinine is 3.75 Patient is seen by the field superintendent most likely related to the interstitial nephritis Patient having no fever no chills Reason For Visit: DM FOOT INFECTION Physical Exam Vital Signs: Temp Pulse Resp BP Pulse Ox 98.0 F 108 H 18 151/90 H 100 05/20/19 12:09 05/20/19 12:09 05/20/19 12:09 05/20/19 12:09 05/20/19 12:09 Intake & Output 05/19/19 05/20/19 05/21/19 06:59 06:59 06:59 Intake Total 1852 3274 50 Output Total 2 Balance 1852 3272 50 Weight 142.1 kg 146.7 kg General appearance: PRESENT: no acute distress, well-developed, well-nourished Head exam: PRESENT: atraumatic, normocephalic Eye exam: PRESENT: conjunctiva pink, EOMI, PERRLA. ABSENT: scleral icterus Ear exam: PRESENT: normal external ear exam Mouth exam: PRESENT: moist, tongue midline Neck exam: PRESENT: full ROM. ABSENT: carotid bruit, JVD, lymphadenopathy, thyromegaly Respiratory exam: PRESENT: clear to auscultation freedom Cardiovascular exam: PRESENT: RRR. ABSENT: diastolic murmur, rubs, systolic murmur Pulses: PRESENT: normal dorsalis pedis pul, +2 pedal pulses bilateral Vascular exam: PRESENT: normal capillary refill GI/Abdominal exam: PRESENT: normal bowel sounds, soft. ABSENT: distended, guarding, mass, organolmegaly, rebound, tenderness Rectal exam: PRESENT: deferred Extremities exam: ABSENT: pedal edema Additional comments: Dressings intact Neurological exam: PRESENT: alert, awake, oriented to person, oriented to place, oriented to time, oriented to situation, CN II-XII grossly intact. ABSENT: motor sensory deficit Psychiatric exam: PRESENT: appropriate affect, normal mood. ABSENT: homicidal ideation, suicidal ideation Skin exam: PRESENT: dry, intact, warm. ABSENT: cyanosis, rash Results Laboratory Results: 05/20/19 06:53 05/20/19 06:53 05/19/19 05/20/19 05/20/19 18:00 06:53 06:53 WBC 10.0 RBC 3.81 Hgb 11.5 L Hct 34.9 L MCV 91 MCH 30.1 MCHC 33.0 RDW 14.1 H Plt Count 277 Seg Neutrophils % 73.7 Sodium 139.0 Potassium 4.1 Chloride 105 Carbon Dioxide 22 Anion Gap 12 BUN 23 H Creatinine 3.75 H Est GFR ( Amer) 15 L Glucose 186 H Lactic Acid Calcium 8.5 Urine Color STRAW Urine Appearance CLEAR Urine pH 8.0 Ur Specific [place] 1.004 Urine Protein NEGATIVE Urine Glucose (UA) NEGATIVE Urine Ketones NEGATIVE Urine Blood NEGATIVE Urine Nitrite NEGATIVE Ur Leukocyte Esterase NEGATIVE Urine WBC (Auto) 1 Urine RBC (Auto) 0 05/20/19 06:53 WBC RBC Hgb Hct MCV MCH MCHC RDW Plt Count Seg Neutrophils % Sodium Potassium Chloride Carbon Dioxide Anion Gap BUN Creatinine Est GFR ( Amer) Glucose Lactic Acid 0.9 Calcium Urine Color Urine Appearance Urine pH Ur Specific [place] Urine Protein Urine Glucose (UA) Urine Ketones Urine Blood Urine Nitrite Ur Leukocyte Esterase Urine WBC (Auto) Urine RBC (Auto) Impressions: Foot X-Ray 05/17/19 20:23 IMPRESSION: No radiographic evidence of osteomyelitis. copyright 2011 [employer]- All Rights Reserved Lower Extremity MRI 05/18/19 00:00 IMPRESSION: NO EVIDENCE FOR OSTEOMYELITIS. Abdomen/Pelvis CT 05/19/19 00:00 IMPRESSION: Right perinephric stranding which could be due to inflammation, pyelonephritis, or recent trauma. No hydronephrosis. Assessment & Plan - Diagnosis (1) Sepsis Qualifiers: Sepsis type: sepsis due to unspecified organism Qualified Code(s): A41.9 - Sepsis, unspecified organism Is this a current diagnosis for this admission?: Yes Plan: As per the discussed with the nephrology change the antibiotic yesterday to cefepime (2) Foot ulcer due to secondary DM Is this a current diagnosis for this admission?: Yes Plan: Patient's MRI did not show any osteomyelitis continues to follow with the surgery (3) Type 2 diabetes mellitus Qualifiers: Diabetes mellitus long term acute care registered nurse insulin use: with long term acute care registered nurse use Diabetes mellitus complication status: with other specified complication Qualified Code(s): E11.69 - Type 2 diabetes mellitus with other specified complication; Z79.4 - remote computer terminal operator (current) use of insulin Is this a current diagnosis for this admission?: Yes Plan: Continues to sliding scale and Lantus (4) Hypertension Qualifiers: Hypertension type: essential hypertension Qualified Code(s): I10 - Essential (primary) hypertension Is this a current diagnosis for this admission?: Yes Plan: Currently all stable (5) Pseudotumor cerebri Is this a current diagnosis for this admission?: Yes Plan: Continues to Diamox patient is currently see the neurology recent lumbar puncture was done in the sept was all stable (6) Ankylosing spondylitis Qualifiers: Ankylosing spondylitis location: multiple sites in spine Qualified Code(s): M45.0 - Ankylosing spondylitis of multiple sites in spine Is this a current diagnosis for this admission?: Yes Plan: She is currently see the debt and budget counselor and [facility] (7) Immunocompromised Is this a current diagnosis for this admission?: Yes Plan: Due to the Humira injections with the multiple other comorbidity we will start the broad-spectrum antibiotic until the cultures back (8) Depression Qualifiers: Depression Type: major depressive disorder Is this a current diagnosis for this admission?: Yes (9) Acute renal failure Qualifiers: Acute renal failure type: unspecified Qualified Code(s): N17.9 - Acute kidney failure, unspecified Is this a current diagnosis for this admission?: Yes Plan: Currently follow with the field superintendent patient's creatinine is getting worse Patient is still urinate Continues to IV fluid - Time Time Spent with patient: 15-24 minutes Level of Care: TELE Medications reviewed and adjusted accordingly: Yes Anticipated discharge: Home Within: Other - Plan Summary Plan Summary: Continues to IV antibiotics continues to IV fluid follow with nephrology
[2019-05-20] MEDS: PREDNISONE 20 MG TABLET PO SCH (17:49)
[2019-05-20 18:30] LABS: EOSINOPHIL SMEAR NO EOSINOPHILS SEEN; SPECIMEN TYPE URINE
--- NOTE | 2019-05-20 21:28 | PDOC PROGRESS REPORT ---
Subjective Progress Note for:: 05/20/19 Subjective:: I saw the patient sitting on her bed today. She is a slow to answer questions and she has intermittent occasional mild jerking movements which she reports is something which does started. Her blood pressure is minimally elevated. Her urine output is not quantified. She states that she notices that her urine output is decreased. She reports some nausea, vomiting, chills and relative fever. She denies any diarrhea. She admits using Voltaren gel. She denies any rash. Reason For Visit: DM FOOT INFECTION Physical Exam Vital Signs: Temp Pulse Resp BP Pulse Ox 98.0 F 108 H 18 151/90 H 100 05/20/19 12:09 05/20/19 12:09 05/20/19 12:09 05/20/19 12:09 05/20/19 12:09 Intake & Output 05/19/19 05/20/19 05/21/19 06:59 06:59 06:59 Intake Total 1852 3274 50 Output Total 2 Balance 1852 3272 50 Weight 142.1 kg 146.7 kg Exam: General appearance: PRESENT: no acute distress, cooperative, well-developed, well-nourished, obese Head exam: PRESENT: atraumatic, normocephalic Eye exam: PRESENT: conjunctiva slightly pale, PERRLA. ABSENT: scleral icterus Neck exam: ABSENT: JVD Respiratory exam: PRESENT: Normal breath sounds. ABSENT: crackles, rales, rhonchi, unlabored, wheezes Cardiovascular exam: PRESENT: Regular rate rhythm -+S1, +S2. ABSENT: diastolic murmur, systolic murmur GI/Abdominal exam: PRESENT: normal bowel sounds, soft. ABSENT: guarding, mass, tenderness Extremities exam: Trace bilateral lower extremity pitting edema Neurological exam: PRESENT: alert, awake, oriented to person, place and time. Intermittent mild and subtle jerking movements of her body Skin exam: PRESENT: dry, warm, Cardiovascular exam: PRESENT: +S1, +S2 GI/Abdominal exam: PRESENT: normal bowel sounds, soft, tenderness - tender in the right renal angle.. ABSENT: guarding, organomegaly Results Laboratory Results: 05/20/19 06:53 05/20/19 06:53 05/19/19 05/20/19 05/20/19 18:00 06:53 06:53 WBC 10.0 RBC 3.81 Hgb 11.5 L Hct 34.9 L MCV 91 MCH 30.1 MCHC 33.0 RDW 14.1 H Plt Count 277 Seg Neutrophils % 73.7 Sodium 139.0 Potassium 4.1 Chloride 105 Carbon Dioxide 22 Anion Gap 12 BUN 23 H Creatinine 3.75 H Est GFR ( Amer) 15 L Glucose 186 H Lactic Acid Calcium 8.5 Urine Color STRAW Urine Appearance CLEAR Urine pH 8.0 Ur Specific [place] 1.004 Urine Protein NEGATIVE Urine Glucose (UA) NEGATIVE Urine Ketones NEGATIVE Urine Blood NEGATIVE Urine Nitrite NEGATIVE Ur Leukocyte Esterase NEGATIVE Urine WBC (Auto) 1 Urine RBC (Auto) 0 05/20/19 06:53 WBC RBC Hgb Hct MCV MCH MCHC RDW Plt Count Seg Neutrophils % Sodium Potassium Chloride Carbon Dioxide Anion Gap BUN Creatinine Est GFR ( Amer) Glucose Lactic Acid 0.9 Calcium Urine Color Urine Appearance Urine pH Ur Specific [place] Urine Protein Urine Glucose (UA) Urine Ketones Urine Blood Urine Nitrite Ur Leukocyte Esterase Urine WBC (Auto) Urine RBC (Auto) Impressions: Foot X-Ray 05/17/19 20:23 IMPRESSION: No radiographic evidence of osteomyelitis. copyright 2010 [employer]- All Rights Reserved Lower Extremity MRI 05/18/19 00:00 IMPRESSION: NO EVIDENCE FOR OSTEOMYELITIS. Abdomen/Pelvis CT 05/19/19 00:00 IMPRESSION: Right perinephric stranding which could be due to inflammation, pyelonephritis, or recent trauma. No hydronephrosis. Assessment & Plan - Diagnosis (1) Acute kidney injury Is this a current diagnosis for this admission?: Yes Plan: This is not associated with significant proteinuria nor microhematuria. Exact etiology is uncertain however there is a strong consideration with acute interstitial nephritis due to exposure to IV Zosyn within the past month. With negative urine eosinophils cannot totally exclude acute interstitial nephritis. Patient has a rapid deteriorating course and worsening kidney function which could also be consistent with acute tubular necrosis however there is an unclear cause of ATN as well. Noncontrast abdominal CT scan did not reveal any hydronephrosis. Patient creatinine was 0.64. Yesterday her serum creatinine was 2.61 and today it is 3.75. Agree with discontinuation of IV Zosyn and IV vancomycin. Avoid further nephrotoxic medications including NSAIDs. Adjust medications according to kidney function. At this time there is no indication for renal replacement t herapy. We need to quantify urine output so we will insert Vega catheter for strict intake and output recording. A kidney biopsy can be done for more clear- cut diagnosis however since it is the weekend this will not be done at this time. I will empirically treat the patient with prednisone 60 mg daily starting today for possible acute interstitial nephritis. Continue to monitor kidney function. (2) Foot ulcer due to secondary DM Is this a current diagnosis for this admission?: Yes Plan: MRI did not show any evidence of osteomyelitis. (3) Pyelonephritis Is this a current diagnosis for this admission?: Yes Plan: CT scan of the abdomen showed right kidney mild perinephric stranding which could be consistent with pyelonephritis and the patient with chronic possibly recurrent pyelonephritis. Continue IV cefepime at this time. (4) Hypertension Qualifiers: Hypertension type: essential hypertension Qualified Code(s): I10 - Essential (primary) hypertension Is this a current diagnosis for this admission?: Yes (5) Type 2 diabetes mellitus Qualifiers: Diabetes mellitus longterm insulin use: with longterm use Diabetes mellitus complication status: with other specified complication Qualified Code(s): E11.69 - Type 2 diabetes mellitus with other specified complication; Z79.4 - terminal makeup operator (current) use of insulin Is this a current diagnosis for this admission?: Yes (6) Pseudotumor cerebri Is this a current diagnosis for this admission?: Yes - Notes Notes: Discussed assessment and plan with Dr. Abebe. Also discussed the plan with the patient who agreed with the plan. - Time Time with patient: Greater than 35 minutes
[2019-05-21] MEDS: NORMAL SALINE 1000 ML 1,000 ML IV PRN (02:36)
[2019-05-21] MEDS: OXYCODONE HCL IR 5 MG TABLET PO PRN ×2 (02:45→15:01)
[2019-05-21] MEDS: ONDANSETRON HCL INJ/PF 4 MG/2 ML SDV IV PRN (02:45)
[2019-05-21 05:36] LABS: ANION GAP 11 (5-19); BLOOD UREA NITROGEN 26 mg/dL (7-20); CALCIUM 9.3 mg/dL (8.4-10.2); CARBON DIOXIDE 20 mmol/L (22-30); CHLORIDE 108 mmol/L (98-107); GLUCOSE 275 mg/dL (75-110); POTASSIUM 4.8 mmol/L (3.6-5.0)
[2019-05-21] MEDS: LEVOTHYROXINE SODIUM 0.15 MG TABLET PO SCH (06:28)
[2019-05-21] MEDS: INSULIN LISPRO 100 UNIT/ML 3 ML VIAL SUBCUT SCH ×4 (08:44→22:48)
[2019-05-21] MEDS: IPRATROPIUM/ALBUTEROL 0.5-2.5 MG/3 ML AMPUL NEB PRN (09:27)
[2019-05-21] MEDS: PREDNISONE 20 MG TABLET PO SCH (10:27)
[2019-05-21] MEDS: MULTIVITAMIN TABLET PO SCH (10:27)
[2019-05-21] MEDS: CETIRIZINE 10 MG TABLET PO SCH (10:27)
[2019-05-21] MEDS: GABAPENTIN 300 MG CAPSULE PO SCH ×4 (10:28→22:47)
[2019-05-21] MEDS: OXYBUTYNIN CHLORIDE 5 MG TABLET PO SCH ×2 (10:28→22:48)
[2019-05-21] MEDS: ASCORBIC ACID 500 MG TABLET PO SCH (10:28)
[2019-05-21] MEDS: DULOXETINE HCL 30 MG CAPSULE.DR PO SCH ×2 (10:28→22:47)
[2019-05-21] MEDS: ENOXAPARIN SODIUM INJ 30 MG/0.3 ML DISP.SYRIN SUBCUT SCH (10:29)
[2019-05-21] MEDS: ESTROGENS,CONJUGATED 0.625 MG TABLET PO SCH (10:29)
[2019-05-21] MEDS: ACETAZOLAMIDE 500 MG CAPSULE.SA PO SCH ×2 (10:29→22:52)
[2019-05-21] MEDS: CEFEPIME 1 GM/D5W RTU 1 GM/50 ML RTUPB IV SCH (10:30)
[2019-05-21] MEDS: INSULIN GLARGINE,HUM.REC.ANLOG 1,000 UNIT/10 ML VIAL SUBCUT SCH ×2 (10:30→22:49)
--- NOTE | 2019-05-21 11:08 | PDOC PROGRESS REPORT ---
Subjective Progress Note for:: 05/21/19 Subjective:: Patient is currently doing okay just the feeling weak Patient's denied any chest pain no short of breath Patient's kidney function is still worsening especially creatinine Patient is having no fever no chills Reason For Visit: DM FOOT INFECTION Physical Exam Vital Signs: Temp Pulse Resp BP Pulse Ox 97.9 F 83 18 136/82 H 93 05/21/19 09:02 05/21/19 09:30 05/21/19 09:30 05/21/19 09:02 05/21/19 09:30 Intake & Output 05/20/19 05/21/19 05/22/19 06:59 06:59 06:59 Intake Total 3274 1730 Output Total 2 1600 Balance 3272 130 Weight 146.7 kg 147.5 kg General appearance: PRESENT: no acute distress, well-developed, well-nourished Head exam: PRESENT: atraumatic, normocephalic Eye exam: PRESENT: conjunctiva pink, EOMI, PERRLA. ABSENT: scleral icterus Ear exam: PRESENT: normal external ear exam Mouth exam: PRESENT: moist, tongue midline Neck exam: PRESENT: full ROM. ABSENT: carotid bruit, JVD, lymphadenopathy, thyromegaly Respiratory exam: PRESENT: clear to auscultation freedom Cardiovascular exam: PRESENT: RRR. ABSENT: diastolic murmur, rubs, systolic murmur Pulses: PRESENT: normal dorsalis pedis pul, +2 pedal pulses bilateral Vascular exam: PRESENT: normal capillary refill GI/Abdominal exam: PRESENT: normal bowel sounds, soft. ABSENT: distended, guarding, mass, organolmegaly, rebound, tenderness Rectal exam: PRESENT: deferred Musculoskeletal exam: PRESENT: ambulatory Neurological exam: PRESENT: alert, awake, oriented to person, oriented to place, oriented to time, oriented to situation, CN II-XII grossly intact. ABSENT: motor sensory deficit Psychiatric exam: PRESENT: appropriate affect, normal mood. ABSENT: homicidal ideation, suicidal ideation Skin exam: PRESENT: dry, intact, warm. ABSENT: cyanosis, rash Results Laboratory Results: 05/20/19 06:53 05/21/19 04:22 05/21/19 04:22 Sodium 139.4 Potassium 4.8 Chloride 108 H Carbon Dioxide 20 L Anion Gap 11 BUN 26 H Creatinine 3.81 H Est GFR ( Amer) 15 L Glucose 275 H Calcium 9.3 Impressions: Foot X-Ray 05/17/19 20:23 IMPRESSION: No radiographic evidence of osteomyelitis. copyright 2010 [employer] All Rights Reserved Lower Extremity MRI 05/18/19 00:00 IMPRESSION: NO EVIDENCE FOR OSTEOMYELITIS. Abdomen/Pelvis CT 05/19/19 00:00 IMPRESSION: Right perinephric stranding which could be due to inflammation, pyelonephritis, or recent trauma. No hydronephrosis. Assessment & Plan - Diagnosis (1) Sepsis Qualifiers: Sepsis type: sepsis due to unspecified organism Qualified Code(s): A41.9 - Sepsis, unspecified organism Is this a current diagnosis for this admission?: Yes Plan: As per the discussed with the nephrology change the antibiotic yesterday to cefepime (2) Foot ulcer due to secondary DM Is this a current diagnosis for this admission?: Yes Plan: Patient's MRI did not show any osteomyelitis continues to follow with the surgery (3) Type 2 diabetes mellitus Qualifiers: Diabetes mellitus buttermaker continuous churn insulin use: with buttermaker continuous churn use Diabetes mellitus complication status: with other specified complication Qualified Code(s): E11.69 - Type 2 diabetes mellitus with other specified complication; Z79.4 - retirement (current) use of insulin Is this a current diagnosis for this admission?: Yes Plan: Continues to sliding scale and Lantus (4) Hypertension Qualifiers: Hypertension type: essential hypertension Qualified Code(s): I10 - Essential (primary) hypertension Is this a current diagnosis for this admission?: Yes Plan: Currently all stable (5) Pseudotumor cerebri Is this a current diagnosis for this admission?: Yes Plan: Continues to Diamox patient is currently see the neurology recent lumbar puncture was done in the mar was all stable (6) Ankylosing spondylitis Qualifiers: Ankylosing spondylitis location: multiple sites in spine Qualified Code(s): M45.0 - Ankylosing spondylitis of multiple sites in spine Is this a current diagnosis for this admission?: Yes Plan: She is currently see the optical laboratory manager and [facility] (7) Immunocompromised Is this a current diagnosis for this admission?: Yes Plan: Due to the Humira injections with the multiple other comorbidity we will start the broad-spectrum antibiotic until the cultures back (8) Depression Qualifiers: Depression Type: major depressive disorder Is this a current diagnosis for this admission?: Yes (9) Acute renal failure Qualifiers: Acute renal failure type: unspecified Qualified Code(s): N17.9 - Acute kidney failure, unspecified Is this a current diagnosis for this admission?: Yes Plan: Currently follow with the monotyper patient's creatinine is getting worse Patient is still urinate Continues to IV fluid - Time Time Spent with patient: 25-34 minutes Level of Care: TELE Medications reviewed and adjusted accordingly: Yes Anticipated discharge: Other Within: Other - Plan Summary Plan Summary: Continues to current medications
--- NOTE | 2019-05-21 11:46 | PDOC TRANSFER SUMMARY ---
General Admission Date/PCP: 05/17/19 22:13 PAWAN ARREOLA MD Transfer Date: 05/21/19 Accepting Facility: [facility] Resuscitation Status: Full Code - Transfer Diagnosis (1) Sepsis Is this a current diagnosis for this admission?: Yes Diagnosis Summary: Currently on IV cefepime (2) Foot ulcer due to secondary DM Is this a current diagnosis for this admission?: Yes Diagnosis Summary: MRI of the foot is negative for any osteomyelitis (3) Type 2 diabetes mellitus Is this a current diagnosis for this admission?: Yes Diagnosis Summary: Given a sliding scale (4) Hypertension Is this a current diagnosis for this admission?: Yes Diagnosis Summary: Clear all stable (5) Pseudotumor cerebri Is this a current diagnosis for this admission?: Yes Diagnosis Summary: Consider Diamox (6) Ankylosing spondylitis Is this a current diagnosis for this admission?: Yes Diagnosis Summary: Follow the [facility] (7) Immunocompromised Is this a current diagnosis for this admission?: Yes (8) Depression Is this a current diagnosis for this admission?: Yes (9) Acute renal failure Is this a current diagnosis for this admission?: Yes Diagnosis Summary: Along with the nephrology and suggest not sure clear etiology with the multiple medical issues possible interstitial nephritis from the zosyn - Transfer Medications Home Medications: Acetazolamide [Acetazolamide ER] 1,000 mg PO Q12 05/18/19 Ascorbic Acid [Vitamin C 500 mg Tablet] 500 mg PO DAILY 05/18/19 Atenolol 50 mg PO DAILYP PRN MDD 100 MG 05/18/19 Cetirizine HCl [Zyrtec 10 mg Tablet] 10 mg PO DAILY 05/18/19 Diclofenac Sodium [Voltaren] 2 gm TP QIDP PRN 05/18/19 Duloxetine HCl [Cymbalta] 60 mg PO Q12 05/18/19 Estrogens,Conjugated [Premarin 0.625 mg Tablet] 0.625 mg PO DAILY 05/18/19 Eucalyptus Oil/Menthol/Camphor [Vicks Vaporub Ointment] 1 applic TP PRN PRN 05/18/19 Gabapentin [Neurontin 300 mg Capsule] 600 mg PO TID 05/18/19 Gabapentin [Neurontin 300 mg Capsule] 900 mg PO QHS 05/18/19 Hydroxyzine HCl [Atarax 25 mg Tablet] 25 mg PO Q8HP PRN 05/18/19 Insulin Aspart [Novolog Flexpen] 0 unit SUBCUT .SLIDING SCALE 05/18/19 Insulin Aspart [Novolog Flexpen] 6 unit SUBCUT AC 05/18/19 Insulin Glargine,Hum.rec.anlog [Lantus Insulin 100 Unit/1 ml 10 ml] 15 units S UBCUT Q12 05/18/19 Levothyroxine Sodium [Synthroid 0.15 mg Tablet] 0.15 mg PO Q6AM 05/18/19 Multivitamin [Tab-A-Radha (Multiple Vitamin) Tablet] 1 tab PO DAILY 05/18/19 Mupirocin [Bactroban 2% Ointment 22 gm] 1 applic TOP TIDP PRN 05/18/19 Nystatin [Mycostatin Ointment 15 gm] 1 applic TOP BIDP PRN 05/18/19 Oxybutynin Chloride [Oxybutynin Chloride ER] 10 mg PO DAILY 05/18/19 Transfer Medications: Current Medications Acetazolamide (Diamox Sequel 500 Mg) [address] [facility] Stop: 06/18/19 21:59 Last Admin: 05/21/19 10:29 Dose: 500 mg Documented by: Albuterol/Ipratropium (Duoneb 3 Ml Ampul) 3 ml NEB RTQ6HP PRN PRN Reason: WHEEZING & SHORTNESS OF BREATH Stop: 06/19/19 10:27 Last Admin: 05/21/19 09:27 Dose: 3 ml Documented by: Ascorbic Acid (Vitamin C 500 Mg Tablet) [address] [facility] Stop: 06/17/19 10:29 Last Admin: 05/21/19 10:28 Dose: 500 mg Documented by: Cetirizine HCl (Zyrtec 10 Mg Tablet) 10 mg PO DAILY [facility] Stop: 06/17/19 10:29 Last Admin: 05/21/19 10:27 Dose: 10 mg Documented by: Dextrose (Dextrose Inj 50% Syringe (25 Gm/50 Ml)) 12.5 gm IV PRN PRN; Protocol PRN Reason: FOR BG 50-69 IN ALERT PATIENT Stop: 06/16/19 22:14 Dextrose (Dextrose Inj 50% Syringe (25 Gm/50 Ml)) 25 gm IV PRN PRN; Protocol PRN Reason: PER PROTOCOL Stop: 06/16/19 22:14 Duloxetine HCl (Cymbalta 30 Mg Capsule.) [address] [facility] Stop: 06/17/19 11:59 Last Admin: 05/21/19 10:28 Dose: 60 mg Documented by: Enoxaparin Sodium (Lovenox Inj 30 Mg/0.3 Ml Disp.Syrin) [address] [facility] Stop: 06/20/19 09:59 Last Admin: 05/21/19 10:29 Dose: 30 mg Documented by: Estrogens Conjugated (Premarin 0.625 Mg Tablet) 0.625 mg PO DAILY [facility] Stop: 06/17/19 13:59 Last Admin: 05/21/19 10:29 Dose: 0.625 mg Documented by: Gabapentin (Neurontin 300 Mg Capsule) 900 mg PO QHS [facility] Stop: 06/17/19 21:59 Last Admin: 05/20/19 23:09 Dose: 900 mg Documented by: Gabapentin (Neurontin 300 Mg Capsule) 600 mg PO TID [facility] Stop: 06/17/19 10:29 Last Admin: 05/21/19 10:28 Dose: 600 mg Documented by: Glucagon (Glucagen Inj 1 Mg Vial) 1 mg IM PRN PRN; Protocol PRN Reason: Evaluate for BG < 70 Stop: 06/16/19 22:14 Glucose (Glutose 40% Gel 15 Gm Tube) 15 gm PO PRN PRN; Protocol PRN Reason: FOR BG 50-69 IN ALERT PATIENT Stop: 06/16/19 22:14 Glucose (Glutose 40% Gel 15 Gm Tube) 30 gm PO PRN PRN; Protocol PRN Reason: FOR BG < 50 IN ALERT PATIENT Stop: 06/16/19 22:14 Hydroxyzine Pamoate (Vistaril 25 Mg Capsule) 25 mg PO Q8HP PRN PRN Reason: ITCHING Stop: 06/17/19 10:57 Sodium Chloride (Nacl 0.9% 1000 Ml Iv Soln) 1,000 mls @ 70 mls/hr IV CONTINUOUS PRN PRN Reason: THIS MED IS NOT "PRN" Stop: 06/18/19 07:47 Last Admin: 05/21/19 02:36 Dose: 70 mls/hr Documented by: Cefepime HCl (Maxipime Rtu 1 Gm/D5w 50 Ml Premix Bag) 1 gm in 50 mls @ 100 mls/hr IV DAILY [facility] Stop: 05/26/19 14:59 Last Admin: 05/21/19 10:30 Dose: 100 mls/hr, 100 mls/hr Documented by: Insulin Glargine (Lantus Insulin 100 Unit/1 Ml 10 Ml) [address] [facility] Stop: 06/17/19 10:59 Last Admin: 05/21/19 10:30 Dose: 15 unit Documented by: Insulin Human Lispro (Humalog Insulin 100 Unit/1 Ml 3 Ml Vial) 0 - [address] [facility]; Protocol Stop: 06/17/19 07:59 Last Admin: 05/21/19 08:44 Dose: 6 unit Documented by: Levothyroxine Sodium (Synthroid 0.15 Mg Tablet) 0.[address] [facility] Stop: 06/18/19 05:59 Last Admin: 05/21/19 06:28 Dose: 0.15 mg Documented by: Multivitamins (Tab-A-Radha (Multiple Vitamin) Tablet) [address] [facility] Stop: 06/17/19 10:29 Last Admin: 05/21/19 10:27 Dose: 1 tab Documented by: Mupirocin (Bactroban 2% Ointment 22 Gm) 1 applic TOP TIDP PRN PRN Reason: IRRITATING AREA Stop: 06/17/19 10:10 Nystatin (Mycostatin Ointment 15 Gm) 1 applic TOP BIDP PRN PRN Reason: IRRITATED AREA Stop: 06/17/19 10:10 Ondansetron HCl (Zofran Inj/Pf 4 Mg/2 Ml Sdv) 4 mg IV Q4HP PRN PRN Reason: FOR NAUSEA Stop: 06/17/19 08:26 Last Admin: 05/21/19 02:45 Dose: 4 mg Documented by: Oxybutynin Chloride (Ditropan 5 Mg Tablet) [address] [facility] Stop: 06/17/19 11:59 Last Admin: 05/21/19 10:28 Dose: 5 mg Documented by: Oxycodone HCl (Oxy-Ir 5 Mg Tablet) 5 mg PO Q6HP PRN PRN Reason: FOR PAIN Stop: 05/24/19 22:16 Last Admin: 05/21/19 02:45 Dose: 5 mg Documented by: Patient Own Medication (Eucalyptus Oil/Menthol/Camphor [Vicks Vaporub Ointment]) 1 applic TOP PRN PRN PRN Reason: JOINT PAIN Patient Own Medication (Diclofenac Sodium [Voltaren]) 2 gm TOP QIDP PRN PRN Reason: joint pain Patient Own Medication (Atenolol [Atenolol]) 50 mg PO DAILYP PRN PRN Reason: PRN Prednisone (Deltasone 20 Mg Tablet) 60 mg PO DAILY [facility] Stop: 06/19/19 17:14 Last Admin: 05/21/19 10:27 Dose: 60 mg Documented by: - Allergies Allergies/Adverse Reactions: celecoxib [From Celebrex] Allergy (Severe, Verified 11/10/18 09:54) Swelling of hands and/or feet clarithromycin [From Biaxin] Allergy (Severe, Verified 11/10/18 09:54) Swelling of hands and/or feet latex [Latex] Allergy (Severe, Verified 11/10/18 09:54) Anaphylaxis nitrofurantoin [From Macrobid] Allergy (Severe, Verified 11/10/18 09:54) Hives Sulfa (Sulfonamide Antibiotics) Allergy (Severe, Verified 11/10/18 09:54) Hives adalimumab [From Humira] Allergy (Verified 11/10/18 09:54) Edema losartan [Losartan] Allergy (Verified 11/10/18 09:54) metformin [Metformin] Allergy (Verified 11/10/18 09:54) promethazine HCl [From Phenergan] Allergy (Verified 11/10/18 09:54) Cerebellar dysfunction rofecoxib [From Vioxx] Allergy (Verified 11/10/18 09:54) Swelling of hands and/or feet acetazolamide [From Diamox] Adverse Reaction (Verified 05/18/19 09:48) ITCHING prochlorperazine maleate [From Compazine] Adverse Reaction (Verified 11/10/18 09:54) Cerebellar dysfunction bananas Allergy (Severe, Uncoded 11/10/18 09:54) Difficulty breathing Hospital Course Hospital Course: This is a 49-year-old with the multiple medical problems including the history of the ankylosing spondylitis with a history of pseudo-cerebral tumor and a history of lumbar punctures because of that periodically history of the type 2 diabetes with multiple complications and a history of the chronic leg wound recently admitting in the [facility] for 2 weeks received IV antibiotic came to the emergency department with the complaining of a fever chills patient initially put on IV Zosyn and vancomycin Seen by the general surgery MRI of the leg was done negative for osteomyelitis Patient recently admitting in the [facility] received digoxin and vancomycin and switch to the Augmentin and doxycycline on discharge Patient initially getting better but then patient's kidney functions especially creatinine is getting worse consult the nephrology underwent for the CT scan did not show any hydronephrosis Patient received IV fluids Shank Rander think patients probably coming from the juice since nephritis but eosinophil is negative in the urine Patient's IV Zosyn was discontinued and IV vancomycin is discontinued due to the negative culture Patient was put on IV cefepime Patient's at this points multiple other comorbidity still feeling weak and patient have at the pseudo-cerebral tumor requiring lumbar puncture according to the patient's with the multiple other comorbidity patients currently see the [facility] for that Discussed with the nephrology if the patient's kidney function does not improve may be need a little renal biopsy and other evaluations with the multiple com orbidity with the disease patient's best to be assertive at the [facility] with patients currently follow with that Physical Exam Vital Signs: Temp Pulse Resp BP Pulse Ox 97.9 F 83 18 136/82 H 93 05/21/19 09:02 05/21/19 09:30 05/21/19 09:30 05/21/19 09:02 05/21/19 09:30 Intake & Output 05/20/19 05/21/19 05/22/19 06:59 06:59 06:59 Intake Total 3274 1730 Output Total 2 1600 Balance 3272 130 Weight 146.7 kg 147.5 kg General appearance: PRESENT: no acute distress, well-developed, well-nourished Head exam: PRESENT: atraumatic, normocephalic Eye exam: PRESENT: conjunctiva pink, EOMI, PERRLA. ABSENT: scleral icterus Ear exam: PRESENT: normal external ear exam Mouth exam: PRESENT: moist, tongue midline Neck exam: ABSENT: carotid bruit, JVD, lymphadenopathy, thyromegaly Respiratory exam: PRESENT: clear to auscultation freedom. ABSENT: rales, rhonchi, wheezes Cardiovascular exam: PRESENT: RRR. ABSENT: diastolic murmur, rubs, systolic murmur Pulses: PRESENT: normal dorsalis pedis pul Vascular exam: PRESENT: normal capillary refill GI/Abdominal exam: PRESENT: normal bowel sounds, soft. ABSENT: distended, guarding, mass, organolmegaly, rebound, tenderness Rectal exam: PRESENT: deferred Extremities exam: PRESENT: full ROM. ABSENT: calf tenderness, clubbing, pedal edema Neurological exam: PRESENT: alert, awake, oriented to person, oriented to place, oriented to time, oriented to situation, CN II-XII grossly intact. ABSENT: motor sensory deficit Psychiatric exam: PRESENT: appropriate affect, normal mood. ABSENT: homicidal ideation, suicidal ideation Skin exam: PRESENT: dry, intact, warm. ABSENT: cyanosis, rash Results Laboratory Results: 05/20/19 06:53 05/21/19 04:22 05/21/19 04:22 Sodium 139.4 Potassium 4.8 Chloride 108 H Carbon Dioxide 20 L Anion Gap 11 BUN 26 H Creatinine 3.81 H Est GFR ( Amer) 15 L Glucose 275 H Calcium 9.3 Impressions: Foot X-Ray 05/17/19 20:23 IMPRESSION: No radiographic evidence of osteomyelitis. copyright 2011 [employer]- All Rights Reserved Lower Extremity MRI 05/18/19 00:00 IMPRESSION: NO EVIDENCE FOR OSTEOMYELITIS. Abdomen/Pelvis CT 05/19/19 00:00 IMPRESSION: Right perinephric stranding which could be due to inflammation, pyelonephritis, or recent trauma. No hydronephrosis. Plan Time Spent: Greater than 30 Minutes
--- NOTE | 2019-05-21 17:51 | RADIOLOGY REPORT (SQ) ---
EXAM DESCRIPTION: CT HEAD WITHOUT COMPLETED DATE/TIME: 05/21/2019 4:27 pm REASON FOR STUDY: psudo tuomer cerebi COMPARISON: None. TECHNIQUE: Axial images acquired through the brain without intravenous contrast. Images reviewed wi th bone, brain and subdural windows. Images stored on PACS. All CT scanners at this facility use dose modulation, iterative reconstruction, and/or weight based d osing when appropriate to reduce radiation dose to as low as reasonably achievable (ALARA). [facility]: Dose Right [facility]: CareDose [facility]: Dose Right [facility]: Teradose 4D [facility]: [employer] RADIATION DOSE: CT Rad equipment meets quality standard of care and radiation dose reduction techniq ues were employed. CTDIvol: 53.2 mGy. DLP: 991 mGy-cm. mGy. LIMITATIONS: None. FINDINGS: VENTRICLES: Normal size and contour. CEREBRUM: No masses. No hemorrhage. No midline shift. No evidence for acute infarction. Normal gra y/white matter differentiation. No areas of low density in the white matter. There is a calcified ma ss contiguous with the left posterior falx consistent with meningioma measuring 1.2 x 1.4 cm. No sig nificant surrounding edema or mass effect. There is a focal rounded area decreased attenuation left basal ganglion region which could represent prominent perivascular vascular space. CEREBELLUM: No masses. No hemorrhage. No alteration of density. No evidence for acute infarction. EXTRAAXIAL SPACES: No fluid collections. No masses. ORBITS AND GLOBE: No intra- or extraconal masses. Normal contour of globe without masses. CALVARIUM: No fracture. PARANASAL SINUSES: No fluid or mucosal thickening. SOFT TISSUES: No mass or hematoma. OTHER: No other significant finding. IMPRESSION: Findings consistent with partially calcified left posterior parafalcine meningioma measu ring 1.2 x 1.4 cm. Otherwise, normal CT of the brain. EVIDENCE OF ACUTE STROKE: NO. COMMENT: Quality ID # [id number]: Final reports with documentation of one or more dose reduction techniques (e.g., Automated exposure control, adjustment of the mA and/or kV according to patient size, use of iterative reconstruction technique) TECHNICAL DOCUMENTATION: JOB ID: [id number] 2010 [employer]- All Rights Reserved Reading location - IP/workstation name: [email or web address]
[2019-05-22] MEDS: LEVOTHYROXINE SODIUM 0.15 MG TABLET PO SCH (05:44)
[2019-05-22] MEDS: INSULIN LISPRO 100 UNIT/ML 3 ML VIAL SUBCUT SCH ×4 (08:22→22:16)
[2019-05-22 08:56] LABS: ALBUMIN 3.7 g/dL (3.5-5.0); ALKALINE PHOSPHATASE 152 U/L (38-126); ANION GAP 15 (5-19); ASPARTATE AMINO TRANSFERASE 36 U/L (14-36); BILIRUBIN,DIRECT 0.2 mg/dL (0.0-0.4); BILIRUBIN,TOTAL 0.3 mg/dL (0.2-1.3); BLOOD UREA NITROGEN 36 mg/dL (7-20); CALCIUM 9.7 mg/dL (8.4-10.2); CARBON DIOXIDE 16 mmol/L (22-30); CHLORIDE 110 mmol/L (98-107); GLUCOSE 234 mg/dL (75-110); POTASSIUM 4.5 mmol/L (3.6-5.0); TOTAL PROTEIN 7.3 g/dL (6.3-8.2)
[2019-05-22] MEDS: CEFEPIME 1 GM/D5W RTU 1 GM/50 ML RTUPB IV SCH (10:03)
[2019-05-22] MEDS: ENOXAPARIN SODIUM INJ 30 MG/0.3 ML DISP.SYRIN SUBCUT SCH (10:03)
[2019-05-22] MEDS: GABAPENTIN 300 MG CAPSULE PO SCH ×4 (10:04→22:15)
[2019-05-22] MEDS: ASCORBIC ACID 500 MG TABLET PO SCH (10:04)
[2019-05-22] MEDS: PREDNISONE 20 MG TABLET PO SCH (10:04)
[2019-05-22] MEDS: CETIRIZINE 10 MG TABLET PO SCH (10:04)
[2019-05-22] MEDS: MULTIVITAMIN TABLET PO SCH (10:04)
--- NOTE | 2019-05-22 10:04 | PDOC PROGRESS REPORT ---
Subjective Progress Note for:: 05/22/19 Subjective:: Patient is currently doing same Patient CT head done yesterday did not show any acute finding with a chronic meningioma Patient still still have a little bit tremor and will confuse Discussed with nephrology Dr. Sheridan while the patient's kidney function is improving Continues IV fluid and steroids Discussed with the [facility] yesterday patients waiting for transfer but [facility] told me that most likely at this is chronic issues with the patient is feeling better. Potentially discharge and follow outpatient Patient is denied any chest pain to than any shortness of the breath Reason For Visit: DM FOOT INFECTION Physical Exam Vital Signs: Temp Pulse Resp BP Pulse Ox 97.6 F 88 19 151/93 H 99 05/22/19 07:21 05/22/19 07:21 05/22/19 07:21 05/22/19 07:21 05/22/19 07:21 Intake & Output 05/21/19 05/22/19 05/23/19 06:59 06:59 06:59 Intake Total 1730 2231 Output Total 1600 3000 Balance 130 -769 Weight 147.5 kg 148.4 kg General appearance: PRESENT: no acute distress, well-developed, well-nourished Head exam: PRESENT: atraumatic, normocephalic Eye exam: PRESENT: conjunctiva pink, EOMI, PERRLA. ABSENT: scleral icterus Ear exam: PRESENT: normal external ear exam Mouth exam: PRESENT: moist, tongue midline Neck exam: PRESENT: full ROM. ABSENT: carotid bruit, JVD, lymphadenopathy, thyromegaly Respiratory exam: PRESENT: clear to auscultation freedom Cardiovascular exam: PRESENT: RRR. ABSENT: diastolic murmur, rubs, systolic murmur Pulses: PRESENT: normal dorsalis pedis pul, +2 pedal pulses bilateral Vascular exam: PRESENT: normal capillary refill GI/Abdominal exam: PRESENT: normal bowel sounds, soft. ABSENT: distended, guarding, mass, organolmegaly, rebound, tenderness Rectal exam: PRESENT: deferred Neurological exam: PRESENT: alert, awake, oriented to person, oriented to place, oriented to time, oriented to situation, CN II-XII grossly intact. ABSENT: motor sensory deficit Psychiatric exam: PRESENT: appropriate affect, normal mood. ABSENT: homicidal ideation, suicidal ideation Skin exam: PRESENT: dry, intact, warm. ABSENT: cyanosis, rash Results Laboratory Results: 05/20/19 06:53 05/22/19 08:09 05/22/19 08:09 Sodium 141.4 Potassium 4.5 Chloride 110 H Carbon Dioxide 16 L Anion Gap 15 BUN 36 H Creatinine 3.44 H Est GFR ( Amer) 17 L Glucose 234 H Calcium 9.7 Total Bilirubin 0.3 AST 36 Alkaline Phosphatase 152 H Total Protein 7.3 Albumin 3.7 Impressions: Foot X-Ray 05/17/19 20:23 IMPRESSION: No radiographic evidence of osteomyelitis. copyright 2011 [employer]- All Rights Reserved Lower Extremity MRI 05/18/19 00:00 IMPRESSION: NO EVIDENCE FOR OSTEOMYELITIS. Abdomen/Pelvis CT 05/19/19 00:00 IMPRESSION: Right perinephric stranding which could be due to inflammation, pyelonephritis, or recent trauma. No hydronephrosis. Head CT 05/21/19 00:00 IMPRESSION: Findings consistent with partially calcified left posterior parafalcine meningioma measuring 1.2 x 1.4 cm. Otherwise, normal CT of the brain. EVIDENCE OF ACUTE STROKE: NO. Assessment & Plan - Diagnosis (1) Sepsis Qualifiers: Sepsis type: sepsis due to unspecified organism Qualified Code(s): A41.9 - Sepsis, unspecified organism Is this a current diagnosis for this admission?: Yes Plan: As per the discussed with the nephrology change the antibiotic yesterday to cefepime (2) Foot ulcer due to secondary DM Is this a current diagnosis for this admission?: Yes Plan: Patient's MRI did not show any osteomyelitis continues to follow with the surgery (3) Type 2 diabetes mellitus Qualifiers: Diabetes mellitus nursing home insulin use: with nursing home use Diabetes mellitus complication status: with other specified complication Qualified Code(s): E11.69 - Type 2 diabetes mellitus with other specified complication; 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 Is this a current diagnosis for this admission?: Yes Plan: Continues to sliding scale and Lantus (4) Hypertension Qualifiers: Hypertension type: essential hypertension Qualified Code(s): I10 - Essential (primary) hypertension Is this a current diagnosis for this admission?: Yes Plan: Currently all stable (5) Pseudotumor cerebri Is this a current diagnosis for this admission?: Yes Plan: Continues to Diamox patient is currently see the neurology recent lumbar puncture was done in the sept was all stable (6) Ankylosing spondylitis Qualifiers: Ankylosing spondylitis location: multiple sites in spine Qualified Code(s): M45.0 - Ankylosing spondylitis of multiple sites in spine Is this a current diagnosis for this admission?: Yes Plan: She is currently see the environmental services manager and [facility] (7) Immunocompromised Is this a current diagnosis for this admission?: Yes Plan: Due to the Humira injections with the multiple other comorbidity we will start the broad-spectrum antibiotic until the cultures back (8) Depression Qualifiers: Depression Type: major depressive disorder Is this a current diagnosis for this admission?: Yes (9) Acute renal failure Qualifiers: Acute renal failure type: unspecified Qualified Code(s): N17.9 - Acute kidney failure, unspecified Is this a current diagnosis for this admission?: Yes Plan: Continues to current medications follow with the nephrology (10) Pyelonephritis Is this a current diagnosis for this admission?: Yes Plan: Continues to IV antibiotic - Time Time Spent with patient: 15-24 minutes Level of Care: TELE Medications reviewed and adjusted accordingly: Yes Anticipated discharge: Other Within: Other - Plan Summary Plan Summary: Continues IV fluid Continue IV antibiotic I do not see any urine cultures initially was done was canceled Will repeat the urine
[2019-05-22] MEDS: ESTROGENS,CONJUGATED 0.625 MG TABLET PO SCH (10:05)
[2019-05-22] MEDS: SODIUM BICARBONATE 650 MG TABLET PO SCH ×2 (10:05→22:15)
[2019-05-22] MEDS: DULOXETINE HCL 30 MG CAPSULE.DR PO SCH ×2 (10:05→22:15)
[2019-05-22] MEDS: OXYBUTYNIN CHLORIDE 5 MG TABLET PO SCH ×2 (10:05→22:17)
[2019-05-22] MEDS: INSULIN GLARGINE,HUM.REC.ANLOG 1,000 UNIT/10 ML VIAL SUBCUT SCH ×2 (10:07→22:16)
[2019-05-22] MEDS: ACETAZOLAMIDE 500 MG CAPSULE.SA PO SCH ×2 (10:37→22:15)
[2019-05-22] MEDS: OXYCODONE HCL IR 5 MG TABLET PO PRN ×2 (10:39→17:06)
[2019-05-23] MEDS: LEVOTHYROXINE SODIUM 0.15 MG TABLET PO SCH (06:29)
[2019-05-23] MEDS: INSULIN LISPRO 100 UNIT/ML 3 ML VIAL SUBCUT SCH ×4 (07:53→22:31)
[2019-05-23 08:07] LABS: ABSOLUTE LYMPHOCYTES (AUTO) 1.2 10^3/uL (0.5-4.7); ABSOLUTE MONOCYTES (AUTO) 0.7 10^3/uL (0.1-1.4); ABSOLUTE NEUT (AUTO) 12.9 10^3/uL (1.7-8.2); BASOPHILS % (AUTO) 0.1 % (0-2); EOSINOPHILS % (AUTO) 0.1 % (0-6); HEMATOCRIT 33.3 % (36.0-47.0); HEMOGLOBIN 10.8 g/dL (12.0-15.5); LYMPHOCYTES % (AUTO) 8.1 % (13-45); MEAN CORPUSCULAR HEMOGLOBIN 29.9 pg (27.0-33.4); MEAN CORPUSCULAR HGB CONC 32.4 g/dL (32.0-36.0); MEAN CORPUSCULAR VOLUME 92 fl (80-97); MONOCYTES % (AUTO) 4.7 % (3-13); PLATELET COUNT 283 10^3/uL (150-450); RED BLOOD COUNT 3.61 10^6/uL (3.72-5.28); RED CELL DISTRIBUTION WIDTH 14.5 % (11.5-14.0); TOTAL CELLS COUNTED % (AUTO) 100 %; WHITE BLOOD COUNT 14.8 10^3/uL (4.0-10.5)
[2019-05-23 08:30] LABS: ANION GAP 10 (5-19); BLOOD UREA NITROGEN 45 mg/dL (7-20); CALCIUM 9.2 mg/dL (8.4-10.2); CARBON DIOXIDE 18 mmol/L (22-30); CHLORIDE 112 mmol/L (98-107); GLUCOSE 174 mg/dL (75-110); POTASSIUM 4.2 mmol/L (3.6-5.0)
[2019-05-23] MEDS: ENOXAPARIN SODIUM INJ 30 MG/0.3 ML DISP.SYRIN SUBCUT SCH (09:47)
[2019-05-23] MEDS: ESTROGENS,CONJUGATED 0.625 MG TABLET PO SCH (09:48)
[2019-05-23] MEDS: ONDANSETRON HCL INJ/PF 4 MG/2 ML SDV IV PRN (09:48)
[2019-05-23] MEDS: ACETAZOLAMIDE 500 MG CAPSULE.SA PO SCH (09:48)
[2019-05-23] MEDS: CETIRIZINE 10 MG TABLET PO SCH (09:49)
[2019-05-23] MEDS: PREDNISONE 20 MG TABLET PO SCH (09:49)
[2019-05-23] MEDS: MULTIVITAMIN TABLET PO SCH (09:49)
[2019-05-23] MEDS: OXYBUTYNIN CHLORIDE 5 MG TABLET PO SCH ×2 (09:49→22:28)
[2019-05-23] MEDS: GABAPENTIN 300 MG CAPSULE PO SCH ×2 (09:49→22:27)
[2019-05-23] MEDS: ASCORBIC ACID 500 MG TABLET PO SCH (09:49)
[2019-05-23] MEDS: SODIUM BICARBONATE 650 MG TABLET PO SCH ×2 (09:49→22:29)
[2019-05-23] MEDS: OXYCODONE HCL IR 5 MG TABLET PO PRN (09:49)
[2019-05-23] MEDS: DULOXETINE HCL 30 MG CAPSULE.DR PO SCH ×2 (09:49→22:28)
[2019-05-23] MEDS: INSULIN GLARGINE,HUM.REC.ANLOG 1,000 UNIT/10 ML VIAL SUBCUT SCH ×2 (09:50→22:32)
[2019-05-23] MEDS: CEFEPIME 1 GM/D5W RTU 1 GM/50 ML RTUPB IV SCH (09:50)
[2019-05-23] MEDS ORDERED: FUROSEMIDE INJ/PF 20 MG/2 ML SDV IV ONE (11:15)
[2019-05-23 11:45] LABS: APPEARANCE,URINE CLEAR; BILIRUBIN,URINE NEGATIVE (NEGATIVE); COLOR,URINE STRAW; GLUCOSE, URINE NEGATIVE (NEGATIVE); KETONES,URINE NEGATIVE (NEGATIVE); LEUKOCYTE ESTERASE,URINE SMALL (NEGATIVE); NITRITE,URINE NEGATIVE (NEGATIVE); PROTEIN,URINE 30 mg/dL (NEGATIVE); URINE SPECIFIC GRAVITY 1.009; UROBILINOGEN,URINE NEGATIVE mg/dL (<2.0)
[2019-05-23] MEDS ORDERED: LORAZEPAM INJ 2 MG/1 ML VIAL IV ONE (12:15)
--- NOTE | 2019-05-23 12:19 | PDOC PROGRESS REPORT ---
Subjective Progress Note for:: 05/23/19 Reason For Visit: Patient seen this morning. Patient is unfortunately rather confused and disoriented. She has a delay in answering her questions and is unaware of her current circumstances. She has also got this jerky almost myoclonic jerks of her upper body. When pointedly asked if she has headaches she answers yes and I asked where exactly it was and she points to the posterior aspect of her skull. No complaints of any focal deficits. Discussed her issues with Dr. Abebe as well as with the treating nurse. Nurse has also seen the deterioration of her mental status since he came this morning. He also mentions that it was there over the last day or so also from report. Patient admitted with a diabetic foot ulcers which are culture negative at the moment. However she has also got multiple other comorbidities including ankylosing spondylitis and pseudotumor cerebri for which she is on Diamox. I cut down the dose of Diamox and I saw her last week because of ERNESTINA in spite of the fact that her CO2 was at that time normal. Over the last few days she has become acidotic and I see that sodium bicarbonate replacements orally has been started. She is currently back on Diamox 500 twice daily. Also getting IV fluids. She denies any complaints of chest pain or shortness of breath. Labs and medications were reviewed. Physical Exam Vital Signs: Temp Pulse Resp BP Pulse Ox 97.5 F 111 H 20 148/96 H 100 05/22/19 23:32 05/23/19 09:37 05/23/19 09:37 05/22/19 23:32 05/23/19 09:37 Intake & Output 05/22/19 05/23/19 05/24/19 06:59 06:59 06:59 Intake Total 2231 1149 50 Output Total 3000 2700 Balance -769 -1551 50 Weight 148.4 kg 145.6 kg General appearance: PRESENT: no acute distress, disheveled Exam: Going to delay in answering her questions. She is disoriented x3. She is also confused. Eye exam: PRESENT: EOMI, PERRLA. ABSENT: scleral icterus Ear exam: PRESENT: normal external ear exam Mouth exam: PRESENT: moist, neck supple Neck exam: ABSENT: lymphadenopathy, meningismus, tenderness, thyromegaly, tracheal deviation Respiratory exam: PRESENT: clear to auscultation freedom. ABSENT: crackles Cardiovascular exam: PRESENT: +S1, +S2 GI/Abdominal exam: PRESENT: normal bowel sounds, soft, tenderness - tender in the right renal angle.. ABSENT: guarding, organomegaly Extremities exam: PRESENT: +2 edema Neurological exam: PRESENT: alert, altered. ABSENT: oriented to person, oriented to place Psychiatric exam: PRESENT: anxious Focused psych exam: PRESENT: catatonic, restlessness. ABSENT: pressured speech Skin exam: ABSENT: erythema, jaundice, mottled, rash Results Laboratory Results: 05/23/19 07:35 05/23/19 07:35 05/23/19 05/23/19 05/23/19 07:35 07:35 11:22 WBC 14.8 H RBC 3.61 L Hgb 10.8 L Hct 33.3 L MCV 92 MCH 29.9 MCHC 32.4 RDW 14.5 H Plt Count 283 Seg Neutrophils % 87.0 H Sodium 140.2 Potassium 4.2 Chloride 112 H Carbon Dioxide 18 L Anion Gap 10 BUN 45 H Creatinine 2.85 H Est GFR ( Amer) 21 L Glucose 174 H Calcium 9.2 Urine Color STRAW Urine Appearance CLEAR Urine pH 6.0 Ur Specific [place] 1.009 Urine Protein 30 H Urine Glucose (UA) NEGATIVE Urine Ketones NEGATIVE Urine Blood MODERATE H Urine Nitrite NEGATIVE Ur Leukocyte Esterase SMALL H Urine WBC (Auto) 4 Urine RBC (Auto) 54 05/17/19 20:50 Blood Blood Culture - Final NO GROWTH IN 5 DAYS 05/17/19 19:14 Blood Blood Culture - Final NO GROWTH IN 5 DAYS Impressions: Foot X-Ray 05/17/19 20:23 IMPRESSION: No radiographic evidence of osteomyelitis. copyright 2010 [employer]- All Rights Reserved Lower Extremity MRI 05/18/19 00:00 IMPRESSION: NO EVIDENCE FOR OSTEOMYELITIS. Abdomen/Pelvis CT 05/19/19 00:00 IMPRESSION: Right perinephric stranding which could be due to inflammation, pyelonephritis, or recent trauma. No hydronephrosis. Head CT 05/21/19 00:00 IMPRESSION: Findings consistent with partially calcified left posterior parafalcine meningioma measuring 1.2 x 1.4 cm. Otherwise, normal CT of the brain. EVIDENCE OF ACUTE STROKE: NO. Assessment & Plan - Diagnosis (1) Pyelonephritis Is this a current diagnosis for this admission?: Yes Plan: Apparently chronic. No evidence to indicate active pyelonephritis at this moment. (2) Acute renal failure Qualifiers: Acute renal failure type: unspecified Qualified Code(s): N17.9 - Acute kidney failure, unspecified Is this a current diagnosis for this admission?: Yes Plan: She has ERNESTINA after admission to the hospital this time with diabetic foot ulcers. Likely differential was allergic interstitial nephritis as she had been put on IV Zosyn. However there is no pyuria or eosinophilia in the urine. Patient has been introduced to prednisone 16 which has been cut down to 40 couple of days later. At this point given her overall deterioration of her mental status and fluid overload I will I am going to cut down the prednisone down to 20 mg daily. Discussed issues with Dr. Abebe.Diamox needs to be cut back to 250 twice daily. She has possibly evidences to indicate that she has rising intracranial pressures from her pseudotumor cerebri. At this point doing a lumbar puncture would be the safer option than continuing to increase Diamox given her metabolic acidosis in the face of ERNESTINA. Has also got fluid overload and so discussed with Nurse to stop her IV fluids and give her/start her on IV Lasix. (3) Ankylosing spondylitis Qualifiers: Ankylosing spondylitis location: multiple sites in spine Qualified Code(s): M45.0 - Ankylosing spondylitis of multiple sites in spine Is this a current diagnosis for this admission?: Yes Plan: Status quo. (4) Foot ulcer due to secondary DM Is this a current diagnosis for this admission?: Yes Plan: Improving. On antibiotics. So far cultures are negative. (5) Hypertension Qualifiers: Hypertension type: essential hypertension Qualified Code(s): I10 - Essent ial (primary) hypertension Is this a current diagnosis for this admission?: Yes Plan: Uncontrolled. Monitor. Patient is rather restless. (6) Pseudotumor cerebri Is this a current diagnosis for this admission?: Yes Plan: Given her altered mental status and mental deterioration and her jerking movements I suspect that she has got rising intracranial tension. Unfortunately we do not have a neurologist in-house. Discussed with Dr. Abebe about possibly doing a lumbar puncture and checking the pressures and removing fluid as has been done with this lady in the past.Advised caution with using Diamox which I am going to cut down to 250 twice daily in face of ERNESTINA. (7) Type 2 diabetes mellitus Qualifiers: Diabetes mellitus skilled nursing insulin use: with skilled nursing use Diabetes mellitus complication status: with other specified complication Qualified Code(s): E11.69 - Type 2 diabetes mellitus with other specified complication; Z79.4 - care home (current) use of insulin Is this a current diagnosis for this admission?: Yes Plan: As per Dr. Abebe. (8) Altered mental status Plan: Differential here includes increased ICP from pseudotumor cerebri/gabapentin toxicity/infection. Discussed with Dr. Abebe. I am going to stop her gabapentin 600 mg 3 times daily and cut back on the gabapentin at bedtime to 300 mg just for the next couple of days while we are going through this crisis. Meanwhile hopefully we can get lumbar puncture done and look at the pressures as well as remove some fluid if it is high and see if she responds to that. So far cultures are negative but will repeat another UA as well.
[2019-05-23 13:10] LABS: INTERNATIONAL RATION (INR) 1.06; PROTHROMBIN TIME 13.8 SEC (11.4-15.4)
[2019-05-23 13:11] LABS: PARTIAL THROMBOPLASTIN TIME 29.5 SEC (23.5-35.8)
--- NOTE | 2019-05-23 16:02 | RADIOLOGY REPORT (SQ) ---
EXAM DESCRIPTION: MRI HEAD WITHOUT COMPLETED DATE/TIME: 05/23/2019 3:41 pm REASON FOR STUDY: confusion COMPARISON: MRI from 12/26/[address] of the head without contrast from 05/21/2019. TECHNIQUE: Multiplanar imaging includes non-contrasted T1, T2, FLAIR, and diffusion with ADC map seq uences. Images stored on PACS. LIMITATIONS: None. FINDINGS: The extra-axial left posterior parafalcine mass that measures approximately 15 mm in AP di ameter demonstrates restricted diffusion on the DWI. There is no other focus of restricted diffusion. The high T2 signal focus within the left basal gang sofi could represent a chronic lacunar infarct or a prominent Virchow Edi space. There is no acute intracranial hemorrhage, extra-axial fluid collection or midline shift. There is n o effacement of the cerebral sulci or basal subarachnoid cisterns. The lepe-white matter differentia tion is preserved. The caliber of the ventricles is concordant with the degree of sulcation. There is no hydrocephalus. The intracranial vascular flow voids are preserved. The orbits and globes are normal in appearance. The paranasal sinuses and the mastoid air cells are clear. IMPRESSION: 1. No acute intracranial abnormality. 2. Extra-axial left posterior parafalcine mass that measures approximately 15 mm in AP diameter and i s favored to represent a meningioma. EVIDENCE OF ACUTE STROKE: NO. TECHNICAL DOCUMENTATION: JOB ID: [id number] [employer]- All Rights Reserved Reading location - IP/workstation name: [email or web address]
--- NOTE | 2019-05-23 16:25 | PDOC PROGRESS REPORT ---
Subjective Progress Note for:: 05/23/19 Subjective:: Patient is getting more confused and more jerking movement Patient's creatinine is also improving Patient seen by the nephrology Dr. Lamas and discussed with him And get the MRI done today which is negative for any acute findings except the ongoing chronic meningioma Patient's lactic acid is also normal no sign of any sepsis Because of the jerking movements concern about intracranial depression due to the patient have a history of pseudotumor cerebri we will do the lumbar puncture unable to do it because of the Lovenox dose scheduled tomorrow Discussed with the [facility] and update the patient information's because of the patient have the neurology and rheumatology over the Still waiting for the bed She is denied any chest pain no short of breath Reason For Visit: DM FOOT INFECTION Physical Exam Vital Signs: Temp Pulse Resp BP Pulse Ox 97.5 F 107 H 20 146/77 H 94 05/23/19 08:13 05/23/19 12:16 05/23/19 12:16 05/23/19 12:16 05/23/19 12:16 Intake & Output 05/22/19 05/23/19 05/24/19 06:59 06:59 06:59 Intake Total 2231 1149 50 Output Total 3000 2700 500 Balance -769 -1551 -450 Weight 148.4 kg 145.6 kg General appearance: PRESENT: no acute distress, well-developed, well-nourished Head exam: PRESENT: atraumatic, normocephalic Eye exam: PRESENT: conjunctiva pink, EOMI, PERRLA. ABSENT: scleral icterus Ear exam: PRESENT: normal external ear exam Mouth exam: PRESENT: moist, tongue midline Neck exam: PRESENT: full ROM. ABSENT: carotid bruit, JVD, lymphadenopathy, thyromegaly Respiratory exam: PRESENT: clear to auscultation freedom Cardiovascular exam: PRESENT: RRR. ABSENT: diastolic murmur, rubs, systolic murmur Pulses: PRESENT: normal dorsalis pedis pul, +2 pedal pulses bilateral Vascular exam: PRESENT: normal capillary refill GI/Abdominal exam: PRESENT: normal bowel sounds, soft. ABSENT: distended, guarding, mass, organolmegaly, rebound, tenderness Rectal exam: PRESENT: deferred Neurological exam: PRESENT: alert, awake, oriented to person, reflexes normal, CN II-XII grossly intact. ABSENT: motor sensory deficit Psychiatric exam: PRESENT: appropriate affect, normal mood. ABSENT: homicidal ideation, suicidal ideation Skin exam: PRESENT: dry, intact, warm. ABSENT: cyanosis, rash Results Laboratory Results: 05/23/19 07:35 05/23/19 07:35 05/23/19 05/23/19 05/23/19 07:35 07:35 11:22 WBC 14.8 H RBC 3.61 L Hgb 10.8 L Hct 33.3 L MCV 92 MCH 29.9 MCHC 32.4 RDW 14.5 H Plt Count 283 Seg Neutrophils % 87.0 H Sodium 140.2 Potassium 4.2 Chloride 112 H Carbon Dioxide 18 L Anion Gap 10 BUN 45 H Creatinine 2.85 H Est GFR ( Amer) 21 L Glucose 174 H Lactic Acid Calcium 9.2 Urine Color STRAW Urine Appearance CLEAR Urine pH 6.0 Ur Specific [place] 1.009 Urine Protein 30 H Urine Glucose (UA) NEGATIVE Urine Ketones NEGATIVE Urine Blood MODERATE H Urine Nitrite NEGATIVE Ur Leukocyte Esterase SMALL H Urine WBC (Auto) 4 Urine RBC (Auto) 54 05/23/19 12:47 WBC RBC Hgb Hct MCV MCH MCHC RDW Plt Count Seg Neutrophils % Sodium Potassium Chloride Carbon Dioxide Anion Gap BUN Creatinine Est GFR ( Amer) Glucose Lactic Acid 0.9 Calcium Urine Color Urine Appearance Urine pH Ur Specific [place] Urine Protein Urine Glucose (UA) Urine Ketones Urine Blood Urine Nitrite Ur Leukocyte Esterase Urine WBC (Auto) Urine RBC (Auto) 05/17/19 20:50 Blood Blood Culture - Final NO GROWTH IN 5 DAYS 05/17/19 19:14 Blood Blood Culture - Final NO GROWTH IN 5 DAYS Impressions: Foot X-Ray 05/17/19 20:23 IMPRESSION: No radiographic evidence of osteomyelitis. copyright 2010 [employer]- All Rights Reserved Lower Extremity MRI 05/18/19 00:00 IMPRESSION: NO EVIDENCE FOR OSTEOMYELITIS. Abdomen/Pelvis CT 05/19/19 00:00 IMPRESSION: Right perinephric stranding which could be due to inflammation, pyelonephritis, or recent trauma. No hydronephrosis. Head CT 05/21/19 00:00 IMPRESSION: Findings consistent with partially calcified left posterior parafalcine meningioma measuring 1.2 x 1.4 cm. Otherwise, normal CT of the brain. EVIDENCE OF ACUTE STROKE: NO. Head MRI 05/23/19 00:00 IMPRESSION: 1. No acute intracranial abnormality. 2. Extra-axial left posterior parafalcine mass that measures approximately 15 mm in AP diameter and is favored to represent a meningioma. EVIDENCE OF ACUTE STROKE: NO. Assessment & Plan - Diagnosis (1) Sepsis Qualifiers: Sepsis type: sepsis due to unspecified organism Qualified Code(s): A41.9 - Sepsis, unspecified organism Is this a current diagnosis for this admission?: Yes Plan: Since lactic acid is normal continues to cefepime (2) Foot ulcer due to secondary DM Is this a current diagnosis for this admission?: Yes Plan: Patient's MRI did not show any osteomyelitis continues to follow with the surgery (3) Type 2 diabetes mellitus Qualifiers: Diabetes mellitus long term care administrator insulin use: with long term care administrator use Diabetes mellitus complication status: with other specified complication Qualified Code(s): E11.69 - Type 2 diabetes mellitus with other specified complication; Z79.4 - senior care (current) use of insulin Is this a current diagnosis for this admission?: Yes Plan: Continues to sliding scale and Lantus (4) Hypertension Qualifiers: Hypertension type: essential hypertension Qualified Code(s): I10 - Essential (primary) hypertension Is this a current diagnosis for this admission?: Yes Plan: Currently all stable (5) Pseudotumor cerebri Is this a current diagnosis for this admission?: Yes Plan: Schedule of the lumbar puncture Patient MRI did not show any acute finding and this is chronic issues (6) Ankylosing spondylitis Qualifiers: Ankylosing spondylitis location: multiple sites in spine Qualified Code(s): M45.0 - Ankylosing spondylitis of multiple sites in spine Is this a current diagnosis for this admission?: Yes Plan: She is currently see the felt dyeing machine tender and [facility] (7) Immunocompromised Is this a current diagnosis for this admission?: Yes Plan: Due to the Humira injections with the multiple other comorbidity we will start the broad-spectrum antibiotic until the cultures back (8) Depression Qualifiers: Depression Type: major depressive disorder Is this a current diagnosis for this admission?: Yes (9) Acute renal failure Qualifiers: Acute renal failure type: unspecified Qualified Code(s): N17.9 - Acute kidney failure, unspecified Is this a current diagnosis for this admission?: Yes Plan: Currently follow with the nephrology (10) Pyelonephritis Is this a current diagnosis for this admission?: Yes Plan: Continues to IV antibiotic (11) Encephalopathy Is this a current diagnosis for this admission?: Yes Plan: Patient's lactic acid is normal's elevated white count most likely related to the steroid Adams reduce the gabapentin dose due to the renal failure could be a possible causing the encephalopathy Please schedule the lumbar puncture - Time Time Spent with patient: 25-34 minutes Level of Care: IMCU Medications reviewed and adjusted accordingly: Yes Anticipated discharge: Home, Tertiary Hospital Within: Other - Plan Summary Plan Summary: Again discussed with the patient's father, the patient's current conditions Discussed with the [facility]
[2019-05-23] MEDS ORDERED: ACETAZOLAMIDE 500 MG CAPSULE.SA PO SCH (22:00)
[2019-05-23] MEDS: ACETAZOLAMIDE 250 MG TABLET PO SCH (22:31)
[2019-05-24] MEDS: LEVOTHYROXINE SODIUM 0.15 MG TABLET PO SCH (05:50)
[2019-05-24] MEDS: INSULIN LISPRO 100 UNIT/ML 3 ML VIAL SUBCUT SCH ×4 (09:13→23:17)
[2019-05-24] MEDS: ASCORBIC ACID 500 MG TABLET PO SCH (09:25)
[2019-05-24] MEDS: SODIUM BICARBONATE 650 MG TABLET PO SCH ×2 (09:26→23:12)
[2019-05-24] MEDS: DULOXETINE HCL 30 MG CAPSULE.DR PO SCH ×2 (09:26→23:13)
[2019-05-24] MEDS: OXYBUTYNIN CHLORIDE 5 MG TABLET PO SCH ×2 (09:28→23:12)
[2019-05-24] MEDS: ESTROGENS,CONJUGATED 0.625 MG TABLET PO SCH (09:28)
[2019-05-24] MEDS: PREDNISONE 20 MG TABLET PO SCH (09:29)
[2019-05-24] MEDS: CETIRIZINE 10 MG TABLET PO SCH (09:29)
[2019-05-24] MEDS: MULTIVITAMIN TABLET PO SCH (09:29)
[2019-05-24] MEDS: INSULIN GLARGINE,HUM.REC.ANLOG 1,000 UNIT/10 ML VIAL SUBCUT SCH ×2 (09:30→23:16)
[2019-05-24 10:23] LABS: ABSOLUTE EOSINOPHILS # (AUTO) 0.1 10^3/uL (0.0-0.6); ABSOLUTE LYMPHOCYTES (AUTO) 1.6 10^3/uL (0.5-4.7); ABSOLUTE MONOCYTES (AUTO) 0.8 10^3/uL (0.1-1.4); ABSOLUTE NEUT (AUTO) 9.2 10^3/uL (1.7-8.2); BASOPHILS % (AUTO) 0.1 % (0-2); EOSINOPHILS % (AUTO) 0.7 % (0-6); HEMATOCRIT 33.5 % (36.0-47.0); LYMPHOCYTES % (AUTO) 13.6 % (13-45); MEAN CORPUSCULAR HEMOGLOBIN 29.9 pg (27.0-33.4); MEAN CORPUSCULAR HGB CONC 32.7 g/dL (32.0-36.0); MEAN CORPUSCULAR VOLUME 91 fl (80-97); MONOCYTES % (AUTO) 6.6 % (3-13); PLATELET COUNT 270 10^3/uL (150-450); RED BLOOD COUNT 3.67 10^6/uL (3.72-5.28); RED CELL DISTRIBUTION WIDTH 14.2 % (11.5-14.0); TOTAL CELLS COUNTED % (AUTO) 100 %; WHITE BLOOD COUNT 11.7 10^3/uL (4.0-10.5)
[2019-05-24 10:46] LABS: ANION GAP 12 (5-19); BLOOD UREA NITROGEN 52 mg/dL (7-20); CALCIUM 9.5 mg/dL (8.4-10.2); CARBON DIOXIDE 19 mmol/L (22-30); CHLORIDE 112 mmol/L (98-107); GLUCOSE 127 mg/dL (75-110); POTASSIUM 3.9 mmol/L (3.6-5.0)
--- NOTE | 2019-05-24 11:02 | RADIOLOGY REPORT (SQ) ---
EXAM DESCRIPTION: LUMBAR PUNCTURE; FLUORO/NEEDLE PLACEMENT/SPINE COMPLETED DATE/TIME: 05/24/2019 10:52 am REASON FOR STUDY: Pseudotumor cerebri/confusion ; PSEUDOTUMOR CEREBRI/CONFUSION COMPARISON: LUMBAR PUNCTURE 11/10/2018 FLUOROSCOPY TIME: 10 SECONDS OF FLUOROSCOPY WAS USED. 1 Images saved to PACS. TECHNIQUE: Fluoroscopic guided lumbar puncture with opening and closing pressures. LIMITATIONS: None. PROCEDURE: After written consent and assessment were obtained, the patient was brought into the fluo roscopy room and placed prone on the table. The patient's lower back was prepped in a sterile fashion and an entry site was selected under live fluoroscopic guidance. The entry site was anesthetized wit h 1% lidocaine. A 15 cm 20 gauge spinal needle was advanced through the skin and into the thecal sac at the level of L 3 -L 4 . An opening pressure of 44 units was obtained. After approximately 25 ml of CSF was drained, a closing pressure of 30 units was obtained. The needle was removed and a sterile b andage was placed of the site. Specimens were sent to the lab for testing. A fluoroscopic spot image was saved to PACS confirming level access. FINDINGS: Clear CSF with elevated pressures IMPRESSION: Lumbar puncture under fluoroscopy. No immediate complication. COMMENT: Patient medication list reviewed: Yes- Quality ID# [id number]:Eligible professional attests to doc umenting in the medical record they obtained, updated, or reviewed the patient's current medications. Quality ID [id number]: Final reports for procedures using fluoroscopy that document radiation exposure indic es, or exposure time and number of fluorographic images (if radiation exposure indices are not availa ble) TECHNICAL DOCUMENTATION: Job ID: [id number] [employer]- All Rights Reserved Reading location - IP/workstation name: [email or web address] [id number]
[2019-05-24 12:27] LABS: APPEARANCE ALL TUBES CLEAR; COLOR ALL TUBES COLORLESS; CSF TUBE NUMBER 3
[2019-05-24 12:28] LABS: RED BLOOD CELL,CSF 1 /uL (0-10); WHITE BLOOD CELL,CSF 4 /uL (0-5)
--- NOTE | 2019-05-24 12:41 | PDOC PROGRESS REPORT ---
Subjective Progress Note for:: 05/24/19 Subjective:: I saw the patient in room while lying flat in bed after she underwent a lumbar puncture by the interventional radiologist. They were only able to complain about 25 mL of CSF fluid with opening pressure of 44 mmHg. Patient has a little bit of headache post LP. Otherwise she does not really verbalize much complaints. She is able to answer questions rather a little bit better than previous although she is still slow a little bit but seems to have improved. I still noticed some upper body jerking occasionally and minimally. Her urine output was 3650 mL for the last 24 hours. She is normotensive. She was given a dose of Lasix yesterday. Reason For Visit: DM FOOT INFECTION Physical Exam Vital Signs: Temp Pulse Resp BP Pulse Ox 97.5 F 89 20 136/80 H 100 05/24/19 08:11 05/24/19 08:11 05/24/19 08:11 05/24/19 08:11 05/24/19 08:11 Intake & Output 05/23/19 05/24/19 05/25/19 06:59 06:59 06:59 Intake Total 1149 50 Output Total 2700 3650 Balance -1551 -3600 Weight 145.6 kg 146 kg Exam: General appearance: PRESENT: no acute distress, cooperative, well-developed, well-nourished Head exam: PRESENT: atraumatic, normocephalic Eye exam: PRESENT: conjunctiva pink, PERRLA. ABSENT: scleral icterus Neck exam: ABSENT: JVD Respiratory exam: PRESENT: Normal breath sounds. ABSENT: crackles, rales, rhonchi, unlabored, wheezes Cardiovascular exam: PRESENT: Regular rate rhythm -+S1, +S2. ABSENT: diastolic murmur, systolic murmur GI/Abdominal exam: PRESENT: normal bowel sounds, soft. Obese. ABSENT: guarding, mass, tenderness Extremities exam: Trace bilateral pitting edema Neurological exam: PRESENT: alert, awake, oriented to person, place but not to time. Occasional upper body jerking observed Skin exam: PRESENT: dry, warm, Cardiovascular exam: PRESENT: +S1, +S2 GI/Abdominal exam: PRESENT: normal bowel sounds, soft, tenderness - tender in the right renal angle.. ABSENT: guarding, organomegaly Results Laboratory Results: 05/24/19 09:35 05/24/19 09:35 05/23/19 05/24/19 05/24/19 12:47 09:35 09:35 WBC 11.7 H RBC 3.67 L Hgb 11.0 L Hct 33.5 L MCV 91 MCH 29.9 MCHC 32.7 RDW 14.2 H Plt Count 270 Seg Neutrophils % 79.0 H Sodium 142.5 Potassium 3.9 Chloride 112 H Carbon Dioxide 19 L Anion Gap 12 BUN 52 H Creatinine 2.94 H Est GFR ( Amer) 20 L Glucose 127 H Lactic Acid 0.9 Calcium 9.5 05/22/19 16:00 Vega Catheter Urine Culture - Final NO GROWTH 2 DAYS Impressions: Foot X-Ray 05/17/19 20:23 IMPRESSION: No radiographic evidence of osteomyelitis. copyright 2011 [employer]- All Rights Reserved Lower Extremity MRI 05/18/19 00:00 IMPRESSION: NO EVIDENCE FOR OSTEOMYELITIS. Abdomen/Pelvis CT 05/19/19 00:00 IMPRESSION: Right perinephric stranding which could be due to inflammation, pyelonephritis, or recent trauma. No hydronephrosis. Head CT 05/21/19 00:00 IMPRESSION: Findings consistent with partially calcified left posterior parafalcine meningioma measuring 1.2 x 1.4 cm. Otherwise, normal CT of the brain. EVIDENCE OF ACUTE STROKE: NO. Head MRI 05/23/19 00:00 IMPRESSION: 1. No acute intracranial abnormality. 2. Extra-axial left posterior parafalcine mass that measures approximately 15 mm in AP diameter and is favored to represent a meningioma. EVIDENCE OF ACUTE STROKE: NO. Guidance Fluoroscopy 05/24/19 00:00 IMPRESSION: Lumbar puncture under fluoroscopy. No immediate complication. Lumbar Puncture 05/24/19 07:00 IMPRESSION: Lumbar puncture under fluoroscopy. No immediate complication. Assessment & Plan - Diagnosis (1) Acute kidney injury Is this a current diagnosis for this admission?: Yes Plan: This is not associated with significant proteinuria nor microhematuria. Possible etiologies include possible ATN versus AIN secondary to Zosyn. Kidney function seems to be slowly improved compared to last week. She remains to be nonoliguric. I started her on prednisone 60 mg daily last Thursday which has been tapered and today will be started on 20 mg daily. We will probably continue to taper this off. Currently no indication for any acute renal replacement therapy. We will continue to monitor kidney function and electrolytes. (2) Altered mental status Is this a current diagnosis for this admission?: Yes Plan: In association with upper body myoclonic jerks, could be secondary to gabapentin toxicity in a patient with ERNESTINA. The dose of her gabapentin was reduced yesterday to just 300 mg at bedtime. We will monitor how the patient responds to this. (3) Pyelonephritis Is this a current diagnosis for this admission?: Yes Plan: CT scan of the abdomen showed right kidney mild perinephric stranding which could be consistent with pyelonephritis and the patient with chronic possibly recurrent pyelonephritis. Still on IV cefepime. (4) Hypertension Qualifiers: Hypertension type: essential hypertension Qualified Code(s): I10 - Essent ial (primary) hypertension Is this a current diagnosis for this admission?: Yes Plan: Well-controlled. (5) Pseudotumor cerebri Is this a current diagnosis for this admission?: Yes Plan: Patient has been on Diamox which was decreased in dose due to ERNESTINA and metabolic acidosis. Patient also underwent a lumbar puncture today but only obtained 25 mL of CSF fluid. Patient is currently waiting for a bed for possible transfer to [facility] where she follows up for this problems and other multiple issues. (6) Metabolic acidosis Is this a current diagnosis for this admission?: Yes Plan: Likely secondary to ERNESTINA with the patient be on Diamox. The dose of Diamox has been reduced. Patient also started on sodium bicarbonate. (7) Foot ulcer due to secondary DM Is this a current diagnosis for this admission?: Yes Plan: MRI did not show any evidence of osteomyelitis. 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
[2019-05-24] MEDS: ACETAZOLAMIDE 250 MG TABLET PO SCH ×2 (13:06→23:15)
[2019-05-24] MEDS: CEFEPIME 1 GM/D5W RTU 1 GM/50 ML RTUPB IV SCH (13:06)
--- NOTE | 2019-05-24 13:59 | PDOC PROGRESS REPORT ---
Subjective Progress Note for:: 05/24/19 Subjective:: Patient is currently doing fair Is more alert awake oriented compared to yesterday Patient still have a jerking movements She underwent for the lumbar puncture with With the patient was 44 remove the 25 mL Patient denied any chest pain no short of breath His kidney function is currently stable improving Reason For Visit: DM FOOT INFECTION Physical Exam Vital Signs: Temp Pulse Resp BP Pulse Ox 97.5 F 95 16 148/91 H 100 05/24/19 08:11 05/24/19 11:22 05/24/19 11:22 05/24/19 11:22 05/24/19 11:22 Intake & Output 05/23/19 05/24/19 05/25/19 06:59 06:59 06:59 Intake Total 1149 50 Output Total 2700 3650 Balance -1551 -3600 Weight 145.6 kg 146 kg General appearance: PRESENT: no acute distress, well-developed, well-nourished Head exam: PRESENT: atraumatic, normocephalic Eye exam: PRESENT: conjunctiva pink, EOMI, PERRLA. ABSENT: scleral icterus Ear exam: PRESENT: normal external ear exam Mouth exam: PRESENT: moist, tongue midline Neck exam: PRESENT: full ROM. ABSENT: carotid bruit, JVD, lymphadenopathy, thyromegaly Respiratory exam: PRESENT: clear to auscultation freedom Cardiovascular exam: PRESENT: RRR. ABSENT: diastolic murmur, rubs, systolic murmur Pulses: PRESENT: normal dorsalis pedis pul, +2 pedal pulses bilateral Vascular exam: PRESENT: normal capillary refill GI/Abdominal exam: PRESENT: normal bowel sounds, soft. ABSENT: distended, g uarding, mass, organolmegaly, rebound, tenderness Rectal exam: PRESENT: deferred Neurological exam: PRESENT: alert, awake, oriented to person, oriented to place, oriented to time, oriented to situation, CN II-XII grossly intact. ABSENT: motor sensory deficit Psychiatric exam: PRESENT: appropriate affect, normal mood. ABSENT: homicidal ideation, suicidal ideation Skin exam: PRESENT: dry, intact, warm. ABSENT: cyanosis, rash Results Laboratory Results: 05/24/19 09:35 05/24/19 09:35 05/24/19 05/24/19 05/24/19 09:35 09:35 10:28 WBC 11.7 H RBC 3.67 L Hgb 11.0 L Hct 33.5 L MCV 91 MCH 29.9 MCHC 32.7 RDW 14.2 H Plt Count 270 Seg Neutrophils % 79.0 H Sodium 142.5 Potassium 3.9 Chloride 112 H Carbon Dioxide 19 L Anion Gap 12 BUN 52 H Creatinine 2.94 H Est GFR ( Amer) 20 L Glucose 127 H Calcium 9.5 Fluid Tube Number 3 CSF Volume 25.0 CSF Appearance CLEAR CSF Color COLORLESS CSF WBC 4 CSF RBC 1 CSF Total Protein 05/24/19 10:28 WBC RBC Hgb Hct MCV MCH MCHC RDW Plt Count Seg Neutrophils % Sodium Potassium Chloride Carbon Dioxide Anion Gap BUN Creatinine Est GFR ( Amer) Glucose Calcium Fluid Tube Number CSF Volume CSF Appearance CSF Color CSF WBC CSF RBC CSF Total Protein 108 H 05/22/19 16:00 Vega Catheter Urine Culture - Final NO GROWTH 2 DAYS Impressions: Foot X-Ray 05/17/19 20:23 IMPRESSION: No radiographic evidence of osteomyelitis. copyright 2010 [employer]- All Rights Reserved Lower Extremity MRI 05/18/19 00:00 IMPRESSION: NO EVIDENCE FOR OSTEOMYELITIS. Abdomen/Pelvis CT 05/19/19 00:00 IMPRESSION: Right perinephric stranding which could be due to inflammation, pyelonephritis, or recent trauma. No hydronephrosis. Head CT 05/21/19 00:00 IMPRESSION: Findings consistent with partially calcified left posterior parafalcine meningioma measuring 1.2 x 1.4 cm. Otherwise, normal CT of the br ain. EVIDENCE OF ACUTE STROKE: NO. Head MRI 05/23/19 00:00 IMPRESSION: 1. No acute intracranial abnormality. 2. Extra-axial left posterior parafalcine mass that measures approximately 15 mm in AP diameter and is favored to represent a meningioma. EVIDENCE OF ACUTE STROKE: NO. Guidance Fluoroscopy 05/24/19 00:00 IMPRESSION: Lumbar puncture under fluoroscopy. No immediate complication. Lumbar Puncture 05/24/19 07:00 IMPRESSION: Lumbar puncture under fluoroscopy. No immediate complication. 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 mellitus terminal superintendent insulin use: with prison use Diabetes mellitus complication status: with other specified complication Qualified Code(s): E11.69 - Type 2 diabetes mellitus with other specified complication; Z79.4 - [facility] (current) use of insulin Is this a current diagnosis for this admission?: Yes Plan: Continues to sliding scale and Lantus (4) Hypertension Qualifiers: Hypertension type: essential hypertension Qualified Code(s): I10 - Essential (primary) hypertension Is this a current diagnosis for this admission?: Yes Plan: Currently all stable (5) Pseudotumor cerebri Is this a current diagnosis for this admission?: Yes Plan: Status post lumbar puncture remove the 25 mL of CSF fluid continues to Diamox (6) Ankylosing spondylitis Qualifiers: Ankylosing spondylitis location: multiple sites in spine Qualified Code(s): M45.0 - Ankylosing spondylitis of multiple sites in spine Is this a current diagnosis for this admission?: Yes Plan: She is currently see the early interventionist and [facility] (7) Immunocompromised Is this a current diagnosis for this admission?: Yes Plan: Due to the Humira injections with the multiple other comorbidity we will start the broad-spectrum antibiotic until the cultures back (8) Depression Qualifiers: Depression Type: major depressive disorder Is this a current diagnosis for this admission?: Yes (9) Acute renal failure Qualifiers: Acute renal failure type: unspecified Qualified Code(s): N17.9 - Acute kidney failure, unspecified Is this a current diagnosis for this admission?: Yes Plan: Currently all improving (10) Pyelonephritis Is this a current diagnosis for this admission?: Yes Plan: Continues to IV antibiotic (11) Encephalopathy Is this a current diagnosis for this admission?: Yes Plan: Currently all improving - Time Time Spent with patient: 15-24 minutes Level of Care: IMCU Anticipated discharge: Other Within: Other - Plan Summary Plan Summary: Continues to current medications
[2019-05-24] MEDS: GABAPENTIN 300 MG CAPSULE PO SCH (23:13)
[2019-05-25] MEDS: LEVOTHYROXINE SODIUM 0.15 MG TABLET PO SCH (07:29)
[2019-05-25] MEDS: INSULIN LISPRO 100 UNIT/ML 3 ML VIAL SUBCUT SCH ×4 (08:05→21:04)
[2019-05-25 09:56] LABS: ABSOLUTE EOSINOPHILS # (AUTO) 0.2 10^3/uL (0.0-0.6); ABSOLUTE LYMPHOCYTES (AUTO) 1.8 10^3/uL (0.5-4.7); ABSOLUTE NEUT (AUTO) 11.9 10^3/uL (1.7-8.2); BASOPHILS % (AUTO) 0.2 % (0-2); EOSINOPHILS % (AUTO) 1.1 % (0-6); HEMATOCRIT 34.2 % (36.0-47.0); HEMOGLOBIN 11.2 g/dL (12.0-15.5); MEAN CORPUSCULAR HEMOGLOBIN 29.6 pg (27.0-33.4); MEAN CORPUSCULAR HGB CONC 32.9 g/dL (32.0-36.0); MEAN CORPUSCULAR VOLUME 90 fl (80-97); MONOCYTES % (AUTO) 6.4 % (3-13); PLATELET COUNT 279 10^3/uL (150-450); RED BLOOD COUNT 3.79 10^6/uL (3.72-5.28); RED CELL DISTRIBUTION WIDTH 14.4 % (11.5-14.0); SEGMENTED NEUTROPHILS % (AUTO) 80.3 % (42-78); TOTAL CELLS COUNTED % (AUTO) 100 %; WHITE BLOOD COUNT 14.9 10^3/uL (4.0-10.5)
[2019-05-25] MEDS ORDERED: PREDNISONE 20 MG TABLET PO SCH (10:00)
[2019-05-25 10:16] LABS: ANION GAP 13 (5-19); BLOOD UREA NITROGEN 56 mg/dL (7-20); CALCIUM 9.7 mg/dL (8.4-10.2); CARBON DIOXIDE 17 mmol/L (22-30); CHLORIDE 115 mmol/L (98-107); GLUCOSE 130 mg/dL (75-110); POTASSIUM 4.4 mmol/L (3.6-5.0)
[2019-05-25] MEDS: CEFEPIME 1 GM/D5W RTU 1 GM/50 ML RTUPB IV SCH (11:01)
[2019-05-25] MEDS: OXYBUTYNIN CHLORIDE 5 MG TABLET PO SCH ×2 (11:02→21:03)
[2019-05-25] MEDS: DULOXETINE HCL 30 MG CAPSULE.DR PO SCH ×2 (11:02→21:03)
[2019-05-25] MEDS: CETIRIZINE 10 MG TABLET PO SCH (11:03)
[2019-05-25] MEDS: ACETAZOLAMIDE 250 MG TABLET PO SCH ×2 (11:03→21:05)
[2019-05-25] MEDS: ASCORBIC ACID 500 MG TABLET PO SCH (11:03)
[2019-05-25] MEDS: SODIUM BICARBONATE 650 MG TABLET PO SCH ×2 (11:03→21:08)
[2019-05-25] MEDS: ESTROGENS,CONJUGATED 0.625 MG TABLET PO SCH (11:04)
[2019-05-25] MEDS: MULTIVITAMIN TABLET PO SCH (11:04)
[2019-05-25] MEDS: INSULIN GLARGINE,HUM.REC.ANLOG 1,000 UNIT/10 ML VIAL SUBCUT SCH ×2 (11:32→21:06)
--- NOTE | 2019-05-25 13:00 | PDOC PROGRESS REPORT ---
Subjective Progress Note for:: 05/25/19 Subjective:: Patient is currently feeling better Since jerking movement is also improving Is denied any headache Denied any chest pain no short of breath CSF cultures initially negative growth her kidney function is stable Reason For Visit: DM FOOT INFECTION Physical Exam Vital Signs: Temp Pulse Resp BP Pulse Ox 97.9 F 95 16 147/100 H 100 05/25/19 12:00 05/25/19 12:00 05/25/19 12:00 05/25/19 12:00 05/25/19 12:00 Intake & Output 05/24/19 05/25/19 05/26/19 06:59 06:59 06:59 Intake Total 50 600 Output Total 3650 3125 Balance -3600 -2525 Weight 146 kg 146.3 kg General appearance: PRESENT: no acute distress, well-developed, well-nourished Head exam: PRESENT: atraumatic, normocephalic Eye exam: PRESENT: conjunctiva pink, EOMI, PERRLA. ABSENT: scleral icterus Ear exam: PRESENT: normal external ear exam Mouth exam: PRESENT: moist, tongue midline Neck exam: PRESENT: full ROM. ABSENT: carotid bruit, JVD, lymphadenopathy, thyromegaly Respiratory exam: PRESENT: clear to auscultation freedom Cardiovascular exam: PRESENT: RRR. ABSENT: diastolic murmur, rubs, systolic murmur Pulses: PRESENT: normal dorsalis pedis pul, +2 pedal pulses bilateral Vascular exam: PRESENT: normal capillary refill GI/Abdominal exam: PRESENT: normal bowel sounds, soft. ABSENT: distended, guarding, mass, organolmegaly, rebound, tenderness Rectal exam: PRESENT: deferred Neurological exam: PRESENT: alert, awake, oriented to person, oriented to place, oriented to time, oriented to situation, CN II-XII grossly intact. ABSENT: motor sensory deficit Psychiatric exam: PRESENT: appropriate affect, normal mood. ABSENT: homicidal ideation, suicidal ideation Skin exam: PRESENT: dry, intact, warm. ABSENT: cyanosis, rash Results Laboratory Results: 05/25/19 09:18 05/25/19 09:18 05/25/19 05/25/19 09:18 09:18 WBC 14.9 H RBC 3.79 Hgb 11.2 L Hct 34.2 L MCV 90 MCH 29.6 MCHC 32.9 RDW 14.4 H Plt Count 279 Seg Neutrophils % 80.3 H Sodium 145.2 H Potassium 4.4 Chloride 115 H Carbon Dioxide 17 L Anion Gap 13 BUN 56 H Creatinine 2.78 H Est GFR ( Amer) 22 L Glucose 130 H Calcium 9.7 05/22/19 16:00 Vega Catheter Urine Culture - Final NO GROWTH 2 DAYS Impressions: Foot X-Ray 05/17/19 20:23 IMPRESSION: No radiographic evidence of osteomyelitis. copyright 2010 [employer]- All Rights Reserved Lower Extremity MRI 05/18/19 00:00 IMPRESSION: NO EVIDENCE FOR OSTEOMYELITIS. Abdomen/Pelvis CT 05/19/19 00:00 IMPRESSION: Right perinephric stranding which could be due to inflammation, py elonephritis, or recent trauma. No hydronephrosis. Head CT 05/21/19 00:00 IMPRESSION: Findings consistent with partially calcified left posterior parafalcine meningioma measuring 1.2 x 1.4 cm. Otherwise, normal CT of the brain. EVIDENCE OF ACUTE STROKE: NO. Head MRI 05/23/19 00:00 IMPRESSION: 1. No acute intracranial abnormality. 2. Extra-axial left posterior parafalcine mass that measures approximately 15 mm in AP diameter and is favored to represent a meningioma. EVIDENCE OF ACUTE STROKE: NO. Guidance Fluoroscopy 05/24/19 00:00 IMPRESSION: Lumbar puncture under fluoroscopy. No immediate complication. Lumbar Puncture 05/24/19 07:00 IMPRESSION: Lumbar puncture under fluoroscopy. No immediate complication. 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 technician insulin use: with termite technician use Diabetes mellitus complication status: with other specified complication Qualified Code(s): E11.69 - Type 2 diabetes mellitus with other specified complication; Z79.4 - intermediate (current) use of insulin Is this a current diagnosis for this admission?: Yes Plan: Continues to sliding scale and Lantus (4) Hypertension Qualifiers: Hypertension type: essential hypertension Qualified Code(s): I10 - Essential (primary) hypertension Is this a current diagnosis for this admission?: Yes Plan: Currently all stable (5) Pseudotumor cerebri Is this a current diagnosis for this admission?: Yes Plan: Status post lumbar puncture improving some symptoms (6) Ankylosing spondylitis Qualifiers: Ankylosing spondylitis location: multiple sites in spine Qualified Code(s): M45.0 - Ankylosing spondylitis of multiple sites in spine Is this a current diagnosis for this admission?: Yes Plan: She is currently see the franchise sales representative and [facility] (7) Immunocompromised Is this a current diagnosis for this admission?: Yes Plan: Due to the Humira injections with the multiple other comorbidity we will start the broad-spectrum antibiotic until the cultures back (8) Depression Qualifiers: Depression Type: major depressive disorder Is this a current diagnosis for this admission?: Yes (9) Acute renal failure Qualifiers: Acute renal failure type: unspecified Qualified Code(s): N17.9 - Acute kidney failure, unspecified Is this a current diagnosis for this admission?: Yes Plan: Currently all improving (10) Pyelonephritis Is this a current diagnosis for this admission?: Yes Plan: Continues to IV antibiotic (11) Encephalopathy Is this a current diagnosis for this admission?: Yes Plan: Currently all improving - Time Time Spent with patient: 15-24 minutes Level of Care: IMCU Medications reviewed and adjusted accordingly: Yes Anticipated discharge: Other Within: Other - Plan Summary Plan Summary: Continues to current medications Discussed with the father regarding the patient's current conditions Discussed with the [facility] still ongoing problems patients might get a benefit to go to the [facility]
--- NOTE | 2019-05-25 15:17 | PDOC PROGRESS REPORT ---
Subjective Progress Note for:: 05/25/19 Subjective:: Patient appears to be better. She is more awake and alert and faster to answer questions. Her jerking movements is almost resolved. I have not seen this upper body jerking movements since while I was talking to her. She makes a good amount of urine output of 3125 mL for the past 24 hours. She complains of headache. Her blood pressure has been elevated. Reason For Visit: DM FOOT INFECTION Physical Exam Vital Signs: Temp Pulse Resp BP Pulse Ox 97.9 F 95 16 147/100 H 100 05/25/19 12:00 05/25/19 12:00 05/25/19 12:00 05/25/19 12:00 05/25/19 12:00 Intake & Output 05/24/19 05/25/19 05/26/19 06:59 06:59 06:59 Intake Total 50 600 731 Output Total 3650 3125 800 Balance -3600 -2525 -69 Weight 146 kg 146.3 kg Exam: General appearance: PRESENT: no acute distress, cooperative, well-developed, well-nourished Head exam: PRESENT: atraumatic, normocephalic Eye exam: PRESENT: conjunctiva slightly pale, PERRLA. ABSENT: scleral icterus Neck exam: ABSENT: JVD Respiratory exam: PRESENT: Normal breath sounds. ABSENT: crackles, rales, rhonchi, unlabored, wheezes Cardiovascular exam: PRESENT: Regular rate rhythm -+S1, +S2. ABSENT: diastolic murmur, systolic murmur GI/Abdominal exam: PRESENT: normal bowel sounds, soft. Obese ABSENT: guarding, mass, tenderness Extremities exam: Trace bilateral lower extremity pitting unchanged edema Neurological exam: PRESENT: alert, awake, oriented to person, place and time. Previous jerking movements of the operability is not currently observed Skin exam: PRESENT: dry, warm, Cardiovascular exam: PRESENT: +S1, +S2 GI/Abdominal exam: PRESENT: normal bowel sounds, soft, tenderness - tender in the right renal angle.. ABSENT: guarding, organomegaly Results Laboratory Results: 05/25/19 09:18 05/25/19 09:18 05/25/19 05/25/19 09:18 09:18 WBC 14.9 H RBC 3.79 Hgb 11.2 L Hct 34.2 L MCV 90 MCH 29.6 MCHC 32.9 RDW 14.4 H Plt Count 279 Seg Neutrophils % 80.3 H Sodium 145.2 H Potassium 4.4 Chloride 115 H Carbon Dioxide 17 L Anion Gap 13 BUN 56 H Creatinine 2.78 H Est GFR ( Amer) 22 L Glucose 130 H Calcium 9.7 05/22/19 16:00 Vega Catheter Urine Culture - Final NO GROWTH 2 DAYS Impressions: Foot X-Ray 05/17/19 20:23 IMPRESSION: No radiographic evidence of osteomyelitis. copyright 2010 [employer]- All Rights Reserved Lower Extremity MRI 05/18/19 00:00 IMPRESSION: NO EVIDENCE FOR OSTEOMYELITIS. Abdomen/Pelvis CT 05/19/19 00:00 IMPRESSION: Right perinephric stranding which could be due to inflammation, pyelonephritis, or recent trauma. No hydronephrosis. Head CT 05/21/19 00:00 IMPRESSION: Findings consistent with partially calcified left posterior parafalcine meningioma measuring 1.2 x 1.4 cm. Otherwise, normal CT of the brain. EVIDENCE OF ACUTE STROKE: NO. Head MRI 05/23/19 00:00 IMPRESSION: 1. No acute intracranial abnormality. 2. Extra-axial left posterior parafalcine mass that measures approximately 15 mm in AP diameter and is favored to represent a meningioma. EVIDENCE OF ACUTE STROKE: NO. Guidance Fluoroscopy 05/24/19 00:00 IMPRESSION: Lumbar puncture under fluoroscopy. No immediate complication. Lumbar Puncture 05/24/19 07:00 IMPRESSION: Lumbar puncture under fluoroscopy. No immediate complication. Assessment & Plan - Diagnosis (1) Acute kidney injury Is this a current diagnosis for this admission?: Yes Plan: This is not associated with significant proteinuria nor microhematuria. Possible etiologies include possible ATN versus AIN secondary to Zosyn. Kidney function seems to be slowly improved compared to last week. She remains to be nonoliguric. I started her on prednisone 60 mg daily last Thursday which has been tapered and today will be started on 20 mg daily. We will probably continue to taper this off. Agree with decreasing the prednisone dose to 10 mg starting tomorrow. Currently no indication for any acute renal replacement therapy. We will continue to monitor kidney function and electrolytes. (2) Altered mental status Is this a current diagnosis for this admission?: Yes Plan: In association with upper body myoclonic jerks, could be secondary to gabapentin toxicity in a patient with ERNESTINA. The dose of her gabapentin was reduced last Thursday to just 300 mg at bedtime. Her mental status as well as here upper body jerking movements are much improved. (3) Pyelonephritis Is this a current diagnosis for this admission?: Yes Plan: CT scan of the abdomen showed right kidney mild perinephric stranding which could be consistent with pyelonephritis and the patient with chronic possibly recurrent pyelonephritis. Still on IV cefepime. (4) Hypertension Qualifiers: Hypertension type: essential hypertension Qualified Code(s): I10 - Essential (primary) hypertension Is this a current diagnosis for this admission?: Yes Plan: Mildly elevated. We will start her on amlodipine 5 mg p.o. daily. (5) Pseudotumor cerebri Is this a current diagnosis for this admission?: Yes Plan: Patient has been on Diamox which was decreased in dose due to ERNESTINA and metabolic acidosis. Patient also underwent a lumbar puncture today but only obtained 25 mL of CSF fluid. Patient is currently waiting for a bed for possible transfer to [facility] where she follows up for this problems and other multiple issues. (6) Metabolic acidosis Is this a current diagnosis for this admission?: Yes Plan: Likely secondary to ERNESTINA with the patient be on Diamox. The dose of Diamox has been reduced. Patient also started on sodium bicarbonate. (7) Foot ulcer due to secondary DM Is this a current diagnosis for this admission?: Yes Plan: MRI did not show any evidence of osteomyelitis. 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
[2019-05-25] MEDS ORDERED: AMLODIPINE BESYLATE 5 MG TABLET PO SCH (16:00)
[2019-05-25 16:35] VITALS: BP 149/90
[2019-05-25] MEDS: GABAPENTIN 300 MG CAPSULE PO SCH (21:03)
[2019-05-26] MEDS ORDERED: PREDNISONE 20 MG TABLET PO SCH (10:00)
== END 2019-05-25 21:00 | disposition short-term general hospital (02) | DRG 871 ==
LOC: ER 18:15 → EH 22:13 → 5 05-18 00:12
PROVIDERS: ADMIT Family Medicine; ATTEND Family Medicine
PROC: 009U3ZX Drainage of Spinal Canal, Percutaneous Approach, Diagnostic (ICD-10-PCS; principal; 2019-05-24)
PROC: B01BZZZ Fluoroscopy of Spinal Cord (ICD-10-PCS; 2019-05-24)
DX: A41.9 Sepsis, unspecified organism (principal); G92 Toxic encephalopathy; N17.9 Acute kidney failure, unspecified; N11.9 Chronic tubulo-interstitial nephritis, unspecified; E11.621 Type 2 diabetes mellitus with foot ulcer; I10 Essential (primary) hypertension; G93.2 Benign intracranial hypertension; D89.9 Disorder involving the immune mechanism, unspecified; F32.9 Major depressive disorder, single episode, unspecified; E11.40 Type 2 diabetes mellitus with diabetic neuropathy, unspecified; M79.7 Fibromyalgia; E03.9 Hypothyroidism, unspecified; F43.10 Post-traumatic stress disorder, unspecified; K21.9 Gastro-esophageal reflux disease without esophagitis; M45.0 Ankylosing spondylitis of multiple sites in spine; E78.5 Hyperlipidemia, unspecified; L03.032 Cellulitis of left toe; D64.9 Anemia, unspecified; E11.69 Type 2 diabetes mellitus with other specified complication; T38.0X5A Adverse effect of glucocorticoids and synthetic analogues, initial encounter; Y92.9 Unspecified place or not applicable; Z79.899 Other long term (current) drug therapy; Z79.4 Long term (current) use of insulin; Z88.3 Allergy status to other anti-infective agents; Z91.040 Latex allergy status; Z88.0 Allergy status to penicillin; Z88.8 Allergy status to other drugs, medicaments and biological substances; Z91.018 Allergy to other foods
CPT/HCPCS: 36415; 36591; 62270; 70450; 70551; 74176; 77003; 80048; 80053; 81001; 82803; 82962; 83605; 84157; 85025; 85610; 85652; 85730; 87040; 87070; 87086; 87205; 87252; 89050; 89190; 94640; 96365; 96367; 96375; 99285; J0692; J1650; J1815; J1940; J2060; J2405; J2543; J3370; J3490; J7030; J7050; J7060; J7120; J7512; J7620

== ENCOUNTER → 2019-10-11 | Outpatient (CLI) | payer MEDICAID ==
--- NOTE | 2019-10-11 18:19 | WOMENS IMAGING REPORT ---
EXAM DESCRIPTION: U/S BREAST UNILATERAL, COMPL IMAGES COMPLETED DATE/TIME: 10/11/2019 11:10 am REASON FOR STUDY: RT BREAST LUMP N63.10 UNSPECIFIED LUMP IN THE RIGHT BREAST, UNSPECIFIED KYRA COMPARISON: Digital tomosynthesis diagnostic bilateral screening mammogram dated 10/11/2019. TECHNIQUE: Real-time and static grayscale imaging performed of the right breast targeted to the area of clinical/mammographic concern. Selected color Doppler images recorded. LIMITATIONS: None. FINDINGS: MASS: The right breast was scanned from the 12 to 12 o'clock axes. No masses identified in the area clinical palpable concern 1-2 o'clock axes central breast. Normal glandular tissue. OTHER: No other significant finding. IMPRESSION: 1. No suspicious findings detected by ultrasound. BIRAD: Negative. RECOMMENDATION: 1. Clinical correlation and patient advised to follow-up with her provider. A nega tive mammogram/ultrasound should not deter biopsy if felt clinically indicated. COMMENT: The [employer] [place] [employer] (ACR) has developed recommendations for screening MRI of the breasts in certain patient populations, to be used in conjunction with mammography. Breast MRI s urveillance may be appropriate for women with more than 20% lifetime risk of developing breast cancer as determined by genetic testing, significant family history of the disease, or history of mantle r adiation for Hodgkins Disease. ACR Practice Guidelines 2008. TECHNICAL DOCUMENTATION: JOB ID: [id number] 2010 [employer]- All Rights Reserved Reading location - IP/workstation name: [email or web address]
--- NOTE | 2019-10-12 09:24 | WOMENS IMAGING REPORT ---
EXAM DESCRIPTION: 3D DX MAMMO BILAT IMAGES COMPLETED DATE/TIME: 10/11/2019 10:08 am REASON FOR STUDY: N63.10 UNSPECIFIED LUMP IN THE RIGHT BREAST, UNSPECIFIED QUADRANT N63.10 UNSPECIF IED LUMP IN THE RIGHT BREAST, UNSPECIFIED KYRA COMPARISON: Right breast ultrasound same date Bilateral mammograms 12/24/2010 EXAM PARAMETERS: Standard craniocaudal and mediolateral oblique views of each breast recorded using digital acquisition and breast tomosynthesis. Additional left breast 90 mediolateral mammograms and tomosynthesis. Ultrasound was also performed, dictated separately Read with the assistance of CAD: .SKURA - [employer] Carrot Buncher Version 9.2 LIMITATIONS: None. FINDINGS: RIGHT BREAST MASSES: No suspicious masses. CALCIFICATIONS: No new or suspicious calcifications. ARCHITECTURAL DISTORTION: None. ASYMMETRY: None noted. OTHER: No other significant findings. LEFT BREAST MASSES: No suspicious masses. CALCIFICATIONS: No new or suspicious calcifications. ARCHITECTURAL DISTORTION: None. ASYMMETRY: None noted. OTHER: No other significant finding. IMPRESSION: No mammographic/ tomosynthesis evidence for malignancy bilaterally. BREAST DENSITY: a. The breasts are almost entirely fatty. BIRAD: ASSESSMENT: 1 Negative. RECOMMENDATION: RECOMMENDED FOLLOW UP: Please continue yearly bilateral screening mammography/tomosy nthesis October 2020 SPECIFIC INTERVENTION/IMAGING/CONSULTATION RECOMMENDED:No additional intervention/ imaging/consultati on needed at this time. COMMUNICATION:The negative/benign results were communicated to the patient. COMMENT: The patient has been notified of the results by letter per MQSA requirements. Additional no tification policies are in place for contacting patient with suspicious or incomplete findings. Quality ID #[id number]: The [employer] recommends an annual screening mammogram for women aged 40 years or over. This facility utilizes a reminder system to ensure that all patients receive reminder letters, and/or direct phone calls for appointments. This includes reminders for routine scr eening mammograms, diagnostic mammograms, or other Breast Imaging Interventions when appropriate. Th is patient will be placed in the appropriate reminder system. TECHNICAL DOCUMENTATION: FINDING NUMBER: (1) ASSESSMENT: (1) JOB ID: [id number] 2010 [employer]- All Rights Reserved Reading location - IP/workstation name: [email or web address]
== END ==
LOC: WI 09:35
PROVIDERS: ATTEND Physician Assistant
DX: N63.11 Unspecified lump in the right breast, upper outer quadrant (principal)
CPT/HCPCS: 76641; 77066; G0279; 77062

== ENCOUNTER 2020-04-23 13:26 | Emergency (ER) | payer MEDICAID ==
--- NOTE | 2020-04-23 14:15 | ER Document Report ---
ED Medical Screen (RME) - General Chief Complaint: Rectal Bleeding Stated Complaint: NAUSEA,VOMITING,VAGINAL BLEEDING Time Seen by Provider: 04/23/20 14:03 Primary Care Provider: MONICA LINDA PA [Primary Care Provider] - Follow up as needed Mode of Arrival: Wheelchair Information source: Patient Notes: Patient is a 49-year-old female with multiple comorbidities presents emergency department with multiple complaints today. Patient reports history of GI bleed, states she is having maroon-colored stools for the last 2 weeks. She is also complaining of dizziness, generalized malaise and intermittent confusion. Patient reports she does not know how she got here today although she drove herself. She denies any chest pain or shortness of breath. She is alert and oriented. She does report a history of a brain tumor that she states is inoperable, this has not been imaged for quite some time. I advised patient that she should not be driving until all of her symptoms have resolved if she is having so much confusion that she is not sure how she got here. I have greeted and performed a rapid initial assessment of this patient. A comprehensive ED assessment and evaluation of the patient, analysis of test results and completion of the medical decision making process will be conducted by additional ED providers. I have specifically instructed the patient or family members with the patient to immediately return to any nursing staff should anything change in the patient's condition or with their chief complaint. TRAVEL OUTSIDE OF THE [place] IN LAST 30 DAYS: No - Related Data Allergies/Adverse Reactions: celecoxib [From Celebrex] Allergy (Severe, Verified 04/23/20 14:07) Swelling of hands and/or feet clarithromycin [From Biaxin] Allergy (Severe, Verified 04/23/20 14:07) Swelling of hands and/or feet latex [Latex] Allergy (Severe, Verified 04/23/20 14:07) Anaphylaxis nitrofurantoin [From Macrobid] Allergy (Severe, Verified 04/23/20 14:07) Hives Sulfa (Sulfonamide Antibiotics) Allergy (Severe, Verified 04/23/20 14:07) Hives adalimumab [From Humira] Allergy (Verified 04/23/20 14:07) Edema losartan [Losartan] Allergy (Verified 04/23/20 14:07) metformin [Metformin] Allergy (Verified 04/23/20 14:07) promethazine HCl [From Phenergan] Allergy (Verified 04/23/20 14:07) Cerebellar dysfunction rofecoxib [From Vioxx] Allergy (Verified 04/23/20 14:07) Swelling of hands and/or feet prochlorperazine maleate [From Compazine] Adverse Reaction (Verified 04/23/20 14:07) Cerebellar dysfunction bananas Allergy (Severe, Uncoded 11/10/18 09:54) Difficulty breathing Past Medical History - Social History Frequency of alcohol use: Rare Drug Abuse: None Family history: CAD, CVA, DM, Hyperlipidemia, Hypertension, Malignancy, Thyroid Disfunction - Past Medical History Cardiac Medical History: Reports: Hx Atrial Fibrillation, Hx Hypertension, Hx Heart Murmur Denies: Hx Coronary Artery Disease Pulmonary Medical History: Reports: Hx Asthma, Hx Pneumonia Neurological Medical History: Reports: Hx Migraine Endocrine Medical History: Reports: Hx Diabetes Mellitus Type 2, Hx Hypothyroidism Renal/ Medical History: Reports: Hx Ovarian Cysts - 6 Polyps, Hx Pelvic Inflammatory Disease. Denies: Hx Peritoneal Dialysis GI Medical History: Reports: Hx Crohn's Disease, Hx Gastroesophageal Reflux Disease, Hx Hiatal Hernia, Hx Irritable Bowel, Hx Ulcer - peptic ulcer Musculoskeltal Medical History: Reports Hx Arthritis - ANKYLOSING SPONDYLITIS, SEEN BY [email or web address]@ [facility]. Psychiatric Medical History: Reports: Hx Depression, Hx Post Traumatic Stress Disorder Traumatic Medical History: Reports: Hx Fractures - feet Infectious Medical History: Reports: Hx C-Diff Past Surgical History: Reports: Hx Appendectomy, Hx Section, Hx Cholecystectomy, Hx Gynecologic Surgery - bladder sling, Hx Hysterectomy, Hx Urinary Tract Surgery - Immunizations Immunizations up to date: Yes Hx Diphtheria, Pertussis, Tetanus Vaccination: Yes Physical Exam - Vital signs Vitals: Temp Pulse Resp BP Pulse Ox 99.3 F 82 18 135/70 H 97 04/23/20 13:52 04/23/20 13:52 04/23/20 13:52 04/23/20 13:52 04/23/20 13:52 Course - Vital Signs Vital signs: Temp Pulse Resp BP Pulse Ox 99.3 F 82 18 135/70 H 97 04/23/20 13:52 04/23/20 13:52 04/23/20 13:52 04/23/20 13:52 04/23/20 13:52 Doctor's Discharge - Discharge Referrals: MONICA LINDA PA [Primary Care Provider] - Follow up as needed
[2020-04-23 15:39] LABS: APPEARANCE,URINE SLIGHTLY-CLOUDY; BILIRUBIN,URINE NEGATIVE (NEGATIVE); COLOR,URINE YELLOW; GLUCOSE, URINE NEGATIVE (NEGATIVE); KETONES,URINE NEGATIVE (NEGATIVE); LEUKOCYTE ESTERASE,URINE NEGATIVE (NEGATIVE); NITRITE,URINE NEGATIVE (NEGATIVE); PROTEIN,URINE NEGATIVE (NEGATIVE); URINE SPECIFIC GRAVITY 1.016; UROBILINOGEN,URINE NEGATIVE mg/dL (<2.0)
--- NOTE | 2020-04-23 16:07 | RADIOLOGY REPORT (SQ) ---
EXAM DESCRIPTION: CT HEAD WITHOUT IMAGES COMPLETED DATE/TIME: 04/23/2020 3:55 pm REASON FOR STUDY: dizziness/confusion COMPARISON: 05/21/2019 TECHNIQUE: Axial images acquired through the brain without intravenous contrast. Images reviewed wi th bone, brain and subdural windows. Additional sagittal and coronal reconstructions were generated. Images stored on PACS. All CT scanners at this facility use dose modulation, iterative reconstruction, and/or weight based d osing when appropriate to reduce radiation dose to as low as reasonably achievable (ALARA). [facility]: Dose Right [facility]: CareDose [facility]: Dose Right [facility]: Teradose 4D [facility]: Smart [employer] RADIATION DOSE: CT Rad equipment meets quality standard of care and radiation dose reduction techniq ues were employed. CTDIvol: 53.2 mGy. DLP: 1044 mGy-cm. mGy. LIMITATIONS: None. FINDINGS: VENTRICLES: Normal size and contour. CEREBRUM: Focal partially calcified meningioma is again noted. Unchanged in size and configuration. Largest diameter is approximately 1.2 x 1.4 cm. No hemorrhage. No midline shift or mass effect. No rmal lepe/white matter differentiation. No areas of low density in the white matter. CEREBELLUM: No masses. No hemorrhage. No alteration of density. No evidence for acute infarction. EXTRAAXIAL SPACES: No fluid collections. No masses. ORBITS AND GLOBE: No intra- or extraconal masses. Normal contour of globe without masses. CALVARIUM: No fracture. PARANASAL SINUSES: No fluid or mucosal thickening. SOFT TISSUES: No mass or hematoma. OTHER: No other significant finding. IMPRESSION: 1. No acute intracranial event. 2. Stable 1.2 x 1.4 cm parafalcine meningioma. EVIDENCE OF ACUTE STROKE: NO. COMMENT: Quality ID # [id number]: Final reports with documentation of one or more dose reduction techniques (e.g., Automated exposure control, adjustment of the mA and/or kV according to patient size, use of iterative reconstruction technique) TECHNICAL DOCUMENTATION: JOB ID: [id number] [employer]- All Rights Reserved Reading location - IP/workstation name: [email or web address]
[2020-04-23] MEDS ORDERED: ONDANSETRON HCL INJ/PF 4 MG/2 ML SDV IV ONE (18:11)
[2020-04-23] MEDS ORDERED: HYDROMORPHONE HCL INJ/PF 2 MG/ML AMPULE IV ONE (18:11)
--- NOTE | 2020-04-23 18:17 | ER Document Report ---
ED General - General Chief Complaint: Rectal Bleeding Stated Complaint: NAUSEA,VOMITING,VAGINAL BLEEDING Time Seen by Provider: 04/23/20 14:03 Primary Care Provider: MONICA LINDA PA [NO LOCAL MD] - Follow up as needed Mode of Arrival: Wheelchair Information source: Patient Notes: Patient is a 49-year-old female coming in today with multiple complaints. Primarily she has been having blood per rectum for the past 4 days. Today with heavy clots. Blood is maroon-colored. She does not take any blood thinners. She states she is also got some dizziness going on without any chest pain or shortness of breath. She has a history of elevated pressure in her head which is followed by specialist at [place]. She is concerned that perhaps her pressures are higher than they have been in the past. Also remarks that she has some sort of a small tumor in her brain that has not been imaged in some time. TRAVEL OUTSIDE OF THE [place] IN LAST 30 DAYS: No - Related Data Allergies/Adverse Reactions: celecoxib [From Celebrex] Allergy (Severe, Verified 04/23/20 14:07) Swelling of hands and/or feet clarithromycin [From Biaxin] Allergy (Severe, Verified 04/23/20 14:07) Swelling of hands and/or feet latex [Latex] Allergy (Severe, Verified 04/23/20 14:07) Anaphylaxis nitrofurantoin [From Macrobid] Allergy (Severe, Verified 04/23/20 14:07) Hives Sulfa (Sulfonamide Antibiotics) Allergy (Severe, Verified 04/23/20 14:07) Hives adalimumab [From Humira] Allergy (Verified 04/23/20 14:07) Edema losartan [Losartan] Allergy (Verified 04/23/20 14:07) metformin [Metformin] Allergy (Verified 04/23/20 14:07) promethazine HCl [From Phenergan] Allergy (Verified 04/23/20 14:07) Cerebellar dysfunction rofecoxib [From Vioxx] Allergy (Verified 04/23/20 14:07) Swelling of hands and/or feet prochlorperazine maleate [From Compazine] Adverse Reaction (Verified 04/23/20 14:07) Cerebellar dysfunction bananas Allergy (Severe, Uncoded 11/10/18 09:54) Difficulty breathing Past Medical History - General Information source: Patient - Social History Smoking Status: Never Smoker Frequency of alcohol use: Rare Drug Abuse: None Family History: Reviewed & Not Pertinent, CAD, CVA, DM, Hyperlipidemia, Hypertension, Malignancy, Thyroid Disfunction - Past Medical History Cardiac Medical History: Reports: Hx Atrial Fibrillation, Hx Hypertension, Hx Heart Murmur Denies: Hx Coronary Artery Disease Pulmonary Medical History: Reports: Hx Asthma, Hx Pneumonia Neurological Medical History: Reports: Hx Migraine Endocrine Medical History: Reports: Hx Diabetes Mellitus Type 2, Hx Hypothyroidism Renal/ Medical History: Reports: Hx Ovarian Cysts - 6 Polyps, Hx Pelvic Inflammatory Disease. Denies: Hx Peritoneal Dialysis GI Medical History: Reports: Hx Crohn's Disease, Hx Gastroesophageal Reflux Disease, Hx Hiatal Hernia, Hx Irritable Bowel, Hx Ulcer - peptic ulcer Musculoskeletal Medical History: Reports Hx Arthritis - ANKYLOSING SPONDYLITIS, SEEN BY [email or web address]@ [facility]. Psychiatric Medical History: Reports: Hx Depression, Hx Post Traumatic Stress Disorder Traumatic Medical History: Reports: Hx Fractures - feet Infectious Medical History: Reports: Hx C-Diff Past Surgical History: Reports: Hx Appendectomy, Hx Section, Hx Cholecystectomy, Hx Gynecologic Surgery - bladder sling, Hx Hysterectomy, Hx Urinary Tract Surgery - Immunizations Immunizations up to date: Yes Hx Diphtheria, Pertussis, Tetanus Vaccination: Yes Hx Pneumococcal Vaccination: 04/12/15 Review of Systems - Review of Systems Notes: Constitutional: No fevers. No chills. EENT: No eye redness. No eye pain. No ear pain. No sore throat. Cardiovascular: No chest pain. No palpitations. Respiratory: No cough. No shortness of breath. No respiratory distress. Gastrointestinal: Visited for lower abdominal pain, positive for hematochezia Genitourinary: Atraumatic. No lesions. No pain. No discharge. Musculoskeletal: Atraumatic. No swelling. No deformities. Skin: No rash or lesions. Lymphatic: No swollen lymph nodes. Neurologic: No headache. No syncope. Positive for dizziness Psychiatric: No suicidal or homicidal ideation. Physical Exam - Vital signs Vitals: Temp Pulse Resp BP Pulse Ox 99.3 F 82 18 135/70 H 97 04/23/20 13:52 04/23/20 13:52 04/23/20 13:52 04/23/20 13:52 04/23/20 13:52 - Notes Notes: General: Well-developed, well-nourished. In no acute distress. Non-toxic appearing. Cardiac: Well-perfused. Regular rate and rhythm. No murmurs, rubs, or gallops. Pulmonary: No respiratory distress. No cyanosis. Bilateral lung fiels are clear to auscultation. Abdominal: Non-distended. Non-rigid. Bowels sounds are present in all four quadrants. No guarding or rebound. Tenderness to palpation of the right and left lower quadrants. Digital rectal exam performed with Manasa ESCOBAR chaperoning in the room. There is no tenderness to the rectum. No redness no bleeding no swelling. The vault is empty. Hemoccult is faintly positive. HEENT: Head is atraumatic. Conjunctivae not reddened. No tearing. PERRL. EOMI. Orbits atraumatic. No periorbital swelling or erythema. Oropharynx is without erythema, swelling, or exudates. Neck: Supple. No adenopathy. No meningismus. Dermatologic: Warm with good turgor. No rash. Atraumatic. Chest: Atraumatic. No chest wall tenderness to palpation. Musculoskeletal: Moves all extremities well. No range of motion deficits. no muscular or joint tenderness. No paraspinal muscle tenderness. no midline spinal tenderness or step-off. Genitourinary: Examination deferred Neurologic: No gross neurologic deficits. Psychiatric: Normal mood. Course - Re-evaluation Re-evalutation: 04/23/20 18:14 Patient states she is having maroon-colored stools and passing clots. States she is having lower abdominal pain right and left lower quadrants. No fevers or chills. No weight loss. No chest pain or shortness of breath. Some mild di zziness but no syncope. CT of her brain is already been done. It shows a small unchanged meningioma. No other findings. Lab work is still pending. Given her abdominal pain and history of diverticulitis and rectal bleeding we will check a CT scan to see if there is any evidence of that. 04/24/20 00:01 Patient's labs are all back. H&H is stable. CT scan negative. Patient already has history of Crohn's disease suspect this may be related. She does not look very sick to me. I will have her follow-up with her primary care doctor - Vital Signs Vital signs: Temp Pulse Resp BP Pulse Ox 98 F 76 18 102/57 L 96 04/23/20 23:24 04/23/20 22:00 04/23/20 22:00 04/23/20 22:00 04/23/20 22:00 - Laboratory Result Diagrams: 04/23/20 20:15 04/23/20 20:15 Laboratory results interpreted by me: 04/23/20 04/23/20 20:15 20:15 WBC 10.9 H Chloride 109 H Carbon Dioxide 21 L AST 41 H Alkaline Phosphatase 129 H Albumin 3.4 L Discharge - Discharge Clinical Impression: Blood in stool, Dizziness Abdominal pain Qualifiers: Abdominal location: unspecified location Qualified Code(s): R10.9 - Unspecified abdominal pain Condition: Good Disposition: HOME, SELF-CARE Instructions: Abdominal Pain ([facility]) Referrals: PAWAN ARREOLA MD [Primary Care Provider] - Follow up as needed
[2020-04-23 20:42] LABS: ABSOLUTE BASOPHILS # (AUTO) 0.1 10^3/uL (0.0-0.2); ABSOLUTE EOSINOPHILS # (AUTO) 0.3 10^3/uL (0.0-0.6); ABSOLUTE LYMPHOCYTES (AUTO) 3.1 10^3/uL (0.5-4.7); ABSOLUTE MONOCYTES (AUTO) 0.6 10^3/uL (0.1-1.4); ABSOLUTE NEUT (AUTO) 6.8 10^3/uL (1.7-8.2); BASOPHILS % (AUTO) 0.7 % (0-2); HEMATOCRIT 36.9 % (36.0-47.0); HEMOGLOBIN 12.4 g/dL (12.0-15.5); LYMPHOCYTES % (AUTO) 28.1 % (13-45); MEAN CORPUSCULAR HEMOGLOBIN 30.3 pg (27.0-33.4); MEAN CORPUSCULAR HGB CONC 33.7 g/dL (32.0-36.0); MEAN CORPUSCULAR VOLUME 90 fl (80-97); PLATELET COUNT 328 10^3/uL (150-450); SEGMENTED NEUTROPHILS % (AUTO) 62.2 % (42-78); TOTAL CELLS COUNTED % (AUTO) 100 %; WHITE BLOOD COUNT 10.9 10^3/uL (4.0-10.5)
[2020-04-23 21:02] LABS: ALBUMIN 3.4 g/dL (3.5-5.0); ALKALINE PHOSPHATASE 129 U/L (38-126); ANION GAP 7 (5-19); ASPARTATE AMINO TRANSFERASE 41 U/L (14-36); BILIRUBIN,DIRECT 0.2 mg/dL (0.0-0.4); BILIRUBIN,TOTAL 0.4 mg/dL (0.2-1.3); BLOOD UREA NITROGEN 14 mg/dL (7-20); CALCIUM 8.7 mg/dL (8.4-10.2); CARBON DIOXIDE 21 mmol/L (22-30); CHLORIDE 109 mmol/L (98-107); GLUCOSE 102 mg/dL (75-110); POTASSIUM 4.2 mmol/L (3.6-5.0); TOTAL PROTEIN 6.5 g/dL (6.3-8.2)
[2020-04-23 21:19] LABS: PROTHROMBIN TIME 14.4 SEC (11.4-15.4)
[2020-04-23 21:20] LABS: PARTIAL THROMBOPLASTIN TIME 29.9 SEC (23.5-35.8)
--- NOTE | 2020-04-23 23:20 | RADIOLOGY REPORT (SQ) ---
EXAM DESCRIPTION: CT ABDOMEN PELVIS WITH IV CONTRAST COMPLETED DATE/TME: 04/23/2020 18:19 CLINICAL HISTORY: 49 years, Female, lower abdominal pain COMPARISON: 05/19/2019 CT TECHNIQUE: 840 Images stored on PACS. All CT scanners at this facility use dose modulation, iterative reconstruction, and/or weight based dosing when appropriate to reduce radiation dose to as low as reasonably achievable (ALARA). [facility]: Dose Right [facility]: CareDose [facility]: Dose Right [facility]: Teradose 4D [facility]: [employer] LIMITATIONS: None. FINDINGS: The visualized lung bases are unremarkable. Osseous structures are grossly intact. Fatty infiltrative change to the liver. Status post cholecystectomy. The adrenal glands, spleen, pancreas, kidneys are unremarkable. No gross evidence for bowel obstruction. Surgical clips right lower quadrant. No free air or free fluid. Occasional sigmoid diverticuli without CT evidence for diverticulitis. IMPRESSION: No acute intra-abdominal/pelvic process. Occasional sigmoid diverticuli without CT evidence for diverticulitis. Fatty infiltrative change to the liver TECHNICAL DOCUMENTATION: Quality ID # [id number]: Final reports with documentation of one or more dose reduction techniques (e.g., Automated exposure control, adjustment of the mA and/or kV according to patient size, use of iterative reconstruction technique) copyright 2010 [employer]- All Rights Reserved
[2020-04-24] MEDS ORDERED: HYDROMORPHONE HCL INJ/PF 2 MG/ML AMPULE IM ONE (00:01)
[2020-04-24 00:41] VITALS: BP 126/56
== END 2020-04-24 01:31 | disposition home or self-care (01) ==
LOC: ER 13:26
DX: K57.31 Diverticulosis of large intestine without perforation or abscess with bleeding (principal); R42 Dizziness and giddiness; K76.0 Fatty (change of) liver, not elsewhere classified; R41.0 Disorientation, unspecified; R10.31 Right lower quadrant pain; R10.32 Left lower quadrant pain; R10.813 Right lower quadrant abdominal tenderness; R10.814 Left lower quadrant abdominal tenderness; D32.0 Benign neoplasm of cerebral meninges; I10 Essential (primary) hypertension; E11.9 Type 2 diabetes mellitus without complications; J45.909 Unspecified asthma, uncomplicated; Z88.8 Allergy status to other drugs, medicaments and biological substances; Z88.1 Allergy status to other antibiotic agents; Z87.892 Personal history of anaphylaxis; Z91.040 Latex allergy status; Z91.018 Allergy to other foods
CPT/HCPCS: 99285; 96372; 96374; 96375; 86900; 86901; 36415; 86850; 85025; 85610; 85730; 82270; 80053; 81001; 70450; 74177; J1170 ×2; J2405; J1642

== ENCOUNTER 2020-05-05 20:02 | Emergency (ER) | payer MEDICAID ==
--- NOTE | 2020-05-05 20:19 | ER Document Report ---
ED Medical Screen (RME) - General Chief Complaint: Abdominal Pain Stated Complaint: ABDOMINAL PAIN Time Seen by Provider: 05/05/20 20:12 Primary Care Provider: PAWAN ARREOLA MD [Primary Care Provider] - Follow up as needed Mode of Arrival: Wheelchair Information source: Patient Notes: 50-year-old female presents to ED for complaint diarrhea with positive Hemoccult for the last 4 to 6 weeks. She developed nausea vomiting fever and abdominal pain starting. She has alkalosis spondylitis the feeder operator automatic for this. She states that her feeder operator automatic told her come to the ED as she just started a new biologic yesterday. She states she had C. difficile in May 2019 and about a year ago she was in the hospital for sepsis osteomyelitis in her left toe. She states she does have diabetes. I have greeted and performed a rapid initial assessment of this patient. A comprehensive ED assessment and evaluation of the patient, analysis of test results and completion of medical decision making process will be conducted by an additional ED providers. TRAVEL OUTSIDE OF THE [place] IN LAST 30 DAYS: No - Related Data Allergies/Adverse Reactions: celecoxib [From Celebrex] Allergy (Severe, Verified 04/23/20 14:07) Swelling of hands and/or feet clarithromycin [From Biaxin] Allergy (Severe, Verified 04/23/20 14:07) Swelling of hands and/or feet latex [Latex] Allergy (Severe, Verified 04/23/20 14:07) Anaphylaxis nitrofurantoin [From Macrobid] Allergy (Severe, Verified 04/23/20 14:07) Hives Sulfa (Sulfonamide Antibiotics) Allergy (Severe, Verified 04/23/20 14:07) Hives adalimumab [From Humira] Allergy (Verified 04/23/20 14:07) Edema losartan [Losartan] Allergy (Verified 04/23/20 14:07) metformin [Metformin] Allergy (Verified 04/23/20 14:07) promethazine HCl [From Phenergan] Allergy (Verified 04/23/20 14:07) Cerebellar dysfunction rofecoxib [From Vioxx] Allergy (Verified 04/23/20 14:07) Swelling of hands and/or feet prochlorperazine maleate [From Compazine] Adverse Reaction (Verified 04/23/20 14:07) Cerebellar dysfunction bananas Allergy (Severe, Uncoded 11/10/18 09:54) Difficulty breathing Past Medical History - Social History Family history: CAD, CVA, DM, Hyperlipidemia, Hypertension, Malignancy, Thyroid Disfunction - Past Medical History Cardiac Medical History: Reports: Hx Atrial Fibrillation, Hx Hypertension, Hx Heart Murmur Denies: Hx Coronary Artery Disease Pulmonary Medical History: Reports: Hx Asthma, Hx Pneumonia Neurological Medical History: Reports: Hx Migraine Endocrine Medical History: Reports: Hx Diabetes Mellitus Type 2, Hx Hypothyroidism Renal/ Medical History: Reports: Hx Ovarian Cysts - 6 Polyps, Hx Pelvic Inflammatory Disease. Denies: Hx Peritoneal Dialysis GI Medical History: Reports: Hx Crohn's Disease, Hx Gastroesophageal Reflux Disease, Hx Hiatal Hernia, Hx Irritable Bowel, Hx Ulcer - peptic ulcer Musculoskeltal Medical History: Reports Hx Arthritis - ANKYLOSING SPONDYLITIS, SE[email or web address] Psychiatric Medical History: Reports: Hx Depression, Hx Post Traumatic Stress Disorder Traumatic Medical History: Reports: Hx Fractures - feet Infectious Medical History: Reports: Hx C-Diff Past Surgical History: Reports: Hx Appendectomy, Hx Section, Hx Cholecystectomy, Hx Gynecologic Surgery - bladder sling, Hx Hysterectomy, Hx Urinary Tract Surgery - Immunizations Immunizations up to date: Yes Hx Diphtheria, Pertussis, Tetanus Vaccination: Yes Physical Exam - Vital signs Vitals: Temp Pulse Resp BP Pulse Ox 99.6 F 126 H 20 156/87 H 95 05/05/20 20:08 05/05/20 20:08 05/05/20 20:08 05/05/20 20:08 05/05/20 20:08 Course - Vital Signs Vital signs: Temp Pulse Resp BP Pulse Ox 99.6 F 126 H 20 156/87 H 95 05/05/20 20:08 05/05/20 20:08 05/05/20 20:08 05/05/20 20:08 05/05/20 20:08 Doctor's Discharge - Discharge Referrals: PAWAN ARREOLA MD [Primary Care Provider] - Follow up as needed
[2020-05-05] MEDS ORDERED: ACETAMINOPHEN 325 MG TABLET PO ONE (20:20)
[2020-05-05] MEDS ORDERED: PIPERACILLIN/TAZOBACTAM 4.5 GM VIAL IV ONE (20:20)
--- NOTE | 2020-05-05 21:12 | RADIOLOGY REPORT (SQ) ---
EXAM DESCRIPTION: XR CHEST 1 VIEW COMPLETED DATE/TME: 05/05/2020 20:20 CLINICAL HISTORY: 50 years, Female, Nausea vomiting diarrhea history sepsis COMPARISON: Prior study from 11/10/2018 NUMBER OF VIEWS: One TECHNIQUE: Single frontal view of the chest was obtained portably LIMITATIONS: None. FINDINGS: Right IJ approach central venous port catheter tip is located within the SVC. Cardiac and mediastinal contours are stable. Lungs are clear. No pleural effusion or pneumothorax. IMPRESSION: No acute disease. copyright 2010 [employer]- All Rights Reserved
[2020-05-05 21:41] LABS: ABSOLUTE BASOPHILS # (AUTO) 0.1 10^3/uL (0.0-0.2); ABSOLUTE EOSINOPHILS # (AUTO) 0.3 10^3/uL (0.0-0.6); ABSOLUTE LYMPHOCYTES (AUTO) 3.2 10^3/uL (0.5-4.7); ABSOLUTE MONOCYTES (AUTO) 0.6 10^3/uL (0.1-1.4); ABSOLUTE NEUT (AUTO) 6.9 10^3/uL (1.7-8.2); EOSINOPHILS % (AUTO) 2.4 % (0-6); HEMATOCRIT 35.9 % (36.0-47.0); LYMPHOCYTES % (AUTO) 28.7 % (13-45); MEAN CORPUSCULAR HEMOGLOBIN 29.9 pg (27.0-33.4); MEAN CORPUSCULAR HGB CONC 33.5 g/dL (32.0-36.0); MEAN CORPUSCULAR VOLUME 89 fl (80-97); MONOCYTES % (AUTO) 5.7 % (3-13); PLATELET COUNT 319 10^3/uL (150-450); RED BLOOD COUNT 4.01 10^6/uL (3.72-5.28); RED CELL DISTRIBUTION WIDTH 14.3 % (11.5-14.0); SEGMENTED NEUTROPHILS % (AUTO) 62.2 % (42-78); TOTAL CELLS COUNTED % (AUTO) 100 %; WHITE BLOOD COUNT 11.1 10^3/uL (4.0-10.5)
[2020-05-05 21:50] LABS: VENOUS BLOOD BASE EXCESS 0.9 mmol/L; VENOUS BLOOD HCO3 26.2 mmol/L (20-32); VENOUS BLOOD PCO2 44.1 mmHg (35-63); VENOUS BLOOD PH 7.39 (7.30-7.42)
[2020-05-05 22:01] LABS: INTERNATIONAL RATION (INR) 1.04; PROTHROMBIN TIME 13.8 SEC (11.4-15.4)
[2020-05-05 22:10] LABS: ALBUMIN 3.7 g/dL (3.5-5.0); ALKALINE PHOSPHATASE 103 U/L (38-126); ANION GAP 8 (5-19); ASPARTATE AMINO TRANSFERASE 25 U/L (14-36); BILIRUBIN,DIRECT 0.3 mg/dL (0.0-0.4); BILIRUBIN,TOTAL 0.4 mg/dL (0.2-1.3); BLOOD UREA NITROGEN 14 mg/dL (7-20); CALCIUM 9.1 mg/dL (8.4-10.2); CARBON DIOXIDE 25 mmol/L (22-30); CHLORIDE 103 mmol/L (98-107); GLUCOSE 151 mg/dL (75-110); POTASSIUM 4.2 mmol/L (3.6-5.0); TOTAL PROTEIN 6.6 g/dL (6.3-8.2)
[2020-05-05] MEDS ORDERED: ONDANSETRON HCL INJ/PF 4 MG/2 ML SDV IV ONE (22:17)
--- NOTE | 2020-05-05 22:49 | ER Document Report ---
ED GI/ - General Chief Complaint: Nausea/Vomiting/Diarrhea Stated Complaint: ABDOMINAL PAIN Time Seen by Provider: 05/05/20 20:12 Primary Care Provider: PAWAN ABEBE MD [Primary Care Provider] - Follow up as needed Mode of Arrival: Wheelchair Information source: Patient Notes: 05/05/20 20:14 - [id number] 1970 Patient Age: 50 Pt reports diarrhea x4-5 weeks with a positive hemoccult. Reports she called her daughter who suspects an infection. reports hx of ancholosis spendylitis. reports nausea,fever, and vomiting since yesterday. ED Medical Screen (Andrew notes) - General Chief Complaint: Abdominal Pain Stated Complaint: ABDOMINAL PAIN Time Seen by Provider: 05/05/20 20:12 Primary Care Provider: PAWAN ABEBE MD [Primary Care Provider] - Follow up as needed Mode of Arrival: Wheelchair Information source: Patient Notes: 50-year-old female presents to ED for complaint diarrhea with positive Hemoccult for the last 4 to 6 weeks. She developed nausea vomiting fever and abdominal pain starting. 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 She states that her assistant football coach told her come to the ED as she just started a new biologic yesterday. She states she had C. difficile in May 2019 and about a year ago she was in the hospital for sepsis osteomyelitis in her left toe. She states she does have diabetes. MY NOTES 50-year-old morbidly obese female arrives with chief complaint of having bilateral lower quadrant abdominal pain and left upper quadrant abdominal pain for more than 24 hours. She just began Stelara for her ankylosing spondylitis as prescribed by her [place] assistant football coach. Patient has a hi story of diverticulitis with recent event of bloody diarrhea. She takes Diamox for her intracranial hypertension and was told to stop this over the last day or 2 because of her bloody diarrhea. Patient used to be on Remicade for several years as well as Humira but developed a rash and no longer uses these. Patient reports she had C diff when she was hospitalized at [place] last year. She was there after being seen here and shipped because of left toe osteomyelitis and sepsis. In February patient C-reactive protein was 40. 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 Patient reports she had her first right chest port in 2011 and she is currently on her second . Patient reports she been running fever ever since she got her Stelara shot and was told to come to the ER if it continues greater than 24 hours. TRAVEL OUTSIDE OF THE [place] IN LAST 30 DAYS: No - Related Data Allergies/Adverse Reactions: celecoxib [From Celebrex] Allergy (Severe, Verified 04/23/20 14:07) Swelling of hands and/or feet clarithromycin [From Biaxin] Allergy (Severe, Verified 04/23/20 14:07) Swelling of hands and/or feet latex [Latex] Allergy (Severe, Verified 04/23/20 14:07) Anaphylaxis nitrofurantoin [From Macrobid] Allergy (Severe, Verified 04/23/20 14:07) Hives Sulfa (Sulfonamide Antibiotics) Allergy (Severe, Verified 04/23/20 14:07) Hives adalimumab [From Humira] Allergy (Verified 04/23/20 14:07) Edema losartan [Losartan] Allergy (Verified 04/23/20 14:07) metformin [Metformin] Allergy (Verified 04/23/20 14:07) promethazine HCl [From Phenergan] Allergy (Verified 04/23/20 14:07) Cerebellar dysfunction rofecoxib [From Vioxx] Allergy (Verified 04/23/20 14:07) Swelling of hands and/or feet prochlorperazine maleate [From Compazine] Adverse Reaction (Verified 04/23/20 14:07) Cerebellar dysfunction bananas Allergy (Severe, Uncoded 11/10/18 09:54) Difficulty breathing Past Medical History - General Information source: Patient - Social History Smoking Status: Never Smoker Chew tobacco use (# tins/day): No Drug Abuse: None Family History: Reviewed & Not Pertinent, CAD, CVA, DM, Hyperlipidemia, Hypertension, Malignancy, Thyroid Disfunction - Past Medical History Cardiac Medical History: Reports: Hx Atrial Fibrillation, Hx Hypertension, Hx Heart Murmur Denies: Hx Coronary Artery Disease Pulmonary Medical History: Reports: Hx Asthma, Hx Pneumonia Neurological Medical History: Reports: Hx Migraine Endocrine Medical History: Reports: Hx Diabetes Mellitus Type 2, Hx Hypothyr oidism Renal/ Medical History: Reports: Hx Ovarian Cysts - 6 Polyps, Hx Pelvic Inflammatory Disease. Denies: Hx Peritoneal Dialysis GI Medical History: Reports: Hx Crohn's Disease, Hx Gastroesophageal Reflux Disease, Hx Hiatal Hernia, Hx Irritable Bowel, Hx Ulcer - peptic ulcer Musculoskeletal Medical History: Reports Hx Arthritis - ANKYLOSING SPONDYLITIS, SEEN BY [email or web address]. Psychiatric Medical History: Reports: Hx Depression, Hx Post Traumatic Stress Disorder Traumatic Medical History: Reports: Hx Fractures - feet Infectious Medical History: Reports: Hx C-Diff Past Surgical History: Reports: Hx Appendectomy, Hx Section, Hx Cholecystectomy, Hx Gynecologic Surgery - bladder sling, Hx Hysterectomy, Hx Urinary Tract Surgery - Immunizations Immunizations up to date: Yes Hx Diphtheria, Pertussis, Tetanus Vaccination: Yes Hx Pneumococcal Vaccination: 04/12/15 Physical Exam - Vital signs Vitals: Temp Pulse Resp BP Pulse Ox 99.6 F 126 H 20 156/87 H 95 05/05/20 20:08 05/05/20 20:08 05/05/20 20:08 05/05/20 20:08 05/05/20 20:08 Interpretation: Tachycardic, Febrile - General General appearance: Appears well, Alert - HEENT Head: Normocephalic Eyes: Normal Extraocular movements intact: Yes Eyelashes: Normal Pupils: PERRL Nasal: Normal Mouth/Lips: Other - Mucoid posterior oral pharyngeal as well as tongue. No white yeast on inspection. Mucous membranes: Dry - Respiratory Respiratory status: No respiratory distress Chest status: Nontender Breath sounds: Normal Chest palpation: Normal - Cardiovascular Rhythm: Tachycardia Heart sounds: Normal auscultation Murmur: No - Abdominal Inspection: Morbidly Obese Distension: No distension Bowel sounds: Hyperactive Tenderness: Tender - RLQ LLQ LUQ abdominal area Organomegaly: No organomegaly - Rectal Tenderness: Yes - Genitourinary Bimanuel exam: Other - deferred - Back Back: Normal, Nontender - Extremities General upper extremity: Normal inspection, Nontender, Normal color, Normal ROM, Normal temperature General lower extremity: Normal inspection, Nontender, Normal color, Normal ROM, Normal temperature, Normal weight bearing. No: Jazmine's sign - Neurological Neuro grossly intact: Yes Cognition: Normal Orientation: AAOx4 Sheela Coma Scale Eye Opening: Spontaneous Sheela Coma Scale Verbal: Oriented Sheela Coma Scale Motor: Obeys Commands Sheela Coma Scale Total: 15 Speech: Normal Motor strength normal: LUE, RUE, LLE, RLE Sensory: Normal - Psychological Associated symptoms: Normal affect, Normal mood - Skin Skin Temperature: Warm Skin Moisture: Dry Skin Color: Normal Course - Vital Signs Vital signs: Temp Pulse Resp BP Pulse Ox 99.3 F 126 H 20 156/87 H 97 05/05/20 21:50 05/05/20 20:08 05/05/20 20:08 05/05/20 20:08 05/05/20 22:13 - Laboratory Result Diagrams: 05/05/20 21:26 05/05/20 21:26 Laboratory results interpreted by me: 05/05/20 05/05/20 21:26 21:26 WBC 11.1 H Hct 35.9 L RDW 14.3 H Sodium 135.8 L Glucose 151 H - Diagnostic Test Radiology reviewed: Reports reviewed - EKG Interpretation by Me EKG shows normal: Sinus rhythm Rate: Tachycardia Rhythm: NSR - Heart rate with [address] elevation no ST depression no T wave depression no T wave elevation and this was read by myself as agreement with EKG machine Critical Care Note - Critical Care Note Comments: I spoke to Dr. Diehl about Dr. Abebe's patient Ms. Beatriz Li and he advises calling Thursday in order to be evaluated as outpatient at clinic. Patient does not meet any criteria tonight for any admission or transfer to [facility]. I advised patient of these labs and CT x-ray findings and she appears to understand. I did write for IV antifungal medications. Discharge - Discharge Clinical Impression: on for anklylosing spondylitis, COVID-19 virus test result unknown Abdominal pain Qualifiers: Abdominal location: generalized Qualified Code(s): R10.84 - Generalized abdominal pain Ankylosing spondylitis Qualifiers: Ankylosing spondylitis location: lumbar region Qualified Code(s): M45.6 - Ankylosing spondylitis lumbar region Fever Qualifiers: Fever type: unspecified Qualified Code(s): R50.9 - Fever, unspecified Condition: Stable Disposition: HOME, SELF-CARE Additional Instructions: Follow-up on Thursday with Dr. Abebe in office. May call. Try to stay quarantined until [place] COVID-19 test returns. May take Tylenol for pain and fever. Prescriptions: Ciprofloxacin HCl [Cipro 500 mg Tablet] 500 mg PO BID #6 tablet Referrals: PAWAN ABEBE MD [Primary Care Provider] - Follow up as needed
[2020-05-05] MEDS ORDERED: MORPHINE SULFATE 10 MG/ML INJ IV ONE (23:12)
--- NOTE | 2020-05-06 00:34 | RADIOLOGY REPORT (SQ) ---
CT ABDOMEN PELVIS WITHOUT IV CONTRAST HISTORY: Lower abdominal pain. COMPARISON: 05/19/2019 TECHNIQUE: CT scan of the abdomen and pelvis was performed without IV contrast. This exam was performed according to our departmental dose-optimization program, which includes automated exposure control, adjustment of the mA and/or kV according to patient size and/or use of iterative reconstruction technique. FINDINGS: The lung bases are clear. No pleural or pericardial effusions. There is no hiatal hernia. There has been a prior cholecystectomy and hysterectomy. The liver, spleen, pancreas, adrenal glands, and kidneys are unremarkable. No hydronephrosis or urinary stones are seen. Normal urinary bladder. There has been a prior appendectomy. The remainder of the small and large bowel are normal without obstruction or inflammation. The stomach is also normal. No free fluid, free air, or adenopathy is seen. The aorta is normal in caliber. No acute bony findings are seen. No abnormal body wall hernia. IMPRESSION: No acute abdominal or pelvic findings.
[2020-05-06] MEDS ORDERED: FLUCONAZOLE 200 MG/NS RTU 200 MG/100 ML RTUPB IV ONE (00:42)
[2020-05-06] MEDS ORDERED: FLUCONAZOLE 100 MG TABLET PO ONE (02:01)
[2020-05-06 02:31] VITALS: BP 138/79
--- NOTE | 2020-05-06 19:23 | EKG REPORT ---
SEVERITY:- BORDERLINE ECG - SINUS TACHYCARDIA BORDERLINE R WAVE PROGRESSION, ANTERIOR LEADS : Confirmed by: Jerry Gusman MD 06-May-2020 19:22:14
== END 2020-05-06 02:31 | disposition home or self-care (01) ==
LOC: ER 20:02
DX: R10.84 Generalized abdominal pain (principal); R11.2 Nausea with vomiting, unspecified; R19.7 Diarrhea, unspecified; K92.1 Melena; R50.9 Fever, unspecified; I10 Essential (primary) hypertension; M45.6 Ankylosing spondylitis lumbar region; J45.909 Unspecified asthma, uncomplicated; E11.9 Type 2 diabetes mellitus without complications; Z87.19 Personal history of other diseases of the digestive system; Z90.49 Acquired absence of other specified parts of digestive tract; Z90.710 Acquired absence of both cervix and uterus; Z88.8 Allergy status to other drugs, medicaments and biological substances; Z88.1 Allergy status to other antibiotic agents; Z87.892 Personal history of anaphylaxis; Z91.040 Latex allergy status; Z88.2 Allergy status to sulfonamides; Z91.018 Allergy to other foods; Z20.828 Contact with and (suspected) exposure to other viral communicable diseases
CPT/HCPCS: 93005; 99285; 96375; 96365; 36415; 87040; 83605; 85025; 85610; 87635; 80053; 82803; 71045; 74176; 93010; J3490 ×2; J2270; J2405; J2543; J1642; C9803